=== PATIENT | female | born 1970 | race Caucasian/White ===

== ENCOUNTER 2019-08-21 22:31 | Emergency (ER) | payer OTHER ==
[~2019-08-21] VITALS: Ht 147.3 cm; Wt 72.7 kg
[2019-08-21 23:10] LABS: BASO # 0.1 10^3/uL (0.0-0.2); BASO % 0.4 % (0.0-1.0); EOS # 0.2 10^3/uL (0.0-0.5); HEMATOCRIT 46.9 % (36.0-47.0); HEMOGLOBIN 15.6 g/dl (12.0-15.5); LYMPH # 3.5 10^3/uL (1.5-5.0); LYMPH % 21.1 % (24.0-44.0); MEAN CORPUSCULAR HEMOGLOBIN 29.7 pg (27.0-33.0); MEAN CORPUSCULAR HGB CONC 33.3 g/dl (32.0-36.5); MEAN CORPUSCULAR VOLUME 89.3 fl (80.0-96.0); MONO # 1.4 10^3/uL (0.0-0.8); MONO % 8.2 % (0.0-5.0); NEUTROPHILS # 11.4 10^3/uL (1.5-8.5); NEUTROPHILS % 68.8 % (36.0-66.0); PLATELET COUNT, AUTOMATED 409 10^3/uL (150-450); RED BLOOD COUNT 5.25 10^6/uL (4.00-5.40); WHITE BLOOD COUNT 16.5 10^3/uL (4.0-10.0)
[2019-08-21 23:51] LABS: BLOOD UREA NITROGEN 16 MG/DL (7-18); CALCIUM LEVEL 9.6 MG/DL (8.5-10.1); CARBON DIOXIDE LEVEL 29 MEQ/L (21-32); CHLORIDE LEVEL 97 MEQ/L (98-107); CREATININE FOR GFR 1.21 MG/DL (0.55-1.30); GLOMERULAR FILTRATION RATE 50.1 (>51); GLUCOSE, FASTING 109 MG/DL (70-100); POTASSIUM SERUM 3.2 MEQ/L (3.5-5.1); SODIUM LEVEL 137 MEQ/L (136-145)
[2019-08-22] MEDS ORDERED: POTASSIUM CHLORIDE 10 MEQ SR TABLET PO ONE (01:30)
[2019-08-22 01:54] LABS: CK-MB VALUE MASS < 1.0 NG/ML (<3.6); CPK CREATINE PHOSPHOKINASE 99 U/L (26-192); MB/CK RELATIVE INDEX 1.01 (< OR =4); TROPONIN I < 0.02 NG/ML (< 0.10)
[2019-08-22 02:00] VITALS: BP 111/73
--- NOTE | 2019-08-23 18:56 | ECGEPIP ---
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
== END 2019-08-22 02:37 | disposition home or self-care (01) ==
LOC: M ED 22:31
DX: E86.0 Dehydration (principal); E87.6 Hypokalemia

== ENCOUNTER → 2019-11-17 | Outpatient (REF) | payer OTHER ==
[2019-11-17 14:00] LABS: RHEUMATOID FACTOR QUANT < 10.0 IU/ML (<15.0); TOTAL PROTEIN 8.4 GM/DL (6.4-8.2)
[2019-11-18 10:51] LABS: ALBUMIN 4.49 GM/DL (3.29-5.55); ALBUMIN % 53.4 % (55.8-66.1); ALPHA-1-GLOBULIN % 5.3 % (2.9-4.9); ALPHA-1-GLOBULINS 0.45 GM/DL (0.17-0.41); ALPHA-2-GLOBULINS 1.04 GM/DL (0.42-0.99); ALPHA-2-GLOBULINS % 12.4 % (7.1-11.8); BETA-1-GLOBULINS 0.58 GM/DL (0.28-0.60); BETA-1-GLOBULINS % 6.9 % (4.7-7.2); BETA-2-GLOBULINS % 7.2 % (3.2-6.5); GAMMA GLOBULIN % 14.8 % (11.1-18.8); GAMMA GLOBULINS 1.24 GM/DL (0.65-1.58)
[2019-11-18 14:07] LABS: ANTINUCLEAR ANTIBODIES DIRECT Negative (Negative)
[2019-11-21 11:34] LABS: DRVV SCREEN 51.8 SEC
[2019-11-21 11:37] LABS: PTT LUPUS TYPE ANTICOAG SCREEN 1.3 (0-1.2)
[2019-11-21 12:05] LABS: DRVV CONFIRM 39.7 SEC; NORMALIZED RATIO 1.3 (0.00-1.20)
[2019-11-23 08:08] LABS: HEXAGONAL PHASE PHOSPHOLIPID 0 sec (0-11)
== END ==
LOC: M LABNEURO 10:59
PROVIDERS: ATTEND Psychiatry & Neurology Neurology
DX: M25.561 Pain in right knee (principal)

== ENCOUNTER 2020-04-06 11:17 | Emergency (ER) | payer OTHER | END 2020-04-06 11:47 | disposition home or self-care (01) | LOC: M ED 11:17 | DX: H00.015 Hordeolum externum left lower eyelid (principal); I10 Essential (primary) hypertension; K21.9 Gastro-esophageal reflux disease without esophagitis; F41.9 Anxiety disorder, unspecified; Z79.899 Other long term (current) drug therapy ==

== ENCOUNTER → 2020-07-09 | Outpatient (CLI) | payer OTHER ==
[2020-07-09 11:29] LABS: BLOOD UREA NITROGEN 12 MG/DL (7-18); CALCIUM LEVEL 9.2 MG/DL (8.5-10.1); CARBON DIOXIDE LEVEL 26 MEQ/L (21-32); CHLORIDE LEVEL 104 MEQ/L (98-107); CREATININE FOR GFR 0.91 MG/DL (0.55-1.30); GLOMERULAR FILTRATION RATE > 60.0 (>51); GLUCOSE, FASTING 100 MG/DL (70-100); SODIUM LEVEL 137 MEQ/L (136-145)
[2020-07-09 11:40] LABS: CORTISOL AM 10.6 UG/DL (4.3-22.4)
== END ==
LOC: M PLALAB 09:22 → M LAB 09:50
PROVIDERS: ATTEND Internal Medicine
DX: E87.6 Hypokalemia (principal); I10 Essential (primary) hypertension

== ENCOUNTER → 2020-09-14 | Outpatient (REF) | payer OTHER ==
[2020-09-14 12:56] LABS: BASO # 0.1 10^3/uL (0.0-0.2); BASO % 0.5 % (0.0-1.0); EOS # 0.2 10^3/uL (0.0-0.5); EOS % 1.9 % (0.0-3.0); HEMATOCRIT 42.8 % (36.0-47.0); HEMOGLOBIN 13.8 g/dl (12.0-15.5); LYMPH # 2.4 10^3/uL (1.5-5.0); LYMPH % 25.5 % (24.0-44.0); MEAN CORPUSCULAR HEMOGLOBIN 28.9 pg (27.0-33.0); MEAN CORPUSCULAR HGB CONC 32.2 g/dl (32.0-36.5); MEAN CORPUSCULAR VOLUME 89.7 fl (80.0-96.0); MONO # 0.8 10^3/uL (0.0-0.8); MONO % 8.1 % (0.0-5.0); NEUTROPHILS % 63.8 % (36.0-66.0); PLATELET COUNT, AUTOMATED 390 10^3/uL (150-450); RED BLOOD COUNT 4.77 10^6/uL (4.00-5.40); WHITE BLOOD COUNT 9.4 10^3/uL (4.0-10.0)
[2020-09-14 15:21] LABS: ALBUMIN 3.7 GM/DL (3.2-5.2); ALT/SGPT 37 U/L (12-78); BILIRUBIN,TOTAL 0.3 MG/DL (0.2-1.0); BLOOD UREA NITROGEN 12 MG/DL (7-18); CALCIUM LEVEL 9.3 MG/DL (8.5-10.1); CARBON DIOXIDE LEVEL 31 MEQ/L (21-32); CHLORIDE LEVEL 102 MEQ/L (98-107); CHOLESTEROL LEVEL 173 MG/DL (<200); CHOLESTEROL RISK RATIO 4.219 (<5); CREATININE FOR GFR 1.01 MG/DL (0.55-1.30); FERRITIN 112 NG/ML (8-252); GLOMERULAR FILTRATION RATE > 60.0 (>51); GLUCOSE, FASTING 101 MG/DL (70-100); HDL CHOLESTEROL 41 MG/DL (>40); IRON (FE) 55 UG/DL (50-170); LDL CHOLESTEROL 96 MG/DL (<100); NON-HDL-C 132 MG/DL; POTASSIUM SERUM 4.4 MEQ/L (3.5-5.1); SODIUM LEVEL 138 MEQ/L (136-145); TOTAL IRON BINDING CAPACITY 306 UG/DL (250-450); TOTAL PROTEIN 7.4 GM/DL (6.4-8.2); TRIGLYCERIDES LEVEL 182 MG/DL (<150)
== END ==
LOC: M LAB REF 12:27
PROVIDERS: ATTEND Physician Assistant
DX: R53.81 Other malaise (principal); D64.9 Anemia, unspecified; I10 Essential (primary) hypertension

== ENCOUNTER 2020-09-16 14:38 | Emergency (ER) | payer OTHER ==
[~2020-09-16] VITALS: Ht 147.3 cm; Wt 76.9 kg
[2020-09-16 14:39] VITALS: BP 137/100
--- OUTSIDE RECORDS SUMMARY | 2020-09-16 14:48 | CCD | Continuity of Care Document ---
Author Author Ofelia SHORE MD Organization Unknown Address [address] [place] [address] Phone [phone] Care Team Providers Care Bpm Architect Name Role Phone [facility] [phone] Yas Shore MD AUTM [phone] [facility] AUTM Problems Active Problems Provider Date Essential hypertension Yas Shore MD Onset: 06/16/20 Polycystic ovary syndrome Yas Shore MD Onset: 06/16 Anxiety state Yas Shore MD Onset: 06/16/2019 Gastroesophageal reflux disease Yas Shore MD Onset: 06/16/2019 Hyperlipidemia Yas Shore MD Onset: 08/12/2019 Hypokalemia Yas Shore MD Onset: 09/23/2019 Varicose veins of lower extremity Yas Shore MD Onse t: 11/20/2019 Syncope and collapse Yas Shore MD Onset: 03/26/2020 Overactive bladder Yas Shore MD Onset: 03/26/2020 Social History Type Date Description Comments Sex Unknown Tobacco Use Start: Unknown Never Smoked Cigarettes Tobacco Use Start: Unknown Never Smoked Cigars Tobacco Use Start: Unknown Never Smoked A Pipe Tobacco Use Start: Unknown Never Used Smokeless Tobacco ETOH Use Rarely consumes alcohol Tobacco Use Start: Unknown Patient has never smoked Recreational Drug Use Denies Drug Use Exercise Type/Frequency Does not exercise Guns in Home No Smoke Alarms Yes Smoke Alarms Carbon Monoxide Detector: Yes Allergies, Adverse Reactions, Alerts Active Allergies Reaction Severity Comments Date NKDA 06/16/2019 NKEA 06/16/2019 NKFA 06/16/2019 Medications Active Medications SIG Qnty Indications Ordering Provide r Date Lisinopril 5mg Tablets take one tablet by mouth every day 90tabs Yas Shore MD 05/28/2020 Atorvastatin Calcium 10mg Tablets take one tablet by mouth at bedtime 90tabs Yas Shore MD 08/12/2019 Vitamin D3 Super Strength 50mcg (2000 Ut) Tablets take one tablet by mouth every day 90tabs Yas west MD Potassium Chloride ER 20Meq Tablet s ER take one tablet by mouth twice a day 180tabs Yas otrres MD Duloxetine HCL 60mg Caps DR Part take one capsule by mouth every day 90caps Yas Shore MD Tolterodine Tartrate 2mg Tablets take one tablet by mouth twice a day for bladder overactivity 180tabs Yas Shore MD Gabapentin 300mg Capsules take one capsule by mouth twice a day 180caps Yas Shore MD Hydroxyzine HCL 10mg Tablets take one tablet by mouth at bedtime as needed to help with sleep 90tabs Yas Shore MD Pantoprazole Sodium 40mg Tablets D R take one tablet by mouth twice a day 180tabs Yas roa MD Prempro 0.3-1.5mg Tablets 1 by mouth daily 90tabs Yas Shore MD Albuterol Sulfate HFA 108(90Base) mcg/Act Aerosol Inhale 2 Puffs By Mouth Four Times A Day as Needed Unknown Oxybutynin Chloride ER 10mg Tablets ER 24HR Take One Tablet By Mouth Every Day For Overactive Bladder Unknown Immunizations CPT Code Status Date Vaccine Lot # [id number] Given 05/28/2020 Influenza (>= 6 Months) P.F. Vaccine [id number] Given 08/12/2019 Tdap (Boostrix/Adacel) Vacci ne [id number] Given 08/12/2019 Pneumococcal 13(Prevnar 13) Vaccine [id number] Given 06/16/2019 Influenza (>= 6 Months) P.F. Vaccine [id number] Vital Signs Date Vital Result Comment 05/28/2020 1:53pm BP Systolic 122 mmHg BP Diastolic 86 mmHg Heart Rate 109 /min Body Temperature 99.0 F O2 % BldC Oximetry 97 % Weight 165.00 lb Weight 74.844 kg Height 58 inches 4'10" BMI (Body Mass Index) 34.5 kg/m2 BSA (Body Surface Area) 1.68 m2 03/26/2020 10:50am BP Systolic 110 mmHg BP Diastolic 70 mmHg Heart Rate 108 /min Body Temperature 98.2 F Respiratory Rate 16 /min O2 % BldC Oximetry 98 % Weight 159.50 lb Weight 72.349 kg Height 58 inches 4'10" BMI (Body Mass Index) 33.3 kg/m2 BSA (Body Surface Area) 1.65 m2 Results Test Acquired Date Facility Test Result H/L Range Note Xray 05/07/[address], [address] [place] [id number] [phone] Mammo Screening Bilateral with CAD <pending> Procedures Description No Information Available Medical Devices Description No Information Available Encounters Description No Information Available Assessments Date Code Description Provider 05/28/2020 R60.0 Localized edema Yas roa MD 05/28/2020 I10 Essential (primary) hypertension Yas Shore MD 05/28/2020 E87.6 Hypokalemia Yas roa MD 03/26/2020 E87.6 Hypokalemia Yas roa MD 03/26/2020 K21.9 Gastro-esophageal reflux disease without esophagitis Yas Shore MD 03/26/2020 I10 Essential (primary) hypertension Yas Shore MD 03/26/2020 R55 Syncope and collapse Yas torres MD Plan of Treatment 08/29/2019 - Yas Shore MD* R55 Syncope and collapse * E87.6 Hypokalemia * I10 Essential (primary) hypertension * All * Referral:* [facility] * Eric Antoine, * Follow up:* 2 weeks * Recommendations:* The patient had CT scan of the head which was negative. ER workup did not reveal anything to explain syncope. Possibilities are maybe she was dehydrated from the pneumonia or not sure hypokalemia with a potassium of 3.1 has contributed to syncope. She is on chlorthalidone 25 mg once a day. She is already taking potassium 20 Meq BID, so I am little surprised why her potassium was only 3.1. Chlorthalidone generally do not cause this severe hypokalemia. If her potassium is still on the lower side, need to do further workup for hypokalemia. She had previous cardiac workup about 2 years ago in [place] which was negative. She has history of on and off syncopal episode over the last 4-5 years. We will refer her to neurologist and also to human resources hr generalist for cardiac workup to look for any causes for syncopal episode. l explained to her that the fatigue that she is having now will resolve with time that her pneumonia is treated. Chest x-ray showed questionable left lower lobe infiltrate and she was treated. We will repeat x-ray in 2 weeks. We will check BMP today. Functional Status Description No Information Available Mental Status Description No Information Available Referrals Description No Information Available
--- OUTSIDE RECORDS SUMMARY | 2020-09-16 14:48 | CCD ---
Author Organization Unknown Address [address] [place] [address] Phone [phone] Care Team Providers Care Obstetrical Tech Name Role Phone Maritza Medina Unavailable Unavailable Allergies Code Code System Name Reaction Severity Status Onset NKDA Medications Name Status Start Date Stop Date albuterol sulfate HFA 90 mcg/actuation a erosol inhaler INHALE 2 PUFFS BY MOUTH FOUR TIMES A DAY NEEDED Active Not available amlodipine 10 mg tablet Take 1 tablet every day by oral route in the morning. Active Not available atorvastatin 10 mg tablet Take 1 tablet every day by oral route at bedtime. Active Not available azithromycin 250 mg tablet TAKE ONE TABLET BY MOUTH EVERY DAY Completed 08/03 chlorthalidone 25 mg tablet TAKE ONE TABLET BY MOUTH EVERY DAY IN THE MORNING Active Not available duloxetine 60 mg capsule,delayed release Take 1 capsule every day by oral route in the morning. Active Not available erythromycin 5 mg/gram (0.5 %) eye ointm ent APPLY 1/4 INCH STRIP TO OUTER LEFT EYELID/ EYELASHES FOUR TIMES A DAY AFTER HYGIENE DIRECTED Completed 08/12/2020 famotidine 20 mg tablet TAKE ONE TABLET BY MOUTH TWICE A DAY Active No t available gabapentin 100 mg capsule Take 3 capsules twice a day by oral route. Active Not available gabapentin 300 mg capsule TAKE ONE CAPSULE BY MOUTH TWICE A DAY Active N ot available hydroxyzine HCl 10 mg tablet Take by oral route in the evening. Active Not available lisinopril 5 mg tablet Active Not avail able lorazepam 1 mg tablet TAKE ONE TABLET BY MOUTH ONE HOUR BEFORE TEST THEN 10 MINUTES BEFORE IF NEEDED MAXIMUM DAILY DOSE 2 Active Not available metformin ER 500 mg tablet,extended rele ase 24 hr TAKE ONE TABLET BY MOUTH TWICE A DAY WITH FOOD Active Not available oxybutynin chloride 5 mg tablet Take 2 tablets every day by oral route in the morning. Completed 08/12/2020 oxybutynin chloride ER 10 mg tablet,exte nded release 24 hr TAKE ONE TABLET BY MOUTH EVERY DAY FOR OVERACTIVE BLADDER Active Not available pantoprazole 20 mg tablet,delayed releas e Take 2 tablets twice a day by oral route. Completed 08/12/2020 pantoprazole 40 mg tablet,delayed release Active Not available potassium 20 mg twice a day Active Not available potassium chloride ER 20 mEq tablet,exte nded release TAKE ONE TABLET BY MOUTH TWICE A DAY Active No t available Prempro Completed 08/12/2020 Prempro 0.3 mg-1.5 mg tablet TAKE ONE TABLET BY MOUTH EVERY DAY Active Not available Sudafed Active Not available sulfamethoxazole 800 mg-trimethoprim 160 mg tablet TAKE ONE TABLET BY MOUTH TWICE A DAY Completed tolterodine 2 mg tablet Take 1 tablet twice a day by oral route. Active Not available Vitamin D3 10 mcg (400 unit) capsule Take 5 capsules every day by oral route in the morning. Completed 08/12/2020 Vitamin D3 50 mcg (2,000 unit) tablet TAKE ONE TABLET BY MOUTH EVERY DAY Active Not available Problems Name Status Onset Date Source Hyperlipidemia Active 08/12/2020 Anemia Active 08/12/2020 Anxiety Active 08/12/2020 Depressive Disorder Active 08/12/2020 Hypertensive Disorder Active 08/12/2020 Allergic Rhinitis Active 08/12/2020 Asthma Active 08/12/2020 Overactive Bladder Active 08/12/2020 Procedures Date Name Performed by Carpal Tunnel Surgery Notes: JIHAN wrists Information not available Results Lab Results None recorded. Past Encounters 08/11/2020 Nasal Congestion; Malaise and Fatigue; Anemia; Hypertensive Disorder; Mixed Anxiety and Depressive Disorder Maritza Medina PA-C: [address] [place] [phone], Ph. Social History Tobacco Smoking Status Never Smoker Vaccine List None recorded. Plan of Care Patient Instructions Drink plenty of fluids. Rest. Follow a b land diet. Take your medications as prescribed and discuss any over the counter medications you want to take with a pharmacist or healthcare provider. Practice good handwashing. Stay home if you have a fever or are not feeling well. Follow up with the office if your symptoms are not improving in 3-5 days or significantly worsening. Report to the emergency room should your symptoms become severe. Call the office with any questions or concerns. Reminders Provider Appointments None recorded. Lab None recorded. Referral None recorded. Procedures None recorded. Surgeries None recorded. Imaging None recorded. Vitals Height Weight BMI Blood Pressure 58 in 167 lbs 34.9 kg/m2 122/93 mm[Hg]
--- OUTSIDE RECORDS SUMMARY | 2020-09-16 14:48 | CCD | Continuity of Care Document ---
Author Author Ofelia SHORE MD Organization Unknown Address [address] [place] [address] Phone [phone] Care Team Providers Care Local Company Tanker Driver Name Role Phone [facility] [phone] Yas Shore MD AUTM [phone] [facility] AUTM Problems Active Problems Provider [...] SIG Qnty Indications Ordering Provide r Date Metformin HCL ER 500mg Tablets ER 24HR Take One Tablet By Mouth Twice A Day With Food 30tabs A erick Shore MD 07/02/2020 Lisinopril 5mg Tablets take one tablet by mouth every day 90tabs Yas Shore MD 05/28/2020 Atorvastatin Calcium 10mg Tablets Take One Tablet By Mouth Every Day AT Bedtime 30tabs Yas torres MD 08/12/2019 Vitamin D3 Super Strength 50mcg (2000 Ut) Tablets take one tablet by mouth every day 90tabs Yas west MD Potassium Chloride ER 20Meq Tablet s ER take one tablet by mouth twice a day 180tabs Yas torres MD Duloxetine HCL 60mg Caps DR Part take one capsule by mouth every day 90caps Yas Shore MD Tolterodine Tartrate 2mg Tablets Take 1 Tablet By Mouth Two Times A Day 30tabs Yas roa MD Gabapentin 300mg Capsules Take One Capsule By Mouth Twice A Day 60caps Yas Shore MD Hydroxyzine HCL 10mg Tablets [...] CPT Code Status Date Vaccine Lot # [id number] Given 05/28/2020 Influenza (>= 6 Months) P.F. Vaccine [id number] Given 08/12/2019 Tdap (Boostrix/Adacel) Vacci ne [id number] Given 08/12/2019 Pneumococcal 13(Prevnar 13) Vaccine [id number] Given 06/16/2019 Influenza (>= 6 Months) P.F. [...] Date Facility Test Result H/L Range Note Laboratory test finding 07/09/2020 [facility] Cortisol Am 10.6 g/dL Normal 4.3-22.4 1 Basic Metabolic Profile 07/09/2020 [facility] Glucose, Fasting 100 mg/dL Normal 70-100 Blood Urea Nitrogen 12 mg/dL Normal 7-18 Creatinine For GFR 0.91 mg/dL Normal 0.55-1.30 Glomerular Filtration Rate > 60.0 Normal >51 2 Sodium Level 137 mEq/L Normal 136-145 Potassium Serum 4.0 mEq/L Normal 3.5-5.1 Chloride Level 104 mEq/L Normal 98-107 Carbon Dioxide Level 26 mEq/L Normal 21-32 Anion Gap 7 mEq/L Low 8-16 Calcium Level 9.2 mg/dL Normal 8.5-10.1 Xray 05/07/[address], [facility] [address] [place] [address] [phone] Mammo Screening Bilateral with CAD <pending> 1 note:<nlbl:demographic_chang ed> note:<nlbl:demographic_changed> 2 Units are mL/min/1.73 m2 Chronic Kidney Disease Staging per NKF: Stage I & II GFR >=60 Normal to Mildly Decreased Stage III GFR 30-59 Moderately Decreased Stage IV GFR 15-29 Severely Decreased Stage V GFR <15 Very Little GFR Left ESRD GFR <15 on 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 She has history of on and off syncopal episode over the last 4-5 years. We will refer her to neurologist and also to epic willow specialist for cardiac workup to look for any [...]
--- OUTSIDE RECORDS SUMMARY | 2020-09-16 14:48 | CCD | Continuity of Care Document ---
Author Author Ofelia SHORE MD Organization Unknown Address [address] [place] [address] Phone [phone] Care Team Providers Care Corn Husk Baler Name Role Phone [facility] [phone] Yas Shore MD AUTM [phone] [facility] AUTM Problems Active Problems [...] CPT Code Status Date Vaccine Lot # [id number] Given 05/28/2020 Influenza (>= 6 Months) P.F. Vaccine [id number] Given 08/12/2019 Tdap (Boostrix/Adacel) Vacci ne [id number] Given 08/12/2019 Pneumococcal 13(Prevnar 13) Vaccine [id number] Given 06/16/2019 Influenza (>= 6 Months) P.F. [...] H/L Range Note Laboratory test finding 07/09/2020 [facility] Cortisol Am 10.6 g/dL Normal 4.3-22.4 1 Basic Metabolic Profile 07/09/2020 [facility] Glucose, Fasting 100 mg/dL Normal 70-100 Blood [...] 8-16 Calcium Level 9.2 mg/dL Normal 8.5-10.1 Aldosterone/Renin Ratio 07/09/2020 [facility] Renin Activity 11.599 ng/mL/hr High 0.167-5.380 3 Aldosterone 5.3 ng/dL Normal 0.0-30.0 4 Aldos/Renin Ratio 0.5 Normal 0.0-30.0 5 Xray 05/07/[address], [address] [place] [address] [phone] Mammo Screening Bilateral with CAD <pending> 1 note:<nlbl:demographic_chang ed> note:<nlbl:demographic_changed> 2 Units are mL/min/1.73 m2 Chronic Kidney Disease Staging per NKF: Stage I & II GFR >=60 Normal to Mildly Decreased Stage III GFR 30-59 Moderately Decreased Stage IV GFR 15-29 Severely Decreased Stage V GFR <15 Very Little GFR Left ESRD GFR <15 on DIRECTOR OF BROADCAST 3 This test was developed and its performance characteristics determined by [facility]. It has not been cleared or approved by the Food and Drug Administration. 4 This test was developed and its performance characteristics determined by [facility]. It has not been cleared or approved by the Food and Drug Administration. 5 Units: ng/dL per ng/mL/ hr Performed at: - [facility] [id number] 61 Drum Handler: Chani Zuleta MD, Phone: [phone] Procedures Description No Information Available Medical Devices [...] cardiac workup about 2 years ago in [place] which was negative. She has history of on and off syncopal episode over the last 4-5 years. We will refer her to neurologist and also to range management specialist for cardiac workup to look for [...]
--- OUTSIDE RECORDS SUMMARY | 2020-09-16 14:50 | CCD ---
Author Author [facility] Organization [facility] Address Unknown Phone Unavailable Care Team Providers Care Pest Control Pilot Name Role Phone Manan Jones Unavailable Unavailable KarenManan Unavailable Unavailable Karen, Janes ONEAL Unavailable Unavailable Karen, Janes ONEAL Unavailable Unavailable Karen, Janes ONEAL Unavailable Unavailable Karen, Janes ONEAL Unavailable Unavailable KarenManan Unavailable Unavailable KarenManan parker Unavailable Unavailable KarenManan Unavailable Unavailable KarenManan Unavailable Unavailable KarenManan Unavailable Unavailable Karen, Janes ONEAL Unavailable Unavailable Karen, Janes ONEAL Unavailable Unavailable Karen, Janes ONEAL Unavailable Unavailable Karen, Janes ONEAL Unavailable Unavailable Karen, Janes ONEAL Unavailable Unavailable Karen, Janes ONEAL Unavailable Unavailable Karen, Janes MD Unavailable Unavailable Karen, Janes MD Unavailable Unavailable Karen, Janes MD Unavailable Unavailable Karen, Janes MD Unavailable Unavailable Karen, Janes MD Unavailable Unavailable Karen, Janes MD Unavailable Unavailable Karen, Janes MD Unavailable Unavailable Karen, Janes ONEAL Unavailable Unavailable Karen, Janes ONEAL Unavailable Unavailable Karen, Janes ONEAL Unavailable Unavailable Karen, Janes MD Unavailable Unavailable Karen, Janes MD Unavailable Unavailable Karen, Janes MD Unavailable Unavailable Karen, Janes MD Unavailable Unavailable Karen, Janes MD Unavailable Unavailable Karen, Janes MD Unavailable Unavailable Karen, Janes MD Unavailable Unavailable Karen, Janes MD Unavailable Unavailable Karen, Janes MD Unavailable Unavailable Karen, Janes MD Unavailable Unavailable Karen, Janes MD Unavailable Unavailable Karen, Janes MD Unavailable Unavailable Karen, Janes MD Unavailable Unavailable Karen, Janes MD Unavailable Unavailable Karen, Janes MD Unavailable Unavailable Karen, Janes MD Unavailable Unavailable Karen, Janes MD Unavailable Unavailable Karen, Janes MD Unavailable Unavailable Karen, Janes MD Unavailable Unavailable Karen, Janes MD Unavailable Unavailable Karen, Janes MD Unavailable Unavailable Karen, Janes MD Unavailable Unavailable Karen, Janes MD Unavailable Unavailable Karen, Janes MD Unavailable Unavailable Karen, Janes MD Unavailable Unavailable Karen, Janes MD Unavailable Unavailable Karen, Janes MD Unavailable Unavailable Karen, Janes MD Unavailable Unavailable Karen, Janes MD Unavailable Unavailable Karen, Janes MD Unavailable Unavailable Karen, Janes MD Unavailable Unavailable Karen, Janes MD Unavailable Unavailable Karen, Janes MD Unavailable Unavailable Karen, Janes MD Unavailable Unavailable Akren, Janes MD Unavailable Unavailable ANTECOL, Sanjay CASTELLON MD Unavailable Unavailable ANTECOL, Sanjay CASTELLON MD Unavailable Unavailable ANTECOL, Sanjay CASTELLON MD Unavailable Unavailable ANTECOL, Sanjay CASTELLON MD Unavailable Unavailable ANTECOL, Sanjay CASTELLON MD Unavailable Unavailable ANTECOL, Sanjay CASTELLON MD Unavailable Unavailable ANTECOL, Sanjay CASTELLON MD Unavailable Unavailable ANTECOL, Sanjay CASTELLON MD Unavailable Unavailable ANTECOL, Sanjay CASTELLON MD Unavailable Unavailable ANTECOL, Sanjay CASTELLON MD Unavailable Unavailable ANTECOL, Sanjay CASTELLON MD Unavailable Unavailable ANTECOL, Sanjay CASTELLON MD Unavailable Unavailable ANTECOL, Sanjay CASTELLON MD Unavailable Unavailable ANTECOL, Sanjay CASTELLON MD Unavailable Unavailable ANTECOL, Sanjay CASTELLON MD Unavailable Unavailable ANTECOL, Sanjay CASTELLON MD Unavailable Unavailable ANTECOL, Sanjay CASTELLON MD Unavailable Unavailable ANTECOL, Sanjay CASTELLON MD Unavailable Unavailable ANTECOL, Sanjay CASTELLON MD Unavailable Unavailable ANTECOL, Sanjay CASTELLON MD Unavailable Unavailable ANTECOL, Sanjay CASTELLON MD Unavailable Unavailable ANTECOL, Sanjay CASTELLON MD Unavailable Unavailable ANTECOL, Sanjay CASTELLON MD Unavailable Unavailable ANTECOL, Sanjay CASTELLON MD Unavailable Unavailable ANTECOL, Sanjay CASTELLON MD Unavailable Unavailable ANTECOL, Sanjay CSATELLON MD Unavailable Unavailable ANTECOL, Sanjay CASTELLON MD Unavailable Unavailable ANTECOL, Sanjay CASTELLON MD Unavailable Unavailable ANTECOL, Sanjay CASTELLON MD Unavailable Unavailable ANTECOL, Sanjay CASTELLON MD Unavailable Unavailable ANTECOL, Sanjay CASTELLON MD Unavailable Unavailable ANTECOL, Sanjay CASTELLON MD Unavailable Unavailable ANTECOL, Sanjay CASTELLON MD Unavailable Unavailable ANTECOL, Sanjay CASTELLON MD Unavailable Unavailable ANTECOL, Sanjay CASTELLON MD Unavailable Unavailable ANTECOL, Sanjay CASTELLON MD Unavailable Unavailable ANTECOL, Sanjay CASTELLON MD Unavailable Unavailable ANTECOL, Sanjay CASTELLON MD Unavailable Unavailable ANTECOL, Sanjay CASTELLON MD Unavailable Unavailable ANTECOL, Sanjay CASTELLON MD Unavailable Unavailable ANTECOL, Sanjay CASTELLON MD Unavailable Unavailable ANTECOL, Sanjay CASTELLON MD Unavailable Unavailable ANTECOL, Sanjay CASTELLON MD Unavailable Unavailable ANTECOL, Sanjay CASTELLON MD Unavailable Unavailable ANTECOL, Sanjay CASTELLON MD Unavailable Unavailable ANTECOL, Sanjay CASTELLON MD Unavailable Unavailable ANTECOL, Sanjay CASTELLON MD Unavailable Unavailable ANTECOL, Sanjay CASTELLON MD Unavailable Unavailable ANTECOL, Sanjay CASTELLON MD Unavailable Unavailable ANTECOL, Sanjay CASTELLON MD Unavailable Unavailable ANTECOL, Sanjay CASTELLON MD Unavailable Unavailable ANTECOL, Sanjay CASTELLON MD Unavailable Unavailable ANTECOL, Sanjay CASTELLON MD Unavailable Unavailable ANTECOL, Sanjay CASTELLON MD Unavailable Unavailable ANTECOL, Sanjay CASTELLON MD Unavailable Unavailable Scordo, M Maritza PA Unavailable Unavailable Scordo, M Maritza PA Unavailable Unavailable Scordo, M Maritza PA Unavailable Unavailable Scordo, M Maritza PA Unavailable Unavailable Scordo, M Maritza PA Unavailable Unavailable Scordo, M Maritza PA Unavailable Unavailable Scordo, M Maritza PA Unavailable Unavailable Scordo, M Maritza PA Unavailable Unavailable Scordo, M Maritza PA Unavailable Unavailable Scordo, M Maritza PA Unavailable Unavailable Scordo, M Maritza PA Unavailable Unavailable Scordo, M Maritza PA Unavailable Unavailable Scordo, M Maritza PA Unavailable Unavailable Scordo, M Maritza PA Unavailable Unavailable Scordo, M Maritza PA Unavailable Unavailable Scordo, M Maritza PA Unavailable Unavailable Scordo, M Maritza PA Unavailable Unavailable Scordo, M Maritza PA Unavailable Unavailable Scordo, M Maritza PA Unavailable Unavailable Scordo, M Maritza PA Unavailable Unavailable Scordo, M Maritza PA Unavailable Unavailable Scordo, M Maritza PA Unavailable Unavailable Scordo, M Maritza PA Unavailable Unavailable Scordo, M Maritza PA Unavailable Unavailable Scordo, M Maritza PA Unavailable Unavailable Scordo, M Maritza PA Unavailable Unavailable Scordo, M Maritza PA Unavailable Unavailable Scordo, M Maritza PA Unavailable Unavailable Scordo, M Maritza PA Unavailable Unavailable Scordo, M Maritza PA Unavailable Unavailable Scordo, M Maritza PA Unavailable Unavailable Scordo, M Maritza PA Unavailable Unavailable Scordo, M Maritza PA Unavailable Unavailable Scordo, M Maritza PA Unavailable Unavailable Scordo, M Maritza PA Unavailable Unavailable Scordo, M Maritza PA Unavailable Unavailable Scordo, M Maritza PA Unavailable Unavailable Scordo, M Maritza PA Unavailable Unavailable Scordo, M Maritza PA Unavailable Unavailable Scordo, M Maritza PA Unavailable Unavailable TURRIN, JACK Unavailable Unavailable TURRIN, JACK Unavailable Unavailable TURRIN, JACK Unavailable Unavailable TURRIN, JACK Unavailable Unavailable KAREN CALERO MD Unavailable Unavailable KAREN CALERO MD Unavailable Unavailable KAREN CALERO MD Unavailable Unavailable AMKAREN LINK MD Unavailable Unavailable KAREN CALERO MD Unavailable Unavailable KAREN CALERO MD Unavailable Unavailable KAREN CALERO MD Unavailable Unavailable KAREN CALERO MD Unavailable Unavailable KAREN CALERO MD Unavailable Unavailable KAREN CALERO MD Unavailable Unavailable AMKAREN LINK MD Unavailable Unavailable KAREN CALERO MD Unavailable Unavailable Brynnchristianuranegro, F Yas MD Unavailable Unavailable Brynnumpurath, F Yas MD Unavailable Unavailable Kunnumpurath, F Yas MD Unavailable Unavailable Kunnumpurath, F Yas MD Unavailable Unavailable Kunnumpurath, F Yas MD Unavailable Unavailable Kunnumpurath, F Yas MD Unavailable Unavailable Kunnumpurath, F Yas MD Unavailable Unavailable Kunnumpurath, F Yas MD Unavailable Unavailable Kunnumpurath, F Yas MD Unavailable Unavailable Kunnumpurath, F Yas MD Unavailable Unavailable Kunnumpurath, F Yas MD Unavailable Unavailable Kunnumpurath, F Yas MD Unavailable Unavailable Kunnumpurath, F Yas MD Unavailable Unavailable Kunnumpurath, F Yas MD Unavailable Unavailable Kunnumpurath, F Yas MD Unavailable Unavailable Kunnumpurath, F Yas MD Unavailable Unavailable Kunnumpurath, F Yas MD Unavailable Unavailable Kunnumpurath, F Yas MD Unavailable Unavailable Kunnumpurath, F Yas MD Unavailable Unavailable Kunnumpurath, F Yas MD Unavailable Unavailable Kunnumpurath, F Yas MD Unavailable Unavailable Kunnumpurath, F Yas MD Unavailable Unavailable Kunnumpurath, F Yas MD Unavailable Unavailable Kunnumpurath, F Yas MD Unavailable Unavailable Kunnumpurath, F Yas MD Unavailable Unavailable Kunnumpurath, F Yas MD Unavailable Unavailable Kunnumpurath, F Yas MD Unavailable Unavailable Kunnumpurath, F Yas MD Unavailable Unavailable Kunnumpurath, F Yas MD Unavailable Unavailable Kunnumpurath, F Yas MD Unavailable Unavailable Kunnumpurath, F Yas MD Unavailable Unavailable Kunnumpurath, F Yas MD Unavailable Unavailable Kunnumpurath, F Yas MD Unavailable Unavailable Kunnumpurath, F Yas MD Unavailable Unavailable Kunnumpurath, F Yas MD Unavailable Unavailable Kunnumpurath, F Yas MD Unavailable Unavailable Kunnumpurath, F Yas MD Unavailable Unavailable Kunnumpurath, F Yas MD Unavailable Unavailable ALATORREPARDEEP MD Unavailable Unavailable ALATORREPARDEEP MD Unavailable Unavailable ALATORREPARDEEP MD Unavailable Unavailable ALATORREPARDEEP MD Unavailable Unavailable ALATORREPARDEEP MD Unavailable Unavailable ALATORREPARDEEP MD Unavailable Unavailable ALATORREPARDEEP MD Unavailable Unavailable ALATORREPARDEEP MD Unavailable Unavailable ALATORREPARDEEP MD Unavailable Unavailable ALATORREPARDEEP MD Unavailable Unavailable ALATORREPARDEEP MD Unavailable Unavailable ALATORREPARDEEP MD Unavailable Unavailable ALATORREPARDEEP MD Unavailable Unavailable ALATORREPARDEEP MD Unavailable Unavailable ALATORREPARDEEP MD Unavailable Unavailable ALATORREPARDEEP MD Unavailable Unavailable ALATORREPARDEEP MD Unavailable Unavailable ALATORREPARDEEP MD Unavailable Unavailable ALATORREPARDEEP MD Unavailable Unavailable ALATORREPARDEEP MD Unavailable Unavailable ALATORREPARDEEP MD Unavailable Unavailable ALATORREPARDEEP MD Unavailable Unavailable ALATORREPARDEEP MD Unavailable Unavailable ALATORREPARDEEP MD Unavailable Unavailable ALATORREPARDEEP MD Unavailable Unavailable ALATORREPARDEEP MD Unavailable Unavailable ALATORREPARDEEP MD Unavailable Unavailable ALATORREPARDEEP MD Unavailable Unavailable ALATORREPARDEEP MD Unavailable Unavailable ALATORREPARDEEP MD Unavailable Unavailable ALATORRE, PARDEEP ONEAL Unavailable Unavailable ALATORREPARDEEP MD Unavailable Unavailable ALATORRE, PARDEEP ONEAL Unavailable Unavailable ALATORRE, PARDEEP ONEAL Unavailable Unavailable ALATORRE, PARDEEP MD Unavailable Unavailable ALATORREPARDEEP ROBERSON MD Unavailable Unavailable ALATORRE PARDEEP MD Unavailable Unavailable ALATORRE PARDEEP MD Unavailable Unavailable ALATORRE, PARDEEP MD Unavailable Unavailable ALATORRE, PARDEEP MD Unavailable Unavailable ALATORRE, PARDEEP MD Unavailable Unavailable ALATORREPARDEEP ROBERSON MD Unavailable Unavailable ALATORRE PARDEEP MD Unavailable Unavailable ALATORRE PARDEEP MD Unavailable Unavailable ALATORRE PARDEEP MD Unavailable Unavailable ALATORRE PARDEEP MD Unavailable Unavailable ALATORRE PARDEEP MD Unavailable Unavailable ALATORRE PARDEEP MD Unavailable Unavailable ALATORRE PARDEEP MD Unavailable Unavailable ALATORRE, PARDEEP MD Unavailable Unavailable ALATORRE PARDEEP MD Unavailable Unavailable ALATORRE, PARDEEP MD Unavailable Unavailable ALATORRE, PARDEEP MD Unavailable Unavailable ALATORRE PARDEEP MD Unavailable Unavailable ALATORREPARDEEP ROBERSON MD Unavailable Unavailable ALATORREPARDEEP ROBERSON MD Unavailable Unavailable ALATORREPARDEEP ROBERSON MD Unavailable Unavailable ALATORREPARDEEP ROBERSON MD Unavailable Unavailable ALATORREPARDEEP ROBERSON MD Unavailable Unavailable ALATORREPARDEEP ROBERSON MD Unavailable Unavailable ALATORREPARDEEP ROBERSON MD Unavailable Unavailable ALATORREPARDEEP ROBERSON MD Unavailable Unavailable ALATORREPARDEEP ROBERSON MD Unavailable Unavailable ALATORREPARDEEP ROBERSON MD Unavailable Unavailable ALATORREPARDEEP ROBERSON MD Unavailable Unavailable ALATORREPARDEEP MD Unavailable Unavailable ALATORREPARDEEP ROBERSON MD Unavailable Unavailable ALATORREPARDEEP MD Unavailable Unavailable LANDON, IMELDA JONATHAN RIG SUPERVISOR Unavailable Unavailable LANDON, IMELDA JONATHAN RIG SUPERVISOR Unavailable Unavailable LANDON, IMELDA JONATHAN RIG SUPERVISOR Unavailable Unavailable LANDON, IMELDA JONATHAN RIG SUPERVISOR Unavailable Unavailable LANDON, IMELDA JONATHAN RIG SUPERVISOR Unavailable Unavailable LANDON, IMELDA JONATHAN RIG SUPERVISOR Unavailable Unavailable LANDON, IMELDA JONATHAN RIG SUPERVISOR Unavailable Unavailable LANDON, IMELDA JONATHAN RIG SUPERVISOR Unavailable Unavailable LANDON, IMELDA JONATHAN RIG SUPERVISOR Unavailable Unavailable LANDON, IMELDA JONATHAN RIG SUPERVISOR Unavailable Unavailable LANDON, IMELDA JONATHAN RIG SUPERVISOR Unavailable Unavailable LANDON, IMELDA JONATHAN RIG SUPERVISOR Unavailable Unavailable LANDON, IMELDA JONATHAN RIG SUPERVISOR Unavailable Unavailable LANDON, IMELDA JONATHAN RIG SUPERVISOR Unavailable Unavailable LANDON, IMELDA JONATHAN RIG SUPERVISOR Unavailable Unavailable LANDON, IMELDA JONATHAN RIG SUPERVISOR Unavailable Unavailable LANDON, IMELDA JONATHAN RIG SUPERVISOR Unavailable Unavailable LANDON, IMELDA JONATHAN RIG SUPERVISOR Unavailable Unavailable LANDON, IMELDA JONATHAN RIG SUPERVISOR Unavailable Unavailable LANDON, IMELDA JONATHAN RIG SUPERVISOR Unavailable Unavailable LANDON, IMELDA JONATHAN RIG SUPERVISOR Unavailable Unavailable LANDON, IMELDA JONATHAN RIG SUPERVISOR Unavailable Unavailable LANDON, IMELDA JONATHAN RIG SUPERVISOR Unavailable Unavailable Kunnumpurath, F Yas MD Unavailable Unavailable Kunnumpurath, F Yas MD Unavailable Unavailable Kunnumpurath, F Yas MD Unavailable Unavailable Kunnumpurath, F Yas MD Unavailable Unavailable Kunnumpurath, F Yas MD Unavailable Unavailable Kunnumpurath, F Yas MD Unavailable Unavailable Kunnumpurath, F Yas MD Unavailable Unavailable Kunnumpurath, F Yas MD Unavailable Unavailable Kunnumpurath, F Yas MD Unavailable Unavailable Kunnumpurath, F Yas MD Unavailable Unavailable Kunnumpurath, F Yas MD Unavailable Unavailable Kunnumpurath, F Yas MD Unavailable Unavailable Kunnumpurath, F Yas MD Unavailable Unavailable Kunnumpurath, F Yas MD Unavailable Unavailable Kunnumpurath, F Yas MD Unavailable Unavailable Kunnumpurath, F Yas MD Unavailable Unavailable Kunnumpurath, F Yas MD Unavailable Unavailable Kunnumpurath, F Yas MD Unavailable Unavailable Kunnumpurath, F Ays MD Unavailable Unavailable Kunnumpurath, F Yas MD Unavailable Unavailable Kunnumpurath, F Yas MD Unavailable Unavailable Kunnumpurath, F Yas MD Unavailable Unavailable Kunnumpurath, F Yas MD Unavailable Unavailable Kunnumpurath, F Yas MD Unavailable Unavailable Kunnumpurath, F Yas MD Unavailable Unavailable Kunnumpurath, F Yas MD Unavailable Unavailable Kunnumpurath, F Yas MD Unavailable Unavailable Kunnumpurath, F Yas MD Unavailable Unavailable Kunnumpurath, F Yas MD Unavailable Unavailable Kunnumpurath, F Yas MD Unavailable Unavailable Kunnumpurath, F Yas MD Unavailable Unavailable Kunnumpurath, F Yas MD Unavailable Unavailable Kunnumpurath, F Yas MD Unavailable Unavailable Kunnumpurath, F Yas MD Unavailable Unavailable Kunnumpurath, F Yas MD Unavailable Unavailable Kunnumpurath, F Yas MD Unavailable Unavailable Kunnumpurath, F Yas MD Unavailable Unavailable Kunnumpurath, F Yas MD Unavailable Unavailable Ashkan Alvarez MD Unavailable Unavailable Ashkan Alvarez MD Unavailable Unavailable Ashkan Alvarez MD Unavailable Unavailable Ashkan Alvarez MD Unavailable Unavailable Ashkan Alvarez MD Unavailable Unavailable Narins, Red [place] MD Unavailable Unavailable Narins, Ashkan MD Unavailable Unavailable Narins, [place] MD Unavailable Unavailable Narins, Ashkan MD Unavailable Unavailable Narins, [place] MD Unavailable Unavailable Narins, Ashkan MD Unavailable Unavailable Narins, Ashkan MD Unavailable Unavailable Narins, [place] MD Unavailable Unavailable Narins, Ashkan MD Unavailable Unavailable Narins, [place] MD Unavailable Unavailable Narins, [place] MD Unavailable Unavailable Narins, [place] MD Unavailable Unavailable Narins, Ashkan MD Unavailable Unavailable Narins, Ashkan MD Unavailable Unavailable Narins, Ashkan MD Unavailable Unavailable Narins, Ashkan MD Unavailable Unavailable Narins, [place] MD Unavailable Unavailable Narins, Ashkan MD Unavailable Unavailable Narins, Ashkan MD Unavailable Unavailable Narins, Ashkan MD Unavailable Unavailable Narins, [place] MD Unavailable Unavailable Narins, [place] MD Unavailable Unavailable Narins, Ashkan MD Unavailable Unavailable Narins, Ashkan MD Unavailable Unavailable Narins, [place] MD Unavailable Unavailable Narins, [place] MD Unavailable Unavailable Narins, [place] MD Unavailable Unavailable Narins, [place] MD Unavailable Unavailable Narins, [place] MD Unavailable Unavailable Narins, [place] MD Unavailable Unavailable Narins, [place] MD Unavailable Unavailable Narins, Ashkan MD Unavailable Unavailable Narins, [place] MD Unavailable Unavailable Narins, Ashkan MD Unavailable Unavailable Narins, Ashkan MD Unavailable Unavailable Narins, Ashkan MD Unavailable Unavailable Narins, Ashkan MD Unavailable Unavailable Narins, Ashkan MD Unavailable Unavailable Narins, Ashkan MD Unavailable Unavailable Narins, [place] MD Unavailable Unavailable Re-disclosure Warning The records that you are about to access may contain information from federally-assisted alcohol or drug abuse programs. If such information is present, then the following federally mandated warning applies: This information has been disclosed to you from records protected by federal confidentiality rules (42 CFR part 2). The federal rules prohibit you from making any further disclosure of this information unless further disclosure is expressly permitted by the written consent of the person to whom it pertains or as otherwise permitted by 42 CFR part 2. A general authorization for the release of medical or other information is NOT sufficient for this purpose. The Federal rules restrict any use of the information to criminally investigate or prosecute any alcohol or drug abuse patient.The records that you are about to access may contain highly sensitive health information, the redisclosure of which is protected by Article 27-F of the [facility] Public Health law. If you continue you may have access to information: Regarding HIV / AIDS; Provided by facilities licensed or operated by the [facility] Office of Mental Health; or Provided by the [facility] Office for People With Developmental Disabilities. If such information is present, then the following [facility] mandated warning applies: This information has been disclosed to you from confidential records which are protected by state law. State law prohibits you from making any further disclosure of this information without the specific written consent of the person to whom it pertains, or as otherwise permitted by law. Any unauthorized further disclosure in violation of state law may result in a fine or longterm sentence or both. A general authorization for the release of medical or other information is NOT sufficient authorization for further disc losure. Encounters Encounter Providers Location Date Indications Data Source(s ) [facility]2020 08[facility]55:42 AM [facility] KEVIN CrumC: [address] [place] [id number], Ph. Attender: Maritza RIOS [facility] Medical 08/11/2020 12:00:00 AM EST ALONDRA ([facility]) Outpatient Attender: Ashkan Leahy/ Iris kim 06/10/2020 02:45:00 PM EDT [facility] [place] Outpatient Attender: Yas Shore MDConsultant: Yas west MD 05/28/2020 01:43:00 PM EDT - 05/28/2020 01:43:[address] [facility] Outpatient Attender: Yas Shore MDConsultant: Yas west MD 03/26/2020 10:42:00 AM EDT - 03/26/2020 10:42:[address] [facility] Outpatient [address] [place] [address] 03/15/2020 12:00:00 AM EDT eCW1 ([facility]) Outpatient [address] [place] [address] 03/09/2020 12:00:00 AM EDT eCW1 ([facility]) Outpatient [address] [place] [address] 02/24/2020 12:00:00 AM EDT eCW1 ([facility]) Outpatient [address] [place] [address] 02/16/2020 12:00:00 AM EDT eCW1 ([facility]) [facility] [address] [place] [address] 02/16/2020 12:00:00 AM EDT eCW1 ([facility]) Outpatient Attender: PARDEEP ALATORRE MDA reilly: Yas Shore MDConsultant: Yas Shore MD 12/23/2019 11:20:00 AM EDT - 12/23/2019 11:20:00 AM EDT [facility] [address] [place] [id number] 12/22/2019 12:00:00 AM EDT eCW1 ([facility]) Outpatient Attender: Yas Shore MD Family Practice 0 12/19/2019 02:20:00 PM EDT MEDENT ([facility]) Outpatient Attender: Yas Shore MDConsultant: Yas wset MD 12/19/2019 02:12:00 PM EDT - 12/19/2019 02:12:[address] [facility] Outpatient Attender: Janes Jones MD Main office - [place] 12/09/2019 11:00:00 AM EDT MEDENT ([facility], ) Outpatient Attender: Yas Shore MD Family Practice 0 11/20/2019 03:00:00 PM EDT [facility] ([facility]) Outpatient Attender: Yas Shore MDConsultant: Yas west MD 11/20/2019 02:52:00 PM EDT - 11/20/2019 02:52:[address] [facility] Outpatient Attender: Janes Jones MD Main office - [place] 11/17/2019 10:00:00 AM EDT [facility] ([facility], ) Outpatient Attender: JONATHAN LANDON NPConsultant: Yas lopez MD 11/06/2019 10:46:00 AM EST - 11/06/2019 10:46:00 AM [facility] Outpatient Attender: JONATHAN LANDON NP Family Practice 11/06/2019 10 :00:00 AM EST [facility] ([facility]) Outpatient Attender: Yas Shore MDConsultant: Yas west MD 09/22/2019 02:25:00 PM EST - 09/22/2019 03:26:00 PM [facility] Outpatient Attender: CANDE HANNA MD Main Office 09/11/2019 07:45:00 AM EST [facility] ([facility]) Outpatient Attender: Yas Shore MDConsultant: Yas west MD 08/29/2019 11:03:00 AM EST - 08/29/2019 11:03:00 AM [facility] Outpatient Attender: Yas Shore MD Family Practice 1 10/30/2018 10:20:00 AM EST [facility] ([facility] Outpatient 08/24/2019 04:52:00 PM [facility] Emergency Attender: JACK DUARTEConsultant: Yas torres MD 08/24/2019 04:25:00 PM EST - 08/24/2019 05:57:00 PM [facility] Patient discharged. Emergency Attender: KAREN CALERO MDConsultant: Yas west MD 08/22/2019 06:37:00 PM [facility] - 08/22/2019 09:51:00 PM [facility] Patient discharged. Outpatient Attender: Yas Shore MDConsultant: Yas west MD 08/12/2019 08:32:00 AM EST - 08/12/2019 08:32:00 AM [facility] Hospital Outpatient Attender: Yas Shore MD Family Practice 1 10/13/2018 07:40:00 AM EST [facility] ([facility]) Immunizations Vaccine Date Status Description Data Source(s) New in 2011. IIV4 05/28/2020 02:27:00 PM EDT completed [facility] ([facility]) Tdap 08/12/2019 08:51:00 AM EST completed M [facility]ENT ([facility]) Pneumococcal conjugate PCV 13 08/12/2019 08:50:00 AM EST completed [facility] ([facility]) Medications Medication Brand Name Start Date Product Form Dose Route Admi nistrative Instructions Pharmacy Instructions Status Indications Reaction Description Data Source(s) 24 HR Metformin hydrochloride 500 MG Extended Release Oral Tablet Metformin HCL ER 07/02/2020 12:00:00 AM EDT active [facility] ([facility]) Lisinopril 5 MG Oral Tablet Lisinopril 05/28/2020 12:00:00 AM EDT ORAL active [facility] ([facility]) Sulfamethoxazole 800 MG / Trimethoprim 160 MG Oral Tablet [B actrim] Bactrim DS 12/19/2019 12:00:00 AM EDT ORAL completed [facility] ([facility]) gabapentin 300 MG Oral Capsule [Neurontin] Neurontin 12/08 12:00:00 AM EDT ORAL active [facility] ( [facility]) Lorazepam 1 MG Oral Tablet [Ativan] Ativan 09/26/2019 12:00:[address] ORAL active [facility] ([facility]) 8 HR Acetaminophen 650 MG Extended Release Oral Tablet [Tyle nol] Tylenol 8 Hour 09/26/2019 12:00:00 AM EST active [facility] ([facility]) Chlorthalidone 25 MG Oral Tablet Chlorthalidone 09/10/2019 12:00:00 A M EST ORAL active [facility] ([facility] tolterodine tartrate 2 MG Oral Tablet Tolterodine Tartrate 0 09/10/2019 12:00:00 AM EST ORAL active [facility] ([facility] Hydroxyzine Hydrochloride 10 MG Oral Tablet Hydroxyzine HCL 09/10/2019 12:00:00 AM EST ORAL active [facility] ([facility]) duloxetine 60 MG Delayed Release Oral Capsule Duloxetine HCL 09/10/2019 12:00:00 AM EST ORAL active [facility] ([facility]) Famotidine 20 MG Oral Tablet Famotidine 09/10/2019 12:00:00 AM EST ORAL active [facility] ([facility]) pantoprazole 40 MG Delayed Release Oral Tablet Pantoprazole Sodium 09/10/2019 12:00:00 AM EST ORAL active M EDENT ([facility]) Vitamin E D-Alpha 400 UNT Oral Capsule Vitamin E Blend 0 09/10/2019 12:00:00 AM EST ORAL active [facility] ([facility]) gabapentin 300 MG Oral Capsule Gabapentin 09/10/2019 12:00:00 AM EST ORAL active [facility] ([facility]) atorvastatin 10 MG Oral Tablet Atorvastatin Calcium 09/10/2019 1 2:00:00 AM EST ORAL active [facility] ( [facility]) Metformin hydrochloride 500 MG Oral Tablet Metformin HCL 09/10/2019 12:00:00 AM EST ORAL active [facility] ([facility]) Amlodipine 10 MG Oral Tablet Amlodipine Besylate 09/10/2019 12:00:00 AM EST ORAL active [facility] ([facility]) 24 HR Oxybutynin chloride 10 MG Extended Release Oral Tablet Oxybutynin Chloride ER 09/10/2019 12:00:00 AM EST ORAL active [facility] ([facility]) Prempro Prempro 09/10/2019 12:00:00 AM EST ORAL active [facility] ([facility]) Potassium Chloride 20 MEQ Extended Release Oral Tablet Potas sium Chloride ER 09/10/2019 12:00:00 AM EST ORAL active [facility] ([facility]) Cholecalciferol 2000 UNT Oral Capsule Vitamin D3 09/10/2019 12:00:00 AM EST ORAL active [facility] ([facility]) atorvastatin 10 MG Oral Tablet Atorvastatin Calcium 08/12/2019 1 2:00:00 AM EST active [facility] ( [facility]) Famotidine 20 MG Oral Tablet Famotidine 07/23/2019 12:00:00 AM EST active [facility] ([facility]) Erythromycin 0.005 MG/MG Ophthalmic Oint ment erythromycin 5 mg/gram (0.5 %) eye ointment APPLY 1/4 INCH STRIP TO OUTER LEFT EYELID/ EYELASHES FOUR TIMES A DAY AFTER HYGIENE DIRECTED erythromycin 5 mg/gram (0.5 %) eye ointm ent APPLY 1/4 INCH STRIP TO OUTER LEFT EYELID/ EYELASHES FOUR TIMES A DAY AFTER HYGIENE DIRECTED completed erythromycin 0.005 MG/MG Ophthalmic Ointment ALONDRA ([facility]) pantoprazole 20 MG Delayed Release Oral Tablet pantoprazole 20 mg tablet,delayed release Take 2 tablets twice a day by oral route. pantoprazole 20 mg tablet,delayed release Take 2 tablets twice a day by oral route. 2 completed pantoprazole 20 MG Delayed Relea se Oral Tablet ALONDRA ([facility]) Cholecalciferol 400 UNT Oral Capsule Vit rolon D3 10 mcg (400 unit) capsule Take 5 capsules every day by oral route in the morning. Vitamin D3 10 mcg (400 unit) capsule Take 5 capsules every day by oral route in the morning. 5 capsule(s) completed cholecalciferol 0.01 M G Oral Capsule ALONDRA ([facility]) Azithromycin 250 MG Oral Tablet azithrom ycin 250 mg tablet TAKE ONE TABLET BY MOUTH EVERY DAY azithromycin 250 mg tablet TAKE ONE TABLET BY MOUTH EVERY DA Y completed azithromycin 2 50 MG Oral Tablet ALONDRA ([facility]) Sulfamethoxazole 800 MG / Trimethoprim 1 60 MG Oral Tablet sulfamethoxazole 800 mg-trimethoprim 160 mg tablet TAKE ONE TABLET BY MOUTH TWICE A DAY sulfamethoxazole 800 mg-trimethoprim 160 mg tablet TAKE ONE TABLET BY MOUTH TWICE A DAY completed yepez lfamethoxazole 800 MG / trimethoprim 160 MG Oral Tablet [facility] ([facility]) Oxybutynin chloride 5 MG Oral Tablet oxy butynin chloride 5 mg tablet Take 2 tablets every day by oral route in the morning. oxybutynin chloride 5 mg tablet Take 2 tablets every day by oral route in the morning. 2 completed oxybutynin chloride 5 MG Oral Tablet ALONDRA ([facility]) Prempro completed Prempro ATHE ABE ([facility]) Insurance Providers Payer name Policy type / Coverage type Policy ID Covered green party ID Covered green party's relationship to clark Policy Clark Plan Information FORMERLY [facility] [id number] [facility] COMM[facility] [id number] 18 [id number] FORMERLY [facility] XIX [id number] 18 [id number] [facility] [id number] S [id number] FORMERLY [facility] PLAN XIX [id number] 18 [id number] PRIVATE PAY [place]ONA [place] S [address] [place] [place] MEDICAID -O/P EMERGENCY ROOM [id number] 18 [id number] MEDICAID -O/P EMERGENCY ROOM [id number] 18 [id number] [facility] [id number] Darlin [id number] ANSI-Commercial [id number] ANSI-Commercial [id number] [facility] [id number] Unemploye d [id number] ANSI-Commercial [id number] ANSI-Commercial [id number]-[id number] mc7v6xdr-[id number] [facility] [id number] S [id number] [facility] [id number] S [id number] [facility] [id number] S [id number] ANSI-Commercial [id number]-[id number] ANSI-Commercial [id number]-[id number]-[id number] [id number]-[id number]-nr11-961hr4ef9qx3 ANSI-Commercial [id number]-[id number] [id number]-[id number] ANSI-Commercial [id number] ANSI-Commercial [id number] ANSI-Commercial 96x9l6n3-j893-1qn3-34q7-y1s5vc99s2c6 23j7m8v8-l906-7nu5-17h0-v5r3fk39l7i3 ANSI-Commercial [id number]-[id number] hrod4hje-[id number] ANSI-Commercial [id number]-cxh4-7i5x-[id number]-olo7-4h2t-[id number] ANSI-Commercial [id number]-[id number]-n9zf-[id number] ANSI-Commercial nvz7467e-[id number] lvd5138e-[id number] ANSI-Commercial y00k749m-x3gv-768y-[id number] z51w843v-b3on-287w-hym9-4r676pu4b384 ANSI-Commercial [id number]-[id number]-[id number]-pg50-855z-[id number] ANSI-Commercial q09h0lx0-2131-276p-8w3u-93d06xt9o42i k84s4ps4-3676-434w-9s4g-89z32dz0z17t ANSI-Commercial [id number]-94c7-lg2k2g929l9p [id number]-92c6-od2z4h750o3w ANSI-Commercial [id number] 66m9l2v6-62x3-7814-1nh6-24481589z8g2 ANSI-Commercial 02u19u8w-ic9x-[id number] 59p80a6c-cv2g-2q12-7b36-2f9974up8i44 ANSI-Commercial [id number]-c22g-[id number] im6s4141-35c3-66up-b96i-[id number] ANSI-Commercial 356kc1sf-5j51-4bnj-[id number] 319sd2fn-6i79-8ewy-[id number] [facility] [id number] S [id number] ANSI-Commercial [id number]-[id number]-h52y-7q25-649m-[id number] ANSI-Commercial [id number]-e84t-18z9-[id number] 1g100i19-l15z-13e5-y68z-[id number] ANSI-Commercial [id number]-[id number] [id number]-z5t422s36d78 ANSI-Commercial 3341z57h-3y69-7h31-pw3o-86z1r7p48saa 4939w65l-2r97-3a33-sl1i-13p2m2g42xpy [facility] [id number] S [id number] ANSI-Commercial [id number]-4t88-63ai-[id number] [id number]-1t30-80zr-3d47uwyv1289 ANSI-Commercial [id number]-[id number]-[id number] 6t920l0p-eo36-2251-[id number] ANSI-Commercial fp66gmse-[id number] ac30wyut-31w0-2707-21n8-61s487j94td4 ANSI-Commercial [id number] [facility] [id number] Self [id number] ANSI-Commercial [id number]-[id number] 13m0024p-2h40-5w5w-wt25-s7w19z75f501 ANSI-Commercial [id number] [id number]-[id number] ANSI-Commercial [id number]-[id number]-[id number] ANSI-Commercial [id number]-[id number] [id number]-k80u-2879h14he6hl ANSI-Commercial owah874d-j2d1-833u-[id number] ensk963n-w1a6-838f-7072-[id number] ANSI-Commercial [id number]-[id number]-0i49-608w-[id number] ANSI-Commercial vrk56l55-c5n6-7462-q05c-[id number] jke94n81-d3r5-0889-v52r-m4618lgf3396 ANSI-Commercial [id number]-56f9-4u37-r8y4-576p8nj3p5ey [id number]-86v1-3d92-v3e4-441c2pa4h0pu [facility] [id number] S [id number] ANSI-Commercial y858i5dh-[id number]-[id number]-[id number] [id number]-[id number]-27k9-[id number] ANSI-Commercial 582vtdh0-70r8-1071-[id number] 520yxae4-56l2-3832-ja40-89lu9h4g457m ANSI-Commercial 71t0z9e7-21o8-0ng9-[id number]-[id number] [facility] [id number] S [id number] [facility] [id number] S [id number] [facility] [id number] S [id number] [facility] [id number] S [id number] MEDICAID [id number] S [id number] MEDICAID [id number] S [id number] MEDICAID [id number] S [id number] MEDICAID [id number] S [id number] MEDICAID [id number] S [id number] Problems, Conditions, and Diagnoses Code Display Name Description Problem Type Effective Dates Data Source(s) 187408840 Overactive bladder Overactive Bladder Problem 06/2020 12:00:00 AM JEAN CARLOS CANTU ([facility]) [id number] Asthma Asthma Problem 08/12/2020 12:00:00 AM NANCY CANTU ([facility]) 71732152 Allergic rhinitis Allergic Rhinitis Problem 08/12/2020 12:00:00 AM JEAN CARLOS CANTU ([facility]) 04131006 Hypertensive disorder Hypertensive Disorder Problem 08/12/2020 12:00:00 AM EST ALONDRA ([facility]) 23421555 Depressive disorder Depressive Disorder Problem 1 10/13/2019 12:00:00 AM EST ALONDRA ([facility]) 66410439 Anxiety Anxiety Problem 08/12/2020 12:00:00 AM NANCY CANTU ([facility]) 924479470 Anemia Anemia Problem 08/12/2020 12:00:00 AM NANCY CANTU ([facility]) 34948219 Hyperlipidemia Hyperlipidemia Problem 08/12/2020 12:00: 00 AM EST ALONDRA ([facility]) 925967209 Overactive bladder Overactive bladder Problem 12:00:00 AM EDT MED[facility] ([facility]) 411661515 Syncope and collapse Syncope and collapse Problem 03/26/2020 12:00:00 AM EDT [facility] ([facility]) 71414332 Varicose veins of lower extremity Varicose veins of lower extremity Problem 11/20/2019 12:00:00 AM EDT [facility] ([facility]) 52780244 Seizure Seizure Problem 09/26/2019 12:00:00 AM ES T [facility] ([facility] 277543103 Syncope and collapse Syncope and collapse Problem 09/26/2019 12:00:00 AM EST [facility] ([facility] 76670083 Hypokalemia Hypokalemia Problem 09/23/2019 12:00:00 AM EST [facility] ([facility]) 622735122 Electrocardiogram abnormal Electrocardiogram abnormal Problem 09/11/2019 12:00:00 AM EST [facility] ([facility]) 507740574 Dietary management surveillance Dietary manageme nt surveillance Problem 09/11/2019 12:00:00 AM EST [facility] ([facility]) 703572142 Obesity Obesity Problem 09/11/2019 12:00:00 AM ES T [facility] ([facility]) 531844374 Pure hypercholesterolemia Pure hypercholesterolemia Pr oblem 09/11/2019 12:00:00 AM EST [facility] ([facility]) 65011095 Essential hypertension Essential hypertension Problem 09/11/2019 12:00:00 AM EST [facility] ([facility]) 622773272 Syncope and collapse Syncope and collapse Problem 09/11/2019 12:00:00 AM EST [facility] ([facility]) 24324658 Hyperlipidemia Hyperlipidemia Problem 08/12/2019 12:00: 00 AM EST [facility] ([facility]) Z23 Encounter for immunization Encounter for immunization Diagnosis 05/28/2020 01:43:[address] [facility] I10 Essential (primary) hypertension Essential (primary) h ypertension Diagnosis 05/28/2020 01:43:[address] [facility] R600 Localized edema Localized edema Diagnosis 05/28/2020 01:4 3:[address] [facility] K219 Gastro-esophageal reflux disease without esophagitis Gastro-esophageal reflux disease without esophagitis Diagnosis 12/23/2019 11:20:00 AM ED [facility] J0190 Acute sinusitis, unspecified Acute sinusitis, unspecif ied Diagnosis 12/19/2019 02:12:[address] [facility] N390 Urinary tract infection, site not specif ied Urinary tract infection, site not specified Diagnosis 12/19/2019 02:12:[address] [facility] R05 Cough Cough Diagnosis 11/20/2019 02:52:[address] [facility] [id number] Varicose veins of right lower extremity with pain Varicose veins of right lower extremity with pain Diagnosis 11/20/2019 02:52:00 PM EDT [facility] [id number] Pain in left knee Pain in left knee Diagnosis 11/20/2019 02:52:[address] 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 emic drugs longterm (current) use of oral hypoglycemic drugs Diagnosis 08/24/2019 04:25:00 PM [facility] E119 Type 2 diabetes mellitus without complic ations Type 2 diabetes mellitus without complications Diagnosis 08/24/2019 04:25:00 PM [facility] J159 Unspecified bacterial pneumonia Unspecified bacterial pneumonia Diagnosis 08/24/2019 04:25:00 PM [facility] R509 Fever, unspecified Fever, unspecified Diagnosis 9 04:25:00 PM [facility] Z6834 Body mass index (BMI) 34.0-34.9, adult B ramona mass index (BMI) 34.0-34.9, adult Diagnosis 08/12/2019 08:32:00 AM [facility] E669 Obesity, unspecified Obesity, unspecified Diagnosis 08/12/2019 08:32:00 AM [facility] E7800 Pure hypercholesterolemia, unspecified P ure hypercholesterolemia, unspecified Diagnosis 08/12/2019 08:32:00 AM [facility] F419 Anxiety disorder, unspecified Anxiety disorder, unspec ified Diagnosis 08/12/2019 08:32:00 AM [facility] Surgeries/Procedures Procedure Description Date Indications Data Source(s) ELECTROENCEPHALOGRAM W/REC AWAKE&ASLEEP 10/03/2019 12: 00:00 AM EST MED[facility] ([facility] ELECTROENCEPHALOGRAM W/REC AWAKE&ASLEEP 10/03/2019 12: 00:00 AM EST [facility] ([facility] ECG ROUTINE ECG W/LEAST 12 LDS W/I&R 09/11/2019 12:00: 00 AM EST [facility] ([facility]) Results ID Date Data Source [id number] 08/25/2020 08:55:42 AM EST [facility] NT INFORMATIONPatient MRN Name Date of Age Gend*PT [id number] Ofelia Hooker 1970 49 years F ---PT Location Admission Date/Time Visit ID Attending Provider --- --- --- --- EPI ID CSN Admitting Provider [id number] ---Addended by: MICHAEL ZALDIVAR on: 08/25/2020 08:55 AM Modules accepted: Orders Name Value Range Interpretation Code Description Data Tamra rce(s) Supporting Document(s) ID Date Data Source [id number] 07/09/2020 10:16:00 AM EST MED[facility] ([facility]) Name Value Range Interpretation Code Description Data Tamra rce(s) Supporting Document(s) Renin Activity 11.599 ng/mL/hr 0.167-5.380 Above high normal [facility] ([facility]) This test was developed and its performa nce characteristics determined by [facility]. It has not been cleared or approved by the Food and Drug Administration. Aldos/Renin Ratio 0.5 0.0-30.0 Normal (applies to non-numeri c results) [facility] ([facility]) Units: ng/dL per ng/mL/hr Performed at: - [facility] [id number] Proposal Engineer: hCani Zuleta MD, Phone: [phone] Aldosterone 5.3 ng/dL 0.0-30.0 Normal (applies to non-numeric resu lts) [facility] ([facility]) This test was developed and its performa nce characteristics determined by [facility]. It has not been cleared or approved by the Food and Drug Administration. ID Date Data Source [id number] 07/09/2020 10:16:00 AM EST [facility] ([facility]) Name Value Range Interpretation Code Description Data Tamra rce(s) Supporting Document(s) Glucose, Fasting 100 mg/dL 70-100 Normal (applies to non-numeric results) [facility] ([facility]) Blood Urea Nitrogen 12 mg/dL 7-18 Normal (applies to non-nume víctor results) [facility] ([facility]) Sodium Level 137 meq/L 136-145 Normal (applies to non-numeric res ults) [facility] ([facility]) Creatinine For GFR 0.91 mg/dL 0.55-1.30 Normal (applies to non -numeric results) [facility] ([facility]) Glomerular Filtration Rate Laboratory test result Normal (applies to non- numeric results) [facility]) <content>Units are mL/min/1.73 m2</content>
<content></content>
<content>Chronic Kidney Disease Staging per NKF:</content>
<content></content>
<content>Stage I & II GFR >=60 Normal to Mildly Decreased</content>
<content>Stage III GFR 30- 59 Moderately Decreased</content>
<content>Stage IV GFR 15-29 Severely Decreased</content>
<content>Stage V GFR <15 Very Little GFR Left</content>
<content>ESRD GFR <15 on INDUSTRIAL ELECTRICAL TECHNICIAN</content>
<content></content> Potassium Serum 4.0 meq/L 3.5-5.1 Normal (applies to non-numeric results) [facility] ([facility]) Carbon Dioxide Level 26 meq/L 21-32 Normal (applies to non-num annie results) [facility] ([facility]) Chloride Level 104 meq/L 98-107 Normal (applies to non-numeric r esults) [facility] ([facility]) Calcium Level 9.2 mg/dL 8.5-10.1 Normal (applies to non-numeric re sults) [facility] ([facility]) Anion Gap 7 meq/L 8-16 Below low normal [facility] ( [facility]) ID Date Data Source [id number] 07/09/2020 10:16:00 AM EST [facility] ([facility]) Name Value Range Interpretation Code Description Data Tamra rce(s) Supporting Document(s) Cortisol [Mass/volume] in Serum or Plasma --AM peak specimen 10.6 ug/dL 4.3-22.4 Normal (applies to non-numeric results) [facility] ([facility]) <content>note:<nlbl:demographic_changed></content>
<content>note:<nlbl:demog raphic_changed></content>
<content></content> ID Date Data Source [id number] 06/10/2020 01:31:00 PM EDT [facility] ([facility] Name Value Range Interpretation Code Description Data Tamra rce(s) Supporting Document(s) Glucose [Presence] in Urine Laboratory test result [facility] ([facility]) Ua Nitrite Laboratory test result ME DENT ([facility]) Protein [Presence] in Urine by Test strip Laboratory test result [facility] ([facility]) Ua Leuko Laboratory test result ME D[facility] ([facility]) Color of Urine Laboratory test result [facility] ([facility]) Ketones [Presence] in Urine by Test strip Laboratory test result [facility] ([facility]) Blood [Presence] in Urine by Visual Laboratory test result [facility] ([facility]) Clarity of Urine Laboratory test result [facility] ([facility]) Bilirubin.total [Presence] in Urine by Test strip Laboratory test res ult [facility] ([facility]) pH of Urine by Test strip 5.5 5.0-7.5 [facility] ([facility]) Ua Specific Hopkins 1.020 1.003-1.030 MEDE NT ([facility]) Urobilinogen [Mass/volume] in Urine by Test strip 0.2 E.U./dL 0.0-1.0 [facility] ([facility]) ID Date Data Source [id number] 05/07/2020 09:25:00 AM EDT [facility] ([facility]) Name Value Range Interpretation Code Description Data Tamra rce(s) Supporting Document(s) Mammo Screening Bilateral with CAD Laboratory test result [facility] ([facility]) ID Date Data Source [id number] 12/23/2019 11:10:00 AM EDT [facility] ([facility]) Name Value Range Interpretation Code Description Data Tamra rce(s) Supporting Document(s) Basic Metabolic Pane Laboratory test result [facility] ([facility]) BASIC METABOLIC PANEL Potassium 3.1 meq/L 3.6-5.0 Below low normal [facility] ( [facility]) Sodium 137 meq/L 134-153 [facility] ([facility]) Co2 23 meq/L 22-30 [facility] ([facility]) Chloride 94 meq/L 98-107 Below low normal [facility] ( [facility]) BUN 13 mg/dL 7-21 [facility] ([facility]) BUN/Creat 11 8-27 [facility] ([facility]) Glucose 206 mg/dL 65-110 Above high normal [facility] ([facility]) Creatinine 1.2 mg/dL 0.7-1.5 [facility] ([facility]) Calcium 9.6 mg/dL 8.4-10.2 [facility] ([facility]) Age 49 yrs [facility] ([facility]) Anion Gap 20.0 mmol/L 8.0-16.0 Above high normal [facility] ([facility]) Afr Amer GFR Laboratory test result [facility] ([facility]) Non-Aa GFR 50 mL/min [facility] ([facility]) Male GFR Interprentation 20-49 yrs >60 mL/min Normal 50-59 yrs >56 mL/min Normal 60-69 yrs >49 mL/min Normal 70-79yrs >42 mL/min Normal 80 and above >35 mL/min Normal Female GFR Interpretation 20-39 yrs >60 mL/min Normal 40-49 yrs >58 mL/min Normal 50-59 yrs >51 mL/min Normal 60-69 yrs >45 mL/min Normal 70-79 yrs >39 mL/min Normal 80 and above >32 mL/min Normal ID Date Data Source [id number] 12/23/2019 11:10:00 AM EDT [facility] ([facility]) Name Value Range Interpretation Code Description Data Tamra rce(s) Supporting Document(s) Iron 91 ug/dL 42-135 [facility] ([facility]) Uibc 184 ug/dL 112-347 [facility] ([facility]) Iron Sat 33 % [facility] ([facility]) Tibc 275 ug/dL 250-450 [facility] ([facility]) ID Date Data Source [id number] 12/23/2019 11:10:00 AM EDT [facility] ([facility]) Name Value Range Interpretation Code Description Data Tamra rce(s) Supporting Document(s) CBC W/Automated Diff Laboratory test result [facility] ([facility]) COMPLETE BLOOD COUNT WBC 11.7 10^3/uL 4.2-11.0 Above high normal [facility]EN T ([facility]) RBC 5.20 10^6/uL 4.20-5.40 [facility] ([facility]) Hemoglobin 14.9 g/dL 12.0-16.0 [facility] ([facility]) Hematocrit 44.8 % 37.0-47.0 [facility] ([facility]) MCV 86.2 fL 81.0-101 [facility] ([facility]) MCH 28.7 pg 27.0-34.0 [facility] ([facility]) RDW 13.1 % 11.5-14.5 [facility] ([facility]) MCHC 33.3 g/dL 31.0-36.0 [facility] ([facility]) MPV 9.1 fL 7.4-10.4 [facility] ([facility]) Platelets 425 10^3/uL 150-450 [facility] ([facility]) Lymph 21.7 % 25.0-40.0 Below low normal [facility] ( [facility]) Neut 70.6 % 37.0-80.0 [facility] ([facility]) [place] 5.7 % 3.0-8.0 [facility] ([facility]) Eos 1.2 % 0.0-7.0 [facility] ([facility]) %Ig 0.4 % 0.0-0.0 Above high normal [facility] ([facility]) %NRBC 0.0 % 0.0-0.0 [facility] ([facility]) Baso 0.4 % 0.0-2.5 [facility] ([facility]) #[place] 0.66 10^3/uL 0.00-0.90 [facility] ([facility]) #Eos 0.14 10^3/uL 0.00-0.70 [facility] ([facility]) #Lymph 2.53 10^3/uL 0.60-3.40 [facility] ([facility]) #Neut 8.24 10^3/uL 2.00-6.90 Above high normal [facility] T ([facility]) #Baso 0.05 10^3/uL 0.00-0.20 [facility] ([facility]) #Ig 0.05 10^3/uL 0.00-0.10 [facility] ([facility]) #NRBC 0.00 10^3/uL 0.00-0.00 [facility] ([facility]) Manual Diff Laboratory test result M [facility] ([facility]) RBC Morph Laboratory test result [facility] ([facility]) ID Date Data Source [id number] 12/24/2019 04:02:[address] [facility] Name Value Range Interpretation Code Description Data Tamra rce(s) Supporting Document(s) BASIC METABOLIC PANEL [facility] BASIC METABOLIC PANEL Sodium [Moles/volume] in Serum or Plasma 137 mEq/L 134 - 153 [facility] Potassium [Moles/volume] in Serum or Plasma 3.1 mEq/L 3.6 - 5.[address] [facility] Chloride [Moles/volume] in Serum or Plasma 94 mEq/L 98 - [address] [facility] Carbon dioxide, total [Moles/volume] in Serum or Plasma 23 MEQ/L 22 - 30 [facility] Glucose [Mass/volume] in Serum or Plasma 206 MG/DL 65 - [address] [facility] BUN 13 MG/DL 7 - 21 [facility] al Creatinine [Mass/volume] in Serum or Plasma 1.2 MG/DL 0.7 - 1.5 [facility] BUN/CREAT 11 8 - 27 [facility] al Calcium [Mass/volume] in Serum or Plasma 9.6 MG/DL 8.4 - 10.2 [facility] Anion gap 3 in Serum or Plasma 20.0 mmol/L 8.0 - 16.[address] [facility] 49 [facility] AMER GFR >60 mL/min [facility] NON-AA GFR 50 mL/min [facility] jalen Male GFR Inter prentation 20-49 yrs >60 mL/min Normal 50-59 yrs >56 mL/min Normal 60-69 yrs >49 mL/min Normal 70-79yrs >42 mL/min Normal 80 and above >35 mL/min Normal Female GFR Interpretation 20-39 yrs >60 mL/min Normal 40-49 yrs >58 mL/min Normal 50-59 yrs >51 mL/min Normal 60-69 yrs >45 mL/min Normal 70-79 yrs >39 mL/min Normal 80 and above >32 mL/min Normal ID Date Data Source [id number] 12/23/2019 05:19:[address] [facility] Name Value Range Interpretation Code Description Data Tamra rce(s) Supporting Document(s) Iron [Mass/volume] in Serum or Plasma 91 UG/DL 42 - 135 [facility] Iron binding capacity.unsaturated [Mass/volume] in Serum or Plasma 184 UG/DL 112 - 347 [facility] Iron binding capacity [Mass/volume] in Serum or Plasma 275 ug/dL 250 - 450 [facility] Iron saturation [Mass Fraction] in Serum or Plasma 33 % [facility] ID Date Data Source [id number] 12/23/2019 04:56:[address] [facility] Name Value Range Interpretation Code Description Data Tamra rce(s) Supporting Document(s) CBC W/AUTOMATED DIFF [facility] COMPLETE BLOOD COUNT Leukocytes [#/volume] in Blood by Automated count 11.7 10^3/uL 4.2 - 11.[address] [facility] Erythrocytes [#/volume] in Blood by Automated count 5.20 10^6/uL 4. 20 - 5.40 [facility] Hemoglobin [Mass/volume] in Blood 14.9 g/dL 12.0 - 16.0 [facility] Hematocrit [Volume Fraction] of Blood by Automated count 44.8 % 3 7.0 - 47.0 [facility] Erythrocyte mean corpuscular volume [Entitic volume] by Auto mated count 86.2 fL 81.0 - 101 [facility] Erythrocyte mean corpuscular hemoglobin [Entitic mass] by Automated count 28.7 pg 27.0 - 34.0 [facility] Erythrocyte mean corpuscular hemoglobin concentration [Mass/volume] by Automated count 33.3 g/dL 31.0 - 36.0 [facility] Erythrocyte distribution width [Ratio] by Automated count 13.1 % 11.5 - 14.5 [facility] Platelets [#/volume] in Blood by Automated count 425 10^3/uL 150 - [address] [facility] Platelet mean volume [Entitic volume] in Blood by Automated count 9.1 fL 7.4 - 10.4 [facility] Neutrophils/100 leukocytes in Blood by Automated count 70.6 % 37. 0 - 80.0 [facility] Lymphocytes/100 leukocytes in Blood by Manual count 21.7 % 25.0 - 40.[address] [facility] Monocytes/100 leukocytes in Blood by Automated count 5.7 % 3.0 - 8.0 [facility] Eosinophils/100 leukocytes in Blood by Automated count 1.2 % 0.0 - 7.0 [facility] Basophils/100 leukocytes in Blood by Automated count 0.4 % 0.0 - 2.5 [facility] %IG 0.4 % 0.0 - 0.0 H [facility] %NRBC 0.0 % 0.0 - 0.0 [facility] al Neutrophils [#/volume] in Blood by Automated count 8.24 10^3/uL 2.00 - 6.[address] [facility] Lymphocytes [#/volume] in Blood by Automated count 2.53 10^3/uL 0.60 - 3.40 [facility] Monocytes [#/volume] in Blood by Automated count 0.66 10^3/uL 0.00 - 0.90 [facility] Eosinophils [#/volume] in Blood by Automated count 0.14 10^3/uL 0.00 - 0.70 [facility] Basophils [#/volume] in Blood by Automated count 0.05 10^3/uL 0.00 - 0.20 [facility] #IG 0.05 10^3/uL 0.00 - 0.10 [facility] ospital #NRBC 0.00 10^3/uL 0.00 - 0.00 [facility] ospital MANUAL DIFF NOT INDICATED [facility] RBC MORPH NOT INDICATED [facility] spital ID Date Data Source [id number] 12/23/2019 11:10:00 AM EDT [facility] Name Value Range Interpretation Code Description Data Tamra rce(s) Supporting Document(s) Iron binding capacity [Mass/volume] in Serum or Plasma <pending> [facility] ([facility]) Iron [Mass/volume] in Serum or Plasma <pending> [facility] ([facility]) ID Date Data Source [id number] 12/19/2019 02:46:00 PM EDT [facility]) Name Value Range Interpretation Code Description Data Tamra rce(s) Supporting Document(s) Culture Urine Laboratory test result [facility]) _CULTURE URINE_ ^$[id number] ^^[id number] $$[id number] ^^112408 $$076343 $$718855 $$948069 $$052182 $$380710 $$361567 $$991651 $$964830 $$648754 $$945920 $$881413 $$917612 $$162995 $$238307 $$092068 $$856649 $$998624 $$757443 $$475745 $$946888 $$013108 $$671300 $$334022 ^^407623 $$251130 $$195089 $$456425 -- Continued on next page -- Patient: RONA Murrieta Order: Page 2 Culture: CULTURE URINE Status: Final -- Continued on next page -- Patient: RONA Murrieta Order: Page 2 Culture: CULTURE URINE Status: Prelim $$[id number] $$[id number] REPORTED DATE/TIME: 12/23/2019 14:05 Culture: CULTURE URINE Status: Final Urine Culture,Comprehensive: P1 Mixed urogenital dimitry 25,000-50,000 colony forming units per m L Previous result entered on 12/22/2019 04:52 ET Specimen has been received and testing has been initiated. P1 Test performed by: [facility] LAWRENCE #: [id number] [address] [place] [address] [phone] [facility] [id number] [employer] Operator : Wilmer Cordero MD NPI #: Proposal Engineer : 12/[email or web address] REF 12/23/[email or web address].SENT REF ID Date Data Source [id number] 12/23/2019 02:44:00 PM EDT [facility] Name Value Range Interpretation Code Description Data Tamra rce(s) Supporting Document(s) CULTURE URINE [facility] sp[facility] _CULTURE URINE_$$[id number]$$[id number]$$314295$$790189$$083308$$080559$$800691$$472139$$714465$$ 481624$$457290$$707442$$783179$$336995$$994134$$713496$$690432$$672465$$629940$$ 123673$$093946$$251949$$483655$$612239$$463130$$789120$$589854 -- Continued on next page --Patient: RONA Murrieta Order: [id number] Page 2Culture: CULTURE URINE Status: Final ==== -- Continued on next page --Patient: RONA Murrieta Order: [id number] Page 2Culture: CULTURE URINE Status: Prelim =====$$[id number]$$[id number] DATE/TIME: 12/23/2019 14:05Culture: CULTURE URINE Status: FinalUrine Culture,Comprehensive: Q6Hakqc urogenital flora25,000-50,000 colony forming units per mL Previous result entered on 12/22/2019 04:52 ET Specimen has been received and testing has been initiated.P1 Test performed by: [facility] CLIA #: [id number] [address] [place] [address] [phone] [facility] [id number] Director : Wilmer Cordero MD NPI #:Proposal Engineer : 12/22/[email or web address] REF 12/23/[email or web address].SENT REF ID Date Data Source [id number] 11/17/2019 11:00:00 AM EDT [facility] ([facility] ) Name Value Range Interpretation Code Description Data Tamra rce(s) Supporting Document(s) Comment For Hexagonal Confirm1 (SEE NOTE) [facility] ([facility], ) . Results do not indicate the presence of a Lupus Anticoagulant: abnormal high screening results (PTT-LA, dRVVT, mixing studies), may be due to medication (heparin, warfarin, aspirin), Factor inhibitors, anticardiolipin antibodies, or poor specimen integrity. Hexagonal Phase Phospholipid 0 sec 0-11 [facility] ([facility]) [facility] Date Comment (SEE NOTE) [facility] ( [facility] ) . The date recorded on the requisition indicates the sample(s) received were greater than 72 hours old upon arrival in our laboratory. Performed at: [address] [id number] Proposal Engineer: Chani Zuleta MD, Phone: [phone] Performed at: - [address] [id number] Proposal Engineer: Cristine Guillen MD, Phone: [phone] ID Date Data Source [id number] 11/17/2019 11:00:00 AM EDT [facility] ([facility] ) Name Value Range Interpretation Code Description Data Tamra rce(s) Supporting Document(s) Lupus Confirm Stago 1.30 0.00-1.20 [facility] ([facility], ) NORMALIZED RATIO IS EQUAL TO OR GREATER THAN 1.20 LA IS PRESENT. SPECIMEN WILL BE SENT TO [employer], [address] [facility]. Erica Etienne [id number] REFERE [facility] FOR CONFIRMATION. ID Date Data Source [id number] 11/17/2019 11:00:00 AM EDT [facility] ) Name Value Range Interpretation Code Description Data Tamra rce(s) Supporting Document(s) PTT Lupus Type Anticoag Screen 1.3 0-1.2 [facility] ([facility], ) RESULT IS 1.2 OR GREATER, FURTHER TESTING INDICATED. SEE RESULTS BELOW. INTERPRETATION This test is to screen those individuals that may have a circulating lupus anticoagulant. If the LA Screen test is normal, and/or the LA Confirm test is normal, the presence of a Lupus Anticoagulant (LA) is unlikely, but does not completely exclude LA-like activity. If both tests or the LA Confirm test are elevated, the specimen will be reflexed to a hexagonal phase phospholipid test through our reference laboratory for confirmation. A positive hexagonal phase phospholipid is indicative of LA. A negative hexagonal phase phospholipid test may indicate a coagulation factor deficiency or a specific inhibitor. ID Date Data Source [id number] 11/17/2019 11:00:00 AM EDT [facility] ) Name Value Range Interpretation Code Description Data Tamra e(s) Supporting Document(s) Antinuclear Antibodies Direct Negative [facility] ([facility] ) Performed at: RN - [facility] [address] [id number] Proposal Engineer: Cristine Guillen MD, Phone: [phone] ID Date Data Source [id number] 11/17/2019 11:00:00 AM EDT [facility] ) Name Value Range Interpretation Code Description Data Tamra rce(s) Supporting Document(s) Rheumatoid factor [Units/volume] in Serum or Plasma < 10.0 IU/ml [facility] ([facility] ) <content>note:<nlbl:demographic_changed> </content>
<content></content> ID Date Data Source [id number] 11/17/2019 11:00:00 AM EDT [facility] ([facility], ) Name Value Range Interpretation Code Description Data Tamra rce(s) Supporting Document(s) Albumin % 53.4 % 55.8-66.1 [facility] ([facility], ) Jmnzc-3-Zvtdxoem % 5.3 % 2.9-4.9 [facility] ([facility]) Occyb-6-Nrybteqvf % 12.4 % 7.1-11.8 [facility] ([facility] ) Nbja-0-Ahllrikxu % 6.9 % 4.7-7.2 [facility] ([facility]) Gamma Globulin % 14.8 % 11.1-18.8 [facility] ([facility]) Pzal-0-Bhbqujrwq % 7.2 % 3.2-6.5 [facility] ([facility]) Qpafa-8-Yykcxvnno 0.45 GM/DL 0.17-0.41 [facility] ([facility]) Albumin 4.49 GM/DL 3.29-5.55 [facility] ([facility]) Nwxuv-8-Dncpnsrcl 1.04 GM/DL 0.42-0.99 [facility] ([facility]) Fpmy-0-Isxhoeavh 0.58 GM/DL 0.28-0.60 [facility] ([facility]) Yddz-5-Hmcfsqrdn 0.60 GM/DL 0.19-0.55 [facility] ([facility], ) Gamma Globulins 1.24 GM/DL 0.65-1.58 [facility] ([facility]) Total Protein 8.4 GM/DL 6.4-8.2 [facility] ([facility], ) Spep Interpretation SEE COMMENT [facility] ( [facility], ) NO M-SPIKE(S)NOTED. Laboratory test finding (navigational concept) REV'D BY Lit GREGORY <SE E NOTE> [facility] ([facility], ) REV'D BY Lit NELSON ID Date Data Source [id number] 11/17/2019 11:00:00 AM EDT [facility] ([facility]) Name Value Range Interpretation Code Description Data Tamra rce(s) Supporting Document(s) Erythrocyte sedimentation rate by 2H Westergren method 38 mm/hr 0-3 0 [facility] ([facility]) ID Date Data Source [id number] 09/22/2019 02:55:00 PM EST [facility] ([facility]) Name Value Range Interpretation Code Description Data Tamra rce(s) Supporting Document(s) Sodium 138 meq/L 134-153 [facility] ([facility]) Renal Panel Laboratory test result M [facility] ([facility]) RENAL FUNCTION PANEL Glucose 107 mg/dL 65-110 [facility] ([facility]) Potassium 3.3 meq/L 3.6-5.0 Below low normal [facility] ( [facility]) Chloride 95 meq/L 98-107 Below low normal [facility] ( [facility]) Co2 29 meq/L 22-30 [facility] ([facility]) BUN 13 mg/dL 7-21 [facility] ([facility]) Creatinine 0.9 mg/dL 0.7-1.5 [facility] ([facility]) BUN/Creat 14 8-27 [facility] ([facility]) Anion Gap 14.0 mmol/L 8.0-16.0 [facility] ([facility]) Calcium 10.3 mg/dL 8.4-10.2 Above high normal [facility] ([facility]) Phosphorus 3.4 mg/dL 2.5-4.5 [facility] ([facility]) Albumin 4.7 g/dL 3.9-5.0 [facility] ([facility]) Non-Aa GFR Laboratory test result [facility] ([facility]) Afr Amer GFR Laboratory test result [facility] ([facility]) Male GFR Interprentation 20-49 yrs >60 mL/min Normal 50-59 yrs >56 mL/min Normal 60-69 yrs >49 mL/min Normal 70-79yrs >42 mL/min Normal 80 and above >35 mL/min Normal Female GFR Interpretation 20-39 yrs >60 mL/min Normal 40-49 yrs >58 mL/min Normal 50-59 yrs >51 mL/min Normal 60-69 yrs >45 mL/min Normal 70-79 yrs >39 mL/min Normal 80 and above >32 mL/min Normal Age 48 yrs [facility] ([facility]) ID Date Data Source [id number] 09/22/2019 02:55:00 PM EST [facility] ([facility]) Name Value Range Interpretation Code Description Data Tamra rce(s) Supporting Document(s) Magnesium [Mass/volume] in Serum or Plasma 2.2 mg/dL 1.7-2.2 [facility] ([facility]) ID Date Data Source [id number] 09/22/2019 03:59:[address] [facility] Name Value Range Interpretation Code Description Data Tamra rce(s) Supporting Document(s) RENAL PANEL [facility] RENAL FUNCTION PANEL Sodium [Moles/volume] in Serum or Plasma 138 mEq/L 134 - 153 [facility] Potassium [Moles/volume] in Serum or Plasma 3.3 mEq/L 3.6 - 5.[address] [facility] Chloride [Moles/volume] in Serum or Plasma 95 mEq/L 98 - [address] [facility] Carbon dioxide, total [Moles/volume] in Serum or Plasma 29 MEQ/L 22 - 30 [facility] Glucose [Mass/volume] in Serum or Plasma 107 MG/DL 65 - 110 [facility] BUN 13 MG/DL 7 - 21 [facility] al Creatinine [Mass/volume] in Serum or Plasma 0.9 MG/DL 0.7 - 1.5 [facility] BUN/CREAT 14 8 - 27 [facility] Albumin [Mass/volume] in Serum or Plasma 4.7 G/DL 3.9 - 5.0 [facility] Phosphate [Mass/volume] in Serum or Plasma 3.4 MG/DL 2.5 - 4.5 [facility] Calcium [Mass/volume] in Serum or Plasma 10.3 MG/DL 8.4 - 10.[address] [facility] Anion gap 3 in Serum or Plasma 14.0 mmol/L 8.0 - 16.0 [facility] AGE 48 yrs [facility] NON-AA GFR >60 mL/min [facility] AFR AMER GFR >60 mL/min [facility] Male GFR Interp rentation 20-49 yrs >60 mL/min Normal 50-59 yrs >56 mL/min Normal 60-69 yrs >49 mL/min Normal 70-79yrs >42 mL/min Normal 80 and above >35 mL/min Normal Female GFR Interpretation 20-39 yrs >60 mL/min Normal 40-49 yrs >58 mL/min Normal 50-59 yrs >51 mL/min Normal 60-69 yrs >45 mL/min Normal 70-79 yrs >39 mL/min Normal 80 and above >32 mL/min Normal ID Date Data Source [id number] 09/22/2019 03:58:[address] [facility] Name Value Range Interpretation Code Description Data Tamra rce(s) Supporting Document(s) Magnesium [Mass/volume] in Serum or Plasma 2.2 MG/DL 1.7 - 2.2 [facility] ID Date Data Source [id number] 08/29/2019 11:57:00 AM EST [facility] ([facility]) Name Value Range Interpretation Code Description Data Tamra rce(s) Supporting Document(s) Basic Metabolic Pane Laboratory test result [facility] ([facility]) Is patient fasting? N Sodium 137 meq/L 134-153 [facility] ([facility]) Is patient fasting? N Potassium 3.2 meq/L 3.6-5.0 Below low normal [facility] ( [facility]) Is patient fasting? N Chloride 94 meq/L 98-107 Below low normal [facility] ( [facility]) Is patient fasting? N Co2 27 meq/L 22-30 [facility] ([facility]) Is patient fasting? N Glucose 111 mg/dL 65-110 Above high normal [facility] ([facility]) Is patient fasting? N Creatinine 0.9 mg/dL 0.7-1.5 [facility] ([facility]) Is patient fasting? N BUN/Creat 14 8-27 [facility] ([facility]) Is patient fasting? N BUN 13 mg/dL 7-21 [facility] ([facility]) Is patient fasting? N Anion Gap 16.0 mmol/L 8.0-16.0 [facility] ([facility]) Is patient fasting? N Calcium 10.3 mg/dL 8.4-10.2 Above high normal [facility] ([facility]) Is patient fasting? N Afr Amer GFR Laboratory test result [facility] ([facility]) Is patient fasting? N Age 48 yrs [facility] ([facility]) Is patient fasting? N Non-Aa GFR Laboratory test result [facility] ([facility]) Is patient fasting? N ID Date Data Source [id number] 08/29/2019 11:57:00 AM EST [facility] ([facility] Name Value Range Interpretation Code Description Data Tamra rce(s) Supporting Document(s) Basic Metabolic Pane (See Note) [facility] ( [facility]) Is patient fasting? N Potassium 3.2 meq/L 3.6-5.0 [facility] ([facility]) Is patient fasting? N Sodium 137 meq/L 134-153 [facility] Is patient fasting? N Co2 27 meq/L 22-30 [facility]) Is patient fasting? N Glucose 111 mg/dL 65-110 [facility] Is patient fasting? N Chloride 94 meq/L 98-107 [facility] ([facility]) Is patient fasting? N Creatinine 0.9 mg/dL 0.7-1.5 [facility] ([facility]) Is patient fasting? N BUN/Creat 14 8-27 [facility] ([facility] Is patient fasting? N BUN 13 mg/dL 7-21 [facility] ([facility]) Is patient fasting? N Anion gap in Serum or Plasma 16.0 mmol/L 8.0-16.0 [facility] ([facility]) Is patient fasting? N Calcium 10.3 mg/dL 8.4-10.2 [facility] ([facility]) Is patient fasting? N Non-Aa GFR >60 mL/min [facility] ([facility]) Is patient fasting? N Age 48 yrs [facility] ([facility]) Is patient fasting? N Afr Amer GFR >60 mL/min [facility] ([facility]) Is patient fasting? N ID Date Data Source [id number] 08/29/2019 06:32:[address] [facility] Name Value Range Interpretation Code Description Data Tamra rce(s) Supporting Document(s) BASIC METABOLIC PANEL [facility] BASIC METABOLIC PANEL Sodium [Moles/volume] in Serum or Plasma 137 mEq/L 134 - 153 [facility] Potassium [Moles/volume] in Serum or Plasma 3.2 mEq/L 3.6 - 5.[address] [facility] Chloride [Moles/volume] in Serum or Plasma 94 mEq/L 98 - [address] [facility] Carbon dioxide, total [Moles/volume] in Serum or Plasma 27 MEQ/L 22 - 30 [facility] Glucose [Mass/volume] in Serum or Plasma 111 MG/DL 65 - [address] [facility] BUN 13 MG/DL 7 - 21 [facility] Creatinine [Mass/volume] in Serum or Plasma 0.9 MG/DL 0.7 - 1.5 [facility] BUN/CREAT 14 8 - 27 [facility] Calcium [Mass/volume] in Serum or Plasma 10.3 MG/DL 8.4 - 10.[address] [facility] Anion gap 3 in Serum or Plasma 16.0 mmol/L 8.0 - 16.0 [facility] AGE 48 yrs [facility] al AFR AMER GFR >60 mL/min [facility] Ho spital NON-AA GFR >60 mL/min [facility] ital Male GFR Inter prentation 20-49 yrs >60 mL/min Normal 50-59 yrs >56 mL/min Normal 60-69 yrs >49 mL/min Normal 70-79yrs >42 mL/min Normal 80 and above >35 mL/min Normal Female GFR Interpretation 20-39 yrs >60 mL/min Normal 40-49 yrs >58 mL/min Normal 50-59 yrs >51 mL/min Normal 60-69 yrs >45 mL/min Normal 70-79 yrs >39 mL/min Normal 80 and above >32 mL/min Normal ID Date Data Source [id number] 08/25/2019 10:25:00 AM EST [facility] [address] [place] [address] PHONE: [phone] FAX: [phone] Name .................. : RONA Murrieta Acct Number.................. : [id number] ROOM. ................. : TR06 Number ................... : [id number] Stay type ............. : E/R Discharge Date......... ... : 08/22/19 Admit Date ......... : 08/22/19 Admit Phys .................... : ABDIAS Phan Date of ....... : 1970 Family Phys ................... : KUNNUMPURA Phone .................. : [phone] Age ................................ : 48 Film# .................. .:[id number] Sex ................................. : F Unsigned transcriptions are preliminary reports and do not represent a medical or legal document CHEST 2 VIEWS [id number] COMPLETE:08/22/19 20:46 KJE 21991 Reaso n(s): syncope CHEST X-RAY: 2-VIEWS FINDINGS: Frontal and lateral views of the chest were performed. COPD changes are present. Opacities are seen at the lung bases indeterminant for atelectasis or pneumonias. There is no pneumothorax, pleural effusion or acute osseous abnormality. IMPRESSION: Underlying mild COPD. Bibasilar atelectasis versus pneumonic infiltrates. Electronically Reviewed and Signed By Charline Naylor MD , 08/25/19 10:25, KGG Transcribe Initials: DZ , Transcribe Date: 08/23/19 08:04, Dictation Date: Copy for: ISAAC OLIVARES via fax Copy for: EMERGENCY DEPT via modem Copy for: 710 MED REC DISCHARGED Page 1 of 1 Name Value Range Interpretation Code Description Data Tamra rce(s) Supporting Document(s) ID Date Data Source [id number] 08/25/2019 08:21:00 AM EST [facility] [address] [place] [address] PHONE: [phone] FAX: [phone] Name ..............: RONA Murrieta Acct Number ...........................: [id number] ROOM. ............: TR-06 Number ............................: [id number] Stay type.........: E/R Discharge Date...............:08/22/19 Admit Date .....: 08/22/19 Admit Phys .............................: ABDIAS Phan Date of ..: 1970 Family Phys ...........................: ........................LUC Phone..............: [phone] Age.................................:48 Film# ...............:[id number] Sex.................................:F Unsigned transcriptions are preliminary reports and do not represent a medical or legal document EKG [id number] COMPLETE:08/23/19 15:26 CW 61944 Please See Scanned Results. Name Value Range Interpretation Code Description Data Tamra rce(s) Supporting Document(s) ID Date Data Source [id number] 08/24/2019 04:25:[address] [facility] [address] [facility] Emergency Department [address] [place] [address] Phone #: ext- [phone] 08/24/2019 16:13 Patient: OFELIA HOOKER Sex: F : 1970 Age: 48yWEIGHT:72.5 kg (S) HEIGHT:58 inches (S) BMI:33.4ALLERGIES: No Known Drug AllergyCHIEF COMPLAINT: fever, "not feeling well"DIAGNOSIS: PneumoniaLAB ORDERSOrder Description Priority Entered Acknowledged InitialedCBC w Diff STAT 16:41 08/24/2019 16:45 [facility] ED; [id number] STAT 16:41 08/24/2019 16:45 [facility] ED; Eara7Migpnfxteu (Clean STAT 16:41 08/24/2019 17:56 Mily Vasquez R.N.;Lactic Acid STAT 16:41 08/24/2019 16:45 [facility] ED; Ihqe6Qvddr Culture STAT 16:41 08/24/2019 16:45 [id number] X2 (Sched Trav Agrawal manager community developmentHan Barakat ER16:41 08/24/2019) PA; Ytve8Chkyh Culture STAT 16:41 08/24/2019 16:43 Sorbero,q10m X2 (Sched Trav Patel R.NJose Raul16:51 08/24/2019) PA;DIAGNOSTIC STUDY ORDERSOrder Description Priority Entered Acknowledged InitialedMEDICATION/IV/DRIP/FLUID O RDERSOrder Description Priority Entered Acknowledged InitialedIV NS : Bolus 1000 16:41 08/24/2019 17:02 Sorbero,mL, then 150 mL/hr Trav Patel R.N. PA;DuoNeb 3 mL X2 16:41 08/24/2019 17:02 Sorbero,Doses: 6 mL (3 mL Trav Vlilarreal.NJose RaulX2 Doses) PA;Ibuprofen 800 mg 16:41 08/24/2019 17:01 Sorbero, [address] [facility] Emergency Department [address] [place] [address] Phone #: ext- [phone] 08/24/2019 16:13 Patient: OFELIA HOOKER Sex: F : 1970 Age: 48yPO X1 dose: 800 Trav Patel R.N.mg (NOW x1) PA;KCl Liquid PO 40 17:37 08/24/2019 17:43 Sorbero,meq Trav Patel R.N. PA;GENERAL ORDERSOrder Description Priority Entered Acknowledged Initialed[Electronically signed by Josie Vasquez R.N. (17:57 08/24/2019)][Electronically signed by Trav Agrawal (21:21 08/24/2019)][Electronically locked by Josie Vasquez R.N. (17:57 08/24/2019)] Name Value Range Interpretation Code Description Data Tamra rce(s) Supporting Document(s) ID Date Data Source [id number] 08/24/2019 04:25:[address] [facility] [address] [facility] Emergency Department [address] [place] [address] Phone #: ext- [phone] 08/24/2019 16:13 Patient: OFELIA HOOKER Sex: F : 1970 Age: 48yWeight: 72.5 kgHeight/Length: 58 in.BMI: 33.4ALLERGIES: No Known Drug AllergyThe patient's Home Medications are listed below:CONTINUE TAKING THE FOLLOWING MEDICATIONS: DULoxetine HCl Oral (60 mg) 1 capsule, daily Gabapentin Oral (300 mg) 1 capsule, 2x a day MetFORMIN HCl ER Oral (500 mg) 1 tablet, 2x a day [facility] Potassium Chloride ER Oral (20 meq) 1 tablet, 2x a day RaNITidine HCl Oral (150 mg) 1 tablet, 2x a day Tolterodine Tartrate Oral (2 mg) 1 tablet, 2x a day Vitamin D Oral 1.25 mg, once a week ZpacThe source(s) of the original Home Medication information:Not obtained.The following Medications were given to the patient in the Emergency Department:Ibuprofen [PO] PO 800 mg, administered: 08/24/2019 5:01:00 PMDuoneb [Neb Tx] Neb TX 2 unit dose, administered: 08/24/2019 5:02:00 PMIV NS IV Fluids bolus 0, then 1000 mL/hr, administered: 08/24/2019 5:02:00 PM [address] [facility] Emergency Department [address] [place] [address] Phone #: ext- [phone] 08/24/2019 16:13 Patient: OFELIA HOOKER Sex: F : 1970 Age: 48yIV NS IV Fluids bolus 0, then 150 mL/hr, administered: 08/24/2019 5:38:00 PMKCL LIQUID PO PO 40 meq, administered: 08/24/2019 5:43:00 PMThe following Medications were prescribed to the patient:None. Name Value Range Interpretation Code Description Data Tamra rce(s) Supporting Document(s) ID Date Data Source [id number] 08/24/2019 04:25:[address] [facility] [address] [facility] Emergency Department [address] [place] [address] Phone #: [phone]- [phone] 08/24/2019 16:13 Patient: OFELIA HOOKER Sex: F : 1970 Age: 48yWeight: 72.5 kgHeight/Length: 58 inBMI: 33.4ALLERGIES: No Known Drug Allergy Date/Time Medication Administered Medication OrderedStart IV NS IV NS : Bolus 1000 mL, then 75037:02 08/24/2019 Dose: IV Fluids mL/Jorge Lomas, R.N. Rate: 1000 mL/hr over 1 hour(s)---- Dispensed: 1000 mL bagStop Site: #1 right AC17:38 08/24/2019SoJorge yao, R.N.Start IV NS IV NS : Bolus 1000 mL, then 64041:38 08/24/2019 Dose: IV Fluids mL/Jorge Lomas, R.N. Rate: 150 mL/hr over 8 hour(s)---- Dispensed: 1000 mL bagStop Site: #1 right AC17:56 08/24/2019Josie Vasquez R.N.Given DUONEB [NEB TX] DuoNeb 3 mL X2 Doses: 6 mL (317:02 08/24/2019 Dose: 2 unit dose Nebulizer Neb TX mL X2 Doses)Jorge Cantu R.N.----Stop17:56 08/24/2019Josie Vasquez R.N.Given IBUPROFEN [PO] Ibuprofen 800 mg PO X1 dose: 77813:01 08/24/2019 Dose: 800 mg Tablets PO mg (NOW x1)Jorge Cantu R.N.Given KCL LIQUID PO KCl Liquid PO 40 meq17:43 08/24/2019 Dose: 40 meq Solution/Elixir POSJorge shannon R.N. Name Value Range Interpretation Code Description Data Tamra rce(s) Supporting Document(s) ID Date Data Source [id number] 08/24/2019 04:25:[address] [facility] [address] [facility] Emergency Department [address] [place] [address] Phone #: ext- [phone] 08/24/2019 16:13 Patient: OFELIA HOOKER Sex: F : 1970 Age: 48yBacterial pneumonia.INSTRUCTIONSDrink plenty of fluids.(continue taking your medication as previously prescribed).Your Current Medications: Your current home medications have been reviewed.CONTINUE TAKING THE FOLLOWING MEDICATIONS:DULoxetine HCl Oral : Capsule Delayed Release Particles 60 mg, 1 capsule daily.Gabapentin Oral : Capsule 300 mg, 1 capsule 2x a day.MetFORMIN HCl ER Oral : Tablet Extended Release 24 Hour 500 mg, 1 tablet 2x a day.Pharmacy [facility]*.Potassium Chloride ER Oral : Tablet Extended Release 20 meq, 1 tablet 2x a day.RaNITidine HCl Oral : Tablet 150 mg, 1 tablet 2x a day.Tolterodine Tartrate Oral : Tablet 2 mg, 1 tablet 2x a day.Vitamin D Oral : 1.25 mg once a week.Zpac*.Follow-up:Follow up with your doctor in three days if not better. Reason for referral: evaluation and treatment.Summary of care provided to patient.Understanding of the discharge instructions verbalized by patient and family. ADDITIONAL INFORMATIONPneumonia (Adult)Pneumonia is an infection deep within the lungs. It is in the small air sacs (alveoli). Pneumonia maybe caused by a virus or bacteria. Pneumonia caused by bacteria is usually treated with an antibiotic.Severe cases may need to be treated in the hospital. Milder cases can be treated at home.Symptoms usually start to get better during the first 2 days of treatment. [address] [facility] Emergency Department [address] [place] [address] Phone #: ext- [phone] 08/24/2019 16:13 Patient: OFELIA HOOKER Sex: F : 1970 Age: 48yHome careFollow these guidelines when caring for yourself at home: Rest at home for the first 2 to 3 days, or until you feel stronger. Don't let yourself get overly tired when you go back to your activities. Stay away from cigarette smoke yours or other people's. You may use acetaminophen or ibuprofen to control fever or pain, unless another medicine was prescribed. If you have chronic liver or kidney disease, talk with your healthcare provider before using these medicines. Also talk with your provider if you've had a stomach ulcer or [address] [facility] Emergency Department [address] [place] [address] Phone #: ext- [phone] 08/24/2019 16:13 Patient: OFELIA HOOKER Sex: F : 1970 Age: 48y gastrointestinal bleeding. Don't give aspirin to anyone younger than 18 years of age who is ill with a fever. It may cause severe liver damage. Your appetite may be poor, so a light diet is fine. Drink 6 to 8 glasses of fluids every day to make sure you are getting enough fluids. Beverages can include water, sport drinks, sodas without caffeine, juices, tea, or soup. Fluids will help loosen secretions in the lung. This will make it easier for you to cough up the phlegm (sputum). If you also have heart or kidney disease, check with your healthcare provider before you drink extra fluids. Take antibiotic medicine prescribed until it is all gone, even if you are feeling better after a few days.Follow-up careFollow up with your healthcare provider in the next 2 to 3 days, or as advised. This is to be sure themedicine is helping you get better.If you are 65 or older, you should get a pneumococcal vaccine and a yearly flu (influenza) shot. Youshould also get these vaccines if you have chronic lung disease like asthma, emphysema, or COPD.Recently, a second type of pneumonia vaccine has become available for everyone over 65 years old.This is in addition to the previous vaccine. Ask your provider about this.When to seek medical adviceCall your healthcare provider right away if any of these occur: You don't get better within the first 48 hours of treatment Shortness of breath gets worse Rapid breathing (more than 25 breaths per minute) Coughing up blood Chest pain gets worse with breathing Fever of 100.4F (38C) or higher that doesn't get better with fever medicine Weakness, dizziness, or fainting that gets worse Thirst or dry mouth that gets worse Sinus pain, headache, or a stiff neck Chest pain not caused by coughing [address] [facility] Emergency Department [address] [place] [address] Phone #: [phone] twe- 2030 08/24/2019 16:13 Patient: OFELIA HOOKER Sex: F : 1970 Age: 48y [id number] [employer]. [address] [place] [address]. All rights reserved. This information is not intended as asubstitute for professional medical care. Always follow your healthcare professional's instructions. You have been given the following additional information: Pneumonia (Adult)(Electronically signed by GABRIEL Christina 08/24/2019 21:21) Name Value Range Interpretation Code Description Data Tamra rce(s) Supporting Document(s) ID Date Data Source [id number] 08/24/2019 04:25:[address] [facility] 1 Clinical Report - Nurses [facility] Emergency Department [address] [place] [address] Phone #: ext- [phone] 08/24/2019 16:13 Patient: OFELIA HOOKER Sex: F : 1970 Age: 48yTRIAGEArrived by private vehicle. Historian: patient. Accompanied by family. ( seen here either yesterday ornight before and dx pneumonia).Acuity: LEVEL 3.Chief Complaint: FEVER.Alert.This started today. She has had a cough and headache. 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 --16:18 08/24/19 Josie Vasquez R.N.16:13 08/24/19. BP: 130/95. MAP: 106. HR: 114. RR: 21. O2 saturation: 99%. Temp: 98.5 F. Pain levelnow: 0/10. --16:18 08/24/19 Josie Vasquez R.N.Weight: 72.5 kg stated. Height/Length: 58 inches Per Patient. BMI: 33.4. --16:12 08/24/19 Josie Vasquez R.N.MedicationsZpac. --16:17 08/24/19 Josie Vasquez R.N. DULoxetine HCl Oral (Capsule Delayed Release Particles 60 mg) 1 capsule, daily. Gabapentin Oral (Capsule 300 mg) 1 capsule, 2x a day. MetFORMIN HCl ER Oral (Tablet Extended Release 24 Hour 500 mg) 1 tablet, 2x a day. Pharmacy [facility]. Potassium Chloride ER Oral (Tablet Extended Release 20 meq) 1 tablet, 2x a day. RaNITidine HCl Oral (Tablet 150 mg) 1 tablet, 2x a day. Tolterodine Tartrate Oral (Tablet 2 mg) 1 tablet, 2x a day. Vitamin D Oral 1.25 mg, once a week. --16:08/24/19 Josie Vasquez R.N.AllergiesNo Known Drug Allergy. --1608/24/19 Josie Vasquez R.N.The following entry was struck by Josie Vasquez R.N., 16 (08/24/19) Reason - other. None. --16:16 08/24/19 Josie Vasquez R.N. .PROBLEMS:GI Disease.Lower Extremity Pain.Diabetes Mellitus. 2 Clinical Report - Nurses [facility] Emergency Department [address] [place] [address] Phone #: ext- [phone] 08/24/2019 16:13 [id number] Sex: F : 1970 Age: 48yGastroesophageal Reflux Disease.Other Disease.Sinusitis.Sprain.Panic Attack.Pneumonia. --16:08/24/19 Josie Vasquez R.N.ADDITIONAL SURGERIES:Carpal Tunnel Surgery.Colonoscopy.Endoscopy. --1608/24/19 Josie Vasquez R.N.HistoryPAST MEDICAL HX: Immunizations: up-to-date. The patient is post-menopausal.SOCIAL HX: Never smoker. No alcohol use or drug use. She was offered HIV testing but declined andhepatitis C testing but declined.Infectious disease exposure: Patient is not a known carrier of tuberculosis, hepatitis, HIV, MRSA or VRE.Patient is not a known carrier of CRE.SELF HARM ASSESSMENT: Self harm assessment was performed. The patient answered "no" to thequestion(s) "Have you recently had thoughts about harming or killing others?" and "Do you have anydangerous items in your possession?".ABUSE ASSESSMENT: Abuse assessment. Abuse denied. No suspicion of abuse. No report of abuse.NUTRITIONAL RISK ASSESSMENT: The nutritional risk assessment revealed no deficiencies.FUNCTIONAL ASSESSMENT: Functional assessment: no impairments noted.LEARNING NEEDS ASSESSMENT: The learning needs assessment revealed no barriers.FALL RISK ASSESSMENT: Fall risk assessment completed. No risk factors identified.SKIN INTEGRITY ASSESSMENT: Skin integrity risk assessment completed. No skin integrity riskidentified. --16:18 08/24/19 Josie Vasquez R.N.SOCIAL HX: The patient has not traveled outside the [place]Infectious disease exposure: No infectious disease exposure. --16:19 Josie Vasquez R.N.InterventionsIdentification band on patient. To treatment room. --16:18 08/24/19 Josie Vasquez R.N.PHYSICAL QIFAVAUCUC46:26 08/24/19. 3 Clinical Report - Nurses [facility] Emergency Department [address] [place] [address] Phone #: ext- [phone] 08/24/2019 16:13 Patient: OFELIA HOOKER Sex: F : 1970 Age: 48y GENERAL / NEURO / PSYCH: Alert. Oriented X 4. Appears in no acute distress. HEENT: Mucous membranes are pink. RESPIRATORY: Respirations not labored. Chest nontender. Breath sounds within normal limits. CVS: Capillary refill less than 2 seconds. Pulses within normal limits. GI / : Abdomen soft and nontender and normal bowel sounds. SKIN: Skin intact. Skin is warm and dry. Normal skin turgor. --16:26 12/22/19 Jorge Cantu R.N.NURSING PROGRESS NOTESPatient gowned. Reassurance given. Patient identifiers checked. Call light placed in reach. Side railsup x 2. Bed placed in lowest position. Brakes of bed on. Patient ready for evaluation- ED physician andPA notified. --16:18 08/24/19 Josie Vasquez R.N. 16:51 08/24/2019 Site #1 started via IV in the right antecubital space with an 20g angiocath, with aseptic technique and good blood return; one attempt. Saline lock flushed with 10 mL saline. --17:01 08/24/19 Jorge Cantu R.N. 17:01 08/24/2019 Ibuprofen PO Tablets 800 mg given. Allergies verified and confirmed 5 rights. Information reviewed with patient including reason for taking this medication, signs of allergic reaction and precautions. Verbalizes understanding. --17:08/24/19 Jorge Cantu R.N. 17:02 08/24/2019 Duoneb Neb TX Nebulizer 2 unit dose given. Given by the nurse. Allergies verified and confirmed 5 rights. Information reviewed with patient including reason for taking this medication, signs of allergic reaction and precautions. Verbalizes understanding. --17:02 08/24/19 Jorge Cantu R.N. 17:02 08/24/2019 Started bag #1 1000 mL IV Fluids IV NS; at 1000 mL/hr over 1 hour(s) via site #1 via IV pump. Allergies verified and confirmed 5 rights. IV patency established. IV site checked: no pain, redness, or swelling. IV flushed thoroughly pre- and post- medication administration. Information reviewed with patient including reason for taking this medication, signs of allergic reaction and precautions. Verbalizes understanding. --17:02 08/24/19 Jorge Cantu R.N. 17:38 08/24/2019 Started bag #2 1000 mL IV Fluids IV NS; at 150 mL/hr over 8 hour(s) via site #1 via IV pump. Allergies verified and confirmed 5 rights. IV patency established. IV site checked: no pain, redness, or swelling. IV flushed thoroughly pre- and post-medication administration. Information reviewed with patient including reason for taking this medication, signs of allergic reaction and precautions. Verbalizes understanding. --17:38 08/24/19 Jorge Cantu R.N. 17:38 08/24/2019 IV Fluids IV NS via IV site #1 Discontinued: bag #1 completed. Total amount infused: 1000 mL. IV patency established. IV site checked: no pain, redness, or swelling. IV flushed thoroughly. --17:38 08/24/19 Jorge Cantu R.N. 17:43 08/24/2019 KCL LIQUID PO PO Solution/Elixir 40 meq given. Allergies verified and confirmed 5 rights. Information reviewed with patient including reason for taking this medication, signs of allergic reaction and precautions. Verbalizes understanding. --17:43 08/24/19 Jorge Cantu R.N. 4 Clinical Report - Nurses [facility] Emergency Department [address] [place] [address] Phone #: ext- [phone] 08/24/2019 16:13 Patient: OFELIA HOOKER Sex: F : 1970 Age: 48y 17:56 08/24/2019 Site #1 removed upon discharge. Pressure dressing applied. --17:56 08/24/19 Josie Vasquez R.N. 17:56 08/24/2019 IV Fluids IV NS via IV site #1 Discontinued: bag #2 discontinued. Total amount infused: 400 mL. IV patency established. IV site checked: no pain, redness, or swelling. IV flushed thoroughly. --17:56 08/24/19 Josie Vasquez R.N. 17:56 08/24/2019 Lexi HATFIELD discontinued due to improvement in patient condition. --17:56 08/24/19 Josie Vasquez R.N.DISPOSITION / DISCHARGE 17:55 08/24/19. BP: 114/79. HR: 102. RR: 19. O2 saturation: 96%. Temp: 98.6 F. Pain level now 0/10. 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 No learning barriers present. Discharge instructions provided and reviewed with the patient. Treatments reviewed. Patient verbalized understanding. Written instructions provided in [place]an. The patient was discharged home and accompanied by family. She left ambulatory and via private vehicle. Family member driving. --17:57 08/24/19 Josie Vasquez R.N. Departure time: 17:57 08/24/2019. --17:57 08/24/19 Josie Vasquez R.N.Locked/Released at 08/24/2019 17:57 by Josie Vasquez R.N. Name Value Range Interpretation Code Description Data Tamra rce(s) Supporting Document(s) ID Date Data Source [id number] 08/24/2019 04:25:00 PM [facility] 1 Clinical Report - Physicians/Mid Levels [facility] Emergency Department [address] [place] [address] Phone #: ext- [phone] 08/24/2019 16:13 Patient: OFELIA HOOKER Sex: F : 1970 Age: 48y Time Seen: 16:30 08/24/2019. Arrived- By private vehicle. Historian- patient.HISTORY OF PRESENT ILLNESS Chief Complaint: FEVER and "NOT FEELING WELL". This started 3 days ago; pt diagnosed with Pneumonia 2 days ago and now sleep after taking NyQuil. She has had measured fever. Is now gone. The patient has had loss of appetite, muscle aches, fatigue and a cough. No chest pain, dyspnea, decreased oral intake, diarrhea or altered mental status. No skin breakdown noted or rash or joint pain. No decreased urine output. Similar symptoms previously. Patient has had similar symptoms several times. Recent medical care: The patient was seen recently at this facility in the emergency department.REVIEW OF SYSTEMSNo anorexia, weight loss, palpitations, calf pain or sputum production. No nausea, constipation, blackstools, difficulty with uri nation or flank pain. No vomiting, headache, sinus pain, sore throat or tick bite.No easy bruising, enlarged lymph nodes, neck pain or back pain.PAST HISTORYPneumonia. Problems: GI Disease. Lower Extremity Pain. Diabetes Mellitus. Gastroesophageal Reflux Disease. Other Disease. Sinusitis. Sprain. Panic Attack. Additional Surgeries: Carpal Tunnel Surgery. Colonoscopy. Endoscopy. Medications: DULoxetine HCl Oral (Capsule Delayed Release Particles 60 mg) 1 capsule, daily. Gabapentin Oral (Capsule 300 mg) 1 capsule, 2x a day. MetFORMIN HCl ER Oral (Tablet Extended Release 24 Hour 500 mg) 1 tablet, 2x a day. 2 Clinical Report - Physicians/[facility] Emergency Department [address] [place] [address] Phone #: ext- [phone] 08/24/2019 16:13 Patient: OFELIA HOOKER Sex: F : 1970 Age: 48y [facility]. Potassium Chloride ER Oral (Tablet Extended Release 20 meq) 1 tablet, 2x a day. RaNITidine HCl Oral (Tablet 150 mg) 1 tablet, 2x a day. Tolterodine Tartrate Oral (Tablet 2 mg) 1 tablet, 2x a day. Vitamin D Oral 1.25 mg, once a week. Zpac. Allergies: No Known Drug Allergy.SOCIAL HISTORYNever smoker. Not exposed to second-hand smoke at home. No alcohol use or drug use.PHYSICAL EXAMVital Signs: 08/24/2019 16:13 BP: 130/95. MAP: 106. HR: 114. RR: 21. O2 saturation: 99%. Temp: 98.5F. Pain level now: 0/10. Have been reviewed as abnormal. Hypertensive. Tachycardic. Oxygensaturation normal.Appearance: Alert. No acute distress.Eyes: Pupils equal, round and reactive to light. Eyes normal inspection.ENT: Ears normal. Nose normal. Pharynx normal. Uvula midline.Neck: Normal inspection. Neck supple.CVS: Tachycardia. Heart sounds normal.Respiratory: No respiratory distress. Breath sounds normal.Abdomen: Soft and nontender. Bowel sounds normal. No mass.Back: Normal inspection.Skin: Skin warm and dry. Normal skin color. No rash. Normal skin turgor.Extremities: Extremities nontender.Neuro: Oriented X 3.LABS, X-RAYS, AND EKGLaboratory Tests: Laboratory tests have been ordered, with results reviewed and considered in themedical decision making process. CBC w Diff: (LISANDRO: 08/24/2019 16:52) ( MsgRcvd 08/24/2019 17:23) Final results Test Result Flag Units (Reference) CBC W/AUTOMATED DIFF COMPLETE BLOOD COUNT WBC 12.3 H 10/uL (4.2 - 11.0) RBC 5.26 10/uL (4.20 - 5.40) HEMOGLOBIN 15.6 g/dL (12.0 - 16.0) HEMATOCRIT 45.7 % (37.0 - 47.0) MCV 86.9 fL (81.0 - 101) MCH 29.7 pg (27.0 - 34.0) MCHC 34.1 g/dL (31.0 - 36.0) RDW 12.3 % (11.5 - 14.5) PLATELETS 372 10/uL (150 - 450) MPV 8.6 fL (7.4 - 10.4) NEUT 67.0 % (37.0 - 80.0) LYMPH 21.5 L % (25.0 - 40.0) MONO 9.8 H % (3.0 - 8.0) EOS 1.1 % (0.0 - 7.0) BASO 0.4 % (0.0 - 2.5) 3 Clinical Report - Physicians/Mid Levels [facility] Emergency Department [address] [place] [address] Phone #: ext- [phone] 08/24/2019 16:13 [id number] Sex: F : 1970 Age: 48y %IG 0.2 H % (0.0 - 0.0) %NRBC 0.0 % (0.0 - 0.0) #NEUT 8.20 H 10/uL (2.00 - 6.90) #LYMPH 2.64 10/uL (0.60 - 3.40) #MONO 1.20 H 10/uL (0.00 - 0.90) #EOS 0.14 10/uL (0.00 - 0.70) #BASO 0.05 10/uL (0.00 - 0.20) #IG 0.03 10/uL (0.00 - 0.10) #NRBC 0.00 10/uL (0.00 - 0.00) MANUAL DIFF SEE BELOW SEGS 72 % (37 - 80) BAND 0 % (0 - 5) %LYMPH 27 % (25 - 40) %MONO 1 L % (3 - 8) %EOS 0 % (0 - 7) %BASO 0 % (0 - 2) RBC MORPH NOT INDICATED CMP: (LISANDRO: 08/24/2019 16:52) ( MsgRcvd 08/24/2019 17:23) Final results Test Result Flag Units (Reference) COMPREHENSIVE METABOLIC PANEL COMPREHENSIVE METABOLIC PANEL SODIUM 137 mEq/L (134 - 153) POTASSIUM 3.1 L mEq/L (3.6 - 5.0) CHLORIDE 93 L mEq/L (98 - 107) CO2 30 MEQ/L (22 - 30) GLUCOSE 103 MG/DL (65 - 110) BUN 14 MG/DL (7 - 21) CREATININE 1.0 MG/DL (0.7 - 1.5) BUN/CREAT 14 (8 - 27) TOTAL PROTEIN 7.9 G/DL (6.3 - 8.2) ALBUMIN 4.2 G/DL (3.9 - 5.0) GLOBULIN 3.7 H GM/DL (2.4 - 3.2) A/G RATIO 1.1 (0.8 - 2.0) CALCIUM 9.7 MG/DL (8.4 - 10.2) TOTAL BILI 0.7 MG/DL (0.2 - 1.3) ALKALINE PHOS 129 H U/L (38 - 126) SGOT/AST 16 U/L (5 - 40) SGPT/ALT 12 U/L (7 - 56) ANION GAP 14.0 mmol/L (8.0 - 16.0) AGE 48 yrs NON-AA GFR >60 mL/min AFR AMER GFR >60 mL/min Male GFR Interprentation 20-49 yrs >60 mL/min Normal 50-59 yrs >56 mL/min Normal 60- 69 yrs >49 mL/min Normal 70-79yrs >42 mL/min Normal 80 and above >35 mL/min Normal Female GFR Interpretation 20-39 yrs >60 mL/min Normal 40-49 yrs >58 mL/min Normal 50-59 yrs >51 mL/min Normal 60-69 yrs >45 mL/min Normal 70-79 yrs >39 mL/min Normal 80 and above >32 mL/min Normal Lactic Acid: (LISANDRO: 08/24/2019 16:52) ( MsgRcvd 08/24/2019 17:23) Final results Test Result Flag Units (Reference) LACTIC ACID 1.7 MMOL/L (0.2 - 2.2).PROGRESS AND PROCEDURESCourse of Care: 17:42 Aug 24 2019. (Discussed labs, exam findings and pt needs to f/u with PCM asneeded.). Patient counseled in person regarding the patient's stable condition, test results, diagnosis and need for 4 Clinical Report - Physicians/Mid Levels [facility] Emergency Department [address] [place] [address] Phone #: ext- [phone] 08/24/2019 16:13 Patient: OFELIA HOOKER Sex: F : 1970 Age: 48y follow-up. Patient agrees with plan of care. 17:42 Aug 24 2019. Disposition: Discharged home in good and improved condition (17:43 Aug 24 2019).CLINICAL IMPRESSION Bacterial pneumonia.INSTRUCTIONS Drink plenty of fluids. (continue taking your medication as previously prescribed). Your Current Medications: Your current home medications have been reviewed. CONTINUE TAKING THE FOLLOWING MEDICATIONS: D ULoxetine HCl Oral : Capsule Delayed Release Particles 60 mg, 1 capsule daily. Gabapentin Oral : Capsule 300 mg, 1 capsule 2x a day. MetFORMIN HCl ER Oral : Tablet Extended Release 24 Hour 500 mg, 1 tablet 2x a day. Pharmacy марина moreno*. Potassium Chloride ER Oral : Tablet Extended Release 20 meq, 1 tablet 2x a day. RaNITidine HCl Oral : Tablet 150 mg, 1 tablet 2x a day. Tolterodine Tartrate Oral : Tablet 2 mg, 1 tablet 2x a day. Vitamin D Oral : 1.25 mg once a week. Zpac*. Follow-up: Follow up with your doctor in three days if not better. Reason for referral: evaluation and treatment. Summary of care provided to patient. Understanding of the discharge instructions verbalized by patient and family.(Electronically signed by GABRIEL Christina 08/24/2019 21:21) Name Value Range Interpretation Code Description Data [facility] rce(s) Supporting Document(s) ID Date Data Source [id number] 08/24/2019 05:39:00 PM EST [facility] ([facility]) Name Value Range Interpretation Code Description Data [facility] rce(s) Supporting Document(s) Source Laboratory test result [facility] ([facility]) SOURCE: Clean Catch Urinalysis Laboratory test result [facility] ([facility]) SOURCE: Clean Catch Color Laboratory test result [facility] ([facility]) SOURCE: Clean Catch Clarity Laboratory test result [facility] ([facility]) SOURCE: Clean Catch pH 7 5-9 [facility] ([facility]) SOURCE: Clean Catch Spec [place] 1.005 1.001-1.030 [facility] ([facility]) SOURCE: Clean Catch Glucose Laboratory test result [facility] ([facility]) SOURCE: Clean Catch Ketone Laboratory test result [facility] ([facility]) SOURCE: Clean Catch Bilirubin Laboratory test result [facility] ([facility]) SOURCE: Clean Catch Protein Laboratory test result [facility] ([facility]) SOURCE: Clean Catch Nitrite Laboratory test result [facility] ([facility]) SOURCE: Clean Catch Blood Laboratory test result [facility] ([facility]) SOURCE: Clean Catch Leuk Est Laboratory test result [facility] ([facility]) SOURCE: Clean Catch Urobilinogen Laboratory test result [facility] ([facility]) SOURCE: Clean Catch Microscopic Laboratory test result M [facility] ([facility]) SOURCE: Clean Catch ID Date Data Source [id number] 08/24/2019 05:39:00 PM EST [facility] Name Value Range Interpretation Code Description Data Tamra rce(s) Supporting Document(s) Urinalysis (See Note) [facility] ([facility]) SOURCE: Clean Catch Color Yellow [facility] SOURCE: Clean Catch Clarity Clear [facility] SOURCE: Clean Catch Source R [facility] SOURCE: Clean Catch Spec [place] 1.005 1.001-1.030 [facility] SOURCE: Clean Catch Glucose Norm [facility] SOURCE: Clean Catch pH 7 5-9 [facility] SOURCE: Clean Catch Bilirubin Neg [facility] SOURCE: Clean Catch Ketone Neg [facility] SOURCE: Clean Catch Protein Neg [facility] SOURCE: Clean Catch Nitrite Neg [facility] SOURCE: Clean Catch Blood Neg [facility] SOURCE: Clean Catch Leuk Est Neg [facility] SOURCE: Clean Catch Microscopic Not Indicate [facility] SOURCE: Clean Catch Urobilinogen Nor [facility] SOURCE: Clean Catch ID Date Data Source [id number] 08/24/2019 06:00:[address] [facility] Name Value Range Interpretation Code Description Data Tamra rce(s) Supporting Document(s) URINALYSIS [facility] jalen URINALYSIS SOURCE R [facility] COLOR Yellow NORMAL: Yellow [facility] CLARITY Clear NORMAL: Clear [facility] Specific gravity of Urine by Test strip 1.005 1.001 - 1.030 [facility] [Mass/volume] in Urine by Test strip NORM NORMAL: Negat [facility] Bilirubin.total [Presence] in Urine by Test strip NEG NORMAL: Negative [facility] Ketones [Presence] in Urine by Test strip NEG NORMAL: Negative [facility] Protein [Mass/volume] in Urine by Test strip NEG NORMAL: Negat [facility] Nitrite [Presence] in Urine by Test strip NEG NORMAL: Negative [facility] BLOOD NEG NORMAL: Negative [facility] Leukocyte esterase [Presence] in Urine by Test strip NEG FLORIAN L: Negative [facility] Urobilinogen [Mass/volume] in Urine by Test strip NOR less melo n 1.0 mg/dL [facility] MICROSCOPIC Not Indicate [facility] ID Date Data Source [id number] 08/30/2019 06:57:00 AM EST [facility] [address] Name Value Range Interpretation Code Description Data Tamra rce(s) Supporting Document(s) Bacteria identified in Blood by Culture [facility] NO GROWTH AFTER 5 DAYS ID Date Data Source [id number] 08/24/2019 05:22:00 PM EST [facility] ([facility]) Name Value Range Interpretation Code Description Data Tamra rce(s) Supporting Document(s) Culture Blood Laboratory test result [facility] ([facility]) _CULTURE BLOOD_ TEST PERFORMED AT [address] [address] CLIA# [id number] SEE SCANNED REPORT { PRELIM ID Date Data Source [id number] 08/24/2019 05:22:00 PM EST [facility]) Name Value Range Interpretation Code Description Data Tamra rce(s) Supporting Document(s) Bacteria identified in Blood by Culture (See Note) [facility] ([facility]) _CULTURE BLOOD_ TEST PERFORMED AT [address] [address] CLIA# [id number] SEE SCANNED REPORT { PRELIM ID Date Data Source [id number] 08/30/2019 03:18:00 PM EST [facility] Name Value Range Interpretation Code Description Data Tamra rce(s) Supporting Document(s) CULTURE BLOOD [facility] spital _CULTURE BLOOD_ TEST [place] [address] CLIA# [id number] SEE SCANNED REPORT{ PRELIM ID Date Data Source [id number] 08/24/2019 04:52:00 PM EST [facility] ([facility]) Name Value Range Interpretation Code Description Data Tamra rce(s) Supporting Document(s) Comprehensive Metabo Laboratory test result [facility] ([facility]) COMPREHENSIVE METABOLIC PANEL Potassium 3.1 meq/L 3.6-5.0 Below low normal [facility] ( [facility]) Sodium 137 meq/L 134-153 [facility] ([facility]) Co2 30 meq/L 22-30 [facility] ([facility]) Chloride 93 meq/L 98-107 Below low normal [facility] ( [facility]) Glucose 103 mg/dL 65-110 [facility] ([facility]) BUN 14 mg/dL 7-21 [facility] ([facility]) Creatinine 1.0 mg/dL 0.7-1.5 [facility] ([facility]) Total Protein 7.9 g/dL 6.3-8.2 [facility] ([facility]) BUN/Creat 14 8-27 [facility] ([facility]) Globulin 3.7 GM/DL 2.4-3.2 Above high normal [facility] ([facility]) Albumin 4.2 g/dL 3.9-5.0 [facility] ([facility]) A/G Ratio 1.1 0.8-2.0 [facility] ([facility]) Total Bili 0.7 mg/dL 0.2-1.3 [facility] ([facility]) Calcium 9.7 mg/dL 8.4-10.2 [facility] ([facility]) Alkaline Phos 129 U/L 38-126 Above high normal [facility] NT ([facility]) Sgot/Ast 16 U/L 5-40 [facility] ([facility]) Anion Gap 14.0 mmol/L 8.0-16.0 [facility] ([facility]) SGPT/Alt 12 U/L 7-56 [facility] ([facility]) Age 48 yrs [facility] ([facility]) Non-Aa GFR Laboratory test result [facility] ([facility]) Afr Amer GFR Laboratory test result [facility] ([facility]) Male GFR Interprentation 20-49 yrs >60 mL/min Normal 50-59 yrs >56 mL/min Normal 60-69 yrs >49 mL/min Normal 70-79yrs >42 mL/min Normal 80 and above >35 mL/min Normal Female GFR Interpretation 20-39 yrs >60 mL/min Normal 40-49 yrs >58 mL/min Normal 50-59 yrs >51 mL/min Normal 60-69 yrs >45 mL/min Normal 70-79 yrs >39 mL/min Normal 80 and above >32 mL/min Normal ID Date Data Source [id number] 08/24/2019 04:52:00 PM EST [facility] ([facility]) Name Value Range Interpretation Code Description Data Tamra rce(s) Supporting Document(s) Lactate [Mass/volume] in Serum or Plasma 1.7 mmol/L 0.2-2.2 [facility] ([facility]) ID Date Data Source [id number] 08/24/2019 04:52:00 PM EST [facility] ([facility]) Name Value Range Interpretation Code Description Data Tamra rce(s) Supporting Document(s) CBC W/Automated Diff Laboratory test result [facility] ([facility]) COMPLETE BLOOD COUNT WBC 12.3 10^3/uL 4.2-11.0 Above high normal [facility] T ([facility]) RBC 5.26 10^6/uL 4.20-5.40 [facility] ([facility]) Hemoglobin 15.6 g/dL 12.0-16.0 [facility] ([facility]) Hematocrit 45.7 % 37.0-47.0 [facility] ([facility]) MCV 86.9 fL 81.0-101 [facility] ([facility]) MCH 29.7 pg 27.0-34.0 [facility] ([facility]) MCHC 34.1 g/dL 31.0-36.0 [facility] ([facility]) Platelets 372 10^3/uL 150-450 [facility] ([facility]) MPV 8.6 fL 7.4-10.4 [facility] ([facility]) RDW 12.3 % 11.5-14.5 [facility] ([facility]) Neut 67.0 % 37.0-80.0 [facility] ([facility]) Lymph 21.5 % 25.0-40.0 Below low normal [facility] ( [facility]) [place] 9.8 % 3.0-8.0 Above high normal [facility] ([facility]) %Ig 0.2 % 0.0-0.0 Above high normal [facility] ([facility]) Baso 0.4 % 0.0-2.5 [facility] ([facility]) Eos 1.1 % 0.0-7.0 [facility] ([facility]) #Neut 8.20 10^3/uL 2.00-6.90 Above high normal [facility] T ([facility]) %NRBC 0.0 % 0.0-0.0 [facility] ([facility]) #Lymph 2.64 10^3/uL 0.60-3.40 [facility] ([facility]) #[place] 1.20 10^3/uL 0.00-0.90 Above high normal [facility] T ([facility]) #Eos 0.14 10^3/uL 0.00-0.70 [facility] ([facility]) #Ig 0.03 10^3/uL 0.00-0.10 [facility] ([facility]) #Baso 0.05 10^3/uL 0.00-0.20 [facility] ([facility]) #NRBC 0.00 10^3/uL 0.00-0.00 [facility] ([facility]) Manual Diff Laboratory test result M [facility] ([facility]) Segs 72 % 37-80 [facility] ([facility]) Band 0 % 0-5 [facility] ([facility]) %[place] 1 % 3-8 Below low normal [facility] ([facility]) %Eos 0 % 0-7 [facility] ([facility]) %Lymph 27 % 25-40 [facility] ([facility]) RBC Morph Laboratory test result [facility] ([facility]) %Baso 0 % 0-2 [facility] ([facility]) ID Date Data Source [id number] 08/24/2019 04:52:00 PM EST [facility] ([facility]) Name Value Range Interpretation Code Description Data Tamra rce(s) Supporting Document(s) Culture Blood Laboratory test result [facility] ([facility]) _CULTURE BLOOD_ [place] [address] CLIA# [id number] SEE SCANNED REPORT { PRELIM ID Date Data Source [id number] 08/24/2019 04:52:00 PM EST [facility] Name Value Range Interpretation Code Description Data Tamra rce(s) Supporting Document(s) Bacteria identified in Blood by Culture (See Note) [facility] ([facility]) _CULTURE BLOOD_ TEST [place] [address] CLIA# [id number] SEE SCANNED REPORT { PRELIM ID Date Data Source [id number] 08/24/2019 04:52:00 PM EST [facility]) Name Value Range Interpretation Code Description Data Tamra rce(s) Supporting Document(s) WBC 12.3 10^3/uL 4.2-11.0 [facility]) CBC W/Automated Diff (See Note) [facility] ( [facility]) COMPLETE BLOOD COUNT Hematocrit 45.7 % 37.0-47.0 [facility] ([facility]) RBC 5.26 10^6/uL 4.20-5.40 [facility]) Hemoglobin 15.6 g/dL 12.0-16.0 [facility] ([facility]) MCV 86.9 fL 81.0-101 [facility] MCH 29.7 pg 27.0-34.0 [facility] MCHC 34.1 g/dL 31.0-36.0 [facility] Erythrocyte distribution width [Ratio] by Automated count 12.3 % 11.5-14.5 [facility] ([facility]) Platelet mean volume [Entitic volume] in Blood by Sabino-María 8.6 fL 7.4-10.4 [facility] ([facility]) Platelets 372 10^3/uL 150-450 [facility] ([facility]) Lymph 21.5 % 25.0-40.0 [facility] Neut 67.0 % 37.0-80.0 [facility] [place] 9.8 % 3.0-8.0 [facility] %Ig 0.2 % 0.0-0.0 [facility] Eos 1.1 % 0.0-7.0 [facility] Baso 0.4 % 0.0-2.5 [facility] #Neut 8.20 10^3/uL 2.00-6.90 [facility]) #Lymph 2.64 10^3/uL 0.60-3.40 [facility]) %NRBC 0.0 % 0.0-0.0 [facility] #Eos 0.14 10^3/uL 0.00-0.70 [facility] ([facility]) #Baso 0.05 10^3/uL 0.00-0.20 [facility]) #[place] 1.20 10^3/uL 0.00-0.90 [facility]) Manual Diff See Below [facility] ([facility]) #Ig 0.03 10^3/uL 0.00-0.10 [facility] ([facility]) #NRBC 0.00 10^3/uL 0.00-0.00 [facility]) Band 0 % 0-5 [facility] Segs 72 % 37-80 [facility] %Lymph 27 % 25-40 [facility] %[place] 1 % 3-8 [facility] %Baso 0 % 0-2 [facility] %Eos 0 % 0-7 [facility] RBC Morph Not Indicated [facility]) ID Date Data Source [id number] 08/24/2019 04:52:00 PM EST [facility] ([facility]) Name Value Range Interpretation Code Description Data Tamra rce(s) Supporting Document(s) Lactate [Mass/volume] in Serum or Plasma 1.7 mmol/L 0.2-2.2 [facility] ([facility]) ID Date Data Source [id number] 08/24/2019 04:52:00 PM EST [facility]) Name Value Range Interpretation Code Description Data Tamra rce(s) Supporting Document(s) Comprehensive Metabo (See Note) [facility] ( [facility]) COMPREHENSIVE METABOLIC PANEL Potassium 3.1 meq/L 3.6-5.0 [facility] Chloride 93 meq/L 98-107 [facility] Sodium 137 meq/L 134-153 [facility] Glucose 103 mg/dL 65-110 [facility] BUN 14 mg/dL 7-21 [facility] Co2 30 meq/L 22-30 [facility] BUN/Creat 14 8-27 [facility] Total Protein 7.9 g/dL 6.3-8.2 [facility]) Creatinine 1.0 mg/dL 0.7-1.5 [facility] ([facility]) A/G Ratio 1.1 0.8-2.0 [facility] Globulin [Mass/volume] in Serum by calculation 3.7 GM/DL 2.4-3.2 [facility] ([facility]) Albumin 4.2 g/dL 3.9-5.0 [facility] Alkaline Phos 129 U/L 38-126 [facility]) Total Bili 0.7 mg/dL 0.2-1.3 [facility] ([facility]) Calcium 9.7 mg/dL 8.4-10.2 [facility] Age 48 yrs [facility] Sgot/Ast 16 U/L 5-40 [facility] Anion gap in Serum or Plasma 14.0 mmol/L 8.0-16.0 [facility] ([facility]) SGPT/Alt 12 U/L 7-56 [facility] Afr Amer GFR >60 mL/min [facility]) Male GFR Interprentation 20-49 yrs >60 mL/min Normal 50-59 yrs >56 mL/min Normal 60-69 yrs >49 mL/min Normal 70-79yrs >42 mL/min Normal 80 and above >35 mL/min Normal Female GFR Interpretation 20-39 yrs >60 mL/min Normal 40-49 yrs >58 mL/min Normal 50-59 yrs >51 mL/min Normal 60-69 yrs >45 mL/min Normal 70-79 yrs >39 mL/min Normal 80 and above >32 mL/min Normal Non-Aa GFR >60 mL/min [facility] ([facility]) ID Date Data Source [id number] 08/30/2019 03:18:00 PM [facility] Name Value Range Interpretation Code Description Data Tamra rce(s) Supporting Document(s) CULTURE BLOOD [facility] spital _CULTURE BLOOD_ TEST [place] [address] CLIA# [id number] SEE SCANNED REPORT{ PRELIM ID Date Data Source [id number] 08/24/2019 05:23:[address] [facility] Name Value Range Interpretation Code Description Data Tamra rce(s) Supporting Document(s) CBC W/AUTOMATED DIFF [facility] COMPLETE BLOOD COUNT Leukocytes [#/volume] in Blood by Automated count 12.3 10^3/uL 4.2 - 11.[address] [facility] Erythrocytes [#/volume] in Blood by Automated count 5.26 10^6/uL 4. 20 - 5.40 [facility] Hemoglobin [Mass/volume] in Blood 15.6 g/dL 12.0 - 16.0 [facility] Hematocrit [Volume Fraction] of Blood by Automated count 45.7 % 3 7.0 - 47.0 [facility] Erythrocyte mean corpuscular volume [Entitic volume] by Auto mated count 86.9 fL 81.0 - 101 [facility] Erythrocyte mean corpuscular hemoglobin [Entitic mass] by Automated count 29.7 pg 27.0 - 34.0 [facility] Erythrocyte mean corpuscular hemoglobin concentration [Mass/volume] by Automated count 34.1 g/dL 31.0 - 36.0 [facility] Erythrocyte distribution width [Ratio] by Automated count 12.3 % 11.5 - 14.5 [facility] Platelets [#/volume] in Blood by Automated count 372 10^3/uL 150 - [address] [facility] Platelet mean volume [Entitic volume] in Blood by Automated count 8.6 fL 7.4 - 10.4 [facility] Neutrophils/100 leukocytes in Blood by Automated count 67.0 % 37. 0 - 80.0 [facility] Lymphocytes/100 leukocytes in Blood by Manual count 21.5 % 25.0 - 40.[address] [facility] Monocytes/100 leukocytes in Blood by Automated count 9.8 % 3.0 - 8.[address] [facility] Eosinophils/100 leukocytes in Blood by Automated count 1.1 % 0.0 - 7.0 [facility] 0.4 %IG 0.2 % 0.0 - 0.0 H [facility] %NRBC 0.0 % 0.0 - 0.0 [facility] Neutrophils [#/volume] in Blood by Automated count 8.20 10^3/uL 2.00 - 6.[address] [facility] Lymphocytes [#/volume] in Blood by Automated count 2.64 10^3/uL 0.60 - 3.40 [facility] Monocytes [#/volume] in Blood by Automated count 1.20 10^3/uL 0.00 - 0.[address] [facility] Eosinophils [#/volume] in Blood by Automated count 0.14 10^3/uL 0.00 - 0.70 [facility] Basophils [#/volume] in Blood by Automated count 0.05 10^3/uL 0.00 - 0.20 [facility] #IG 0.03 10^3/uL 0.00 - 0.10 [facility] #NRBC 0.00 10^3/uL 0.00 - 0.00 [facility] ospital MANUAL DIFF SEE BELOW [facility] ital Segmented neutrophils/100 leukocytes in Blood by Manual count 72 % 37 - 80 [facility] BAND 0 % 0 - 5 [facility] %LYMPH 27 % 25 - 40 [facility] al %MONO 1 % 3 - 8 L [facility] %EOS 0 % 0 - 7 [facility] RBC MORPH NOT INDICATED [facility] sp[facility] ID Date Data Source [id number] 08/24/2019 05:23:[address] [facility] Name Value Range Interpretation Code Description Data Tamra rce(s) Supporting Document(s) COMPREHENSIVE METABOLIC PANEL [facility] COMPREHENSIVE METABOLIC PANEL Sodium [Moles/volume] in Serum or Plasma 137 mEq/L 134 - 153 [facility] Potassium [Moles/volume] in Serum or Plasma 3.1 mEq/L 3.6 - 5.[address] [facility] Chloride [Moles/volume] in Serum or Plasma 93 mEq/L 98 - [address] [facility] Carbon dioxide, total [Moles/volume] in Serum or Plasma 30 MEQ/L 22 - 30 [facility] Glucose [Mass/volume] in Serum or Plasma 103 MG/DL 65 - 110 [facility] BUN 14 MG/DL 7 - 21 [facility] Creatinine [Mass/volume] in Serum or Plasma 1.0 MG/DL 0.7 - 1.5 [facility] BUN/CREAT 14 8 - 27 [facility] Protein [Mass/volume] in Serum or Plasma 7.9 G/DL 6.3 - 8.2 [facility] Albumin [Mass/volume] in Serum or Plasma 4.2 G/DL 3.9 - 5.0 [facility] Globulin [Mass/volume] in Serum by calculation 3.7 GM/DL 2.4 - 3.[address] [facility] A/G RATIO 1.1 0.8 - 2.0 [facility] Calcium [Mass/volume] in Serum or Plasma 9.7 MG/DL 8.4 - 10.2 [facility] Bilirubin.total [Mass/volume] in Serum or Plasma 0.7 MG/DL 0.2 - 1.3 [facility] Alkaline phosphatase [Enzymatic activity/volume] in Serum or Plasma 129 U/L 38 - [address] [facility] Aspartate aminotransferase [Enzymatic activity/volume] in Serum or Plasma 16 U/L 5 - 40 [facility] Alanine aminotransferase [Enzymatic activity/volume] in Seru m or Plasma 12 U/L 7 - 56 [facility] Anion gap 3 in Serum or Plasma 14.0 mmol/L 8.0 - 16.0 [facility] AGE 48 yrs [facility] NON-AA GFR >60 mL/min [facility] ital AFR AMER GFR >60 mL/min [facility] spital Male GFR In terprentation 20-49 yrs >60 mL/min Normal 50-59 yrs >56 mL/min Normal 60-69 yrs >49 mL/min Normal 70-79yrs >42 mL/min Normal 80 and above >35 mL/min Normal Female GFR Interpretation 20-39 yrs >60 mL/min Normal 40-49 yrs >58 mL/min Normal 50-59 yrs >51 mL/min Normal 60-69 yrs >45 mL/min Normal 70-79 yrs >39 mL/min Normal 80 and above >32 mL/min Normal ID Date Data Source [id number] 08/24/2019 05:23:00 PM [facility] Name Value Range Interpretation Code Description Data Tamra rce(s) Supporting Document(s) Lactate [Moles/volume] in Serum or Plasma 1.7 MMOL/L 0.2 - 2.2 [facility] ID Date Data Source [id number] 08/22/2019 06:37:00 PM [facility] [address] [facility] Emergency Department [address] [place] [address] Phone #: ext- [phone] 08/22/2019 18:34 Patient: OFELIA HOOKER Sex: F : 1970 Age: 48yWEIGHT:72.5 kg (S) HEIGHT:58 inches (S) BMI:33.4ALLERGIES: No Known Drug AllergyCHIEF COMPLAINT: near-syncopeDIAGNOSIS: PneumoniaLAB ORDERSOrder Description Priority Entered Acknowledged InitialedCBC w Diff STAT :18 08/22/2019 19:25 Vladimir Teixeira.N. P.A.-C;CMP STAT :08/22/2019 19:25 Vladimir Teixeira.N. P.A.-C;Lipase STAT :18 08/22/2019 19:25 Vladimir Teixeira.N. P.A.-C;PT/PTT STAT :18 08/22/2019 19:25 Vladimir Teixeira.N. P.A.-C;Troponin-T STAT :18 08/22/2019 19:25 Vladimir Teixeira.N. P.A.-C;TSH STAT :18 08/22/2019 19:25 Vladimir Teixeira.N. P.A.- C;Urinalysis (Clean STAT 19:18 08/22/2019 19:24 PuneetCatch) Vladimir Joseph R.N. P.A.-C;D-Dimer STAT 19:18 08/22/2019 19:25 Vladimir Teixeira R.N. P.A.-C;Influenza Nasal A B STAT 19:18 08/22/2019 19:24 Vladimir TeixeiraN. P.A.-C;DIAGNOSTIC STUDY ORDERSOrder Description Priority Entered Acknowledged InitialedCT Head W/O Cont STAT 20:13 08/22/2019 20:19 [address] [facility] Emergency Department [address] [place] [address] Phone #: ext- [phone] 08/22/2019 18:34 Patient: OFELIA HOOKER Sex: F : 1970 Age: 3 0y(Oxygen?(No)) Vladimir Joseph R.N. P.A.-C; Reason for Study: SyncopeChest 2 View STAT 20:13 08/22/2019 20:19 Puneet(Oxygen?(No)) Vladimir Joseph R.N. P.A.- C; Reason for Study: syncopeMEDICATION/IV/DRIP/FLUID ORDERSOrder Description Priority Entered Acknowledged InitialedIV NS : Bolus 500 19:18 08/22/2019 19:24 Puneet,mL, then 150 mL/hr Vladimir DanielsonN. P.A.-C;Potassium Chloride 21:04 08/22/2019 21:04 Puneet,Liquid PO 40 meq Vladimir Villarreal.N. P.A.-C;Rocephin 21:17 08/22/2019 21:19 Puneet,(1gm/50mL) IVPB Vladimir Joseph R.N.1000 mg with P.A.-C;Dextrose 50 mlspike bag (D5W)Azithromycin PO 21:44 08/22/2019 21:45 Puneet,500 mg Vladimir Joseph R.N., P.A.-C;GENERAL ORDERSOrder Description Priority Entered Acknowledged InitialedCardiac Monitor 19:18 08/22/2019 19:23 Puneet(continuous) Vladimir Joseph R.N., P.A.-C;EKG 19:08/22/2019 19:23 Vladimir Teixeira R.N., P.A.-C;NPO 19:18 08/22/2019 19:23 Vladimir Teixeira R.N.;Obtain Old EKG 19:08/22/2019 19:23 Vladimir Teixeira R.N., P.A.-C;Obtain Old Records 19:08/22/2019 19:23 Vladimir Teixeira R.N., P.A.-C;Pulse oximeter 19:08/22/2019 19:23 Puneet, [address] [facility] Emergency Department [address] [place] [address] Phone #: ext- [phone] 08/22/2019 18:34 Patient: OFELIA HOOKER Sex: F : 1970 Age: 48y(Continuous) Vladimir Joseph R.N., P.A.-C;Saline Lock 19:18 08/22/2019 19:23 Vladimir Teixeira R.N., P.A.-C;Vitals 19:18 08/22/2019 19:23 Vladimir Teixeira R.N., P.A.-C;[Electronically signed by Jake Teixeira R.N. (21:52 08/22/2019)][Electronically signed by Vladimir Gray P.A.-C (23:33 08/22/2019)][Electronically locked by Jake Teixeira R.N. (21:52 08/22/2019)] Name Value Range Interpretation Code Description Data Tamra rce(s) Supporting Document(s) ID Date Data Source [id number] 08/22/2019 06:37:[address] [facility] [address] [facility] Emergency Department [address] [place] [address] Phone #: ext- [phone] 08/22/2019 18:34 Patient: OFELIA HOOKER Sex: F : 1970 Age: 48yWeight: 72.5 kgHeight/Length: 58 in.BMI: 33.4ALLERGIES: No Known Drug AllergyThe patient's Home Medications are listed below:THE FOLLOWING MEDICATIONS NEED TO BE RECONCILED: DULoxetine HCl Oral (60 mg) 1 capsule, daily Gabapentin Oral (300 mg) 1 capsule, 2x a day MetFORMIN HCl ER Oral (500 mg) 1 tablet, 2x a day [facility] Potassium Chloride ER Oral (20 meq) 1 tablet, 2x a day RaNITidine HCl Oral (150 mg) 1 tablet, 2x a day Tolterodine Tartrate Oral (2 mg) 1 tablet, 2x a day Vitamin D Oral 1.25 mg, once a weekThe source(s) of the original Home Medication information:Not obtained.The following Medications were given to the patient in the Emergency Department:IV NS IV Fluids bolus 0, then 500 mL/hr, administered: 08/22/2019 7:24:00 PMPOTASSIUM CHLORIDE LIQUID PO PO 40 meq, administered: 08/22/2019 9:04:00 PMROCEPHIN (1GM/50ML) [IVPB] IVPB bolus 0, then 1 gm 200 mL/hr, administered: 08/22/2019 9:19:00 PMAzithromycin [PO] PO 500 mg, administered: 08/22/2019 9:45:00 PM [address] [facility] Emergency Department [address] [place] [address] Phone #: ext- [phone] 08/22/2019 18:34 Patient: OFELIA HOOKER Sex: F : 1970 Age: 48yThe following Medications were prescribed to the patient:azithromycin 250 mg tablet Take 1 tablet once a day for 4 days -- Day 1 given in the ER. Dispense 4tablet. Refills: 0. Substitution permitted.[facility] [address] [place] [address] [phone]. FaxNumber: .ProAir HFA 90 mcg/actuation aerosol inhaler Inhale 2 puff four times a day as needed -- Dispense 1inhaler. Refills: 0. Substitution permitted.[facility] [address] [place] [address] [phone]. . -- Vladimir Gray P.A.-C Name Value Range Interpretation Code Description Data Tamra rce(s) Supporting Document(s) ID Date Data Source [id number] 08/22/2019 06:37:[address] [facility] [address] [facility] Emergency Department [address] [place] [address] Phone #: ext- [phone] 08/22/2019 18:34 Patient: OFELIA HOOKER Sex: F : 1970 Age: 48yWeight: 72.5 kgHeight/Length: 58 inBMI: 33.4ALLERGIES: No Known Drug Allergy Date/Time Medication Administered Medication OrderedStart IV NS IV NS : Bolus 500 mL, then 89952:24 08/22/2019 Dose: IV Fluids mL/Jake Ribeiro R.N. Rate: 500 mL/hr over 30 minute(s)---- Dispensed: 500 mL bagStop Site: #1 left AC20:44 08/22/2019Jake Teixeira R.N.Given POTASSIUM CHLORIDE LIQUID PO Potassium Chloride Liquid PO 4021:04 08/22/2019 Dose: 40 meq Tablets PO Jake Bowen R.N.Start ROCEPHIN (1GM/50ML) [IVPB] Rocephin (1gm/50mL) IVPB 191638:19 08/22/2019 (CEFTRIAXONE SODIUM) mg with Dextrose 50 ml spike Jake Coronel R.N. Dose: 1 gm IVPB (D5W)---- Rate: 200 mL/hrStop Dispensed: 50 mL bag21:36 08/22/2019 Site: #1 left Jake Pastor R.N.Given AZITHROMYCIN [PO] Azithromycin PO 500 mg21:45 08/22/2019 Dose: 500 mg Tablets Jake Oliver R.N. Name Value Range Interpretation Code Description Data Tamra rce(s) Supporting Document(s) ID Date Data Source [id number] 08/22/2019 06:37:[address] [facility] [address] [facility] Emergency Department [address] [place] [address] Phone #: ext- [phone] 08/22/2019 18:34 Patient: OFELIA HOOKER Sex: F : 1970 Age: 48yBacterial pneumonia.INSTRUCTIONSNo dietary restrictions. Drink plenty of fluids.(Recommend to utilize OTC Motrin and Tylenol to control inflammation and pain management.Recommend to follow the instructions on the bottle and not to exceed.).Warnings: GENERAL WARNINGS: Return or contact your physician immediately if your conditionworsens or changes unexpectedly, if not improving as expected, or if other problems arise.Prescription Medications:azithromycin 250 mg tablet Take 1 tablet once a day for 4 days -- Day 1 given in the ER. Dispense 4tablet. Refills: 0. Substitution permitted.[facility] [address] [place] [address] [phone]. .ProAir HFA 90 mcg/actuation aerosol inhaler Inhale 2 puff four times a day as needed -- Dispense 1inhaler. Refills: 0. Substitution permitted.[facility] [address] - [address] [place] [address] ; [place], [place] [phone]. .Follow-up:Return to the emergency department as needed. Follow up with your healthcare provider in about threedays if not better. Call for an appointment.Understanding of the discharge instructions verbalized by patient. ADDITIONAL INFORMATIONPneumonia (Adult)Pneumonia is an infection deep within the lungs. It is in the small air sacs (alveoli). Pneumonia maybe caused by a virus or bacteria. Pneumonia caused by bacteria is usually treated with an antibiotic.Severe cases may need to be treated in the hospital. Milder cases can be treated at home.Symptoms usually start to get better during the first 2 days of treatment. [address] [facility] Emergency Department [address] [place] [address] Phone #: ext- [phone] 08/22/2019 18:34 Patient: OFELIA HOOKER Sex: F : 1970 Age: 48yHome careFollow these guidelines when caring for yourself at home: Rest at home for the first 2 to 3 days, or until you feel stronger. Don't let yourself get overly tired when you go back to your activities. Stay away from cigarette smoke yours or other people's. You may use acetaminophen or ibuprofen to control fever or pain, unless another medicine was prescribed. If you have chronic liver or kidney disease, talk with your healthcare provider [address] [facility] Emergency Department [address] [place] [address] Phone #: ext- [phone] 08/22/2019 18:34 Patient: OFELIA HOOKER Sex: F : 1970 Age: 48y before using these medicines. Also talk with your provider if you've had a stomach ulcer or gastrointestinal bleeding. Don't give aspirin to anyone georgi michi than 18 years of age who is ill with a fever. It may cause severe liver damage. Your appetite may be poor, so a light diet is fine. Drink 6 to 8 glasses of fluids every day to make sure you are getting enough fluids. Beverages can include water, sport drinks, sodas without caffeine, juices, tea, or soup. Fluids will help loosen secretions in the lung. This will make it easier for you to cough up the phlegm (sputum). If you also have heart or kidney disease, check with your healthcare provider before you drink extra fluids. Take antibiotic medicine prescribed until it is all gone, even if you are feeling better after a few days.Follow-up careFollow up with your healthcare provider in the next 2 to 3 days, or as advised. This is to be sure themedicine is helping you get better.If you are 65 or older, you should get a pneumococcal vaccine and a yearly flu (influenza) shot. Youshould also get these vaccines if you have chronic lung disease like asthma, emphysema, or COPD .Recently, a second type of pneumonia vaccine has become available for everyone over 65 years old.This is in addition to the previous vaccine. Ask your provider about this.When to seek medical adviceCall your healthcare provider right away if any of these occur: You don't get better within the first 48 hours of treatment Shortness of breath gets worse Rapid breathing (more than 25 breaths per minute) Coughing up blood Chest pain gets worse with breathing Fever of 100.4F (38C) or higher that doesn't get better with fever medicine Weakness, dizziness, or fainting that gets worse Thirst or dry mouth that gets worse Sinus pain, headache, or a stiff neck Chest pain not caused by coughing [address] [facility] Emergency Department [address] [place] [address] Phone #: ext- [phone] 08/22/2019 18:34 Patient: OFELIA HOOKER Sex: F : 1970 Age: 48y [phone] [employer]. [address] [place] [address]. All rights reserved. This information is not intended as asubstitute for professional medical care. Always follow your healthcare professional's instructions. You have been given the following additional information: Pneumonia (Adult)(Electronically signed by Vladimir Gray P.A.-C 08/22/2019 23:33) Name Value Range Interpretation Code Description Data Tamra rce(s) Supporting Document(s) ID Date Data Source [id number] 08/22/2019 06:37:[address] [facility] 1 Clinical Report - Nurses [facility] Emergency Department [address] [place] [address] Phone #: [phone]- [phone] 08/22/2019 18:34 Patient: OFELIA HOOKER Sex: F : 1970 Age: 48yTRIAGEHistorian: patient.Triage time: 18:38 08/22/2019. Acuity: LEVEL 4.Chief Complaint: (feels faint).Alert. No acute distress.( pt with spouse yesterday at [facility] in ER and "passed out" while with him. pt was seen and discharged withdehydration. pt ate dinner 1 hr ago. pt states she feels faint now. pt appears in nad, lying on stretcherlaughing and talking with family).SEPSIS SCREEN: NEGATIVE. Negative (no infection suspected/documented). --18:42 08/22/19, R.N.18:38 08/22/19. BP: 124/86. MAP: 98. HR: 117. RR: 16. O2 saturation: 96%. Temp: 97.1 F. Pain levelnow: 0/10. --18:42 08/22/19 December, R.N.Weight: 72.5 kg stated. Height/Length: 58 inches Per Patient. BMI: 33.4. --18:38 08/22/19, December,R.N.MedicationsDULoxetine HCl Oral (Capsule Delayed Release Particles 60 mg) 1 capsule, daily. Gabapentin Oral (Capsule 300 mg) 1 capsule, 2x a day. MetFORMIN HCl ER Oral (Tablet Extended Release 24 Hour 500 mg) 1 tablet, 2x a day. Potassium Chloride ER Oral (Tablet Extended Release 20 meq) 1 tablet, 2x a day. RaNITidine HCl Oral (Tablet 150 mg) 1 tablet, 2x a day. Tolterodine Tartrate Oral (Tablet 2 mg) 1 tablet, 2x a day. Vitamin D Oral 1.25 mg, once a week. --18:40 08/22/19, December, R.N. [facility]. --18:54 08/22/19 Karthik Bazzi RN.AllergiesNo Known Drug Allergy. --18:40 08/22/19 December, RJose RaulN.PROBLEMS:Diabetes Mellitus.Gastroesophageal Reflux Disease.Panic Attack. --18:40 08/22/19 Farhana, Zenia, R.N.ADDITIONAL SURGERIES:Carpal Tunnel Surgery.Colonoscopy. 2 Clinical Report - Nurses [facility] Emergency Department [address] [place] [address] Phone #: ext- [phone] 08/22/2019 18:34 Patient: OFELIA HOOKER [facility]#: [id number] Sex: F : 1970 Age: 48y Endoscopy. --18:40 08/22/19 Zenia Delcid R.N. History PAST MEDICAL HX: The patient is post-menopausal. SOCIAL HX: Never smoker. No alcohol use or drug use. She was offered HIV testing but declined. She has not traveled outside the [place] Infectious disease exposure: No infectious disease exposure. Patient is not a known carrier of tuberculosis, hepatitis, HIV, MRSA or VRE. Patient is not a known carrier of CRE. SELF HARM ASSESSMENT: Self harm assessment was performed. The patient answered "no" to the question(s) "Have you recently felt down, depressed, or hopeless?", "Do you have thoughts of harming or killing yourself?", "Do you have a plan for harming or killing yourself?", "Have you recently had thoughts about harming or killing others?", "Do you have any dangerous items in your possession?", "Have you noticed less interest or pleasure in doing things?", "Are you here because you tried to hurt yourself?" and "Have you ever tried to hurt yourself before today?". ABUSE ASSESSMENT: Abuse assessment. yes. The patient had positive responses to the question(s) "Do you feel safe in your home?". No report of abuse. NUTRITIONAL RISK ASSESSMENT: The nutritional risk assessment revealed no deficiencies. FUNCTIONAL ASSESSMENT: Functional assessment: no impairments noted. LEARNING NEEDS ASSESSMENT: The learning needs assessment revealed no barriers. FALL RISK ASSESSMENT: Fall risk assessment completed. No risk factors identified. SKIN INTEGRITY ASSESSMENT: Skin integrity risk assessment completed. No skin integrity risk identified. --18:42 08/22/19 Zenia Delcid R.N. Interventions To treatment room. --18:42 08/22/19 Zenia Delcid R.N.PHYSICAL [id number] 08/22/19. To room via wheelchair.GENERAL / NEURO / PSYCH: Alert. Oriented X 4.HEENT: No facial asymmetry noted. Mucous membranes are pink.RESPIRATORY: Respirations not labored. Chest nontender. Breath sounds within normal limits.CVS: Capillary refill less than 2 seconds. Pulses within normal limits.GI / : Abdomen soft and nontender and normal bowel sounds.SKIN: Skin is warm and dry. --18:54 08/22/19 Karthik Bazzi RN.NURSING PROGRESS NOTESPatient gowned. Head of bed elevated. Reassurance given. Call light placed in reach. Side rails up x 3 Clinical Report - Nurses [facility] Emergency Department [address] [place] [address] Phone #: ext- [phone] 08/22/2019 18:34 Patient: OFELIA OHOKER Sex: F : 1970 Age: 48y2. Bed placed in lowest position. Brakes of bed on. Patient ready for evaluation- ED physician and PAnotified. --18:43 08/22/19 Zenia Delcid R.N.EKG time: (18:59 08/22/2019). EKG was performed by a nurse and shown to the ED physician. sinus.- -19:04 08/22/19 Karthik Bazzi RN19:24 08/22/2019 Site #1 started via IV in the left antecubital space with an 20g angiocath; one attempt.Saline lock flushed with 10 mL saline. --19:24 08/22/19 Jake Teixeira R.N.19:24 08/22/2019 Started bag #1 500 mL IV Fluids IV NS; at 500 mL/hr over 30 minute(s) via site #1 [id number]. Allergies verified and confirmed 5 rights. IV patency established. IV site checked: no pain,redness, or swelling. IV flushed thoroughly pre- and post-medication administration. Information reviewedwith patient. --19:24 08/22/19 Jake Teixeira R.N.( Pt up to bathroom gait steady, UA obtained). --19:28 08/22/19 Jake Teixeira R.N.( Pts states "they gave her 4 potassium pills yesterday"). --19:29 08/22/19 Jake Teixeira R.N.( Pt alert and oriented, texting on phone, talking with family). --19:52 08/22/19 Jake Teixeira R.N.Patient transported to CT by wheelchair with earth science technician. --20:38 08/22/19 Jake Teixeira R.N.20:44 08/22/2019 IV Fluids IV NS via IV site #1 Discontinued: bag #1 completed. Total amount infused:500 mL. IV patency established. IV site checked: no pain, redness, or swelling. IV flushed thoroughly.--20:44 08/22/19 Jake Teixeira R.N.( Pt returned from ct ambulated back from BR no signs of distress noted, gait steady). --20:47 08/22/19Jake Teixeira R.N.21:04 08/22/2019 POTASSIUM CHLORIDE LIQUID PO PO Tablets 40 meq given. Allergies verified andconfirmed 5 rights. --21:04 08/22/19 Jake Teixeira R.N.21:19 08/22/2019 Started 1 gm of ROCEPHIN (1GM/50ML) (cefTRIAXone Sodium) IVPB in bag #1 50 mL;at 200 mL/hr via site #1. Allergies verified and confirmed 5 rights. IV patency established. IV site checked:no pain, redness, or swelling. IV flushed thoroughly pre- and post-medication administration. Informationreviewed with patient. --21:19 08/22/19 Jake Teixeira R.N.21:36 08/22/2019 ROCEPHIN (1GM/50ML) IVPB via IV site #1 Discontinued: bag #1 completed. Totalamount infused: 50 mL. IV patency established. IV site checked: no pain, redness, or swelling. IV flushedthoroughly. --21:36 08/22/19 Jake Teixeira R.N.21:45 08/22/2019 Azithromycin PO Tablets 500 mg given. Allergies verified and confirmed 5 rights.Information reviewed with patient. --21:45 08/22/19 Jake Teixeira R.N. 4 Clinical Report - Nurses [facility] Emergency Department [address] [place] [address] Phone #: ext- [phone] 08/22/2019 18:34 Patient: OFELIA HOOKER Sex: F : 1970 Age: 48yDISPOSITION / DISCHARGE 21:47 08/22/2019 Site #1 removed upon discharge. Bandaid applied. --21:47 08/22/19 Jake Teixeira R.N. Condition at departure: improved. Discharge instructions provided and reviewed. Reviewed medication(s). Prescription(s) sent electronically to pharmacy. Reviewed referral to a primary care physician. Verbalized understanding. Written instructions provided. The patient was discharged by the physician lead dental assistant. She was discharged home and accompanied by spouse. She left ambulatory and via private vehicle. Patient driving. --21:48 08/22/19 Jake Teixeira R.N. 21:47 08/22/19. BP: 120/85. HR: 100. RR: 14. O2 saturation: 100%. Temp: 99 F. Pain level now 0/10. --21:48 08/22/19 Jake Teixeira R.N.Locked/Released at 08/22/2019 21:52 by Jake Teixeira R.N. Name Value Range Interpretation Code Description Data Tamra rce(s) Supporting Document(s) ID Date Data Source [id number] 08/22/2019 06:37:[address] [facility] 1 Clinical Report - Physicians/Mid Levels [facility] Emergency Department [address] [place] [address] Phone #: ext- [phone] 08/22/2019 18:34 Patient: OFELIA HOOKER Sex: F : 1970 Age: 48y Time Seen: 19:16 08/22/2019; initial patient contact, initial documentation. Arrived- By private vehicle. Historian- patient.HISTORY OF PRESENT ILLNESS Chief Complaint: NEAR-SYNCOPE. This occurred today. The patient has recovered. The patient felt faint and lost consciousness. No incontinence. The patient had no preceding symptoms. At time of event, she was sitting. Experienced repeated episodes. Currently she has no symptoms. (Pt sts that she was seen at [facility] yesterday for a syncopal episode and then discharged; but later tonight has similar s/s and came to this ER. Pt sts that this has happend a few times in julius past, but never brought up to her PCP. Has been with this PCP for 3 mths. sts that pt has had similar episodes int eh past for the last 4 years that they have been together. Unsure of last episode. Sts the did previously seen cardiology and had a stress test and other tests and all was normal and cleared. Pt unsure; sts that had episode yesterday and had smilar today and came to ER.). Similar symptoms previously. Patient has had similar symptoms frequently. Recent medical care: The patient was seen recently at another facility in the emergency department.REVIEW OF SYSTEMSNo headache, dizziness, chest pain, palpitations or abdominal pain. No vomiting, diarrhea, black stools,numbness or bloody stools. No fever, sore throat, difficulty breathing, difficulty with urination or cough.The patient has had weakness, and a cough.PAST HISTORYSee nurses notes. Problems: GI Disease. Lower Extremity Pain. Sinusitis. Sprain. Other Disease. Diabetes Mellitus. Gastroesophageal Reflux Disease. Panic Attack. Additional Surgeries: Carpal Tunnel Surgery. Colonoscopy. Endoscopy. 2 Clinical Report - Physicians/Mid Levels [facility] Emergency Department [address] [place] [address] Phone #: ext- [phone] 08/22/2019 18:34 [facility]: [facility]OOK[id number] Sex: F : 1970 Age: 48y Medications: [facility] DULoxetine HCl Oral (Capsule Delayed Release Particles 60 mg) 1 capsule, daily. Gabapentin Oral (Capsule 300 mg) 1 capsule, 2x a day. MetFORMIN HCl ER Oral (Tablet Extended Release 24 Hour 500 mg) 1 tablet, 2x a day. Potassium Chloride ER Oral (Tablet Extended Release 20 meq) 1 tablet, 2x a day. RaNITidine HCl Oral (Tablet 150 mg) 1 tablet, 2x a day. Tolterodine Tartrate Oral (Tablet 2 mg) 1 tablet, 2x a day. Vitamin D Oral 1.25 mg, once a week. Allergies: No Known Drug Allergy.SOCIAL HISTORYNever smoker. No alcohol use or drug use.ADDITIONAL NOTESThe nursing notes have been reviewed.PHYSICAL EXAMVital Signs: 08/22/2019 18:38 BP: 124/86. MAP: 98. HR: 117. RR: 16. O2 saturation: 96%. Temp: 97.1 F.Pain level now: 0/10. Have been reviewed. Oxygen saturation normal.Appearance: Alert. No acute distress.Eyes: Pupils equal, round and reactive to light.ENT: Normal ENT inspection. Airway intact. TM's normal. Ears normal. Nose normal. Nares normal.Pharynx normal. Moist mucous membranes. Uvula midline. Voice normal.Neck: Normal inspection. Neck supple.CVS: Normal heart rate and rhythm. No JVD present. Pulses normal. Capillary refill normal. Strongperipheral pulses. Heart sounds normal. Pulses: right radial 2+; left radial 2+; right dorsalis pedis 2+; leftdorsalis pedis 2+; right posterior tibial 2+; left posterior tibial 2+.Respiratory: Chest normal on inspection. No respiratory distress. Unlabored respirations. Lungs clear.Good chest movement. Breath sounds normal and equal.Abdomen: Normal inspection. Soft and nontender. Bowel sounds normal.Skin: Skin warm and dry.Extremities: Extremities exhibit normal ROM. No lower extremity edema. No calf tenderness. No lowerextremity edema.Neuro: Taylor Coma Scale: 15- eyes open- spontaneous (4); best verbal response- oriented (5); bestmotor response- obeys commands (6). Awake. Alert. Mood/affect normal. Speech normal. Cranialnerves II through XII intact and normal (as tested). No motor deficit. No sensory deficit. Reflexesnormal. Reflex exam: right triceps 2+, left triceps 2+, right biceps 2+, left biceps 2+, right brachioradialis2+ and left brachioradialis 2+.Psych: Cognition normal. Thought process and content normal. Insight and judgement normal.LABS, X-RAYS, AND EKG 3 Clinical Report - Physicians/Mid Levels [facility] Emergency Department [address] [place] [address] Phone #: ext- [phone] 08/22/2019 18:34 Patient: OFELIA HOOKER Sex: F : 1970 Age: 48yEKG: Tachycardia (111). Sinus Tachy; cannot r/o anteror infart, age undetermined; T wave abnormality,consider inferior ischemia, abnormal ECG.Discussed and reviewed iwht attending.Chest X-ray: (? infilitate LLL.).CT Head: Normal study. The study was interpreted by the radiologist.Laboratory Tests:CT Head W/O Cont: (LISANDRO: 08/22/2019 20:13) ( MsgRcvd 08/22/2019 21:02) Final results Exam CT HEAD W/[place] [address] ---------NAME--------- NUMBER SEX AGE ADMIT DISC. XRAY# F/C TYPE RONA [place] [id number] F 48 08/22/19 [id number] X6B E/R DATE OF : 1970 M/R# [id number] #: [id number] TR-06 LOCATION: EMERGENCY DEPT TRANSCRIB ED: 08/22/19 21:[address] HEAD W/O CONTRAST [id number] COMPLETED:08/22/19 20:46 KJE [id number] Reason(s): Syncope PHYSICIAN: ABDIAS GRAY CH R A D I O L O G Y R E P O R T PATIENT HISTORY: Syncope ACC DLP- 779.0mGy*cm Patient hx of menospause. Verified 2 patient identifiers. [facility] / BRAIN (DICOM Hx) EXAM: CT Head Without IV contrast. CLINICAL HISTORY: Syncope ACC DLP- 7 79.0mGy*cm Patient hx of menospause. TECHNIQUE: Axial computed tomography images of the head/brain without intravenous contrast. COMPARISON: None provided. FINDINGS: BRAIN: No acute intraparenchymal hemorrhage. No mass lesion. No CT evidence for acute territorial infarct. No midline shift or extra-axial collections. VENTRICLES: No hydrocephalus. ORBITS: The orbits are unremarkable. SINUSES AND MASTOIDS: The paranasal sinuses and mastoid air cells are clear. BONES: No fracture. SOFT TISSUES: Unremarkable. IMPRESSIONS: No acute intracranial abnormality. While performing the above CT examination, radiation dose reduction was accomplished utilizing automated exposure control, adjusting of the mA and kV based on the patient's body size and/or the use of imperative reconstructive techniques. 4 Clinical Report - Physicians/Mid Levels [facility] Emergency Department [address] [place] [address] Phone #: ext- [phone] 08/22/2019 18:34 Patient: OFELIA HOOKER Sex: F : 1970 Age: 48y Electronically Signed By: Carmelo Blakely MD , Radiologist Date/Time: 08/22/19 21:02Chest 2 View: (LISANDRO: 08/22/2019 20:13) ( MsgRcvd 08/22/2019 20:46) In ProgressCHEST 2 VIEWSReason(s): syncopeTRANSPORTATION: WC IV? O2? Oxygen?(No) Room: ED: Will sign waiverCBC w Diff: (LISANDRO: 08/22/2019 19:31) ( MsgRcvd 08/22/2019 20:08) Final results Test Result Flag Units (Reference) CBC W/AUTOMATED DIFF COMPLETE BLOOD COUNT WBC 16.9 H 10/uL (4.2 - 11.0) RBC 5.09 10/uL (4.20 - 5.40) HEMOGLOBIN 15.2 g/dL (12.0 - 16.0) HEMATOCRIT 44.7 % (37.0 - 47.0) MCV 87.8 fL (81.0 - 101) MCH 29.9 pg (27.0 - 34.0) MCHC 34.0 g/dL (31.0 - 36.0) RDW 12.6 % (11.5 - 14.5) PLATELETS 414 10/uL (150 - 450) MPV 8.5 fL (7.4 - 10.4) NEUT 71.8 % (37.0 - 80.0) LYMPH 18.0 L % (25.0 - 40.0) MONO 8.5 H % (3.0 - 8.0) EOS 0.9 % (0.0 - 7.0) BASO 0.4 % (0.0 - 2.5) %IG 0.4 H % (0.0 - 0.0) %NRBC 0.0 % (0.0 - 0.0) #NEUT 12.17 H 10/uL (2.00 - 6.90) #LYMPH 3.05 10/uL (0.60 - 3.40) #MONO 1.44 H 10/uL (0.00 - 0.90) #EOS 0.15 10/uL (0.00 - 0.70) #BASO 0.06 10/uL (0.00 - 0.20) #IG 0.07 10/uL (0.00 - 0.10) #NRBC 0.00 10/uL (0.00 - 0.00) MANUAL DIFF SEE BELOW SEGS 72 % (37 - 80) BAND 0 % (0 - 5) %LYMPH 21 L % (25 - 40) %MONO 7 % (3 - 8) %EOS 0 % (0 - 7) %BASO 0 % (0 - 2) METAMYELOCYTE 0 % MYELOCYTE 0 % PROMYELOCYTE 0 % BLASTS 0 % MAHI LYM 0 % NRBC 0 % RBC MORPH NOT INDICATEDCMP: (LISANDRO: 08/22/2019 19:31) ( MsgRcvd 08/22/2019 20:08) Final results Test Result Flag Units (Reference) COMPREHENSIVE METABOLIC PANEL COMPREHENSIVE METABOLIC PANEL SODIUM 138 mEq/L (134 - 153) POTASSIUM 3.1 L mEq/L (3.6 - 5.0) CHLORIDE 93 L mEq/L (98 - 107) CO2 26 MEQ/L (22 - 30) GLUCOSE 105 MG/DL (65 - 110) BUN 15 MG/DL (7 - 21) 5 Clinical Report - Physicians/Mid Levels [facility] Emergency Department [address] [place] [address] Phone #: ext- [phone] 08/22/2019 18:34 Patient: OFELIA HOOKER Sex: F : 1970 Age: 48y CREATININE 1.1 MG/DL (0.7 - 1.5) BUN/CREAT 14 (8 - 27) TOTAL PROTEIN 8.0 G/DL (6.3 - 8.2) ALBUMIN 4.6 G/DL (3.9 - 5.0) GLOBULIN 3.4 H GM/DL (2.4 - 3.2) A/G RATIO 1.4 (0.8 - 2.0) CALCIUM 10.3 H MG/DL (8.4 - 10.2) TOTAL BILI <0.7 MG/DL (0.2 - 1.3) ALKALINE PHOS 137 H U/L (38 - 126) SGOT/AST 19 U/L (5 - 40) SGPT/ALT 13 U/L (7 - 56) ANION GAP 19.0 H mmol/L (8.0 - 16.0) AGE 48 yrs NON-AA GFR 56 mL/min AFR AMER GFR >60 mL/min Male GFR Interprentation 20-49 yrs >60 mL/min Txcpap65-90 yrs >56 mL/min Normal 60-69 yrs >49 mL/min Normal 70-79yrs>42 mL/min Normal 80 and above >35 mL/min Normal Female GFRInterpretation 20-39 yrs >60 mL/min Normal 40-49 yrs >58 mL/minNormal 50-59 yrs >51 mL/min Normal 60-69 yrs >45 mL/min Gdqhhk05-66 yrs >39 mL/min Normal 80 and above >32 mL/min NormalLipase: (LISANDRO: 08/22/2019 19:31) ( MsgRcvd 08/22/2019 20:02) Final results Test Result Flag Units (Reference) LIPASE 26 U/L (13 - 60)PT/PTT: (LISANDRO: 08/22/2019 19:31) ( MsgRcvd 08/22/2019 20:00) Final results Test Result Flag Units (Reference) PROTIME 13.3 SECONDS (11.0 - 15.5) INR 1.00 (0.93 - 1.23) PTT 27.1 SECONDS (24.8 - 36.7) \\BLDo\\INR INTERPRETATION\\BLDx\\ Therapeutic range for Coumadin andrelated oral anticoagulants. -International Normalized Ratio (INR): 2.0 - 3.0 for VenousThrombosis, Pulmonary Embolus, Tissue heart valves, Acute IN Atrial Fibrillation, Valvular heart diseaseand recurrent Systemic Embolism. -International Normalized Ratio (INR): 2.5 - 3.5 forMechanical Prosthetic valve. \\BLDo\\PTT INTERPRETATION\\BLDx\\Critical results for patients not on therapy: >50 seconds Critical results for patients on therapy:>119 seconds Therapeutic range for patients on therapy: 58 - 90 seconds Coag studies fromline draws may not be accurate due to Heparin and other interferences.Troponin-T: (LSIANDRO: 08/22/2019 19:31) ( [facility] 08/22/2019 20:00) Final results Test Result Flag Units (Reference) TROPONIN T <0.01 NG/ML (0.00 - 0.10) TROPONIN T0.1 ng/ml Recommended as the clinical threshold value forTroponin T.TSH: (LISANDRO: 08/22/2019 19:31) ( [facility] 08/22/2019 20:13) Final results Test Result Flag Units (Reference) TSH 2.20 uIU/mL (0.47 - 5.01)Urinalysis: (LISANDRO: 08/22/2019 19:22) ( [facility] 08/22/2019 19:31) Final results Test Result Flag Units (Reference) URINALYSIS URINALYSIS SOURCE R COLOR yellow (NORMAL: Yello CLARITY clear (NORMAL: Clear SPEC GRAVITY 1.015 (1.001 - 1.030 pH 6 (5 - 9) GLUCOSE NORM (NORMAL: Negat BILIRUBIN NEG (NORMAL: Negat KETONE NEG (NORMAL: Negat 6 Clinical Report - Physicians/Mid Levels [facility] Emergency Department [address] [place] [address] Phone #: [phone] 08/22/2019 18:34 Patient: OFELIA HOOKER Sex: F : 1970 Age: 48y PROTEIN NEG (NORMAL: Negat NITRITE NEG (NORMAL: Negat BLOOD NEG (NORMAL: Negat LEUK EST 100 A (NORMAL: Negat UROBILINOGEN NOR (less than 1.0 MICROSCOPIC See Below WBC 3 - 5 (NORMAL: NONE RBC 0 - 1 (NORMAL: NONE EPITHELIAL FEW (NORMAL: NONE BACTERIA Trace (NORMAL: NONE D-Dimer: (LISANDRO: 08/22/2019 19:31) ( [facility] 08/22/2019 20:00) Final results Test Result Flag Units (Reference) D-DIMER QUANT <0.27 ug/mL (0.27 - 0.50) Influenza Nasal A B: (LISANDRO: 08/22/2019 19:24) ( [facility] 08/22/2019 20:21) Final results Test Result Flag Units (Reference) INFLUENZA A NEGATIVE (NORMAL: NEGAT INFLUENZA B NEGATIVE (NORMAL: NEGAT INFLUENZA A REENTER NEGATIVE (NORMAL: NEGAT INFLUENZA B REENTER NEGATIVE (NORMAL: NEGAT PROCEDURAL CONTROL VALID KIT LOT # _[id number] 08/22/19.DW . KIT EXP DATE _23-84-25 08/22/19.DW .The Influenza A utilizing an isothermal nucleic acid amplification technology for thequalitative detection of influenza A and B viral RNA.Negative results do not preclude influenza virus infection and should not beused as the sole basis for diagnosis, treatment or other patient managementdecisions..PROGRESS AND PROCEDURESCourse of Care: VSS, NAD, AOx3, interacting well and appropriately, no use of accessory muscle, able tospeak full sentences, stable, non-toxic looking. Enter room and pt lying peacefully in bed in NAD. Patient stable. Denies any new issues, concerns, or complaints. PE mihaelaos NV itnact b/l UE and LE. No noted neuro deficits. will obtain labs and imaging for pat baum. Will review [facility] paperowrk. Pending re sutls. Reviewe [facility]. No imaging; labs. noted elevated WBC at that time. Dx of dehydration. Penidng resutls Reviewed resutls. Enter room and patient lying peacefully in bed in NAD. Patient stable. Denies any new issues, concerns, or complaints. Discussed results with pt. Discussed tx plan with pt. Discussed and counseled on stable condition. Discussed importance of a f/u with PCP. Discussed return to ER criteria. Answered their questions. Indicates and verbalizes that they understand, agree, and will comply with above. Denies any new questions or concerns. Patient has capacity to understand. 7 Clinical Report - Physicians/Mid Levels [facility] Emergency Department [address] [place] [address] Phone #: ext- [phone] 08/22/2019 18:34 Patient: OFELIA HOOKER Sex: F : 1970 Age: 48y Discharge decision based on the following: patient's condition is stable; patient's exam is stable; social support is adequate; transportation is available; follow-up is available. Discussed of OTC Motrin and Tylenol to control inflammation and pain management. Informed to follow directions on bottle that are appropriate for age and/or weight. Discussed case with health care provider (Abdias). Disposition: Discharged home in good and improved condition. Condition: good and stable.CLINICAL IMPRESSION Bacterial pneumonia.INSTRUCTIONS No dietary restrictions. Drink plenty of fluids. (Recommend to utilize OTC Motrin and Tylenol to control inflammation and pain management. Recommend to follow the instructions on the bottle and not to exceed.). Warnings: GENERAL WARNINGS: Return or contact your physician immediately if your condition worsens or changes unexpectedly, if not improving as expected, or if other problems arise. Prescription Medications: azithromycin 250 mg tablet Take 1 tablet once a day for 4 days -- Day 1 given in the ER. Dispense 4 tablet. Refills: 0. Substitution permitted. [facility] [phone]. . ProAir HFA 90 mcg/actuation aerosol inhaler Inhale 2 puff four times a day as needed -- Dispense 1 inhaler. Refills: 0. Substitution permitted. Pharmacy [facility] - [address] [place] [phone]. . Follow-up: Return to the emergency department as needed. Follow up with your healthcare provider in about three days if not better. Call for an appointment. Understanding of the discharge instructions verbalized by patient. 8 Clinical Report - Physicians/Mid Levels [facility] Emergency Department [address] [place] [address] Phone #: ext- [phone] 08/22/2019 18:34 Patient: OFELIA HOOEKR Sex: F : 1970 Age: 48y(Electronically signed by Vladimir Gray P.A.-C 08/22/2019 23:33) Name Value Range Interpretation Code Description Data Tamra rce(s) Supporting Document(s) ID Date Data Source [id number] 08/22/2019 09:02:00 [place] [address] ---------NAME--------- NUMBER SEX AGE ADMIT DISC. XRAY# F/C TYPE RONA [place] [id number] F 48 08/22/19 [id number] X6B E/R DATE OF : 1970 M/R# [id number] #: [id number] TR-06 LOCATION: EMERGENCY DEPT TRANSCRIBED: 08/22/19 21:[address] HEAD W/O CONTRAST [id number] COMPLETED:08/22/19 20:46 KJE [id number] Reason(s): Syncope PHYSICIAN: ABDIAS GRAY CH======= R A D I O L O G Y R E P O R T PATIENT HISTORY:Syncope ACC DLP- 779.0mGy*cmPatient hx of menospause. Verified 2 patient identifiers.Sent to [employer].kje / BRAIN (DICOM Hx)EXAM: CT Head Without IV contrast.CLINICAL HISTORY: Syncope ACC DLP- 779.0mGy*cm Patient hx of menospause.TECHNIQUE: Axial computed tomography images of the head/brain withoutintravenous contrast.COMPARISON: None provided.FINDINGS:BRAIN: No acute intraparenchymal hemorrhage. No mass lesion. No CT evidence foracute territorial infarct. No midline shift or extra-axial collections.VENTRICLES: No hydrocephalus.ORBITS: The orbits are unremarkable.SINUSES AND MASTOIDS: The paranasal sinuses and mastoid air cells are clear.BONES: No fracture.SOFT TISSUES: Unremarkable.IMPRESSIONS:No acute intracranial abnormality.While performing the above CT examination, radiation dose reduction wasaccomplished utilizing automated exposure control, adjusting of the mA and kVbased on the patient's body size and/or the use of imperative reconstructivetechniques.Electronically Signed By:Carmelo Blakely MD , RadiologistDate/Time: 08/22/19 21:02 Name Value Range Interpretation Code Description Data Tamra rce(s) Supporting Document(s) ID Date Data Source [id number] 08/22/2019 07:31:00 PM EST [facility] ([facility]) Name Value Range Interpretation Code Description Data Tamra rce(s) Supporting Document(s) Thyrotropin [Units/volume] in Serum or Plasma 2.20 uIU/mL 0.47-5.01 [facility] ([facility]) ID Date Data Source [id number] 08/22/2019 07:31:00 PM EST [facility] ([facility]) Name Value Range Interpretation Code Description Data Tamra rce(s) Supporting Document(s) Sodium 138 meq/L 134-153 [facility] ([facility]) Comprehensive Metabo Laboratory test result [facility] ([facility]) COMPREHENSIVE METABOLIC PANEL Co2 26 meq/L 22-30 [facility] ([facility]) Potassium 3.1 meq/L 3.6-5.0 Below low normal [facility] ( [facility]) Chloride 93 meq/L 98-107 Below low normal [facility] ( [facility]) Creatinine 1.1 mg/dL 0.7-1.5 [facility] ([facility]) BUN 15 mg/dL 7-21 [facility] ([facility]) Glucose 105 mg/dL 65-110 [facility] ([facility]) Total Protein 8.0 g/dL 6.3-8.2 [facility] ([facility]) Albumin 4.6 g/dL 3.9-5.0 [facility] ([facility]) BUN/Creat 14 8-27 [facility] ([facility]) Globulin 3.4 GM/DL 2.4-3.2 Above high normal [facility] ([facility]) A/G Ratio 1.4 0.8-2.0 [facility] ([facility]) Calcium 10.3 mg/dL 8.4-10.2 Above high normal [facility] ([facility]) Alkaline Phos 137 U/L 38-126 Above high normal [facility] NT ([facility]) Total Bili Laboratory test result 0.2-1.3 ME [facility] ([facility]) Sgot/Ast 19 U/L 5-40 [facility] ([facility]) SGPT/Alt 13 U/L 7-56 [facility] ([facility]) Anion Gap 19.0 mmol/L 8.0-16.0 Above high normal [facility] ([facility]) Afr Amer GFR Laboratory test result [facility] ([facility]) Male GFR Interprentation 20-49 yrs >60 mL/min Normal 50-59 yrs >56 mL/min Normal 60-69 yrs >49 mL/min Normal 70-79yrs >42 mL/min Normal 80 and above >35 mL/min Normal Female GFR Interpretation 20-39 yrs >60 mL/min Normal 40-49 yrs >58 mL/min Normal 50-59 yrs >51 mL/min Normal 60-69 yrs >45 mL/min Normal 70-79 yrs >39 mL/min Normal 80 and above >32 mL/min Normal Age 50 yrs [facility] ([facility]) Non-Aa GFR 56 mL/min [facility] ([facility]) ID Date Data Source [id number] 08/22/2019 07:31:00 PM EST [facility] ([facility]) Name Value Range Interpretation Code Description Data Tamra rce(s) Supporting Document(s) CBC W/Automated Diff Laboratory test result [facility] ([facility]) COMPLETE BLOOD COUNT WBC 16.9 10^3/uL 4.2-11.0 Above high normal [facility] T ([facility]) RBC 5.09 10^6/uL 4.20-5.40 [facility] ([facility]) Hemoglobin 15.2 g/dL 12.0-16.0 [facility] ([facility]) MCV 87.8 fL 81.0-101 [facility] ([facility]) MCH 29.9 pg 27.0-34.0 [facility] ([facility]) Hematocrit 44.7 % 37.0-47.0 [facility] ([facility]) MCHC 34.0 g/dL 31.0-36.0 [facility] ([facility]) RDW 12.6 % 11.5-14.5 [facility] ([facility]) Platelets 414 10^3/uL 150-450 [facility] ([facility]) Neut 71.8 % 37.0-80.0 [facility] ([facility]) MPV 8.5 fL 7.4-10.4 [facility] ([facility]) Lymph 18.0 % 25.0-40.0 Below low normal [facility] ( [facility]) [place] 8.5 % 3.0-8.0 Above high normal [facility] ([facility]) Baso 0.4 % 0.0-2.5 [facility] ([facility]) Eos 0.9 % 0.0-7.0 [facility] ([facility]) %Ig 0.4 % 0.0-0.0 Above high normal [facility] ([facility]) #Neut 12.17 10^3/uL 2.00-6.90 Above high normal [facility] NT ([facility]) %NRBC 0.0 % 0.0-0.0 [facility] ([facility]) #Lymph 3.05 10^3/uL 0.60-3.40 [facility] ([facility]) #[place] 1.44 10^3/uL 0.00-0.90 Above high normal [facility] T ([facility]) #Ig 0.07 10^3/uL 0.00-0.10 [facility] ([facility]) #Eos 0.15 10^3/uL 0.00-0.70 [facility] ([facility]) #Baso 0.06 10^3/uL 0.00-0.20 [facility] ([facility]) #NRBC 0.00 10^3/uL 0.00-0.00 [facility] ([facility]) Manual Diff Laboratory test result M [facility] ([facility]) Segs 72 % 37-80 [facility] ([facility]) Band 0 % 0-5 [facility] ([facility]) %[place] 7 % 3-8 [facility] ([facility]) %Lymph 21 % 25-40 Below low normal [facility] ([facility]) %Eos 0 % 0-7 [facility] ([facility]) %Baso 0 % 0-2 [facility] ([facility]) Metamyelocyte 0 % [facility] ([facility]) Promyelocyte 0 % [facility] ([facility]) Myelocyte 0 % [facility] ([facility]) Blasts 0 % [facility] ([facility]) Mahi Lym 0 % [facility] ([facility]) NRBC 0 % [facility] ([facility]) RBC Morph Laboratory test result [facility] ([facility]) ID Date Data Source [id number] 08/22/2019 07:31:00 PM EST [facility] ([facility]) Name Value Range Interpretation Code Description Data Tamra rce(s) Supporting Document(s) Fibrin D-dimer [Presence] in Platelet poor plasma Laboratory test result 0.27-0.50 [facility] ([facility]) Lipase [Enzymatic activity/volume] in Serum or Plasma 26 U/L 13-6 0 [facility] ([facility]) ID Date Data Source [id number] 08/22/2019 07:31:00 PM EST [facility] ([facility]) Name Value Range Interpretation Code Description Data Tamra rce(s) Supporting Document(s) Protime 13.3 s 11.0-15.5 [facility] ([facility]) Inr 1.00 0.93-1.23 [facility] ([facility]) PTT 27.1 s 24.8-36.7 [facility] ([facility]) \\BLDo\\INR INTERPRETATION\\BLDx\\ Therapeutic range for Coumadin and related oral anticoagulants. -International Normalized Ratio (INR): 2 .0 - 3.0 for Venous Thrombosis, Pulmonary Embolus, Tissue heart valves, Acute IN Atrial Fibrillation, Valvular heart disease and recurrent Systemic Embolism. -International Normalized Ratio (INR): 2 .5 - 3.5 for Mechanical Prosthetic valve. \\BLDo\\PTT INTERPRETATION\\BLDx\\ Critical results for patients not on therapy: >50 seconds Critical results for patients on therapy: >119 seconds Therapeutic range for patients on therapy: 58 - 90 seconds Coag studies from line draws may not be accurate due to Heparin and other interferences. ID Date Data Source [id number] 08/22/2019 07:31:00 PM EST [facility] ([facility]) Name Value Range Interpretation Code Description Data Tamra rce(s) Supporting Document(s) Troponin T.cardiac [Mass/volume] in Serum or Plasma Laborato ry test result 0.00-0.10 [facility]) TROPONIN T 0.1 ng/ml Recommended as the clinical th reshold value for Troponin T. ID Date Data Source [id number] 08/22/2019 07:31:00 PM EST [facility] Name Value Range Interpretation Code Description Data Tamra rce(s) Supporting Document(s) Thyrotropin [Units/volume] in Serum or Plasma 2.20 uIU/mL 0.47-5.01 [facility] ([facility]) ID Date Data Source [id number] 08/22/2019 07:31:00 PM EST [facility] ([facility]) Name Value Range Interpretation Code Description Data Tamra rce(s) Supporting Document(s) Comprehensive Metabo (See Note) [facility] ( [facility]) COMPREHENSIVE METABOLIC PANEL Sodium 138 meq/L 134-153 [facility] Chloride 93 meq/L 98-107 [facility] Co2 26 meq/L 22-30 [facility] Potassium 3.1 meq/L 3.6-5.0 [facility] Glucose 105 mg/dL 65-110 [facility] [place] BUN 15 mg/dL 7-21 [facility] ([facility] Creatinine 1.1 mg/dL 0.7-1.5 [facility] ([facility]) Albumin 4.6 g/dL 3.9-5.0 [facility] [place] Total Protein 8.0 g/dL 6.3-8.2 [facility] ([facility] BUN/Creat 14 8-27 [facility] ([facility] Globulin [Mass/volume] in Serum by calculation 3.4 GM/DL 2.4-3.2 [facility] ([facility]) Calcium 10.3 mg/dL 8.4-10.2 [facility] ([facility]) A/G Ratio 1.4 0.8-2.0 [facility] ([facility]) Alkaline Phos 137 U/L 38-126 [facility] ([facility]) Total Bili <0.7 mg/dL 0.2-1.3 [facility] ([facility]) Sgot/Ast 19 U/L 5-40 [facility] Anion gap in Serum or Plasma 19.0 mmol/L 8.0-16.0 [facility] ([facility]) SGPT/Alt 13 U/L 7-56 [facility] ([facility]) Non-Aa GFR 56 mL/min [facility] ([facility]) Afr Amer GFR >60 mL/min [facility] ([facility]) Male GFR Interprentation 20-49 yrs >60 mL/min Normal 50-59 yrs >56 mL/min Normal 60-69 yrs >49 mL/min Normal 70-79yrs >42 mL/min Normal 80 and above >35 mL/min Normal Female GFR Interpretation 20-39 yrs >60 mL/min Normal 40-49 yrs >58 mL/min Normal 50-59 yrs >51 mL/min Normal 60-69 yrs >45 mL/min Normal 70-79 yrs >39 mL/min Normal 80 and above >32 mL/min Normal Age 50 yrs [facility] ([facility]) ID Date Data Source [id number] 08/22/2019 07:31:00 PM EST MED[facility] ([facility]) Name Value Range Interpretation Code Description Data Tamra rce(s) Supporting Document(s) CBC W/Automated Diff (See Note) [facility] ( [facility]) COMPLETE BLOOD COUNT WBC 16.9 10^3/uL 4.2-11.0 [facility] ([facility]) RBC 5.09 10^6/uL 4.20-5.40 [facility] ([facility]) MCV 87.8 fL 81.0-101 [facility] Hemoglobin 15.2 g/dL 12.0-16.0 [facility] ([facility]) MCH 29.9 pg 27.0-34.0 [facility] Hematocrit 44.7 % 37.0-47.0 [facility] ([facility]) Erythrocyte distribution width [Ratio] by Automated count 12.6 % 11.5-14.5 [facility] ([facility]) Platelets 414 10^3/uL 150-450 [facility] ([facility]) MCHC 34.0 g/dL 31.0-36.0 [facility] Platelet mean volume [Entitic volume] in Blood by Sabino-María 8.5 fL 7.4-10.4 [facility] ([facility]) Lymph 18.0 % 25.0-40.0 [facility] Neut 71.8 % 37.0-80.0 [facility] Eos 0.9 % 0.0-7.0 [facility] ([facility] [place] Baso 0.4 % 0.0-2.5 [facility] ([facility] [place] [place] 8.5 % 3.0-8.0 [facility] ([facility] [place] %Ig 0.4 % 0.0-0.0 [facility] ([facility] %NRBC 0.0 % 0.0-0.0 [facility] ([facility] [place] #Neut 12.17 10^3/uL 2.00-6.90 [facility] ([facility]) #Eos 0.15 10^3/uL 0.00-0.70 [facility] ([facility]) #[place] 1.44 10^3/uL 0.00-0.90 [facility] ([facility]) #Lymph 3.05 10^3/uL 0.60-3.40 [facility] ([facility]) #Baso 0.06 10^3/uL 0.00-0.20 [facility] ([facility]) #Ig 0.07 10^3/uL 0.00-0.10 [facility] ([facility]) #NRBC 0.00 10^3/uL 0.00-0.00 [facility] ([facility] [place]) Manual Diff See Below [facility] ([facility]) Segs 72 % 37-80 [facility] [place]) Band 0 % 0-5 [facility] ([facility] %Lymph 21 % 25-40 [facility] %[place] 7 % 3-8 [facility] %Eos 0 % 0-7 [facility] Metamyelocyte 0 % [facility]) Myelocyte 0 % [facility] [place] %Baso 0 % 0-2 [facility] [place] [place] Lym 0 % [facility]) Promyelocyte 0 % [facility] [place]) Blasts/100 leukocytes in Blood 0 % [facility] ([facility]) RBC Morph Not Indicated [facility] ([facility]) Nucleated erythrocytes/100 leukocytes [Ratio] in Blood 0 % [facility] ([facility]) ID Date Data Source [id number] 08/22/2019 07:31:00 PM EST [facility] ([facility]) Name Value Range Interpretation Code Description Data Tamra rce(s) Supporting Document(s) Lipase [Enzymatic activity/volume] in Serum or Plasma 26 U/L 13-6 0 [facility] ([facility]) Fibrin D-dimer [Presence] in Platelet poor plasma <0.27 ug/mL 0.27-0. 50 [facility] ([facility]) ID Date Data Source [id number] 08/22/2019 07:31:00 PM EST [facility] ([facility] Name Value Range Interpretation Code Description Data Tamra rce(s) Supporting Document(s) Inr 1.00 0.93-1.23 [facility] ([facility] [place] Protime 13.3 s 11.0-15.5 [facility] Lipase [Enzymatic activity/volume] in Serum or Plasma 26 U/L 13-6 0 [facility] ([facility]) aPTT in Platelet poor plasma by Coagulation assay 27.1 s 24.8-36. 7 [facility] ([facility]) \\BLDo\\INR INTERPRETATION\\BLDx\\ Therapeutic range for Coumadin and related oral anticoagulants. -International Normalized Ratio (INR): 2 .0 - 3.0 for Venous Thrombosis, Pulmonary Embolus, Tissue heart valves, Acute IN Atrial Fibrillation, Valvular heart disease and recurrent Systemic Embolism. -International Normalized Ratio (INR): 2 .5 - 3.5 for Mechanical Prosthetic valve. \\BLDo\\PTT INTERPRETATION\\BLDx\\ Critical results for patients not on therapy: >50 seconds Critical results for patients on therapy: >119 seconds Therapeutic range for patients on therapy: 58 - 90 seconds Coag studies from line draws may not be accurate due to Heparin and other interferences. Fibrin D-dimer [Presence] in Platelet poor plasma <0.27 ug/mL 0.27-0. 50 [facility] ([facility]) ID Date Data Source [id number] 08/22/2019 07:31:00 PM EST [facility] ([facility]) Name Value Range Interpretation Code Description Data Tamra rce(s) Supporting Document(s) Troponin T.cardiac [Mass/volume] in Serum or Plasma <0.01 ng/mL 0.00- 0.10 [facility] ([facility]) TROPONIN T 0.1 ng/ml Recommended as the clinical th reshold value for Troponin T. Inr 1.00 0.93-1.23 [facility] ([facility]) aPTT in Platelet poor plasma by Coagulation assay 27.1 s 24.8-36. 7 [facility] ([facility]) \\BLDo\\INR INTERPRETATION\\BLDx\\ Therapeutic range for Coumadin and related oral anticoagulants. -International Normalized Ratio (INR): 2 .0 - 3.0 for Venous Thrombosis, Pulmonary Embolus, Tissue heart valves, Acute IN Atrial Fibrillation, Valvular heart disease and recurrent Systemic Embolism. -International Normalized Ratio (INR): 2 .5 - 3.5 for Mechanical Prosthetic valve. \\BLDo\\PTT INTERPRETATION\\BLDx\\ Critical results for patients not on therapy: >50 seconds Critical results for patients on therapy: >119 seconds Therapeutic range for patients on therapy: 58 - 90 seconds Coag studies from line draws may not be accurate due to Heparin and other interferences. Protime 13.3 s 11.0-15.5 [facility] ([facility]) Fibrin D-dimer [Presence] in Platelet poor plasma <0.27 ug/mL 0.27-0. 50 [facility] ([facility]) Lipase [Enzymatic activity/volume] in Serum or Plasma 26 U/L 13-6 0 [facility] ([facility]) ID Date Data Source [id number] 08/22/2019 08:13:00 PM [facility] Name Value Range Interpretation Code Description Data Tamra rce(s) Supporting Document(s) Thyrotropin [Units/volume] in Serum or Plasma by Detec tion limit <= 0.05 mIU/L 2.20 uIU/mL 0.47 - 5.01 [facility] ID Date Data Source [id number] 08/22/2019 08:08:00 PM [facility] Name Value Range Interpretation Code Description Data Tamra rce(s) Supporting Document(s) COMPREHENSIVE METABOLIC PANEL [facility] COMPREHENSIVE METABOLIC PANEL Sodium [Moles/volume] in Serum or Plasma 138 mEq/L 134 - 153 [facility] Potassium [Moles/volume] in Serum or Plasma 3.1 mEq/L 3.6 - 5.[address] [facility] Chloride [Moles/volume] in Serum or Plasma 93 mEq/L 98 - [address] [facility] Carbon dioxide, total [Moles/volume] in Serum or Plasma 26 MEQ/L 22 - 30 [facility] Glucose [Mass/volume] in Serum or Plasma 105 MG/DL 65 - 110 [facility] BUN 15 MG[facility]DL 7 - [facility] Creatinine [Mass/volume] in Serum or Plasma 1.1 MG/DL 0.7 - 1.5 [facility] BUN/CREAT 14 8 - 27 [facility] Protein [Mass/volume] in Serum or Plasma 8.0 G/DL 6.3 - 8.2 [facility] Albumin [Mass/volume] in Serum or Plasma 4.6 G/DL 3.9 - 5.0 [facility] Globulin [Mass/volume] in Serum by calculation 3.4 GM/DL 2.4 - 3.[address] [facility] A/G RATIO 1.4 0.8 - 2.0 [facility] Calcium [Mass/volume] in Serum or Plasma 10.3 MG/DL 8.4 - 10.[address] [facility] Bilirubin.total [Mass/volume] in Serum or Plasma <0.7 MG/DL 0.2 - 1.3 [facility] Alkaline phosphatase [Enzymatic activity/volume] in Serum or Plasma 137 U/L 38 - [address] [facility] Aspartate aminotransferase [Enzymatic activity/volume] in Serum or Plasma 19 U/L 5 - 40 [facility] Alanine aminotransferase [Enzymatic activity/volume] in Seru m or Plasma 13 U/L 7 - 56 [facility] Anion gap 3 in Serum or Plasma 19.0 mmol/L 8.0 - 16.[address] [facility]GE 48 [facility] 56 mL/min [facility] AFR AMER GFR >60 mL/min [facility] spital Male GFR In terprentation 20-49 yrs >60 mL/min Normal 50-59 yrs >56 mL/min Normal 60-69 yrs >49 mL/min Normal 70-79yrs >42 mL/min Normal 80 and above >35 mL/min Normal Female GFR Interpretation 20-39 yrs >60 mL/min Normal 40-49 yrs >58 mL/min Normal 50-59 yrs >51 mL/min Normal 60-69 yrs >45 mL/min Normal 70-79 yrs >39 mL/min Normal 80 and above >32 mL/min Normal ID Date Data Source [id number] 08/22/2019 08:01:[address] [facility] Name Value Range Interpretation Code Description Data Tamra rce(s) Supporting Document(s) CBC W/AUTOMATED DIFF [facility] COMPLETE BLOOD COUNT Leukocytes [#/volume] in Blood by Automated count 16.9 10^3/uL 4.2 - 11.[address] [facility] Erythrocytes [#/volume] in Blood by Automated count 5.09 10^6/uL 4. 20 - 5.40 [facility] Hemoglobin [Mass/volume] in Blood 15.2 g/dL 12.0 - 16.0 [facility] Hematocrit [Volume Fraction] of Blood by Automated count 44.7 % 3 7.0 - 47.0 [facility] Erythrocyte mean corpuscular volume [Entitic volume] by Auto mated count 87.8 fL 81.0 - 101 [facility] Erythrocyte mean corpuscular hemoglobin [Entitic mass] by Automated count 29.9 pg 27.0 - 34.0 [facility] Erythrocyte mean corpuscular hemoglobin concentration [Mass/volume] by Automated count 34.0 g/dL 31.0 - 36.0 [facility] Erythrocyte distribution width [Ratio] by Automated count 12.6 % 11.5 - 14.5 [facility] Platelets [#/volume] in Blood by Automated count 414 10^3/uL 150 - [address] [facility] Platelet mean volume [Entitic volume] in Blood by Automated count 8.5 fL 7.4 - 10.4 [facility] Neutrophils/100 leukocytes in Blood by Automated count 71.8 % 37. 0 - 80.0 [facility] Lymphocytes/100 leukocytes in Blood by Manual count 18.0 % 25.0 - 40.[address] [facility] Monocytes/100 leukocytes in Blood by Automated count 8.5 % 3.0 - 8.[address] [facility] Eosinophils/100 leukocytes in Blood by Automated count 0.9 % 0.0 - 7.0 [facility] 0.4 %IG 0.4 % 0.0 - 0.0 [facility] %NRBC 0.0 % 0.0 - 0.0 [facility] al Neutrophils [#/volume] in Blood by Automated count 12.17 10^3/uL 2. 00 - 6.[address] [facility] Lymphocytes [#/volume] in Blood by Automated count 3.05 10^3/uL 0.60 - 3.40 [facility] Monocytes [#/volume] in Blood by Automated count 1.44 10^3/uL 0.00 - 0.[address] [facility] Eosinophils [#/volume] in Blood by Automated count 0.15 10^3/uL 0.00 - 0.70 [facility] Basophils [#/volume] in Blood by Automated count 0.06 10^3/uL 0.00 - 0.20 [facility] #IG 0.07 10^3/uL 0.00 - 0.10 [facility] #NRBC 0.00 10^3/uL 0.00 - 0.00 [facility] MANUAL DIFF SEE BELOW [facility] Segmented neutrophils/100 leukocytes in Blood by Manual count 72 % 37 - 80 [facility] BAND 0 % 0 - 5 [facility] %LYMPH 21 % 25 - 40 L [facility] %MONO 7 % 3 - 8 [facility] %EOS 0 % 0 - 7 [facility] Metamyelocytes/100 leukocytes in Blood by Manual count 0 % [facility] Myelocytes/100 leukocytes in Blood by Manual count 0 % [facility] Promyelocytes/100 leukocytes in Blood by Manual count 0 % [facility] Blasts/100 leukocytes in Blood by Manual count 0 % [facility] MAHI LYM 0 % [facility] Nucleated erythrocytes/100 erythrocytes in Blood by Manual count 0 % [facility] RBC MORPH NOT INDICATED [facility] ID Date Data Source [id number] 08/22/2019 08:02:00 PM [facility] Name Value Range Interpretation Code Description Data Tamra rce(s) Supporting Document(s) Lipase [Enzymatic activity/volume] in Serum or Plasma 26 U/L 13 - 60 [facility] ID Date Data Source [id number] 08/22/2019 08:00:00 PM [facility] Name Value Range Interpretation Code Description Data Tamra rce(s) Supporting Document(s) Fibrin D-dimer FEU [Mass/volume] in Platelet poor plasma <0. 27 ug/mL 0.27 - 0.50 [facility] ID Date Data Source [id number] 08/22/2019 08:00:00 PM [facility] Name Value Range Interpretation Code Description Data Tamra rce(s) Supporting Document(s) Prothrombin time (PT) 13.3 SECONDS 11.0 - 15.5 [facility] INR in Platelet poor plasma by Coagulation assay 1.00 0.93 - 1. 23 [facility] aPTT in Blood by Coagulation assay 27.1 SECONDS 24.8 - 36.7 [facility] \\BLDo\\INR INTERPRETATION\\BLDx\\ Therapeutic range for Coumadin and related oral anticoagulants. - International Normalized Ratio (INR): 2.0 - 3.0 for Venous Thrombosis, Pulmonary Embolus, Tissue heart valves, Acute IN Atrial Fibrillation, Valvular heart disease and recurrent Systemic Embolism. - International Normalized Ratio (INR): 2.5 - 3.5 for Mechanical Prosthetic valve. \\BLDo\\PTT INTERPRETATION\\BLDx\\ Critical results for patients not on therapy: >50 seconds Critical results for patients on therapy: >119 seconds Therapeutic range for patients on therapy: 58 - 90 seconds Coag ubaldo dies from line draws may not be accurate due to Heparin and other interferences. ID Date Data Source [id number] 08/22/2019 07:59:[address] [facility] Name Value Range Interpretation Code Description Data Tamra rce(s) Supporting Document(s) TROPONIN T <0.01 NG/ML 0.00 - 0.10 [facility]ital TROPONIN T0.1 ng/ml Recommended as the c linical threshold value forTroponin T. ID Date Data Source [id number] 08/22/2019 07:24:00 PM EST [facility] ([facility]) Name Value Range Interpretation Code Description Data Tamra e(s) Supporting Document(s) Influenza B Laboratory test result M [facility] ([facility]) Influenza A Reenter Laboratory test result [facility] ([facility]) Influenza A Laboratory test result M [facility] ([facility]) Influenza B Reenter Laboratory test result [facility] ([facility]) <content>PROCEDURAL CONTROL VALID</con tent>
<content>KIT LOT # _[id number] 08/22/19.DW .</content>
<content>KIT EXP DATE _10-12-57 08/22/19.DW .</content>
<content>The Influenza A & B assay is a rapid molecular in vitro diagnostic test</content>
<content> utilizing an isothermal nucleic acid amplification technology for the</content>
<content>qualitative detection of influenza A and B viral RNA.</content>
<content>Negative results do not preclude influenza virus infection and should not be</content>
<content>used as the sole basis for diagnosis, treatment or other patient management</content>
<content>d ecisions.</content>
<content></content> ID Date Data Source [id number] 08/22/2019 07:24:00 PM EST [facility] ([facility]) Name Value Range Interpretation Code Description Data Tamra rce(s) Supporting Document(s) Laboratory test finding (navigational concept) Negative [facility] ([facility]) Laboratory test finding (navigational concept) Negative [facility] ([facility]) Laboratory test finding (navigational concept) Negative [facility] ([facility]) <content>PROCEDURAL CONTROL VALID</con tent>
<content>KIT LOT # _[id number] 08/22/19.DW .</content>
<content>KIT EXP DATE _72-78-75 08/22/19.DW .</content>
<content>The Influenza A & B assay is a rapid molecular in vitro diagnostic test</content>
<content> utilizing an isothermal nucleic acid amplification technology for the</content>
<content>qualitative detection of influenza A and B viral RNA.</content>
<content>Negative results do not preclude influenza virus infection and should not be</content>
<content>used as the sole basis for diagnosis, treatment or other patient management</content>
<content>d ecisions.</content>
<content></content>
<content></content> Laboratory test finding (navigational concept) Negative [facility] ([facility]) ID Date Data Source [id number] 08/22/2019 08:21:[address] [facility] Name Value Range Interpretation Code Description Data Tamra rce(s) Supporting Document(s) Influenza virus A Ag [Presence] in Nasopharynx by Immunoassa y NEGATIVE NORMAL: NEGATIVE [facility] Influenza virus B Ag [Presence] in Nasopharynx by Immunoassa y NEGATIVE NORMAL: NEGATIVE [facility] NEGATIVENEGATIVE PROCEDURAL CO NTROL VALID KIT LOT # _[id number] 08/22/19.DW . KIT EXP DATE _19-26-98 08/22/19.DW .The Influenza A & B assay is a rapid molecular in vitro diagnostic testutilizing an isothermal nucleic acid amplification technology for thequalitative detection of influenza A and B viral RNA.Negative results do not preclude influenza virus infection and should not beused as the sole basis for diagnosis, treatment or other patient managementdecisions. ID Date Data Source [id number] 08/22/2019 07:22:00 PM EST [facility] ([facility]) Name Value Range Interpretation Code Description Data Tamra rce(s) Supporting Document(s) Urinalysis Laboratory test result [facility] ([facility]) URINALYSIS Source Laboratory test result [facility] ([facility]) Clarity Laboratory test result [facility] ([facility]) Color Laboratory test result [facility] ([facility]) Spec [place] 1.015 1.001-1.030 [facility] ([facility]) Glucose Laboratory test result [facility] ([facility]) pH 6 5-9 [facility] ([facility]) Bilirubin Laboratory test result [facility] ([facility]) Ketone Laboratory test result [facility] ([facility]) Protein Laboratory test result [facility] ([facility]) Nitrite Laboratory test result [facility] ([facility]) Blood Laboratory test result [facility] ([facility]) Leuk Est 100 Abnormal (applies to non-numeric res ults) [facility] ([facility]) Urobilinogen Laboratory test result [facility] ([facility]) WBC Laboratory test result [facility] ([facility]) Microscopic Laboratory test result M EDENT ([facility]) RBC Laboratory test result [facility] ([facility] [facility]) Epithelial Laboratory test result MEDENT ([facility]) Bacteria Laboratory test result MEDENT ([facility]) ID Date Data Source [id number] 08/22/2019 07:22:00 PM EST [facility] ([facility] Name Value Range Interpretation Code Description Data Tmara rce(s) Supporting Document(s) Urinalysis (See Note) [facility]) URINALYSIS Source R [facility] Spec [place] 1.015 1.001-1.030 [facility] Clarity clear [facility] Color yellow [facility] Glucose Norm [facility] [place]) Bilirubin Neg [facility] pH 6 5-9 [facility] Nitrite Neg [facility]) Ketone Neg [facility] Protein Neg [facility] [place] Leuk Est 100 Abnormal (applies to non-numeric res ults) [facility] ([facility]) Blood Neg [facility] Microscopic See Below [facility] ([facility]) WBC 3 - 5 [facility] Urobilinogen Nor [facility]) RBC 0 - 1 [facility] Bacteria Trace [facility] Epithelial Few [facility] ([facility]) ID Date Data Source [id number] 09/02/2019 09:09:[address] [facility] Name Value Range Interpretation Code Description Data Tamra rce(s) Supporting Document(s) UR[facility]ALYSIS [facility] UR[facility] SOURCE R [facility] COLOR yellow NORMAL: Yellow [facility] CLARITY clear NORMAL: Clear [facility] Specific gravity of Urine by Test strip 1.015 1.001 - 1.030 [facility] pH 6 5 - 9 [facility] Glucose [Mass/volume] in Urine by Test strip NORM NORMAL: Negat [facility] Bilirubin.total [Presence] in Urine by Test strip NEG NORMAL: Negative [facility] Ketones [Presence] in Urine by Test strip NEG NORMAL: Negative [facility] Protein [Mass/volume] in Urine by Test strip NEG NORMAL: Negat [facility] Nitrite [Presence] in Urine by Test strip NEG NORMAL: Negative [facility] BLOOD NEG NORMAL: Negative [facility] Leukocyte esterase [Presence] in Urine by Test strip 100 FLORIAN L: Negative A [facility] Urobilinogen [Mass/volume] in Urine by Test strip NOR less melo n 1.0 mg/dL [facility] MICROSCOPIC See Below [facility] ital WBC 3 - 5 NORMAL: NONE SEEN [facility] Erythrocytes [#/volume] in Urine by Test strip 0 - 1 NORMAL: NON E SEEN [facility] EPITHELIAL FEW NORMAL: NONE SEEN [facility] Bacteria [Presence] in Urine sediment by Light microscopy Tr wil NORMAL: NONE SEEN [facility] ID Date Data Source [id number] 08/21/2019 11:44:00 PM EST MEDENT ([facility]) Name Value Range Interpretation Code Description Data Tamra rce(s) Supporting Document(s) Glucose [Mass/volume] in Capillary blood by Glucometer 118 mg/dL 70-105 Above high normal [facility] Procedure Social History Code Duration Value Status Description Data Source(s ) Smoking 06/10/2020 12:00:00 AM EDT Never Smoked Cigarettes com pleted Never Smoked Cigarettes [facility] ([facility] [place]) Vital Signs ID Date Data Source UNK Name Value Range Interpretation Code Description Data Source(s) Body weight 2672 [oz_av] 2672 [oz_av] ALONDRA ([facility]) Systolic blood pressure 122 mm[Hg] 122 mm[Hg] A THENA ([facility]) Body mass index (BMI) [Ratio] 34.9 kg/m2 34.9 k g/m2 ALONDRA ([facility]) Body height 58 [in_i] 58 [in_i] ALONDRA ([facility]) Diastolic blood pressure 93 mm[Hg] 93 mm[Hg] ALONDRA ([facility]) Heart rate 106 /min 106 /min [facility] ([facility] [place] Diastolic blood pressure 90 mm[Hg] 90 mm[Hg] [facility] ([facility] [place]) Systolic blood pressure 133 mm[Hg] 133 mm[Hg] M EDENT ([facility] [place]) Body mass index (BMI) [Ratio] 33.3 kg/m2 33.3 k g/m2 [facility] ([facility] [place]) Body weight 74.844 kg 74.844 kg [facility] [place] Body weight 165.00 [lb_av] 165.00 [lb_av] MEDEN T ([facility] [place]) Body height 59 [in_i] 59 [in_i] [facility] ([facility] [place] 4'11" Body surface area Derived from formula 1.68 m2 1.68 m2 MEDENT ([facility]) Body mass index (BMI) [Ratio] 34.5 kg/m2 34.5 k g/m2 MEDENT ([facility]) Body height 58 [in_i] 58 [in_i] MEDENT ([facility]) 4'10" Body weight 74.844 kg 74.844 kg MEDENT ([facility]) Body weight 165.00 [lb_av] 165.00 [lb_av] MEDEN T ([facility]) Oxygen saturation in Arterial blood by Pulse oximetry 97 % 97 % MEDENT ([facility]) Body temperature 99.0 [degF] 99.0 [degF] MEDENT ([facility]) Heart rate 109 /min 109 /min MEDENT ([facility]) Diastolic blood pressure 86 mm[Hg] 86 mm[Hg] MEDENT ([facility]) Systolic blood pressure 122 mm[Hg] 122 mm[Hg] M EDENT ([facility]) Body surface area Derived from formula 1.65 m2 1.65 m2 MEDENT ([facility]) Body mass index (BMI) [Ratio] 33.3 kg/m2 33.3 k g/m2 MEDENT ([facility]) Body height 58 [in_i] 58 [in_i] MEDENT ([facility]) 4'10" Body weight 72.349 kg 72.349 kg MEDENT ([facility]) Body weight 159.50 [lb_av] 159.50 [lb_av] MEDEN T ([facility]) Oxygen saturation in Arterial blood by Pulse oximetry 98 % 98 % MEDENT ([facility]) Respiratory rate 16 /min 16 /min MED[facility] ( [facility]) Body temperature 98.2 [degF] 98.2 [degF] MEDENT ([facility]) Heart rate 108 /min 108 /min [facility] Diastolic blood pressure 70 mm[Hg] 70 mm[Hg] MEDENT ([facility]) Systolic blood pressure 110 mm[Hg] 110 mm[Hg] M EDENT ([facility]) Diastolic blood pressure 85 mm[Hg] 85 mm[Hg] eCW1 ([facility]) Systolic blood pressure 127 mm[Hg] 127 mm[Hg] e CW1 ([facility]) Body weight 157 [lb_av] 157 [lb_av] eCW1 ([facility]) Body surface area 1.66 m2 1.66 m2 MEDENT ([facility]) Body mass index (BMI) [Ratio] 33.5 kg/m2 33.5 k g/m2 MEDENT ([facility]) Body height 58 [in_i] 58 [in_i] MEDENT ([facility]) 4'10" Body weight 72.689 kg 72.689 kg MEDENT ([facility]) Body weight 160.25 [lb_av] 160.25 [lb_av] MEDEN T ([facility]) Oxygen saturation in Arterial blood by Pulse oximetry 96 % 96 % MED[facility] ([facility]) Respiratory rate 16 /min 16 /min MED[facility] ( [facility]) Body temperature 98.7 [degF] 98.7 [degF] MED[facility] ([facility]) Heart rate 86 /min 86 /min [facility] Diastolic blood pressure 62 mm[Hg] 62 mm[Hg] [facility]) Systolic blood pressure 110 mm[Hg] 110 mm[Hg] M EDENT ([facility]) Body surface area 1.66 m2 1.66 m2 MED[facility] ([facility]) Body mass index (BMI) [Ratio] 33.5 kg/m2 33.5 k g/m2 [facility]) Body height 58 [in_i] 58 [in_i] MEDENT ([facility]) 4'10" Body weight 72.633 kg 72.633 kg MEDENT ([facility]) Body weight 160.12 [lb_av] 160.12 [lb_av] MEDEN T ([facility]) Oxygen saturation in Arterial blood by Pulse oximetry 97 % 97 % [facility] Respiratory rate 16 /min 16 /min [facility] ( [facility]) Body temperature 98.1 [degF] 98.1 [degF] [facility] Heart rate 100 /min 100 /min [facility] ([facility]) Diastolic blood pressure 70 mm[Hg] 70 mm[Hg] [facility]) Systolic blood pressure 110 mm[Hg] 110 mm[Hg] EDENT ([facility]) Body surface area 1.65 m2 1.65 m2 [facility]) Body mass index (BMI) [Ratio] 33.0 kg/m2 33.0 k g/m2 [facility]) Body height 58 [in_i] 58 [in_i] MEDENT ([facility]) 4'10" Body weight 71.669 kg 71.669 kg MEDENT ([facility]) Body weight 158.00 [lb_av] 158.00 [lb_av] MEDEN T ([facility]) Heart rate 69 /min 69 /min MEDENT ([facility]) Diastolic blood pressure 80 mm[Hg] 80 mm[Hg] [facility]) Systolic blood pressure 110 mm[Hg] 110 mm[Hg] [facility] ([facility]) Body mass index (BMI) [Ratio] 33.4 kg/m2 33.4 k g/m2 [facility]) Body weight 160.00 [lb_av] 160.00 [lb_av] MEDEN T ([facility], ) Body height 58 [in_i] 58 [in_i] MEDENT ([facility]) 4'10" Heart rate 72 /min 72 /min [facility] ([facility]) Diastolic blood pressure 80 mm[Hg] 80 mm[Hg] [facility] ([facility]) Systolic blood pressure 110 mm[Hg] 110 mm[Hg] [facility] ([facility]) Diastolic blood pressure--standing 81 mm[Hg] 8 1 mm[Hg] MEDENT ([facility]) Systolic blood pressure--standing 109 mm[Hg] 10 9 mm[Hg] MEDENT ([facility]) Diastolic blood pressure--supine 81 mm[Hg] 81 mm[Hg] MEDENT ([facility]) Systolic blood pressure--supine 111 mm[Hg] 111 mm[Hg] MED[facility] ([facility]) Diastolic blood pressure--sitting 87 mm[Hg] 87 mm[Hg] MEDENT ([facility]) [place], Orthostatic sitting pressure 1 Systolic blood pressure--sitting 116 mm[Hg] 116 mm[Hg] MEDENT ([facility]) [place], Orthostatic sitting pressure 1 86 Heart rate 94 /min 94 /min [facility] ([facility]) Laying HR 92, Standing HR 100 Body mass index (BMI) [Ratio] 33.9 kg/m2 33.9 k g/m2 MED[facility] ([facility]) Body height 58 [in_i] 58 [in_i] [facility] ([facility]) 4'10" Body weight 162.00 [lb_av] 162.00 [lb_av] MEDEN T ([facility]) Body surface area 1.67 m2 1.67 m2 MEDENT ([facility]) Body mass index (BMI) [Ratio] 34.3 kg/m2 34.3 k g/m2 MED[facility] ([facility]) Body height 58 [in_i] 58 [in_i] MEDENT ([facility]) 4'10" Body weight 74.390 kg 74.390 kg MEDENT ([facility]) Body weight 164.00 [lb_av] 164.00 [lb_av] MEDEN T ([facility]) Oxygen saturation in Arterial blood by Pulse oximetry 98 % 98 % MED[facility] ([facility]) Respiratory rate 16 /min 16 /min MED[facility] ( [facility]) Body temperature 98.6 [degF] 98.6 [degF] MED[facility] ([facility]) Heart rate 105 /min 105 /min MEDENT ([facility]) Diastolic blood pressure 78 mm[Hg] 78 mm[Hg] MED[facility] ([facility]) Systolic blood pressure 110 mm[Hg] 110 mm[Hg] [facility] ([facility]) Body surface area 1.68 m2 1.68 m2 MED[facility] ([facility]) Body mass index (BMI) [Ratio] 34.5 kg/m2 34.5 k g/m2 MED[facility] ([facility]) Body height 58 [in_i] 58 [in_i] MEDENT ([facility]) 4'10" Body weight 74.901 kg 74.901 kg MEDENT ([facility]) Body weight 165.12 [lb_av] 165.12 [lb_av] MEDEN T ([facility]) Oxygen saturation in Arterial blood by Pulse oximetry 97 % 97 % MED[facility] ([facility]) Respiratory rate 16 /min 16 /min MED[facility] ( [facility]) Body temperature 98.1 [degF] 98.1 [degF] MED[facility] ([facility]) Heart rate 101 /min 101 /min MED[facility] ([facility]) Diastolic blood pressure 80 mm[Hg] 80 mm[Hg] MEDENT ([facility]) Systolic blood pressure 122 mm[Hg] 122 mm[Hg] [facility] Patient Treatment Plan of Care Planned Activity Planned Date Details Description Data Source (s) pantoprazole 20 MG Delayed Release Oral Tablet ALONDRA ([facility]) Oxybutynin chloride 5 MG Oral Tablet ALONDRA ([facility]) Erythromycin 0.005 MG/MG Ophthalmic Ointment ALONDRA ([facility]) Azithromycin 250 MG Oral Tablet ALONDRA ([facility]) Cholecalciferol 400 UNT Oral Capsule ALONDRA ([facility]) Sulfamethoxazole 800 MG / Trimethoprim 160 MG Oral Tablet ALONDRA ([facility]) Prempro ALONDRA ([facility])
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
--- OUTSIDE RECORDS SUMMARY | 2020-09-16 15:55 | CCD ---
Author Author [facility] Organization [facility] Address Unknown Phone Unavailable Care Team Providers Care Websphere Developer Name Role Phone Manan Jones Unavailable Unavailable KarenManan parker Unavailable Unavailable KarenManan Unavailable Unavailable KarenManan Unavailable Unavailable KarenManan parker Unavailable Unavailable KarenManan parker Unavailable Unavailable KarenManan parker Unavailable Unavailable KarenManan parker Unavailable Unavailable KarenManan parker Unavailable Unavailable KarenManan parker Unavailable Unavailable KarenManan Unavailable Unavailable KarenManan Unavailable Unavailable KarenManan Unavailable Unavailable KarenManan Unavailable Unavailable KarenManan Unavailable Unavailable KarenManan Unavailable Unavailable KarenManan Unavailable Unavailable KarenManan Unavailable Unavailable KarenManan Unavailable Unavailable Karen, Janes ONEAL Unavailable Unavailable Karen, Janes ONEAL Unavailable Unavailable Karen, Janes ONEAL Unavailable Unavailable Karen, Janes ONEAL Unavailable Unavailable Karen, Janes ONEAL Unavailable Unavailable KarenManan Unavailable Unavailable KarenManan Unavailable [...] Unavailable Unavailable Karen, Janes MD Unavailable Unavailable ANTECOL, Sanjay CASTELLON [...] Unavailable ANTECOL, Sanjay CASTELLON MD Unavailable Unavailable ANTECOLSanjay MD Unavailable Unavailable ANTECOL, Sanjay CASTELLON MD [...] Sanjay CASTELLON MD Unavailable Unavailable ANTECOL, Sanjay CASETLLON MD Unavailable Unavailable ANTECOL, Sanjay CASTELLON MD [...] Unavailable Unavailable KAREN CALERO MD Unavailable Unavailable Silviano, F Yas MD Unavailable Unavailable Brynnumpurath, F [...] Unavailable Unavailable ALATORREPARDEEP ROBERSON MD Unavailable Unavailable ALATORRE, PARDEEP MD Unavailable Unavailable ALATORREPARDEEP ROBERSON MD Unavailable Unavailable ALATORRE, PARDEEP MD Unavailable [...] Unavailable Unavailable ALATORREPARDEEP ROBERSON MD Unavailable Unavailable LANDON, IMELDA JONATHAN BASS STRING WINDER Unavailable Unavailable LANDON, IMELDA JONATHAN BASS STRING WINDER Unavailable Unavailable LANDON, IMELDA JONATHAN BASS STRING WINDER Unavailable Unavailable LANDON, IMELDA JONATHAN BASS STRING WINDER Unavailable Unavailable LANDON, IMELDA JONATHAN BASS STRING WINDER Unavailable Unavailable LANDON, IMELDA JONATHAN BASS STRING WINDER Unavailable Unavailable LANDON, IMELDA JONATHAN BASS STRING WINDER Unavailable Unavailable LANDON, IMELDA JONATHAN BASS STRING WINDER Unavailable Unavailable LANDON, IMELDA JONATHAN BASS STRING WINDER Unavailable Unavailable LANDON, IMELDA JONATHAN BASS STRING WINDER Unavailable Unavailable LANDON, IMELDA JONATHAN BASS STRING WINDER Unavailable Unavailable LANDON, IMELDA JONATHAN BASS STRING WINDER Unavailable Unavailable LANDON, IMELDA JONATHAN BASS STRING WINDER Unavailable Unavailable LANDON, IMELDA JONATHAN BASS STRING WINDER Unavailable Unavailable LANDON, IMELDA JONATHAN BASS STRING WINDER Unavailable Unavailable LANDON, IMELDA JONATHAN BASS STRING WINDER Unavailable Unavailable LANDON, IMELDA JONATHAN BASS STRING WINDER Unavailable Unavailable LANDON, IMELDA JONATHAN BASS STRING WINDER Unavailable Unavailable LANDON, IMELDA JONATHAN BASS STRING WINDER Unavailable Unavailable LANDON, IMELDA JONATHAN BASS STRING WINDER Unavailable Unavailable LANDON, IMELDA JONATHAN BASS STRING WINDER Unavailable Unavailable LANDON, IMELDA JONATHAN BASS STRING WINDER Unavailable Unavailable LANDON, IMELDA JONATHAN BASS STRING WINDER Unavailable Unavailable Kunnumpurath, F Yas MD Unavailable Unavailable Kunnumpurath, F Yas MD Unavailable Unavailable Kunnumpurath, F Yas MD Unavailable Unavailable Kunnumpurath, F Yas MD Unavailable Unavailable Kunnumpurath, F Yas MD Unavailable Unavailable Kunnumpurath, F Yas MD Unavailable Unavailable Kunnumpurath, F Yas MD Unavailable Unavailable Kunnumpurath, F Yas MD Unavailable Unavailable Kunnumpurath, F Yas MD Unavailable Unavailable Kunnumpurath, F Ysa MD Unavailable Unavailable Kunnumpurath, F Yas MD [...] Unavailable Ashkan Alvarez MD Unavailable Unavailable Narins, [place] MD Unavailable Unavailable Narins, [place] MD Unavailable Unavailable Narins, Ashkan MD Unavailable Unavailable Narins, Ashkan MD Unavailable Unavailable Narins, Ashkan MD Unavailable Unavailable Narins, Ashkan MD Unavailable Unavailable Narins, Ashkan MD Unavailable Unavailable Narins, Ashkan MD Unavailable Unavailable Narins, [place] MD Unavailable Unavailable Narins, [place] MD Unavailable Unavailable Narins, Ashkan MD Unavailable Unavailable Narins, [place] MD Unavailable Unavailable Narins, [place] MD Unavailable Unavailable Narins, [place] MD Unavailable Unavailable Narins, Ashkan MD Unavailable Unavailable Narins, [place] MD Unavailable Unavailable Narins, [place] MD Unavailable Unavailable Narins, Ashkan MD Unavailable Unavailable Narins, Ashkan MD Unavailable Unavailable Narins, Ashkan MD Unavailable Unavailable Narins, [place] MD Unavailable Unavailable Narins, [place] MD Unavailable Unavailable Narins, Ashkan MD Unavailable Unavailable Narins, [place] MD Unavailable Unavailable Narins, Ashkan MD Unavailable Unavailable Narins, Ashkan MD Unavailable Unavailable Narins, [place] MD Unavailable Unavailable Narins, [place] MD Unavailable Unavailable Narins, [place] MD Unavailable Unavailable Narins, Ashkan MD Unavailable Unavailable Narins, [place] MD Unavailable Unavailable Narins, Ashkan MD Unavailable Unavailable Narins, [place] MD Unavailable Unavailable Narins, Ashkan MD Unavailable Unavailable Narins, Ashkan MD Unavailable Unavailable Narins, Ashkan MD Unavailable Unavailable Narins, [place] MD Unavailable Unavailable Narins, [place] MD Unavailable Unavailable Narins, Ashkan MD Unavailable Unavailable Narins, [place] MD Unavailable Unavailable Re-disclosure Warning The records [...] is protected by Article 27-F of the [facility] Public Health law. If you continue you may have access to information: Regarding HIV / AIDS; Provided by facilities licensed or operated by the [facility] Office of Mental Health; or Provided by the [facility] Office for People With Developmental Disabilities. If such information is present, then the following [facility] mandated warning applies: This information has [...] law may result in a fine or long-term sentence or both. A general authorization for the release of medical or other information is NOT sufficient authorization for further disc losure. Encounters Encounter Providers Location Date Indications Data Source(s ) [facility] 08/25/2020 08:55:42 AM [facility] KEVIN CrumC: [address] [place] [address], Ph. Attender: Maritza RIOS [facility] Medical 08/11/2020 12:00:00 AM EST ALONDRA ([facility]) Outpatient Attender: Ashkan Leahy/ Iris kim 06/10/2020 02:45:00 PM EDT MEDENT ([facility] Outpatient Attender: Yas Shore MDConsultant: Yas west MD 05/28/2020 01:43:00 PM EDT - 05/28/2020 01:43:00 PM EDT [facility] Outpatient Attender: Yas Shore MDConsultant: Yas west MD 03/26/2020 10:42:00 AM EDT - 03/26/2020 10:42:00 AM EDT [facility] Outpatient [address] [facility] [address] [place] [address] 03/15/2020 12:00:00 AM EDT eCW1 ([facility]) Outpatient [address] [place] [address] 03/09/2020 12:00:00 AM EDT eCW1 ([facility]) Outpatient [address] [place] [address] 02/24/2020 12:00:00 AM EDT eCW1 ([facility]) Outpatient [address] [facility] [address] [place] [address] 02/16/2020 12:00:00 AM EDT eCW1 ([facility] [address] [place] [address] 02/16/2020 12:00:00 AM EDT eCW1 ([facility]) Outpatient Attender: PARDEEP ALATORRE [facility] reilly: Yas Shore MDConsultant: Yas Shore MD 12/23/2019 11:20:00 AM EDT - 12/23/2019 11:20:00 AM EDT [facility] [address] [place] [address] 12/22/2019 12:00:00 AM EDT eCW1 ([facility]) Outpatient Attender: Yas Shore MD Family Practice 0 12/19/2019 02:20:00 PM EDT MEDENT ([facility]) Outpatient Attender: Yas Shore MDConsultant: Yas west MD 12/19/2019 02:12:00 PM EDT - 12/19/2019 02:12:00 PM EDT [facility] Outpatient Attender: Janes Jnoes MD Main office - [place] 12/09/2019 11:00:00 AM EDT MEDENT ([facility], ) Outpatient Attender: Yas Shore MD Family Practice 0 11/20/2019 03:00:00 PM EDT MEDENT ([facility]) Outpatient Attender: Yas Shore MDConsultant: Yas west MD 11/20/2019 02:52:00 PM EDT - 11/20/2019 [facility]: Janes Jones MD Main office - [place] 11/17/2019 10:00:00 AM EDT MEDENT ([facility] ) Outpatient Attender: JONATHAN LADNON NPConsultant: Yas lopez MD 11/06/2019 10:46:00 AM EST - 11/06/2019 10:46:00 AM [facility] Outpatient Attender: JONATHAN LANDON NP Family Practice 11/06/2019 10 :00:00 AM EST MEDENT ([facility]) Outpatient Attender: Yas Shore MDConsultant: Yas west MD 09/22/2019 02:25:00 PM EST - 09/22/2019 03:26:00 PM [facility] Outpatient Attender: CANDE HANNA MD Main Office 09/11/2019 07:45:00 AM EST MEDENT ([facility]) Outpatient Attender: Yas Shore MDConsultant: Yas west MD 08/29/2019 11:03:00 AM EST - 08/29/2019 11:03:00 AM [facility] Outpatient Attender: Yas Shore MD Family Practice 1 10/30/2018 10:20:00 AM EST [facility] ([facility] Outpatient 08/24/2019 04:52:[address] [facility] Emergency Attender: JACK DUARTEConsultant: Yas torres MD 08/24/2019 04:25:00 PM [facility] - 08/24/2019 05:57:00 PM [facility] Patient discharged. Emergency Attender: KAREN CALERO MDConsultant: Yas west MD 08/22/2019 06:37:00 PM [facility] - 08/22/2019 09:51:00 PM [facility] Patient discharged. Outpatient Attender: Yas Shore MDConsultant: Yas west MD 08/12/2019 08:32:00 AM EST - 08/12/2019 08:32:00 AM [facility] Outpatient Attender: Yas Shore MD Family Practice 1 10/13/2018 07:40:00 AM EST MEDENT ([facility]) Immunizations Vaccine Date Status Description Data Source(s) New in 2011. IIV4 05/28/2020 02:27:00 PM EDT completed MEDENT ([facility]) Tdap 08/12/2019 08:51:00 AM EST completed M EDENT ([facility]) Pneumococcal conjugate PCV 13 08/12/2019 08:50:00 AM EST completed MED[facility] ([facility]) Medications Medication Brand Name Start Date Product Form Dose Route Admi nistrative Instructions Pharmacy Instructions Status Indications Reaction Description Data Source(s) 24 HR Metformin hydrochloride 500 MG Extended Release Oral Tablet Metformin HCL ER 07/02/2020 12:00:00 AM EDT active MEDENT ([facility]) Lisinopril 5 MG Oral Tablet Lisinopril 05/28/2020 12:00:00 AM EDT ORAL active MEDENT ([facility]) Sulfamethoxazole 800 MG / Trimethoprim 160 MG Oral Tablet [B actrim] Bactrim DS 12/19/2019 12:00:00 AM EDT ORAL completed MEDENT ([facility]) gabapentin 300 MG Oral Capsule [Neurontin] Neurontin 12/08 12:00:00 AM EDT ORAL active MEDENT ( [facility] ) Lorazepam 1 MG Oral Tablet [Ativan] Ativan 09/26/2019 12:00:[address] ORAL active MEDENT ([facility] ) 8 HR Acetaminophen 650 MG Extended Release Oral Tablet [Tyle nol] Tylenol 8 Hour 09/26/2019 12:00:00 AM EST active MEDENT ([facility]) Chlorthalidone 25 MG Oral Tablet Chlorthalidone 09/10/2019 12:00:00 A M EST ORAL active [facility] ([facility] tolterodine tartrate 2 MG Oral Tablet Tolterodine Tartrate 0 09/10/2019 12:00:00 AM EST ORAL active [facility] ([facility] Hydroxyzine Hydrochloride 10 MG Oral Tablet Hydroxyzine HCL 09/10/2019 12:00:00 AM EST ORAL active [facility] ([facility] duloxetine 60 MG Delayed Release Oral Capsule Duloxetine HCL 09/10/2019 12:00:00 AM EST ORAL active [facility] ([facility] Famotidine 20 MG Oral Tablet Famotidine 09/10/2019 12:00:00 AM EST ORAL active [facility] ([facility]) pantoprazole 40 MG Delayed Release Oral Tablet Pantoprazole Sodium 09/10/2019 12:00:00 AM EST ORAL active M EDENT ([facility]) Vitamin E D-Alpha 400 UNT Oral Capsule Vitamin E Blend 0 09/10/2019 12:00:00 AM EST ORAL active [facility] ([facility]) gabapentin 300 MG Oral Capsule Gabapentin 09/10/2019 12:00:00 AM EST ORAL active [facility] ([facility]) atorvastatin 10 MG Oral Tablet Atorvastatin Calcium 09/10/2019 1 2:00:00 AM EST ORAL active MEDENT ( [facility]) Metformin hydrochloride 500 MG Oral Tablet Metformin HCL 09/10/2019 12:00:00 AM EST ORAL active [facility] ([facility] Amlodipine 10 MG Oral Tablet Amlodipine Besylate 09/10/2019 12:00:00 AM EST ORAL active [facility] ([facility]) 24 HR Oxybutynin chloride 10 MG Extended Release Oral Tablet Oxybutynin Chloride ER 09/10/2019 12:00:00 AM EST ORAL active MEDENT ([facility]) Prempro Prempro 09/10/2019 12:00:00 AM EST ORAL active MEDENT ([facility]) Potassium Chloride 20 MEQ Extended Release Oral Tablet Potas sium Chloride ER 09/10/2019 12:00:00 AM EST ORAL active MEDENT ([facility]) Cholecalciferol 2000 UNT Oral Capsule Vitamin D3 09/10/2019 12:00:00 AM EST ORAL active [facility] ([facility] atorvastatin 10 MG Oral Tablet Atorvastatin Calcium 08/12/2019 1 2:00:00 AM EST active MED[facility] ( [facility]) Famotidine 20 MG Oral Tablet Famotidine 07/23/2019 12:00:00 AM EST active MEDENT ([facility]) Erythromycin 0.005 MG/MG Ophthalmic Oint ment erythromycin 5 mg/gram (0.5 %) eye ointment APPLY 1/4 INCH STRIP TO OUTER LEFT EYELID/ EYELASHES FOUR TIMES A DAY AFTER HYGIENE DIRECTED erythromycin 5 mg/gram (0.5 %) eye ointm ent APPLY 1/4 INCH STRIP TO OUTER LEFT EYELID/ EYELASHES FOUR TIMES A DAY AFTER HYGIENE DIRECTED completed erythromycin 0.005 MG/MG Ophthalmic Ointment ALONDRA ([facility]) pantoprazole 20 MG Delayed Release Oral Tablet pantoprazole 20 mg tablet,delayed release Take 2 tablets twice a day by oral route. pantoprazole 20 mg tablet,delayed release Take 2 tablets twice a day by oral route. 2 completed pantoprazole 20 MG Delayed Relea se Oral Tablet ALONDRA ([facility]) Cholecalciferol 400 UNT Oral Capsule Vit rolon D3 10 mcg (400 unit) capsule Take 5 capsules every day by oral route in the morning. Vitamin D3 10 mcg (400 unit) capsule Take 5 capsules every day by oral route in the morning. 5 capsule(s) completed cholecalciferol 0.01 M G Oral Capsule [place] ([facility]) Azithromycin 250 MG Oral Tablet azithrom ycin 250 mg tablet TAKE ONE TABLET BY MOUTH EVERY DAY azithromycin 250 mg tablet TAKE ONE TABLET BY MOUTH EVERY DA Y completed azithromycin 2 50 MG Oral Tablet ALONDRA ([facility]) Sulfamethoxazole 800 MG / Trimethoprim 1 60 MG Oral Tablet sulfamethoxazole 800 mg-trimethoprim 160 mg tablet TAKE ONE TABLET BY MOUTH TWICE A DAY sulfamethoxazole 800 mg-trimethoprim 160 mg tablet TAKE ONE TABLET BY MOUTH TWICE A DAY completed yepez lfamethoxazole 800 MG / trimethoprim 160 MG Oral Tablet ALONDRA ([facility]) Oxybutynin chloride 5 MG Oral Tablet oxy butynin chloride 5 mg tablet Take 2 tablets every day by oral route in the morning. oxybutynin chloride 5 mg tablet Take 2 tablets every day by oral route in the morning. 2 completed oxybutynin chloride 5 MG Oral Tablet ALONDRA ([facility]) Prempro completed Prempro ATHVivek FISH ([facility]) Insurance Providers Payer name Policy type / Coverage type Policy ID Covered constitution party ID Covered constitution party's relationship to clark Policy Clark Plan Information PROGRESSIVE CO NO FAULT [id number] SP [id number] [facility] COMMUNITY PLAN [facility] [id number] SP [id number] [facility] COMMUN PLAN [id number] 18 [id number] [facility] COMMUNITY PLAN XIX [id number] 18 [id number] [facility] [id number] S [id number] UN COMMUNITY PLAN XIX [id number] 18 [id number] PRIVATE PAY [place]ONA [place] [address] [place] [place] MEDICAID -O/P EMERGENCY ROOM [id number] 18 [id number] MEDICAID -O/P EMERGENCY ROOM [id number] 18 [id number] [facility] [id number] [place] [id number] ANSI-Commercial [id number] ANSI-Commercial [id number] [facility] [id number] Unemploye d [id number] ANSI-Commercial [id number] ANSI-Commercial [id number] [facility] [place] [id number] S [id number] [facility] [id number] S [id number] [facility] [id number] S [id number] ANSI-Commercial [id number] ANSI-Commercial [id number] ANSI-Commercial [id number] ANSI-Commercial [id number] ANSI-Commercial [id number] ANSI-Commercial [id number] ANSI-Commercial [id number] ANSI-Commercial [id number] ANSI-Commercial [id number] ANSI-Commercial [id number] ANSI-Commercial [id number] ANSI-Commercial [id number] ANSI-Commercial [id number] ANSI-Commercial [id number] ANSI-Commercial [id number] ANSI-Commercial [id number] ANSI-Commercial [id number] ANSI-Commercial [id number] [facility] [id number] S [id number] ANSI-Commercial [id number] ANSI-Commercial [id number] ANSI-Commercial [id number] ANSI-Commercial [id number] [facility] [id number] S [id number] ANSI-Commercial [id number] ANSI-Commercial [id number] ANSI-Commercial [id number] ANSI-Commercial [id number] [facility] [id number] Self [id number] ANSI-Commercial [id number] ANSI-Commercial [id number] ANSI-Commercial [id number] ANSI-Commercial [id number] ANSI-Commercial [id number] ANSI-Commercial [id number] ANSI-Commercial [id number] ANSI-Commercial [id number] [facility] [id number] S [id number] ANSI-Commercial [id number] ANSI-Commercial [id number] ANSI-Commercial [id number] [facility] [id number] S [id number] [facility] [id number] S [id number] [facility] [id number] S [id number] [facility] [id number] S [id number] MEDICAID [id number] S [id number] MEDICAID [id number] S [id number] MEDICAID [id number] S [id number] MEDICAID [id number] S [id number] MEDICAID [id number] S [id number] Problems, Conditions, and Diagnoses Code Display Name Description Problem Type Effective Dates Data Source(s) 985883412 Overactive bladder Overactive Bladder Problem 06/2020 12:00:00 AM JEAN CARLOS CANTU ([facility]) [id number] Asthma Asthma Problem 08/12/2020 12:00:00 AM NANCY CANTU ([facility]) [id number] Allergic rhinitis Allergic Rhinitis Problem 08/12/2020 12:00:00 AM EST ALONDRA ([facility]) 77009622 Hypertensive disorder Hypertensive Disorder Problem 08/12/2020 12:00:00 AM EST ALONDRA ([facility]) 41176026 Depressive disorder Depressive Disorder Problem 1 10/13/2019 12:00:00 AM EST ALONDRA ([facility]) 46611244 Anxiety Anxiety Problem 08/12/2020 12:00:00 AM NANCY CANTU ([facility]) [id number] Anemia Anemia Problem 08/12/2020 12:00:00 AM NANCY CANTU ([facility]) 03326299 Hyperlipidemia Hyperlipidemia Problem 08/12/2020 12:00: 00 AM EST ALONDRA ([facility]) [id number] Overactive bladder Overactive bladder Problem 12:00:00 AM EDT MEDENT ([facility]) 337245063 Syncope and collapse Syncope and collapse Problem 03/26/2020 12:00:00 AM EDT MEDENT ([facility]) 31125852 Varicose veins of lower extremity Varicose veins of lower extremity Problem 11/20/2019 12:00:00 AM EDT MED[facility] ([facility]) 08372228 Seizure Seizure Problem 09/26/2019 12:00:00 AM ES T MEDENT ([facility] ) 724885944 Syncope and collapse Syncope and collapse Problem 09/26/2019 12:00:00 AM EST MEDENT ([facility] ) 50989087 Hypokalemia Hypokalemia Problem 09/23/2019 12:00:00 AM EST MEDENT ([facility]) 144329143 Electrocardiogram abnormal Electrocardiogram abnormal Problem 09/11/2019 12:00:00 AM EST [facility] [facility]) [id number] Dietary management surveillance Dietary manageme nt surveillance Problem 09/11/2019 12:00:00 AM EST [facility] [id number] Obesity Obesity Problem 09/11/2019 12:00:00 AM ES T [facility] ([facility]) [id number] Pure hypercholesterolemia Pure hypercholesterolemia Pr oblem 09/11/2019 12:00:00 AM EST [facility] ([facility]) [id number] Essential hypertension Essential hypertension Problem 09/11/2019 12:00:00 AM EST [facility] ([facility]) [id number] Syncope and collapse Syncope and collapse Problem 09/11/2019 12:00:00 AM EST [facility] ([facility]) [id number] Hyperlipidemia Hyperlipidemia Problem 08/12/2019 12:00: 00 AM EST [facility] ([facility]) Z23 Encounter for immunization Encounter for immunization Diagnosis 05/28/2020 01:43:00 PM EDT [facility] I10 Essential (primary) hypertension Essential (primary) h ypertension Diagnosis 05/28/2020 01:43:00 PM EDT [facility] R600 Localized edema Localized edema Diagnosis 05/28/2020 01:4 3:00 PM EDT [facility] K219 Gastro-esophageal reflux disease without esophagitis Gastro-esophageal reflux disease without esophagitis Diagnosis 12/23/2019 11:20:00 AM ED T [facility] J0190 Acute sinusitis, unspecified Acute sinusitis, unspecif ied Diagnosis 12/19/2019 02:12:00 PM EDT [facility] N390 Urinary tract infection, site not specif ied Urinary tract infection, site not specified Diagnosis 12/19/2019 02:12:00 PM EDT [facility] R05 Cough Cough Diagnosis 11/20/2019 02:52:00 PM ED [facility] [id number] Varicose veins of right lower extremity with pain Varicose veins of right lower extremity with pain Diagnosis 11/20/2019 02:52:00 PM EDT [facility] [id number] Pain in left knee Pain in left knee Diagnosis 11/20/2019 02:52:00 PM EDT [facility] [id number] Encounter for gynecological examination (general) (routine) without abnormal findings Encounter for gynecological examination (general) (routine) without abnormal findings Diagnosis 11/06/2019 10:46:[address] 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) use of oral hypoglycemic drugs Diagnosis 08/24/2019 04:25:00 PM [facility] E119 Type 2 diabetes mellitus without complic ations Type 2 diabetes mellitus without complications Diagnosis 08/24/2019 04:25:00 PM [facility] J159 Unspecified bacterial pneumonia Unspecified bacterial pneumonia Diagnosis 08/24/2019 04:25:00 PM [facility] R509 Fever, unspecified Fever, unspecified Diagnosis 9 04:25:00 PM [facility] Z6834 Body mass index (BMI) 34.0-34.9, adult B ramona mass index (BMI) 34.0-34.9, adult Diagnosis 08/12/2019 08:32:00 AM [facility] E669 Obesity, unspecified Obesity, unspecified Diagnosis 08/12/2019 08:32:00 AM [facility] E7800 Pure hypercholesterolemia, unspecified P ure hypercholesterolemia, unspecified Diagnosis 08/12/2019 08:32:00 AM [facility] F419 Anxiety disorder, unspecified Anxiety disorder, unspec ified Diagnosis 08/12/2019 08:32:00 AM [facility] Surgeries/Procedures Procedure Description Date Indications Data Source(s) ELECTROENCEPHALOGRAM W/REC AWAKE&ASLEEP 10/03/2019 12: 00:00 AM EST [facility] ([facility] ) ELECTROENCEPHALOGRAM W/REC AWAKE&ASLEEP 10/03/2019 12: 00:00 AM EST [facility] ([facility], ) ECG ROUTINE ECG W/LEAST 12 LDS W/I&R 09/11/2019 12:00: 00 AM EST [facility] ([facility]) Results ID Date Data Source [id number] 08/25/2020 08:55:42 AM EST [facility] NT INFORMATIONPatient MRN Name Date of Age Gend*PT [id number] Ofelia Hooker Lit 1970 49 years F ---PT Location Admission Date/Time Visit ID Attending Provider --- --- --- --- EPI ID CSN Admitting Provider [id number] ---Addended by: MICHAEL ZALDIVAR on: 08/25/2020 08:55 AM Modules accepted: Orders Name Value Range Interpretation Code Description Data Tamra rce(s) Supporting Document(s) ID Date Data Source [id number] 07/09/2020 10:16:00 AM EST [facility] ([facility]) Name Value Range Interpretation Code Description Data Tamra rce(s) Supporting Document(s) Renin Activity 11.599 ng/mL/hr 0.167-5.380 Above high normal [facility] ([facility]) This test was developed and its performa nce characteristics determined by [facility]. It has not been cleared or approved by the Food and Drug Administration. Aldos/Renin Ratio 0.5 0.0-30.0 Normal (applies to non-numeri c results) [facility]) Units: ng/dL per ng/mL/hr Performed at: [facility] [id number] Student Driving Instructor: Chani Zuleta MD, Phone: [phone] Aldosterone 5.3 ng/dL 0.0-30.0 Normal (applies to non-numeric resu lts) [facility] ([facility]) This test was developed and its performa nce characteristics determined by [facility]. It has not been cleared or approved by the Food and Drug Administration. ID Date Data Source [id number] 07/09/2020 10:16:00 AM EST [facility] ([facility]) Name Value Range Interpretation Code Description Data Tamra rce(s) Supporting Document(s) Glucose, Fasting 100 mg/dL 70-100 Normal (applies to non-numeric results) [facility] ([facility]) Blood Urea Nitrogen 12 mg/dL 7-18 Normal (applies to non-nume víctor results) [facility] ([facility]) Sodium Level 137 meq/L 136-145 Normal (applies to non-numeric res ults) [facility] ([facility]) Creatinine For GFR 0.91 mg/dL 0.55-1.30 Normal (applies to non -numeric results) [facility] ([facility]) Glomerular Filtration Rate Laboratory test result Normal (applies to non- numeric results) [facility]) <content>Units are mL/min/1.73 m2</content>
<content></content>
<content>Chronic Kidney Disease Staging per NKF:</content>
<content></content>
<content>Stage I & II GFR >=60 Normal to Mildly Decreased</content>
<content>Stage III GFR 30- 59 Moderately Decreased</content>
<content>Stage IV GFR 15-29 Severely Decreased</content>
<content>Stage V GFR <15 Very Little GFR Left</content>
<content>ESRD GFR <15 on DRIVER EDUCATION INSTRUCTOR</content>
<content></content> Potassium Serum 4.0 meq/L 3.5-5.1 Normal (applies to non-numeric results) [facility] ([facility]) Carbon Dioxide Level 26 meq/L 21-32 Normal (applies to non-num annie results) [facility] ([facility]) Chloride Level 104 meq/L 98-107 Normal (applies to non-numeric r esults) [facility] ([facility]) Calcium Level 9.2 mg/dL 8.5-10.1 Normal (applies to non-numeric re sults) [facility] ([facility]) Anion Gap 7 meq/L 8-16 Below low normal [facility] ( [facility]) ID Date Data Source [id number] 07/09/2020 10:16:00 AM EST [facility] ([facility]) Name Value Range Interpretation Code Description Data Tamra rce(s) Supporting Document(s) Cortisol [Mass/volume] in Serum or Plasma --AM peak specimen 10.6 ug/dL 4.3-22.4 Normal (applies to non-numeric results) [facility] ([facility]) <content>note:<nlbl:demographic_changed></content>
<content>note:<nlbl:demog raphic_changed></content>
<content></content> ID Date Data Source [id number] 06/10/2020 01:31:00 PM EDT [facility] ([facility] Name Value Range Interpretation Code Description Data Tamra rce(s) Supporting Document(s) Glucose [Presence] in Urine Laboratory test result [facility] ([facility]) Ua Nitrite Laboratory test result ME [facility] ([facility]) Protein [Presence] in Urine by Test strip Laboratory test result [facility] ([facility]) Ua Leuko Laboratory test result [facility] ([facility]) Color of Urine Laboratory test result [facility] ([facility]) Ketones [Presence] in Urine by Test strip Laboratory test result [facility] ([facility]) Blood [Presence] in Urine by Visual Laboratory test result [facility] ([facility]) Clarity of Urine Laboratory test result [facility] ([facility]) Bilirubin.total [Presence] in Urine by Test strip Laboratory test res ult [facility] ([facility]) pH of Urine by Test strip 5.5 5.0-7.5 [facility] ([facility]) Ua Specific Burney 1.020 1.003-1.030 [facility] NT ([facility]) Urobilinogen [Mass/volume] in Urine by Test strip 0.2 E.U./dL 0.0-1.0 [facility] ([facility]) ID Date Data Source [id number] 05/07/2020 09:25:00 AM EDT [facility] ([facility]) Name Value Range Interpretation Code Description Data Tamra rce(s) Supporting Document(s) Mammo Screening Bilateral with CAD Laboratory test result [facility] ([facility]) ID Date Data Source [id number] 12/23/2019 11:10:00 AM EDT [facility] ([facility]) Name Value Range Interpretation Code Description Data Tamra rce(s) Supporting Document(s) Basic Metabolic Pane Laboratory test result [facility] ([facility]) BASIC METABOLIC PANEL Potassium 3.1 meq/L 3.6-5.0 Below low normal [facility] ( [facility]) Sodium 137 meq/L 134-153 [facility] ([facility]) Co2 23 meq/L 22-30 [facility] ([facility]) Chloride 94 meq/L 98-107 Below low normal [facility] ( [facility]) BUN 13 mg/dL 7-21 [facility] ([facility]) BUN/Creat 11 8-27 [facility] ([facility]) Glucose 206 mg/dL 65-110 Above high normal [facility] ([facility]) Creatinine 1.2 mg/dL 0.7-1.5 [facility] ([facility]) Calcium 9.6 mg/dL 8.4-10.2 [facility] ([facility]) Age 49 yrs [facility] ([facility]) Anion Gap 20.0 mmol/L 8.0-16.0 Above high normal [facility] ([facility]) Afr Amer GFR Laboratory test result [facility] ([facility]) Non-Aa GFR 50 mL/min [facility] ([facility]) Male GFR Interprentation 20-49 yrs >60 [...] >32 mL/min Normal ID Date Data Source [id number] 12/23/2019 11:10:00 AM EDT [facility] ([facility]) Name Value Range Interpretation Code Description Data Tamra rce(s) Supporting Document(s) Iron 91 ug/dL 42-135 [facility] ([facility]) Uibc 184 ug/dL 112-347 [facility] ([facility]) Iron Sat 33 % [facility] ([facility]) Tibc 275 ug/dL 250-450 [facility] ([facility]) ID Date Data Source [id number] 12/23/2019 11:10:00 AM EDT [facility] ([facility]) Name Value Range Interpretation Code Description Data Tamra rce(s) Supporting Document(s) CBC W/Automated Diff Laboratory test result [facility] ([facility]) COMPLETE BLOOD COUNT WBC 11.7 10^3/uL 4.2-11.0 Above high normal [facility]EN T ([facility]) RBC 5.20 10^6/uL 4.20-5.40 [facility] ([facility]) Hemoglobin 14.9 g/dL 12.0-16.0 [facility] ([facility]) Hematocrit 44.8 % 37.0-47.0 [facility] ([facility]) MCV 86.2 fL 81.0-101 [facility] ([facility]) MCH 28.7 pg 27.0-34.0 [facility] ([facility]) RDW 13.1 % 11.5-14.5 [facility] ([facility]) MCHC 33.3 g/dL 31.0-36.0 [facility] ([facility]) MPV 9.1 fL 7.4-10.4 [facility] ([facility]) Platelets 425 10^3/uL 150-450 [facility] ([facility]) Lymph 21.7 % 25.0-40.0 Below low normal [facility] ( [facility]) Neut 70.6 % 37.0-80.0 [facility] ([facility]) [place]berg 5.7 % 3.0-8.0 [facility] ([facility]) Eos 1.2 % 0.0-7.0 [facility] ([facility]) %Ig 0.4 % 0.0-0.0 Above high normal [facility] ([facility]) %NRBC 0.0 % 0.0-0.0 [facility] ([facility]) Baso 0.4 % 0.0-2.5 [facility] ([facility]) #Bamberg 0.66 10^3/uL 0.00-0.90 [facility] ([facility]) #Eos 0.14 10^3/uL 0.00-0.70 [facility] ([facility]) #Lymph 2.53 10^3/uL 0.60-3.40 [facility] ([facility]) #Neut 8.24 10^3/uL 2.00-6.90 Above high normal [facility]EN T ([facility]) #Baso 0.05 10^3/uL 0.00-0.20 [facility] ([facility]) #Ig 0.05 10^3/uL 0.00-0.10 [facility] ([facility]) #NRBC 0.00 10^3/uL 0.00-0.00 [facility] ([facility]) Manual Diff Laboratory test result M [facility]ENT ([facility]) RBC Morph Laboratory test result [facility] ([facility]) ID Date Data Source [id number] 12/24/2019 04:02:00 PM EDT [facility] Name Value Range Interpretation Code Description Data Tamra rce(s) Supporting Document(s) BASIC METABOLIC PANEL [facility] BASIC METABOLIC PANEL Sodium [Moles/volume] in Serum or Plasma 137 mEq/L 134 - 153 [facility] Potassium [Moles/volume] in Serum or Plasma 3.1 mEq/L 3.6 - 5.0 L [facility] Chloride [Moles/volume] in Serum or Plasma 94 mEq/L 98 - 107 L [facility] Carbon dioxide, total [Moles/volume] in Serum or Plasma 23 MEQ/L 22 - 30 [facility] Glucose [Mass/volume] in Serum or Plasma 206 MG/DL 65 - 110 H [facility] BUN 13 MG/DL 7 - 21 [facility] Creatinine [Mass/volume] in Serum or Plasma 1.2 MG/DL 0.7 - 1.5 [facility] BUN/CREAT 11 8 - 27 [facility] Calcium [Mass/volume] in Serum or Plasma 9.6 MG/DL 8.4 - 10.2 [facility] Anion gap 3 in Serum or Plasma 20.0 mmol/L 8.0 - 16.0 H [facility] AGE 49 yrs [facility] al AFR AMER GFR >60 mL/min [facility] NON-AA GFR 50 mL[facility] Male GFR Inter prentation 20-49 yrs [...] >32 mL/min Normal ID Date Data Source [id number] 12/23/2019 05:19:00 PM EDT [facility] Name Value Range Interpretation Code Description Data Tamra rce(s) Supporting Document(s) Iron [Mass/volume] in Serum or Plasma 91 UG/DL 42 - 135 [facility] Iron binding capacity.unsaturated [Mass/volume] in Serum or Plasma 184 UG/DL 112 - 347 [facility] Iron binding capacity [Mass/volume] in Serum or Plasma 275 ug/dL 250 - 450 [facility] Iron saturation [Mass Fraction] in Serum or Plasma 33 % [facility] ID Date Data Source [id number] 12/23/2019 04:56:00 PM EDT [facility] Name Value Range Interpretation Code Description Data Tamra rce(s) Supporting Document(s) CBC W/AUTOMATED DIFF [facility] COMPLETE BLOOD COUNT Leukocytes [#/volume] in Blood by Automated count 11.7 10^3/uL 4.2 - 11.0 H [facility] Erythrocytes [#/volume] in Blood by Automated count 5.20 10^6/uL 4. 20 - 5.40 [facility] Hemoglobin [Mass/volume] in Blood 14.9 g/dL 12.0 - 16.0 [facility] Hematocrit [Volume Fraction] of Blood by Automated count 44.8 % 3 7.0 - 47.0 [facility] Erythrocyte mean corpuscular volume [Entitic volume] by Auto mated count 86.2 fL 81.0 - 101 [facility] Erythrocyte mean corpuscular hemoglobin [Entitic mass] by Automated count 28.7 pg 27.0 - 34.0 [facility] Erythrocyte mean corpuscular hemoglobin concentration [Mass/volume] by Automated count 33.3 g/dL 31.0 - 36.0 [facility] Erythrocyte distribution width [Ratio] by Automated count 13.1 % 11.5 - 14.5 [facility] Platelets [#/volume] in Blood by Automated count 425 10^3/uL 150 - 45 0 [facility] Platelet mean volume [Entitic volume] in Blood by Automated count 9.1 fL 7.4 - 10.4 [facility] Neutrophils/100 leukocytes in Blood by Automated count 70.6 % 37. 0 - 80.0 [facility] Lymphocytes/100 leukocytes in Blood by Manual count 21.7 % 25.0 - 40.0 L [facility] Monocytes/100 leukocytes in Blood by Automated count 5.7 % 3.0 - 8.0 [facility] Eosinophils/100 leukocytes in Blood by Automated count 1.2 % 0.0 - 7.0 [facility] Basophils/100 leukocytes in Blood by Automated count 0.4 % 0.0 - 2.5 [facility] %IG 0.4 % 0.0 - 0.0 H [facility] %NRBC 0.0 % 0.0 - 0.0 [facility] al Neutrophils [#/volume] in Blood by Automated count 8.24 10^3/uL 2.00 - 6.90 H [facility] Lymphocytes [#/volume] in Blood by Automated count 2.53 10^3/uL 0.60 - 3.40 [facility] Monocytes [#/volume] in Blood by Automated count 0.66 10^3/uL 0.00 - 0.90 [facility] Eosinophils [#/volume] in Blood by Automated count 0.14 10^3/uL 0.00 - 0.70 [facility] Basophils [#/volume] in Blood by Automated count 0.05 10^3/uL 0.00 - 0.20 [facility] #IG 0.05 10^3/uL 0.00 - 0.10 [facility] #NRBC 0.00 10^3/uL 0.00 - 0.00 [facility] ospital MANUAL DIFF NOT INDICATED [facility] RBC MORPH NOT INDICATED [facility] ID Date Data Source [id number] 12/23/2019 11:10:00 AM EDT [facility] ([facility]) Name Value Range Interpretation Code Description Data Tamra rce(s) Supporting Document(s) Iron binding capacity [Mass/volume] in Serum or Plasma <pending> [facility] ([facility]) Iron [Mass/volume] in Serum or Plasma <pending> [facility] ([facility]) ID Date Data Source [id number] 12/19/2019 02:46:00 PM EDT [facility] ([facility]) Name Value Range Interpretation Code Description Data Tmara rce(s) Supporting Document(s) Culture Urine Laboratory test result [facility] ([facility]) _CULTURE URINE_ ^$[id number] ^^[id number] $$[id number] ^^140768 $$279579 $$876210 $$374064 $$618292 $$493915 $$036577 $$843749 $$127414 $$614831 $$510296 $$184050 $$859430 $$845777 $$208407 $$067867 $$351765 $$030219 $$920456 $$713070 $$855469 $$374120 $$041545 $$622309 ^^289110 $$501479 $$764755 $$056588 -- Continued on next page -- Patient: RONA Murrieta Order: Page 2 Culture: CULTURE URINE Status: Final -- Continued on next page -- Patient: RONA Murrieta Order: [id number] Page 2 Culture: CULTURE URINE Status: Prelim $$[id number] $$[id number] REPORTED DATE/TIME: 12/23/2019 14:05 Culture: CULTURE URINE Status: Final Urine Culture,Comprehensive: P1 Mixed urogenital dimitry 25,000-50,000 colony forming units per m L Previous result entered on 12/22/2019 04:52 ET Specimen has been received and testing has been initiated. P1 Test performed by: Davida LAWRENCE #: [id number] [address] [place] [id number] [facility] [address] Real Estate Administrative Assistant : Wilmer Cordero MD NPI #: Student Driving Instructor : 12/[email or web address] REF 12/23/[email or web address] REF ID Date Data Source [id number] 12/23/2019 02:44:00 PM EDT [facility] Name Value Range Interpretation Code Description Data Tamra rce(s) Supporting Document(s) CULTURE URINE [facility] _CULTURE URINE_$$[id number]$$[id number]$$122402$$963661$$172731$$862986$$689711$$264788$$663582$$ 273296$$923923$$164110$$591773$$625543$$560680$$257760$$626500$$190659$$509666$$ 465036$$976881$$029789$$318281$$767863$$656142$$696353$$373799 -- Continued on next page --Patient: RONA Murrieta Order: [id number] Page 2Culture: CULTURE URINE Status: Final ==== -- Continued on next page --Patient: RONA Murrieta Order: [id number] Page 2Culture: CULTURE URINE Status: Prelim =====$$[id number]$$[id number] DATE/TIME: 12/23/2019 14:05Culture: CULTURE URINE Status: FinalUrine Culture,Comprehensive: [id number] urogenital flora25,000-50,000 colony forming units per mL Previous result entered on 12/22/2019 04:52 ET Specimen has been received and testing has been initiated.P1 Test performed by: ValentinDechelsi Etienne CLIA #: [id number] [address] [place] [id number] [facility] [address]Xjvgihi Director : Wilmer Cordero MD NPI #:Student Driving Instructor : 12/22/[email or web address] REF 12/23/[email or web address].SENT REF ID Date Data Source [id number] 11/17/2019 11:00:00 AM EDT [facility] ([facility] ) Name Value Range Interpretation Code Description Data Tamra rce(s) Supporting Document(s) Comment For Hexagonal Confirm1 (SEE NOTE) [facility] ([facility], ) . Results do not indicate the presence of a Lupus Anticoagulant: abnormal high screening results (PTT-LA, dRVVT, mixing studies), may be due to medication (heparin, warfarin, aspirin), Factor inhibitors, anticardiolipin antibodies, or poor specimen integrity. Hexagonal Phase Phospholipid 0 sec 0-11 [facility] ([facility], ) [facility] Date Comment (SEE NOTE) [facility] ( [facility] ) . The date recorded on the requisition indicates the sample(s) received were greater than 72 hours old upon arrival in our laboratory. Performed at: [address] [id number] Student Driving Instructor: Chani Zuleta MD, Phone: [phone] Performed at: [facility] [address] [place] [id number] Student Driving Instructor: Cristine Guillen MD, Phone: [phone] ID Date Data Source [id number] 11/17/2019 11:00:00 AM EDT [facility] Name Value Range Interpretation Code Description Data Tamra rce(s) Supporting Document(s) Lupus Confirm Stago 1.30 0.00-1.20 [facility] ([facility], ) NORMALIZED RATIO IS EQUAL TO OR GREATER THAN 1.20 LA IS PRESENT. SPECIMEN WILL BE SENT TO [facility], [address] [facility]. Erica Etienne [id number] REFERE [facility] FOR CONFIRMATION. ID Date Data Source [id number] 11/17/2019 11:00:00 AM EDT [facility] ([facility] ) Name Value Range Interpretation Code Description Data Tamra rce(s) Supporting Document(s) PTT Lupus Type Anticoag Screen 1.3 0-1.2 [facility] ([facility], ) RESULT IS 1.2 OR GREATER, [...] a specific inhibitor. ID Date Data Source [id number] 11/17/2019 11:00:00 AM EDT [facility] ([facility] ) Name Value Range Interpretation Code Description Data Tamra rce(s) Supporting Document(s) Antinuclear Antibodies Direct Negative [facility] ([facility], ) Performed at: RN - [facility] [address] [id number] Student Driving Instructor: Cristine Guillen MD, Phone: [phone] ID Date Data Source [id number] 11/17/2019 11:00:00 AM EDT [facility] ([facility], ) Name Value Range Interpretation Code Description Data Tamra rce(s) Supporting Document(s) Rheumatoid factor [Units/volume] in Serum or Plasma < 10.0 IU/ml [facility] ([facility], ) <content>note:<nlbl:demographic_changed> </content>
<content></content> ID Date Data Source [id number] 11/17/2019 11:00:00 AM EDT [facility] ([facility]) Name Value Range Interpretation Code Description Data Tamra rce(s) Supporting Document(s) Albumin % 53.4 % 55.8-66.1 [facility] ([facility], ) Xwzyk-3-Ocmrwjti % 5.3 % 2.9-4.9 [facility] ([facility]) Jzupg-2-Tizlmazot % 12.4 % 7.1-11.8 [facility] ([facility], ) Vxce-1-Qwekhbebo % 6.9 % 4.7-7.2 [facility] ([facility]) Gamma Globulin % 14.8 % 11.1-18.8 [facility] ([facility]) Yzgx-8-Flrupwreb % 7.2 % 3.2-6.5 [facility] ([facility]) Vbjfy-7-Qyzxoloxd 0.45 GM/DL 0.17-0.41 [facility] ([facility]) Albumin 4.49 GM/DL 3.29-5.55 [facility] ([facility]) Khilu-4-Ufmmssqju 1.04 GM/DL 0.42-0.99 [facility] ([facility]) Brta-5-Kyzfmmygc 0.58 GM/DL 0.28-0.60 [facility] ([facility], ) Mbav-0-Hztoapjcq 0.60 GM/DL 0.19-0.55 [facility] ([facility]) Gamma Globulins 1.24 GM/DL 0.65-1.58 [facility] ([facility]) Total Protein 8.4 GM/DL 6.4-8.2 [facility] ([facility], ) Spep Interpretation SEE COMMENT [facility] ( [facility], ) NO M-SPIKE(S)NOTED. Laboratory test finding (navigational concept) REV'D BY Lit GREGORY <SE E NOTE> [facility] ([facility], ) REV'D BY Lit NELSON ID Date Data Source [id number] 11/17/2019 11:00:00 AM EDT [facility] ([facility]) Name Value Range Interpretation Code Description Data Tamra rce(s) Supporting Document(s) Erythrocyte sedimentation rate by 2H Westergren method 38 mm/hr 0-3 0 [facility] ([facility]) ID Date Data Source [id number] 09/22/2019 02:55:00 PM EST [facility] ([facility]) Name Value Range Interpretation Code Description Data Tamra rce(s) Supporting Document(s) Sodium 138 meq/L 134-153 [facility] ([facility]) Renal Panel Laboratory test result M [facility] ([facility]) RENAL FUNCTION PANEL Glucose 107 mg/dL 65-110 [facility] ([facility]) Potassium 3.3 meq/L 3.6-5.0 Below low normal [facility] ( [facility]) Chloride 95 meq/L 98-107 Below low normal [facility] ( [facility]) Co2 29 meq/L 22-30 [facility] ([facility]) BUN 13 mg/dL 7-21 [facility] ([facility]) Creatinine 0.9 mg/dL 0.7-1.5 [facility] ([facility]) BUN/Creat 14 8-27 [facility] ([facility]) Anion Gap 14.0 mmol/L 8.0-16.0 [facility] ([facility]) Calcium 10.3 mg/dL 8.4-10.2 Above high normal [facility] ([facility]) Phosphorus 3.4 mg/dL 2.5-4.5 [facility] ([facility]) Albumin 4.7 g/dL 3.9-5.0 [facility] ([facility]) Non-Aa GFR Laboratory test result [facility] ([facility]) Afr Amer GFR Laboratory test result [facility] ([facility]) Male GFR Interprentation 20-49 yrs >60 mL/min [...] >32 mL/min Normal Age 48 yrs [facility] ([facility]) ID Date Data Source [id number] 09/22/2019 02:55:00 PM EST [facility] ([facility]) Name Value Range Interpretation Code Description Data Tamra rce(s) Supporting Document(s) Magnesium [Mass/volume] in Serum or Plasma 2.2 mg/dL 1.7-2.2 [facility] ([facility]) ID Date Data Source [id number] 09/22/2019 03:59:00 PM EST [facility] Name Value Range Interpretation Code Description Data Tamra rce(s) Supporting Document(s) RENAL PANEL [facility] RENAL FUNCTION PANEL Sodium [Moles/volume] in Serum or Plasma 138 mEq/L 134 - 153 [facility] Potassium [Moles/volume] in Serum or Plasma 3.3 mEq/L 3.6 - 5.0 L [facility] Chloride [Moles/volume] in Serum or Plasma 95 mEq/L 98 - 107 L [facility] Carbon dioxide, total [Moles/volume] in Serum or Plasma 29 MEQ/L 22 - 30 [facility] Glucose [Mass/volume] in Serum or Plasma 107 MG/DL 65 - 110 [facility] BUN 13 MG/DL 7 - 21 [facility] al Creatinine [Mass/volume] in Serum or Plasma 0.9 MG/DL 0.7 - 1.5 [facility] BUN/CREAT 14 8 - 27 [facility] Albumin [Mass/volume] in Serum or Plasma 4.7 G/DL 3.9 - 5.0 [facility] Phosphate [Mass/volume] in Serum or Plasma 3.4 MG/DL 2.5 - 4.5 [facility] Calcium [Mass/volume] in Serum or Plasma 10.3 MG/DL 8.4 - 10.2 H [facility] Anion gap 3 in Serum or Plasma 14.0 mmol/L 8.0 - 16.0 [facility] AGE 48 yrs [facility] NON-AA GFR >60 mL/min [facility] ital AFR AMER GFR >60 mL/min [facility] Male GFR Interp [...] >32 mL/min Normal ID Date Data Source [id number] 09/22/2019 03:58:00 PM EST [facility] Name Value Range Interpretation Code Description Data Tamra rce(s) Supporting Document(s) Magnesium [Mass/volume] in Serum or Plasma 2.2 MG/DL 1.7 - 2.2 [facility] ID Date Data Source [id number] 08/29/2019 11:57:00 AM EST [facility] ([facility]) Name Value Range Interpretation Code Description Data Tamra rce(s) Supporting Document(s) Basic Metabolic Pane Laboratory test result [facility] ([facility]) Is patient fasting? N Sodium 137 meq/L 134-153 [facility] ([facility]) Is patient fasting? N Potassium 3.2 meq/L 3.6-5.0 Below low normal [facility]) Is patient fasting? N Chloride 94 meq/L 98-107 Below low normal [facility] ( [facility]) Is patient fasting? N Co2 27 meq/L 22-30 [facility] ([facility]) Is patient fasting? N Glucose 111 mg/dL 65-110 Above high normal [facility] Is patient fasting? N Creatinine 0.9 mg/dL 0.7-1.5 [facility] ([facility]) Is patient fasting? N BUN/Creat 14 8-27 [facility] ([facility]) Is patient fasting? N BUN 13 mg/dL 7-21 [facility] ([facility]) Is patient fasting? N Anion Gap 16.0 mmol/L 8.0-16.0 [facility] ([facility]) Is patient fasting? N Calcium 10.3 mg/dL 8.4-10.2 Above high normal [facility] ([facility]) Is patient fasting? N Afr Amer GFR Laboratory test result [facility] ([facility]) Is patient fasting? N Age 48 yrs [facility] ([facility]) Is patient fasting? N Non-Aa GFR Laboratory test result [facility] ([facility]) Is patient fasting? N ID Date Data Source [id number] 08/29/2019 11:57:00 AM EST [facility] ([facility] Name Value Range Interpretation Code Description Data Tamra rce(s) Supporting Document(s) Basic Metabolic Pane (See Note) [facility] ( [facility]) Is patient fasting? N Potassium 3.2 meq/L 3.6-5.0 [facility] Is patient fasting? N Sodium 137 meq/L 134-153 [facility] Is patient fasting? N Co2 27 meq/L 22-30 [facility] Is patient fasting? N Glucose 111 mg/dL 65-110 [facility] Is patient fasting? N Chloride 94 meq/L 98-107 [facility] Is patient fasting? N Creatinine 0.9 mg/dL 0.7-1.5 [facility] ([facility]) Is patient fasting? N BUN/Creat 14 8-27 [facility] Is patient fasting? N BUN 13 mg/dL 7-21 [facility] Is patient fasting? N Anion gap in Serum or Plasma 16.0 mmol/L 8.0-16.0 [facility] ([facility]) Is patient fasting? N Calcium 10.3 mg/dL 8.4-10.2 [facility] ([facility]) Is patient fasting? N Non-Aa GFR >60 mL/min [facility] ([facility]) Is patient fasting? N Age 48 yrs [facility] Is patient fasting? N Afr Amer GFR >60 mL/min [facility] ([facility]) Is patient fasting? N ID Date Data Source [id number] 08/29/2019 06:32:00 PM EST [facility] Name Value Range Interpretation Code Description Data Tamra rce(s) Supporting Document(s) BASIC METABOLIC PANEL [facility] BASIC METABOLIC PANEL Sodium [Moles/volume] in Serum or Plasma 137 mEq/L 134 - 153 [facility] Potassium [Moles/volume] in Serum or Plasma 3.2 mEq/L 3.6 - 5.0 L [facility] Chloride [Moles/volume] in Serum or Plasma 94 mEq/L 98 - 107 L [facility] Carbon dioxide, total [Moles/volume] in Serum or Plasma 27 MEQ/L 22 - 30 [facility] Glucose [Mass/volume] in Serum or Plasma 111 MG/DL 65 - 110 H [facility] BUN 13 MG/DL 7 - 21 [facility] Creatinine [Mass/volume] in Serum or Plasma 0.9 MG/DL 0.7 - 1.5 [facility] BUN/CREAT 14 8 - 27 [facility] Calcium [Mass/volume] in Serum or Plasma 10.3 MG/DL 8.4 - 10.2 H [facility] Anion gap 3 in Serum or Plasma 16.0 mmol/L 8.0 - 16.0 [facility] AGE 48 yrs [facility] al AFR AMER GFR >60 mL/min [facility] Ho spital NON-AA GFR >60 mL/min [facility] ital Male GFR Inter prentation 20-49 [...] >32 mL/min Normal ID Date Data Source [id number] 08/25/2019 10:25:00 AM EST [facility] [address] [place] [address] PHONE: [phone] FAX: [phone] Name .................. : RONA Murrieta Acct Number.................. : [id number] ROOM. ................. : TR-06 MR Number ................... : [id number] Stay type ............. : E/R Discharge Date......... ... : 08/22/19 Admit Date ......... : 08/22/19 Admit Phys .................... : ABDIAS Phan Date of ....... : 1970 Family Phys ................... : LUC Phone .................. : [phone] Age ................................ : 48 Film# .................. .:[id number] Sex ................................. : F Unsigned transcriptions are preliminary reports and do not represent a medical or legal document CHEST 2 VIEWS [id number] COMPLETE:08/22/19 20:46 KJE [id number] Reaso n(s): syncope CHEST X-RAY: 2-VIEWS FINDINGS: [...] MD , 08/25/19 10:25, KGG Transcribe Initials: SHANNAN , Transcribe Date: 08/23/19 08:04, Dictation Date: Copy for: ISAAC OLIVARES via fax Copy for: EMERGENCY DEPT via modem Copy for: 710 MED REC DISCHARGED Page 1 of 1 Name Value Range Interpretation Code Description Data Tamra rce(s) Supporting Document(s) ID Date Data Source [id number] 08/25/2019 08:21:00 AM EST [facility] [address] [place] [address] PHONE: [phone] FAX: [phone] Name ..............: RONA Murrieta Acct Number ...........................: [id number] ROOM. ............: TR-06 MR Number ............................: [id number] Stay type.........: E/R Discharge Date...............:08/22/19 Admit Date .....: 08/22/19 Admit Phys .............................: ABDIAS Phan Date of ..: 1970 Family Phys ...........................: ........................LUC Phone..............: [phone] Age.................................:48 Film# ...............:[id number] Sex.................................:F Unsigned transcriptions are preliminary reports and do not represent a medical or legal document EKG [id number] COMPLETE:08/23/19 15:26 CW [id number] Please See Scanned Results. Name Value Range Interpretation Code Description Data Tamra rce(s) Supporting Document(s) ID Date Data Source [id number] 08/24/2019 04:25:00 PM EST [facility] 1 OrderSheet [facility] Emergency Department [address] [place] [address] Phone #: ext- [phone] 08/24/2019 16:13 Patient: OFELIA HOOKER Sex: F : 1970 Age: 48yWEIGHT:72.5 kg (S) HEIGHT:58 inches (S) BMI:33.4ALLERGIES: No Known Drug AllergyCHIEF COMPLAINT: fever, "not feeling well"DIAGNOSIS: PneumoniaLAB ORDERSOrder Description Priority Entered Acknowledged InitialedCBC w Diff STAT 16:41 08/24/2019 16:45 Han Quezada ED; Bfhx4PXH STAT 16:41 08/24/2019 16:45 Han Quezada ED; Iqpb5Xvkfklzvvh (Clean STAT 16:41 08/24/2019 17:56 Mily Vasquez R.N.;Lactic Acid STAT 16:41 08/24/2019 16:45 Han Quezada ED; Simh1Vvcrc Culture STAT 16:41 08/24/2019 16:45 Utnsbmii83e X2 (Sched Trav Agrawal senior drupal developer, Han ER16:41 08/24/2019) PA; Jpka1Kekoa Culture STAT 16:41 08/24/2019 16:43 Sorbero,q10m X2 (Sched Trav Patel R.NJose Raul16:51 08/24/2019) PA;DIAGNOSTIC STUDY ORDERSOrder Description Priority Entered Acknowledged InitialedMEDICATION/IV/DRIP/FLUID O RDERSOrder Description Priority Entered Acknowledged InitialedIV NS : Bolus 1000 16:41 08/24/2019 17:02 Sorbero,mL, then 150 mL/hr Trav RIOS;DuoNeb 3 mL X2 16:41 08/24/2019 17:02 Sorbero,Doses: 6 mL (3 mL Trav Villarreal.NJose RaulX2 Doses) PA;Ibuprofen 800 mg 16:41 08/24/2019 17:01 Sorbero, 2 OrderSheet [facility] Emergency Department [address] [place] [address] Phone #: ext- [phone] 08/24/2019 16:13 Patient: [...] rce(s) Supporting Document(s) ID Date Data Source [id number] 08/24/2019 04:25:00 PM EST [facility] 1 Medication Reconciliation Report [facility] Emergency Department [address] [place] [address] Phone #: ext- [phone] 08/24/2019 16:13 Patient: OFELIA HOOKER Sex: F : 1970 Age: 48yWeight: 72.5 kgHeight/Length: 58 in.BMI: 33.4ALLERGIES: No Known Drug AllergyThe patient's Home Medications are listed below:CONTINUE TAKING THE FOLLOWING MEDICATIONS: DULoxetine HCl Oral (60 mg) 1 capsule, daily Gabapentin Oral (300 mg) 1 capsule, 2x a day MetFORMIN HCl ER Oral (500 mg) 1 tablet, 2x a day Pharmacy [facility] Potassium Chloride ER Oral (20 meq) 1 [...] 08/24/2019 5:02:00 PM 2 Medication Reconciliation Report [facility] Emergency Department [address] [place] [address] Phone #: ext- [phone] 08/24/2019 16:13 Patient: OFELIA HOOKER Sex: F : 1970 Age: 48yIV NS IV Fluids bolus 0, then 150 mL/hr, administered: 08/24/2019 5:38:00 PMKCL LIQUID PO PO 40 meq, administered: 08/24/2019 5:43:00 PMThe following Medications were prescribed to the patient:None. Name Value Range Interpretation Code Description Data Tamra rce(s) Supporting Document(s) ID Date Data Source [id number] 08/24/2019 04:25:00 PM EST [facility] 1 Medication Administration Record [facility] Emergency Department [address] [place] [address] Phone #: [phone] rvs- [phone] 08/24/2019 16:13 Patient: OFELIA HOOKER Sex: F : 1970 Age: 48yWeight: 72.5 kgHeight/Length: 58 inBMI: 33.4ALLERGIES: No Known Drug Allergy Date/Time Medication Administered Medication OrderedStart IV NS IV NS : Bolus 1000 mL, then 42005:02 08/24/2019 Dose: IV Fluids mL/Jorge Lomas, R.N. Rate: 1000 mL/hr over 1 hour(s)---- Dispensed: 1000 mL bagStop Site: #1 right AC17:38 08/24/2019SorbJorge miranda, R.N.Start IV NS IV NS : Bolus 1000 mL, then 26005:38 08/24/2019 Dose: IV Fluids mL/Jorge Lomas, R.N. Rate: 150 mL/hr over 8 hour(s)---- Dispensed: 1000 mL bagStop Site: #1 right AC17:56 08/24/2019Josie Vasquez RLeeGiven DUONEB [NEB TX] DuoNeb 3 mL X2 Doses: 6 mL (317:02 08/24/2019 Dose: 2 unit dose Nebulizer Neb TX mL X2 Doses)Jorge Cantu R.N.----Stop17:56 08/24/2019Josie Vasquez R.N.Given IBUPROFEN [PO] Ibuprofen 800 mg PO X1 dose: 93996:01 08/24/2019 Dose: 800 mg Tablets PO mg (NOW x1)Jorge Cantu R.N.Given KCL LIQUID PO KCl Liquid PO 40 meq17:43 08/24/2019 Dose: 40 meq Solution/Elixir POSJorge shannon R.N. Name Value Range Interpretation Code Description Data Tamra rce(s) Supporting Document(s) ID Date Data Source [id number] 08/24/2019 04:25:00 PM EST [facility] 1 General Instructions [facility] Emergency Department [address] [place] [address] Phone #: ext- [phone] 08/24/2019 16:13 Patient: [...] 500 mg, 1 tablet 2x a day.Pharmacy [facility]Potassium Chloride ER Oral : Tablet Extended Release [...] 2 days of treatment. 2 General Instructions [facility] Emergency Department [address] [place] [address] Phone #: ext- [phone] 08/24/2019 16:13 Patient: [...] a stomach ulcer or 3 General Instructions [facility] Emergency Department [address] [place] [address] Phone #: ext- [phone] 08/24/2019 16:13 Patient: [...] not caused by coughing 4 General Instructions [facility] Emergency Department [address] [place] [address] Phone #: ext- [phone] 08/24/2019 16:13 Patient: OFELIA HOOKER Sex: F : 1970 Age: 48y [id number] [employer] [place] [address], [place] [address]. All rights reserved. This information is not intended as asubstitute for professional medical care. Always follow your healthcare professional's instructions. You have been given the following additional information: Pneumonia (Adult)(Electronically signed by GABRIEL Christina 08/24/2019 21:21) Name Value Range Interpretation Code Description Data Tamra rce(s) Supporting Document(s) ID Date Data Source [id number] 08/24/2019 04:25:00 PM EST [facility] 1 Clinical Report - Nurses [facility] Emergency Department [address] [place] [address] Phone #: ext- [phone] 08/24/2019 16:13 Patient: OFELIA HOOKER Sex: F : 1970 Age: 48yTRIAGEArrived by private vehicle. Historian: patient. Accompanied by family. ( seen here either yesterday ornight before and dx pneumonia).Acuity: LEVEL 3.Chief Complaint: FEVER.Alert.This started today. She has had a cough and headache. 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 --16:18 08/24/19 Josie Vasquez R.N.16:13 08/24/19. BP: 130/95. MAP: 106. HR: 114. RR: 21. O2 saturation: 99%. Temp: 98.5 F. Pain levelnow: 0/10. --16:18 08/24/19 Josie Vasquez R.N.Weight: 72.5 kg stated. Height/Length: 58 inches Per Patient. BMI: 33.4. --16:12 08/24/19 Josie Vasquez R.N.Medicationspa. --16:17 08/24/19 Josie Vasquez R.N. DULoxetine HCl Oral (Capsule Delayed Release Particles 60 mg) 1 capsule, daily. Gabapentin Oral (Capsule 300 mg) 1 capsule, 2x a day. MetFORMIN HCl ER Oral (Tablet Extended Release 24 Hour 500 mg) 1 tablet, 2x a day. Pharmacy [facility]. Potassium Chloride ER Oral (Tablet Extended Release 20 meq) 1 tablet, 2x a day. RaNITidine HCl Oral (Tablet 150 mg) 1 tablet, 2x a day. Tolterodine Tartrate Oral (Tablet 2 mg) 1 tablet, 2x a day. Vitamin D Oral 1.25 mg, once a week. --16:08/24/19 Josie Vasquez R.N.AllergiesNo Known Drug Allergy. --16:08/24/19 Josie Vasquez R.N.The following entry was struck by Josie Vasquez R.N., 16:29 (08/24/19) Reason - other. None. --16:16 08/24/19 Josie Vasquez R.N. .PROBLEMS:GI Disease.Lower Extremity Pain.Diabetes Mellitus. 2 Clinical Report - Nurses [facility] Emergency Department [address] [place] [address] Phone #: ext- [phone] 08/24/2019 16:13 Patient: OFELIA HOOKER Sex: F : 1970 Age: 48yGastroesophageal Reflux Disease.Other Disease.Sinusitis.Sprain.Panic Attack.Pneumonia. --16:08/24/19 Josie Vasquez R.N.ADDITIONAL SURGERIES:Carpal Tunnel Surgery.Colonoscopy.Endoscopy. --16:08/24/19 Josie Vasquez R.N.HistoryPAST MEDICAL HX: Immunizations: up-to-date. [...] treatment room. --16:18 08/24/19 Josie Vasquez R.N.PHYSICAL CRFAWHTTFG12:26 08/24/19. 3 Clinical Report - Nurses [facility] Emergency Department [address] [place] [address] Phone #: ext- [phone] 08/24/2019 16:13 Patient: [...] warm and dry. Normal skin turgor. --16:26 08/24/19 Jorge Cantu R.N.NURSING PROGRESS NOTESPatient gowned. Reassurance [...] Cantu R.N. 4 Clinical Report - Nurses [facility] Emergency Department [address] [place] [address] Phone #: ext- [phone] 08/24/2019 16:13 Patient: [...] F. Pain level now 0/10. --17:55 08/24/19 Ossian senior drupal developer, Han, [employer] Condition at departure: improved. No learning barriers present. Discharge instructions provided and reviewed with the patient. Treatments reviewed. Patient verbalized understanding. Written instructions provided in German. The patient was discharged home and accompanied by family. She left ambulatory and via private vehicle. Family member driving. --17:57 08/24/19 Josie Vasquez R.N. Departure time: 17:57 08/24/2019. --17:57 08/24/19 Josie Vasquez R.N.Locked/Released at 08/24/2019 17:57 by Josie Vasquez R.N. Name Value Range Interpretation Code Description Data Tamra rce(s) Supporting Document(s) ID Date Data Source [id number] 08/24/2019 04:25:00 PM [facility] 1 Clinical Report - Physicians/Mid Levels [facility] Emergency Department [address] [place] [address] Phone #: ext- [phone] 08/24/2019 16:13 [id number] Sex: F : 1970 Age: 48y Time [...] 2x a day. 2 Clinical Report - Physicians/Mid [facility] Emergency Department [address] [place] [address] Phone #: ext- [phone] 08/24/2019 16:13 Patient: OFELIA HOOKER Sex: F : 1970 Age: 48y [facility]. Potassium Chloride ER Oral (Tablet Extended Release [...] 2.5) 3 Clinical Report - Physicians/Mid Levels [facility] Emergency Department [address] [place] [address] Phone #: ext- [phone] 08/24/2019 16:13 Patient: OFELIA HOOKER Sex: F : 1970 Age: 48y %IG [...] for 4 Clinical Report - Physicians/Mid Levels [facility] Emergency Department [address] [place] [address] Phone #: ext- [phone] 08/24/2019 16:13 Patient: [...] 1 tablet 2x a day. [facility] Potassium Chloride ER Oral : Tablet Extended [...] Name Value Range Interpretation Code Description Data [facility] rce(s) Supporting Document(s) ID Date Data Source [id number] 08/24/2019 05:39:00 PM EST [facility] ([facility]) Name Value Range Interpretation Code Description Data [facility] rce(s) Supporting Document(s) Source Laboratory test result [facility] ([facility]) SOURCE: Clean Catch Urinalysis Laboratory test result [facility] ([facility]) SOURCE: Clean Catch Color Laboratory test result [facility] ([facility]) SOURCE: Clean Catch Clarity Laboratory test result [facility] ([facility]) SOURCE: Clean Catch pH 7 5-9 [facility] ([facility]) SOURCE: Clean Catch Spec Burney 1.005 1.001-1.030 [facility] ([facility]) SOURCE: Clean Catch Glucose Laboratory test result [facility] [place] SOURCE: Clean Catch Ketone Laboratory test result [facility] ([facility]) SOURCE: Clean Catch Bilirubin Laboratory test result [facility] ([facility]) SOURCE: Clean Catch Protein Laboratory test result [facility] ([facility]) SOURCE: Clean Catch Nitrite Laboratory test result [facility] ([facility]) SOURCE: Clean Catch Blood Laboratory test result [facility] ([facility]) SOURCE: Clean Catch Leuk Est Laboratory test result [facility] ([facility]) SOURCE: Clean Catch Urobilinogen Laboratory test result [facility] ([facility]) SOURCE: Clean Catch Microscopic Laboratory test result M [facility] ([facility]) SOURCE: Clean Catch ID Date Data Source [id number] 08/24/2019 05:39:00 PM EST [facility] ([facility] [...] [facility] [place] SOURCE: Clean Catch Spec Burney 1.005 1.001-1.030 [facility] ([facility] [...] SOURCE: Clean Catch ID Date Data Source [id number] 08/24/2019 06:00:00 PM EST [facility] Name Value Range Interpretation Code Description Data Tamra rce(s) Supporting Document(s) URINALYSIS [facility] jalen [facility] Yellow NORMAL: Yellow [facility] CLARITY Clear NORMAL: Clear [facility] Specific gravity of Urine by Test strip 1.005 1.001 - 1.030 [facility] pH 7 5 - 9 [facility] Glucose [Mass/volume] in Urine by Test strip NORM NORMAL: Negat [facility] Bilirubin.total [Presence] in Urine by Test strip NEG NORMAL: Negative [facility] Ketones [Presence] in Urine by Test strip NEG NORMAL: Negative [facility] Protein [Mass/volume] in Urine by Test strip NEG NORMAL: Negat [facility] Nitrite [Presence] in Urine by Test strip NEG NORMAL: Negative [facility] BLOOD NEG NORMAL: Negative [facility] Leukocyte esterase [Presence] in Urine by Test strip NEG FLORIAN L: Negative [facility] Urobilinogen [Mass/volume] in Urine by Test strip NOR less melo n 1.0 mg/dL [facility] MICROSCOPIC Not Indicate [facility] ID Date Data Source [id number] 08/30/2019 06:57:00 AM EST [facility] [address] Name Value Range Interpretation Code Description Data Tamra rce(s) Supporting Document(s) Bacteria identified in Blood by Culture [facility] NO GROWTH AFTER 5 DAYS ID Date Data Source [id number] 08/24/2019 05:22:00 PM EST [facility] ([facility]) Name Value Range Interpretation Code Description Data Tamra rce(s) Supporting Document(s) Culture Blood Laboratory test result [facility] ([facility]) _CULTURE BLOOD_ TEST PERFORMED AT [address] [address] CLIA# [id number] SEE SCANNED REPORT { PRELIM ID Date Data Source [id number] 08/24/2019 05:22:00 PM EST [facility] ([facility]) Name Value Range Interpretation Code Description Data Tamra rce(s) Supporting Document(s) Bacteria identified in Blood by Culture (See Note) [facility] ([facility]) _CULTURE BLOOD_ TEST PERFORMED AT [address] [address] CLIA# [id number] SEE SCANNED REPORT { PRELIM ID Date Data Source [id number] 08/30/2019 03:18:00 PM EST [facility] Name Value Range Interpretation Code Description Data Tamra rce(s) Supporting Document(s) CULTURE BLOOD [facility] spital _CULTURE BLOOD_ TEST PERFORM ED AT [facility] [address] [place] [address] CLIA# [id number] SEE SCANNED REPORT{ PRELIM ID Date Data Source [id number] 08/24/2019 04:52:00 PM EST [facility] ([facility]) Name Value Range Interpretation Code Description Data Tamra rce(s) Supporting Document(s) Comprehensive [employer] Laboratory test result [facility] ([facility]) COMPREHENSIVE METABOLIC PANEL Potassium 3.1 meq/L 3.6-5.0 Below low normal [facility] ( [facility]) Sodium 137 meq/L 134-153 [facility] ([facility]) Co2 30 meq/L 22-30 [facility] ([facility]) Chloride 93 meq/L 98-107 Below low normal [facility] ( [facility]) Glucose 103 mg/dL 65-110 [facility] ([facility]) BUN 14 mg/dL 7-21 [facility] ([facility]) Creatinine 1.0 mg/dL 0.7-1.5 [facility] ([facility]) Total Protein 7.9 g/dL 6.3-8.2 [facility] ([facility]) BUN/Creat 14 8-27 [facility] ([facility]) Globulin 3.7 GM/DL 2.4-3.2 Above high normal [facility] ([facility]) Albumin 4.2 g/dL 3.9-5.0 [facility] ([facility]) A/G Ratio 1.1 0.8-2.0 [facility] ([facility]) Total Bili 0.7 mg/dL 0.2-1.3 [facility] ([facility]) Calcium 9.7 mg/dL 8.4-10.2 [facility] ([facility]) Alkaline Phos 129 U/L 38-126 Above high normal MEDE NT ([facility]) Sgot/Ast 16 U/L 5-40 [facility] ([facility]) Anion Gap 14.0 mmol/L 8.0-16.0 [facility] ([facility]) SGPT/Alt 12 U/L 7-56 [facility] ([facility]) Age 48 yrs [facility] ([facility]) Non-Aa GFR Laboratory test result [facility] ([facility]) Afr Amer GFR Laboratory test result [facility] ([facility]) Male GFR Interprentation 20-49 yrs >60 mL/min [...] >32 mL/min Normal ID Date Data Source [id number] 08/24/2019 04:52:00 PM EST [facility] ([facility]) Name Value Range Interpretation Code Description Data Tamra rce(s) Supporting Document(s) Lactate [Mass/volume] in Serum or Plasma 1.7 mmol/L 0.2-2.2 [facility] ([facility]) ID Date Data Source [id number] 08/24/2019 04:52:00 PM EST [facility] ([facility]) Name Value Range Interpretation Code Description Data Tamra rce(s) Supporting Document(s) CBC W/Automated Diff Laboratory test result [facility] ([facility]) COMPLETE BLOOD COUNT WBC 12.3 10^3/uL 4.2-11.0 Above high normal [facility] T ([facility]) RBC 5.26 10^6/uL 4.20-5.40 [facility] ([facility]) Hemoglobin 15.6 g/dL 12.0-16.0 [facility] ([facility]) Hematocrit 45.7 % 37.0-47.0 [facility] ([facility]) MCV 86.9 fL 81.0-101 [facility] ([facility]) MCH 29.7 pg 27.0-34.0 [facility] ([facility]) MCHC 34.1 g/dL 31.0-36.0 [facility] ([facility]) Platelets 372 10^3/uL 150-450 [facility] ([facility]) MPV 8.6 fL 7.4-10.4 [facility] ([facility]) RDW 12.3 % 11.5-14.5 [facility] ([facility]) Neut 67.0 % 37.0-80.0 [facility] ([facility]) Lymph 21.5 % 25.0-40.0 Below low normal [facility] ( [facility]) [place] 9.8 % 3.0-8.0 Above high normal [facility] ([facility]) %Ig 0.2 % 0.0-0.0 Above high normal [facility] ([facility]) Baso 0.4 % 0.0-2.5 [facility] ([facility]) Eos 1.1 % 0.0-7.0 [facility] ([facility]) #Neut 8.20 10^3/uL 2.00-6.90 Above high normal [facility] T ([facility]) %NRBC 0.0 % 0.0-0.0 [facility] ([facility]) #Lymph 2.64 10^3/uL 0.60-3.40 [facility] ([facility]) #[place] 1.20 10^3/uL 0.00-0.90 Above high normal [facility] T ([facility]) #Eos 0.14 10^3/uL 0.00-0.70 [facility] ([facility]) #Ig 0.03 10^3/uL 0.00-0.10 [facility] ([facility]) #Baso 0.05 10^3/uL 0.00-0.20 [facility] ([facility]) #NRBC 0.00 10^3/uL 0.00-0.00 [facility] ([facility]) Manual Diff Laboratory test result M [facility] ([facility]) Segs 72 % 37-80 [facility] ([facility]) Band 0 % 0-5 [facility] ([facility]) %[place] 1 % 3-8 Below low normal [facility] ([facility]) %Eos 0 % 0-7 [facility] ([facility]) %Lymph 27 % 25-40 [facility] ([facility]) RBC Morph Laboratory test result [facility] ([facility]) %Baso 0 % 0-2 [facility] ([facility]) ID Date Data Source [id number] 08/24/2019 04:52:00 PM EST [facility] ([facility]) Name Value Range Interpretation Code Description Data Tamra rce(s) Supporting Document(s) Culture Blood Laboratory test result [facility] ([facility]) _CULTURE BLOOD_ TEST PERFORMED AT [address] [address] CLIA# [id number] SEE SCANNED REPORT { PRELIM ID Date Data Source [id number] 08/24/2019 04:52:00 PM EST [facility] ([facility]) Name Value Range Interpretation Code Description Data Tamra rce(s) Supporting Document(s) Bacteria identified in Blood by Culture (See Note) [facility] ([facility]) _CULTURE BLOOD_ TEST PERFORMED AT [address] [address] CLIA# [id number] SEE SCANNED REPORT { PRELIM ID Date Data Source [id number] 08/24/2019 04:52:00 PM EST [facility] ([facility]) Name Value Range Interpretation Code Description Data Tamra rce(s) Supporting Document(s) WBC 12.3 10^3/uL 4.2-11.0 [facility] ([facility]) CBC W/Automated Diff (See Note) [facility] ( [facility]) COMPLETE BLOOD COUNT Hematocrit 45.7 % 37.0-47.0 [...] 37.0-80.0 [facility] [place] [place] 9.8 % 3.0-8.0 [facility] ([facility] A ss[facility]ates [...] 0.00-0.20 [facility] #[place] 1.20 10^3/uL 0.00-0.90 [facility] ([facility] [...] 25-40 [facility] [place] %[place] 1 % 3-8 [facility] [place] %Baso 0 % 0-2 [facility] %Eos 0 % 0-7 [facility] [place] RBC Morph Not Indicated [facility] ID Date Data Source [id number] 08/24/2019 04:52:00 PM EST [facility] ([facility] Name Value Range Interpretation Code Description Data Tamra rce(s) Supporting Document(s) Lactate [Mass/volume] in Serum or Plasma 1.7 mmol/L 0.2-2.2 [facility]) ID Date Data Source [id number] 08/24/2019 04:52:00 PM EST [facility] ([facility] [...] [facility] [place]) ID Date Data Source [id number] 08/30/2019 03:18:00 PM [facility] Name Value Range Interpretation Code Description Data Tamra rce(s) Supporting Document(s) CULTURE BLOOD [facility] spital _CULTURE BLOOD_ [place] [address] CLIA# [id number] SEE SCANNED REPORT{ PRELIM ID Date Data Source [id number] 08/24/2019 05:23:00 PM [facility] Name Value Range Interpretation Code Description Data Tamra rce(s) Supporting Document(s) CBC W/AUTOMATED DIFF [facility] COMPLETE BLOOD COUNT Leukocytes [#/volume] in Blood by Automated count 12.3 10^3/uL 4.2 - 11.0 H [facility] Erythrocytes [#/volume] in Blood by Automated count 5.26 10^6/uL 4. 20 - 5.40 [facility] Hemoglobin [Mass/volume] in Blood 15.6 g/dL 12.0 - 16.0 [facility] Hematocrit [Volume Fraction] of Blood by Automated count 45.7 % 3 7.0 - 47.0 [facility] Erythrocyte mean corpuscular volume [Entitic volume] by Auto mated count 86.9 fL 81.0 - 101 [facility] Erythrocyte mean corpuscular hemoglobin [Entitic mass] by Automated count 29.7 pg 27.0 - 34.0 [facility] Erythrocyte mean corpuscular hemoglobin concentration [Mass/volume] by Automated count 34.1 g/dL 31.0 - 36.0 [facility] Erythrocyte distribution width [Ratio] by Automated count 12.3 % 11.5 - 14.5 [facility] Platelets [#/volume] in Blood by Automated count 372 10^3/uL 150 - 45 0 [facility] Platelet mean volume [Entitic volume] in Blood by Automated count 8.6 fL 7.4 - 10.4 [facility] Neutrophils/100 leukocytes in Blood by Automated count 67.0 % 37. 0 - 80.0 [facility] Lymphocytes/100 leukocytes in Blood by Manual count 21.5 % 25.0 - 40.0 L [facility] Monocytes/100 leukocytes in Blood by Automated count 9.8 % 3.0 - 8.0 H [facility] Eosinophils/100 leukocytes in Blood by Automated count 1.1 % 0.0 - 7.0 [facility] 0.4 %IG 0.2 % 0.0 - 0.0 [facility] %NRBC 0.0 % 0.0 - 0.0 [facility] Neutrophils [#/volume] in Blood by Automated count 8.20 10^3/uL 2.00 - 6.90 H [facility] Lymphocytes [#/volume] in Blood by Automated count 2.64 10^3/uL 0.60 - 3.40 [facility] Monocytes [#/volume] in Blood by Automated count 1.20 10^3/uL 0.00 - 0.90 H [facility] Eosinophils [#/volume] in Blood by Automated count 0.14 10^3/uL 0.00 - 0.70 [facility] Basophils [#/volume] in Blood by Automated count 0.05 10^3/uL 0.00 - 0.20 [facility] #IG 0.03 10^3/uL 0.00 - 0.10 [facility] ospital #NRBC 0.00 10^3/uL 0.00 - 0.00 [facility] ospital MANUAL DIFF SEE BELOW [facility] ital Segmented neutrophils/100 leukocytes in Blood by Manual count 72 % 37 - 80 [facility] BAND 0 % 0 - 5 [facility] %LYMPH 27 % 25 - 40 [facility] %MONO 1 % 3 - 8 [facility] %EOS 0 % 0 - 7 [facility] 0 RBC MORPH NOT INDICATED [facility] ID Date Data Source [id number] 08/24/2019 05:23:00 PM EST [facility] Name Value Range Interpretation Code Description Data Tamra rce(s) Supporting Document(s) COMPREHENSIVE METABOLIC PANEL [facility] COMPREHENSIVE METABOLIC PANEL Sodium [Moles/volume] in Serum or Plasma 137 mEq/L 134 - 153 [facility] Potassium [Moles/volume] in Serum or Plasma 3.1 mEq/L 3.6 - 5.0 L [facility] Chloride [Moles/volume] in Serum or Plasma 93 mEq/L 98 - 107 L [facility] Carbon dioxide, total [Moles/volume] in Serum or Plasma 30 MEQ/L 22 - 30 [facility] Glucose [Mass/volume] in Serum or Plasma 103 MG/DL 65 - 110 [facility] BUN 14 MG/DL 7 - 21 [facility] Creatinine [Mass/volume] in Serum or Plasma 1.0 MG/DL 0.7 - 1.5 [facility] BUN/CREAT 14 8 - 27 [facility] al Protein [Mass/volume] in Serum or Plasma 7.9 G/DL 6.3 - 8.2 [facility] Albumin [Mass/volume] in Serum or Plasma 4.2 G/DL 3.9 - 5.0 [facility] Globulin [Mass/volume] in Serum by calculation 3.7 GM/DL 2.4 - 3.2 H [facility] A/G RATIO 1.1 0.8 - 2.0 [facility] Calcium [Mass/volume] in Serum or Plasma 9.7 MG/DL 8.4 - 10.2 [facility] Bilirubin.total [Mass/volume] in Serum or Plasma 0.7 MG/DL 0.2 - 1.3 [facility] Alkaline phosphatase [Enzymatic activity/volume] in Serum or Plasma 129 U/L 38 - 126 H [facility] Aspartate aminotransferase [Enzymatic activity/volume] in Serum or Plasma 16 U/L 5 - 40 [facility] Alanine aminotransferase [Enzymatic activity/volume] in Seru m or Plasma 12 U/L 7 - 56 [facility] Anion gap 3 in Serum or Plasma 14.0 mmol/L 8.0 - 16.0 [facility] AGE 48 yrs [facility] al NON-AA GFR >60 mL/min [facility] ital AFR AMER GFR >60 mL/min [facility] Male GFR In [...] >32 mL/min Normal ID Date Data Source [id number] 08/24/2019 05:23:00 PM [facility] Name Value Range Interpretation Code Description Data Tamra rce(s) Supporting Document(s) Lactate [Moles/volume] in Serum or Plasma 1.7 MMOL/L 0.2 - 2.2 [facility] ID Date Data Source [id number] 08/22/2019 06:37:00 PM [facility] 1 OrderSheet [facility] Emergency Department [address] [place] [address] Phone #: ext- [phone] 08/22/2019 18:34 Patient: OFELIA HOOKER Sex: F : 1970 Age: 48yWEIGHT:72.5 kg (S) HEIGHT:58 inches (S) BMI:33.4ALLERGIES: No Known Drug AllergyCHIEF COMPLAINT: near-syncopeDIAGNOSIS: PneumoniaLAB ORDERSOrder Description Priority Entered Acknowledged InitialedCBC w Diff STAT 19:18 08/22/2019 19:25 Vladimir Teixeira.N. P.A.-C;CMP STAT 19:18 08/22/2019 19:25 Vladimir Teixeira.N. P.A.-C;Lipase STAT :08/22/2019 19:25 Vladimir Teixeira.N. P.A.-C;PT/PTT STAT :18 08/22/2019 19:25 Vladimir Teixeira.N. P.A.-C;Troponin-T STAT :18 08/22/2019 19:25 Vladimir Teixeira.N. P.A.-C;TSH STAT 19:18 08/22/2019 19:25 Vladimir TeixeiraN. P.A.- C;Urinalysis (Clean STAT 19:18 08/22/2019 19:24 Puneet,Catch) Vladimir DanielsonN. P.A.-C;D-Dimer STAT 19:18 08/22/2019 19:25 Vladimir TeixeiraN. P.A.-C;Influenza Nasal A B STAT 19:18 08/22/2019 19:24 Vladimir Teixeira.N. P.A.-C;DIAGNOSTIC STUDY ORDERSOrder Description Priority Entered Acknowledged InitialedCT Head W/O Cont STAT 20:13 08/22/2019 20:19 Puneet 2 OrderSheet [facility] Emergency Department [address] [place] [address] Phone #: ext- [phone] 08/22/2019 18:34 Patient: OFELIA HOOKER Sex: F : 1970 Age: 3 0y(Oxygen?(No)) Vladimir DanielsonN. P.A.-C; Reason for Study: SyncopeChest 2 View STAT 20:13 08/22/2019 20:19 Puneet(Oxygen?(No)) Vladimir Villarreal.N. P.A.- C; Reason for Study: syncopeMEDICATION/IV/DRIP/FLUID ORDERSOrder Description Priority Entered Acknowledged InitialedIV NS : Bolus 500 19:18 08/22/2019 19:24 Puneet,mL, then 150 mL/hr Vladimir Villarreal.N. P.A.-C;Potassium Chloride 21:04 08/22/2019 21:04 Puneet,Liquid PO 40 meq Vladimir Villarreal.N. P.A.-C;Rocephin 21:17 08/22/2019 21:19 Puneet,(1gm/50mL) IVPB Vladimir Villarreal.NJose Raul1000 mg with P.A.-C;Dextrose 50 mlspike bag (D5W)Azithromycin PO 21:44 08/22/2019 21:45 Puneet,500 mg Vladimir Joseph R.N. PJose RaulA.-C;GENERAL ORDERSOrder Description Priority Entered Acknowledged InitialedCardiac Monitor 19:18 08/22/2019 19:23 Puneet(continuous) Valdimir EllisAJose Raul-C;EKG 19:18 08/22/2019 19:23 Vladimir Teixeira R.N. PJose RaulA.-C;NPO 19:18 08/22/2019 19:23 Vladimir Teixeira R.N. P.A.- C;Obtain Old EKG 19:18 08/22/2019 19:23 Vladimir Teixeira R.N. P.A.-C;Obtain Old Records 19:18 08/22/2019 19:23 Vladimir Teixeira R.N. PJose RaulA.-C;Pulse oximeter 19:18 08/22/2019 19:23 Puneet, 3 OrderSheet [facility] Emergency Department [address] [place] [address] Phone #: ext- [phone] 08/22/2019 18:34 Patient: OFELIA HOOKER Sex: F : 1970 Age: 48y(Continuous) Vladimir Joseph R.N. PJose RaulAJose Raul-C;Saline Lock 19:18 08/22/2019 19:23 Vladimir Teixeira R.N.AJose Raul-C;Vitals 19:18 08/22/2019 19:23 Vladimir Teixeira R.N. PJose RaulAJose Raul-C;[Electronically signed by Jake Teixeira R.N. (21:52 08/22/2019)][Electronically signed by Vladimir Gray P.A.-C (23:33 08/22/2019)][Electronically locked by Jake Teixeira R.N. (21:52 08/22/2019)] Name Value Range Interpretation Code Description Data Tamra rce(s) Supporting Document(s) ID Date Data Source [id number] 08/22/2019 06:37:00 PM EST [facility] 1 Medication Reconciliation Report [facility] Emergency Department [address] [place] [address] Phone #: ext- [phone] 08/22/2019 18:34 Patient: [...] 08/22/2019 9:45:00 PM 2 Medication Reconciliation Report [facility] Emergency Department [address] [place] [address] Phone #: ext- [phone] 08/22/2019 18:34 Patient: OFELIA HOOKER Sex: F : 1970 Age: 48yThe following Medications were prescribed to the patient:azithromycin 250 mg tablet Take 1 tablet once a day for 4 days -- Day 1 given in the ER. Dispense 4tablet. Refills: 0. Substitution permitted.[facility] [address] [place] [address] [phone]. FaxNumber: .ProAir HFA 90 mcg/actuation aerosol inhaler Inhale 2 puff four times a day as needed -- Dispense 1inhaler. Refills: 0. Substitution permitted.[facility] [address] [place] [address] [phone]. . -- Vladimir Gray P.A.-C Name Value Range Interpretation Code Description Data Tamra rce(s) Supporting Document(s) ID Date Data Source [id number] 08/22/2019 06:37:00 PM EST [facility] 1 Medication Administration Record [facility] Emergency Department [address] [place] [address] Phone #: ext- [phone] 08/22/2019 18:34 Patient: OFELIA HOOKER Sex: F : 1970 Age: 48yWeight: 72.5 kgHeight/Length: 58 inBMI: 33.4ALLERGIES: No Known Drug Allergy Date/Time Medication Administered Medication OrderedStart IV NS IV NS : Bolus 500 mL, then 01962:24 08/22/2019 Dose: IV Fluids mL/Jake Ribeiro R.N. Rate: 500 mL/hr over 30 minute(s)---- Dispensed: 500 mL bagStop Site: #1 left AC20:44 08/22/2019Jake Teixeira R.N.Given POTASSIUM CHLORIDE LIQUID PO Potassium Chloride Liquid PO 4021:04 08/22/2019 Dose: 40 meq Tablets PO meqJake Teixeira R.N.Start ROCEPHIN (1GM/50ML) [IVPB] Rocephin (1gm/50mL) IVPB 053077:19 08/22/2019 (CEFTRIAXONE SODIUM) mg with Dextrose 50 ml spike Jake Coronel R.N. Dose: 1 gm IVPB (D5W)---- Rate: 200 mL/hrStop Dispensed: 50 mL bag21:36 08/22/2019 Site: #1 left Jake Pastor R.N.Given AZITHROMYCIN [PO] Azithromycin PO 500 mg21:45 08/22/2019 Dose: 500 mg Tablets Jake Oliver R.N. Name Value Range Interpretation Code Description Data Tamra rce(s) Supporting Document(s) ID Date Data Source [id number] 08/22/2019 06:37:00 PM EST [facility] 1 General Instructions [facility] Emergency Department [address] [place] [address] Phone #: ext- [phone] 08/22/2019 18:34 Patient: [...] the ER. Dispense 4tablet. Refills: 0. Substitution permitted.[facility] [address] [place] [address] [phone]. .ProAir HFA 90 mcg/actuation aerosol inhaler Inhale 2 puff four times a day as needed -- Dispense 1inhaler. Refills: 0. Substitution permitted.[facility] [address] - [address] [place] [address] [phone]. .Follow-up:Return to the emergency department as needed. [...] 2 days of treatment. 2 General Instructions [facility] Emergency Department [address] [place] [address] Phone #: ext- [phone] 08/22/2019 18:34 Patient: OFELIA HOOKER Sex: F [...] with your healthcare provider 3 General Instructions [facility] Emergency Department [address] [place] [address] Phone #: ext- [phone] 08/22/2019 18:34 Patient: [...] not caused by coughing 4 General Instructions [facility] Emergency Department [address] [place] [address] Phone #: ext- [phone] 08/22/2019 18:34 Patient: OFELIA HOOKER Sex: F : 1970 Age: 48y [id number] [employer] [place] [address]. All rights reserved. This information is not intended as asubstitute for professional medical care. Always follow your healthcare professional's instructions. You have been given the following additional information: Pneumonia (Adult)(Electronically signed by Vladimir Gray P.A.-C 08/22/2019 23:33) Name Value Range Interpretation Code Description Data Tamra rce(s) Supporting Document(s) ID Date Data Source [id number] 08/22/2019 06:37:00 PM EST [facility] 1 Clinical Report - Nurses [facility] Emergency Department [address] [place] [address] Phone #: [phone]- [phone] 08/22/2019 18:34 Patient: OFELIA HOOKER Sex: F : 1970 Age: 48yTRIAGEHistorian: patient.Triage time: 18:38 08/22/2019. Acuity: LEVEL 4.Chief Complaint: (feels faint).Alert. No acute distress.( pt with spouse yesterday at [facility] in ER and "passed out" while with him. pt was seen and discharged withdehydration. pt ate dinner 1 hr ago. pt states she feels faint now. pt appears in nad, lying on stretcherlaughing and talking with family).SEPSIS SCREEN: NEGATIVE. Negative (no infection suspected/documented). --18:42 08/22/19 JessicaDecember, R.N.18:38 08/22/19. BP: 124/86. MAP: 98. HR: 117. RR: 16. O2 saturation: 96%. Temp: 97.1 F. Pain levelnow: 0/10. --18:42 08/22/19 Farhana December, R.N.Weight: 72.5 kg stated. Height/Length: 58 inches Per Patient. BMI: 33.4. --18:38 08/22/19 Farhana, December,R.N.MedicationsDULoxetine HCl Oral (Capsule Delayed Release Particles [...] Oral 1.25 mg, once a week. --18:40 08/22/19 Farhana Zenia, R.N. Pharmacy [facility]. --18:54 08/22/19 Karthik Bazzi RN.AllergiesNo Known Drug Allergy. --18:40 08/22/19 Farhana Zenia, R.N.PROBLEMS:Diabetes Mellitus.Gastroesophageal Reflux Disease.Panic Attack. --18:40 08/22/19 Zenia Delcid R.N.ADDITIONAL SURGERIES:Carpal Tunnel Surgery.Colonoscopy. 2 Clinical Report - Nurses [facility] Emergency Department [address] [place] [address] Phone #: ext- [phone] 08/22/2019 18:34 Patient: OFELIA HOOKER Sex: F : 1970 Age: 48y Endoscopy. [...] integrity risk identified. --18:42 08/22/19 Zenia Delcid RJose RaulN. Interventions To treatment room. --18:42 08/22/19 Zenia Delcid R.N.PHYSICAL [id number] 08/22/19. To room via wheelchair.GENERAL / NEURO [...] up x 3 Clinical Report - Nurses [facility] Emergency Department [address] [place] [address] Phone #: ext- [phone] 08/22/2019 18:34 Patient: OFELIA HOOKER Sex: F : 1970 Age: 48y2. Bed [...] mL/hr over 30 minute(s) via site #1 [id number]. Allergies verified and confirmed 5 rights. IV [...] R.N.Patient transported to CT by wheelchair with qc lab technician. --20:38 08/22/19 Jake Teixeira R.N.20:44 08/22/2019 [...] Teixeira R.N. 4 Clinical Report - Nurses [facility] Emergency Department [address] [place] [address] Phone #: ext- [phone] 08/22/2019 18:34 Patient: OFELIA HOOKER Sex: F : 1970 Age: 48yDISPOSITION / DISCHARGE 21:47 08/22/2019 Site #1 removed upon discharge. Bandaid applied. --21:47 08/22/19 Jake Teixeira R.N. Condition at departure: improved. Discharge instructions provided and reviewed. Reviewed medication(s). Prescription(s) sent electronically to pharmacy. Reviewed referral to a primary care physician. Verbalized understanding. Written instructions provided. The patient was discharged by the physician assistant professor sculpture. She was discharged home and accompanied by [...] rce(s) Supporting Document(s) ID Date Data Source [id number] 0001 08/22/2019 06:37:00 PM EST [facility] 1 Clinical Report - Physicians/Mid Levels [facility] Emergency Department [address] [place] [address] Phone #: ext- [phone] 08/22/2019 18:34 [id number] Sex: F : 1970 Age: 48y Time [...] (Pt sts that she was seen at [facility] yesterday for a syncopal episode and then discharged; but later tonight has similar s/s and came to this ER. Pt sts that this has happend a few times in julius past, but never brought up to her PCP. Has been with this PCP for 3 mths. sts that pt has had similar episodes int past for the last 4 years that [...] Endoscopy. 2 Clinical Report - Physicians/Mid Levels [facility] Emergency Department [address] [place] [address] Phone #: ext- [phone] 08/22/2019 18:34 Patient: OFELIA HOOKER [facility]#: [id number] Sex: F : 1970 Age: 48y Medications: Pharmacy [facility]. DULoxetine HCl Oral (Capsule Delayed Release Particles [...] edema. No calf tenderness. No lowerextremity edema.Neuro: [place] Coma Scale: 15- eyes open- spontaneous (4); [...] EKG 3 Clinical Report - Physicians/Mid Levels [facility] Emergency Department [address] [place] [address] Phone #: ext- [phone] 08/22/2019 18:34 Patient: [...] Final results Exam CT HEAD [place] [address] ---------NAME--------- NUMBER SEX AGE ADMIT DISC. XRAY# F/C TYPE RONA Murrieta [id number] F 48 08/22/19 [id number] X6B E/R DATE OF : 1970 M/R# [id number] #: [id number] TR-06 LOCATION: EMERGENCY DEPT TRANSCRIB ED: 08/22/19 21:[address] HEAD W/O CONTRAST [id number] COMPLETED:08/22/19 20:46 KJE [id number] Reason(s): Syncope PHYSICIAN: ABDIAS GRAY CH R A D I O L O G Y R E P O R T PATIENT HISTORY: Syncope ACC DLP- 779.0mGy*cm Patient hx of menospause. Verified 2 patient identifiers. [facility] / BRAIN (DICOM Hx) EXAM: CT [...] imperative reconstructive techniques. 4 Clinical Report - Physicians/[facility] Emergency Department [address] [place] [address] Phone #: ext- [phone] 08/22/2019 18:34 Patient: OFELIA HOOKER Sex: F : 1970 Age: 48y Electronically Signed By: Carmelo Blakely MD , Radiologist Date/Time: 08/22/19 21:02Chest 2 View: (LISANDRO: 08/22/2019 20:13) ( MsgRcvd 08/22/2019 20:46) In ProgressCHEST 2 VIEWSReason(s): syncopeTRANSPORTATION: WC IV? O2? Oxygen?(No) Room: ED: Will sign waiverCBC w Diff: (LISANDRO: 08/22/2019 19:31) ( AzgRcvd 08/22/2019 20:08) Final results Test Result Flag [...] 21) 5 Clinical Report - Physicians/Mid Levels [facility] Emergency Department [address] [place] [address] Phone #: ext- [phone] 08/22/2019 18:34 Patient: [...] Male GFR Interprentation 20-49 yrs >60 mL/min Alxjzf73-45 yrs >56 mL/min Normal 60-69 yrs >49 mL/min Normal 70-79yrs>42 mL/min Normal 80 and above >35 mL/min Normal Female GFRInterpretation 20-39 yrs >60 mL/min Normal 40-49 yrs >58 mL/minNormal 50-59 yrs >51 mL/min Normal 60-69 yrs >45 mL/min Ntzzin88-98 yrs >39 mL/min Normal 80 and above [...] accurate due to Heparin and other interferences.Troponin-T: (LISANDRO: 08/22/2019 19:31) ( [facility] 08/22/2019 20:00) Final results Test Result Flag Units (Reference) TROPONIN T <0.01 NG/ML (0.00 - 0.10) TROPONIN T0.1 ng/ml Recommended as the clinical threshold value forTroponin T.TSH: (LISANDRO: 08/22/2019 19:31) ( [facility] 08/22/2019 20:13) Final results Test Result Flag Units (Reference) TSH 2.20 uIU/mL (0.47 - 5.01)Urinalysis: (LISANDRO: 08/22/2019 19:22) ( [facility] 08/22/2019 19:31) Final results Test Result Flag Units (Reference) URINALYSIS URINALYSIS SOURCE R COLOR yellow (NORMAL: Yello CLARITY clear (NORMAL: Clear SPEC GRAVITY 1.015 (1.001 - 1.030 pH 6 (5 - 9) GLUCOSE NORM (NORMAL: Negat BILIRUBIN NEG (NORMAL: Negat KETONE NEG (NORMAL: Negat 6 Clinical Report - Physicians/Mid Levels [facility] Emergency Department [address] [place] [address] Phone #: [phone] 08/22/2019 18:34 Patient: OFELIA HOOKER Sex: F : 1970 Age: 48y PROTEIN NEG (NORMAL: Negat NITRITE NEG (NORMAL: Negat BLOOD NEG (NORMAL: Negat LEUK EST 100 A (NORMAL: Negat UROBILINOGEN NOR (less than 1.0 MICROSCOPIC See Below WBC 3 - 5 (NORMAL: NONE RBC 0 - 1 (NORMAL: NONE EPITHELIAL FEW (NORMAL: NONE BACTERIA Trace (NORMAL: NONE D-Dimer: (LISANDRO: 08/22/2019 19:31) ( [facility] 08/22/2019 20:00) Final results Test Result Flag Units (Reference) D-DIMER QUANT <0.27 ug/mL (0.27 - 0.50) Influenza Nasal A B: (LISANDRO: 08/22/2019 19:24) ( [facility] 08/22/2019 20:21) Final results Test Result Flag Units (Reference) INFLUENZA A NEGATIVE (NORMAL: NEGAT INFLUENZA B NEGATIVE (NORMAL: NEGAT INFLUENZA A REENTER NEGATIVE (NORMAL: NEGAT INFLUENZA B REENTER NEGATIVE (NORMAL: NEGAT PROCEDURAL CONTROL VALID KIT LOT # _[id number] 08/22/19.DW . KIT EXP DATE _50-35-07 08/22/19.DW .The Influenza A utilizing an isothermal [...] any new issues, concerns, or complaints. PE janelle [place] itnact b/l UE and LE. No noted neuro deficits. will obtain labs and imaging for pat baum. Will review [facility] paperowrk. Pending re sutls. Reviewe [facility]. No imaging; labs. noted elevated WBC at [...] understand. 7 Clinical Report - Physicians/Mid Levels [facility] Emergency Department [address] [place] [address] Phone #: ext- [phone] 08/22/2019 18:34 Patient: [...] Dispense 4 tablet. Refills: 0. Substitution permitted. [facility] [address] [place] [address] [phone]. . ProAir HFA 90 mcg/actuation aerosol inhaler Inhale 2 puff four times a day as needed -- Dispense 1 inhaler. Refills: 0. Substitution permitted. [facility] [address] [phone]. . Follow-up: Return to the emergency department as needed. Follow up with your healthcare provider in about three days if not better. Call for an appointment. Understanding of the discharge instructions verbalized by patient. 8 Clinical Report - Physicians/Mid Levels [facility] Emergency Department [address] [place] [address] Phone #: ext- [phone] 08/22/2019 18:34 Patient: OFELIA HOOKER Sex: F : 1970 Age: 48y(Electronically signed by Vladimir Gray P.A.-C 08/22/2019 23:33) Name Value Range Interpretation Code Description Data Tamra rce(s) Supporting Document(s) ID Date Data Source [id number] 08/22/2019 09:02:00 [place] [address] ---------NAME--------- NUMBER SEX AGE ADMIT DISC. XRAY# F/C TYPE RONA Murrieta [id number] F 48 08/22/19091439 X6B E/R DATE OF : 1970 M/R# [id number] PH#: [phone] TR-06 LOCATION: EMERGENCY DEPT TRANSCRIBED: 08/22/19 21:[address] HEAD W/O CONTRAST [id number] COMPLETED:08/22/19 20:46 KJE [id number] Reason(s): Syncope PHYSICIAN: ABDIAS GRAY CH======= R A D I O L O G Y R E P O R T PATIENT HISTORY:Syncope ACC DLP- 779.0mGy*cmPatient hx of menospause. Verified 2 patient identifiers.Sent to [facility].kje / BRAIN (DICOM Hx)EXAM: CT Head Without [...] rce(s) Supporting Document(s) ID Date Data Source [id number] 08/22/2019 07:31:00 PM EST [facility] ([facility]) Name Value Range Interpretation Code Description Data Tamra rce(s) Supporting Document(s) Thyrotropin [Units/volume] in Serum or Plasma 2.20 uIU/mL 0.47-5.01 [facility] ([facility]) ID Date Data Source [id number] 08/22/2019 07:31:00 PM EST [facility] ([facility]) Name Value Range Interpretation Code Description Data Tamra rce(s) Supporting Document(s) Sodium 138 meq/L 134-153 [facility] ([facility]) Comprehensive Metabo Laboratory test result [facility] ([facility]) COMPREHENSIVE METABOLIC PANEL Co2 26 meq/L 22-30 [facility] ([facility]) Potassium 3.1 meq/L 3.6-5.0 Below low normal [facility] ( [facility]) Chloride 93 meq/L 98-107 Below low normal [facility] ( [facility]) Creatinine 1.1 mg/dL 0.7-1.5 [facility] ([facility]) BUN 15 mg/dL 7-21 [facility] ([facility]) Glucose 105 mg/dL 65-110 [facility] ([facility]) Total Protein 8.0 g/dL 6.3-8.2 [facility] ([facility]) Albumin 4.6 g/dL 3.9-5.0 [facility] ([facility]) BUN/Creat 14 8-27 [facility] ([facility]) Globulin 3.4 GM/DL 2.4-3.2 Above high normal [facility] ([facility]) A/G Ratio 1.4 0.8-2.0 [facility] ([facility]) Calcium 10.3 mg/dL 8.4-10.2 Above high normal [facility] ([facility]) Alkaline Phos 137 U/L 38-126 Above high normal [facility] NT ([facility]) Total Bili Laboratory test result 0.2-1.3 ME [facility] ([facility]) Sgot/Ast 19 U/L 5-40 [facility] ([facility]) SGPT/Alt 13 U/L 7-56 [facility] ([facility]) Anion Gap 19.0 mmol/L 8.0-16.0 Above high normal [facility] ([facility]) Afr Amer GFR Laboratory test result [facility] ([facility]) Male GFR Interprentation 20-49 yrs >60 mL/min [...] >32 mL/min Normal Age 50 yrs [facility] ([facility]) Non-Aa GFR 56 mL/min [facility] ([facility]) ID Date Data Source [id number] 08/22/2019 07:31:00 PM EST [facility] ([facility]) Name Value Range Interpretation Code Description Data Tamra rce(s) Supporting Document(s) CBC W/Automated Diff Laboratory test result [facility] ([facility]) COMPLETE BLOOD COUNT WBC 16.9 10^3/uL 4.2-11.0 Above high normal [facility] T ([facility]) RBC 5.09 10^6/uL 4.20-5.40 [facility] ([facility]) Hemoglobin 15.2 g/dL 12.0-16.0 [facility] ([facility]) MCV 87.8 fL 81.0-101 [facility] ([facility]) MCH 29.9 pg 27.0-34.0 [facility] ([facility]) Hematocrit 44.7 % 37.0-47.0 [facility] ([facility]) MCHC 34.0 g/dL 31.0-36.0 [facility] ([facility]) RDW 12.6 % 11.5-14.5 [facility] ([facility]) Platelets 414 10^3/uL 150-450 [facility] ([facility]) Neut 71.8 % 37.0-80.0 [facility] ([facility]) MPV 8.5 fL 7.4-10.4 [facility] ([facility]) Lymph 18.0 % 25.0-40.0 Below low normal [facility] ( [facility]) [place] 8.5 % 3.0-8.0 Above high normal [facility] ([facility]) Baso 0.4 % 0.0-2.5 [facility] ([facility]) Eos 0.9 % 0.0-7.0 [facility] ([facility]) %Ig 0.4 % 0.0-0.0 Above high normal [facility] ([facility]) #Neut 12.17 10^3/uL 2.00-6.90 Above high normal [facility] NT ([facility]) %NRBC 0.0 % 0.0-0.0 [facility] ([facility]) #Lymph 3.05 10^3/uL 0.60-3.40 [facility] ([facility]) #[place] 1.44 10^3/uL 0.00-0.90 Above high normal [facility] T ([facility]) #Ig 0.07 10^3/uL 0.00-0.10 [facility] ([facility]) #Eos 0.15 10^3/uL 0.00-0.70 [facility] ([facility]) #Baso 0.06 10^3/uL 0.00-0.20 [facility] ([facility]) #NRBC 0.00 10^3/uL 0.00-0.00 [facility] ([facility]) Manual Diff Laboratory test result M [facility] ([facility]) Segs 72 % 37-80 [facility] ([facility]) Band 0 % 0-5 [facility] ([facility]) %[place] 7 % 3-8 [facility] ([facility]) %Lymph 21 % 25-40 Below low normal [facility] ([facility]) %Eos 0 % 0-7 [facility] ([facility]) %Baso 0 % 0-2 [facility] ([facility]) Metamyelocyte 0 % [facility] ([facility]) Promyelocyte 0 % [facility] ([facility]) Myelocyte 0 % [facility] ([facility]) Blasts 0 % [facility] ([facility]) Mahi Lym 0 % [facility] ([facility]) NRBC 0 % [facility] ([facility]) RBC Morph Laboratory test result [facility] ([facility]) ID Date Data Source [id number] 08/22/2019 07:31:00 PM EST [facility] ([facility]) Name Value Range Interpretation Code Description Data Tamra rce(s) Supporting Document(s) Fibrin D-dimer [Presence] in Platelet poor plasma Laboratory test result 0.27-0.50 [facility] ([facility]) Lipase [Enzymatic activity/volume] in Serum or Plasma 26 U/L 13-6 0 [facility] ([facility]) ID Date Data Source [id number] 08/22/2019 07:31:00 PM EST [facility] ([facility]) Name Value Range Interpretation Code Description Data Tamra rce(s) Supporting Document(s) Protime 13.3 s 11.0-15.5 [facility] ([facility]) Inr 1.00 0.93-1.23 [facility] ([facility]) PTT 27.1 s 24.8-36.7 [facility] ([facility]) \\BLDo\\INR INTERPRETATION\\BLDx\\ Therapeutic range for Coumadin and [...] and other interferences. ID Date Data Source [id number] 08/22/2019 07:31:00 PM EST [facility] ([facility]) Name Value Range Interpretation Code Description Data Tamra rce(s) Supporting Document(s) Troponin T.cardiac [Mass/volume] in Serum or Plasma Laborato ry test result 0.00-0.10 [facility]) TROPONIN T 0.1 ng/ml Recommended as the clinical th reshold value for Troponin T. ID Date Data Source [id number] 08/22/2019 07:31:00 PM EST [facility] ([facility]) Name Value Range Interpretation Code Description Data Tamra rce(s) Supporting Document(s) Thyrotropin [Units/volume] in Serum or Plasma 2.20 uIU/mL 0.47-5.01 [facility] ([facility]) ID Date Data Source [id number] 08/22/2019 07:31:00 PM EST [facility] ([facility]) Name Value Range Interpretation Code Description Data Tamra rce(s) Supporting Document(s) Comprehensive Metabo (See Note) [facility] ( [facility]) COMPREHENSIVE METABOLIC PANEL Sodium 138 meq/L 134-153 [facility] Chloride 93 meq/L 98-107 [facility]) Co2 26 meq/L 22-30 [facility]) Potassium 3.1 meq/L 3.6-5.0 [facility] ([facility]) Glucose 105 mg/dL 65-110 [facility]) BUN 15 mg/dL 7-21 [facility] ([facility]) Creatinine 1.1 mg/dL 0.7-1.5 [facility] ([facility]) Albumin 4.6 g/dL 3.9-5.0 [facility]) Total Protein 8.0 g/dL 6.3-8.2 [facility] ([facility]) BUN/Creat 14 8-27 [facility] ([facility]) Globulin [Mass/volume] in Serum by calculation 3.4 GM/DL 2.4-3.2 [facility] ([facility]) Calcium 10.3 mg/dL 8.4-10.2 [facility] ([facility]) A/G Ratio 1.4 0.8-2.0 [facility] ([facility]) Alkaline Phos 137 U/L 38-126 [facility] ([facility]) Total Bili <0.7 mg/dL 0.2-1.3 [facility] ([facility]) Sgot/Ast 19 U/L 5-40 [facility] ([facility]) Anion gap in Serum or Plasma 19.0 mmol/L 8.0-16.0 [facility] ([facility]) SGPT/Alt 13 U/L 7-56 [facility] Non-Aa GFR 56 mL/min [facility] ([facility]) Afr Amer GFR >60 mL/min [facility] ([facility]) Male GFR Interprentation 20-49 yrs >60 mL/min [...] Normal Age 48 yrs [facility] ([facility]) ID Date Data Source [id number] 08/22/2019 07:31:00 PM EST [facility] ([facility]) Name Value Range Interpretation Code Description Data Tamra rce(s) Supporting Document(s) CBC W/Automated Diff (See Note) [facility] ( [facility]) COMPLETE BLOOD COUNT WBC 16.9 10^3/uL 4.2-11.0 [facility] ([facility]) RBC 5.09 10^6/uL 4.20-5.40 [facility] (Cardiolog y [...] 0.0-2.5 [facility] [place] 8.5 % 3.0-8.0 [facility] %Ig 0.4 % 0.0-0.0 [facility] %NRBC 0.0 % 0.0-0.0 [facility] #Neut 12.17 10^3/uL 2.00-6.90 [facility]) #Eos 0.15 10^3/uL 0.00-0.70 [facility] #[place] 1.44 10^3/uL 0.00-0.90 [facility] ([facility] [...] 25-40 [facility] ([facility] %[place] 7 % 3-8 [facility] ([facility] [...] [facility]) ID Date Data Source [id number] 08/22/2019 07:31:00 PM EST [facility] Name Value Range Interpretation Code Description Data Tamra rce(s) Supporting Document(s) Lipase [Enzymatic activity/volume] in Serum or Plasma 26 U/L 13-6 0 [facility] ([facility]) Fibrin D-dimer [Presence] in Platelet poor plasma <0.27 ug/mL 0.27-0. 50 [facility] ([facility]) ID Date Data Source [id number] 08/22/2019 07:31:00 PM EST [facility] Name Value Range Interpretation Code Description Data Tamra rce(s) Supporting Document(s) Inr 1.00 0.93-1.23 [facility] Protime 13.3 s 11.0-15.5 [facility] ([facility]) Lipase [Enzymatic activity/volume] in Serum or Plasma 26 U/L 13-6 0 [facility] ([facility]) aPTT in Platelet poor plasma by Coagulation assay 27.1 s 24.8-36. 7 [facility] ([facility]) \\BLDo\\INR INTERPRETATION\\BLDx\\ Therapeutic range for Coumadin and [...] Platelet poor plasma <0.27 ug/mL 0.27-0. 50 [facility] ([facility]) ID Date Data Source [id number] 08/22/2019 07:31:00 PM EST [facility] ([facility]) Name Value Range Interpretation Code Description Data Tamra rce(s) Supporting Document(s) Troponin T.cardiac [Mass/volume] in Serum or Plasma <0.01 ng/mL 0.00- 0.10 [facility] ([facility]) TROPONIN T 0.1 ng/ml Recommended as the clinical th reshold value for Troponin T. Inr 1.00 0.93-1.23 [facility] ([facility]) aPTT in Platelet poor plasma by Coagulation assay 27.1 s 24.8-36. 7 [facility] ([facility]) \\BLDo\\INR INTERPRETATION\\BLDx\\ Therapeutic range for Coumadin and [...] and other interferences. Protime 13.3 s 11.0-15.5 [facility] ([facility]) Fibrin D-dimer [Presence] in Platelet poor plasma <0.27 ug/mL 0.27-0. 50 [facility] ([facility]) Lipase [Enzymatic activity/volume] in Serum or Plasma 26 U/L 13-6 0 [facility] ([facility]) ID Date Data Source [id number] 08/22/2019 08:13:00 PM [facility] Name Value Range Interpretation Code Description Data Tamra rce(s) Supporting Document(s) Thyrotropin [Units/volume] in Serum or Plasma by Detec tion limit <= 0.05 mIU/L 2.20 uIU/mL 0.47 - 5.01 [facility] ID Date Data Source [id number] 08/22/2019 08:08:00 PM [facility] Name Value Range Interpretation Code Description Data Tamra rce(s) Supporting Document(s) COMPREHENSIVE METABOLIC PANEL [facility] COMPREHENSIVE METABOLIC PANEL Sodium [Moles/volume] in Serum or Plasma 138 mEq/L 134 - 153 [facility] Potassium [Moles/volume] in Serum or Plasma 3.1 mEq/L 3.6 - 5.0 L [facility] Chloride [Moles/volume] in Serum or Plasma 93 mEq/L 98 - 107 L [facility] Carbon dioxide, total [Moles/volume] in Serum or Plasma 26 MEQ/L 22 - 30 [facility] Glucose [Mass/volume] in Serum or Plasma 105 MG/DL 65 - 110 [facility] BUN 15 MG/DL 7 - [facility] [Mass/volume] in Serum or Plasma 1.1 MG/DL 0.7 - 1.5 [facility] 14 8 - [facility] [Mass/volume] in Serum or Plasma 8.0 G/DL 6.3 - 8.2 [facility] Albumin [Mass/volume] in Serum or Plasma 4.6 G/DL 3.9 - 5.0 [facility] Globulin [Mass/volume] in Serum by calculation 3.4 GM/DL 2.4 - 3.2 H [facility] A/G RATIO 1.4 0.8 - 2.0 [facility] Calcium [Mass/volume] in Serum or Plasma 10.3 MG/DL 8.4 - 10.2 H [facility] Bilirubin.total [Mass/volume] in Serum or Plasma <0.7 MG/DL 0.2 - 1.3 [facility] Alkaline phosphatase [Enzymatic activity/volume] in Serum or Plasma 137 U/L 38 - 126 H [facility] Aspartate aminotransferase [Enzymatic activity/volume] in Serum or Plasma 19 U/L 5 - 40 [facility] Alanine aminotransferase [Enzymatic activity/volume] in Seru m or Plasma 13 U/L 7 - 56 [facility] Anion gap 3 in Serum or Plasma 19.0 mmol/L 8.0 - 16.0 H [facility] AGE 48 yrs [facility] NON-AA GFR 56 mL/[facility] A[facility] AMER GFR >60 mL/min [facility] Male GFR In [...] >32 mL/min Normal ID Date Data Source [id number] 08/22/2019 08:01:00 PM EST [facility] Name Value Range Interpretation Code Description Data Tamra rce(s) Supporting Document(s) CBC W/AUTOMATED DIFF [facility] COMPLETE BLOOD COUNT Leukocytes [#/volume] in Blood by Automated count 16.9 10^3/uL 4.2 - 11.0 H [facility] Erythrocytes [#/volume] in Blood by Automated count 5.09 10^6/uL 4. 20 - 5.40 [facility] Hemoglobin [Mass/volume] in Blood 15.2 g/dL 12.0 - 16.0 [facility] Hematocrit [Volume Fraction] of Blood by Automated count 44.7 % 3 7.0 - 47.0 [facility] Erythrocyte mean corpuscular volume [Entitic volume] by Auto mated count 87.8 fL 81.0 - 101 [facility] Erythrocyte mean corpuscular hemoglobin [Entitic mass] by Automated count 29.9 pg 27.0 - 34.0 [facility] Erythrocyte mean corpuscular hemoglobin concentration [Mass/volume] by Automated count 34.0 g/dL 31.0 - 36.0 [facility] Erythrocyte distribution width [Ratio] by Automated count 12.6 % 11.5 - 14.5 [facility] Platelets [#/volume] in Blood by Automated count 414 10^3/uL 150 - 45 0 [facility] Platelet mean volume [Entitic volume] in Blood by Automated count 8.5 fL 7.4 - 10.4 [facility] Neutrophils/100 leukocytes in Blood by Automated count 71.8 % 37. 0 - 80.0 [facility] Lymphocytes/100 leukocytes in Blood by Manual count 18.0 % 25.0 - 40.0 L [facility] Monocytes/100 leukocytes in Blood by Automated count 8.5 % 3.0 - 8.0 H [facility] Eosinophils/100 leukocytes in Blood by Automated count 0.9 % 0.0 - 7.0 [facility] 0.4 %IG 0.4 % 0.0 - 0.0 H [facility] al %NRBC 0.0 % 0.0 - 0.0 [facility] Neutrophils [#/volume] in Blood by Automated count 12.17 10^3/uL 2. 00 - 6.90 H [facility] Lymphocytes [#/volume] in Blood by Automated count 3.05 10^3/uL 0.60 - 3.40 [facility] Monocytes [#/volume] in Blood by Automated count 1.44 10^3/uL 0.00 - 0.90 H [facility] Eosinophils [#/volume] in Blood by Automated count 0.15 10^3/uL 0.00 - 0.70 [facility] Basophils [#/volume] in Blood by Automated count 0.06 10^3/uL 0.00 - 0.20 [facility] #IG 0.07 10^3/uL 0.00 - 0.10 [facility] #NRBC 0.00 10^3/uL 0.00 - 0.00 [facility] MANUAL DIFF SEE BELOW [facility] Segmented neutrophils/100 leukocytes in Blood by Manual count 72 % 37 - 80 [facility] BAND 0 % 0 - 5 [facility] %LYMPH 21 % 25 - 40 [facility] %MONO 7 % 3 - 8 [facility] %EOS 0 % 0 - 7 [facility] 0 Metamyelocytes/100 leukocytes in Blood by Manual count 0 % [facility] Myelocytes/100 leukocytes in Blood by Manual count 0 % [facility] Promyelocytes/100 leukocytes in Blood by Manual count 0 % [facility] Blasts/100 leukocytes in Blood by Manual count 0 % [facility] MAHI LYM 0 % [facility] Nucleated erythrocytes/100 erythrocytes in Blood by Manual count 0 % [facility] RBC MORPH NOT INDICATED [facility] ID Date Data Source [id number] 08/22/2019 08:02:00 PM [facility] Name Value Range Interpretation Code Description Data Tamra rce(s) Supporting Document(s) Lipase [Enzymatic activity/volume] in Serum or Plasma 26 U/L 13 - 60 [facility] ID Date Data Source [id number] 08/22/2019 08:00:00 PM EST [facility] Name Value Range Interpretation Code Description Data Tamra rce(s) Supporting Document(s) Fibrin D-dimer FEU [Mass/volume] in Platelet poor plasma <0. 27 ug/mL 0.27 - 0.50 [facility] ID Date Data Source [id number] 08/22/2019 08:00:00 PM [facility] Name Value Range Interpretation Code Description Data Tamra rce(s) Supporting Document(s) Prothrombin time (PT) 13.3 SECONDS 11.0 - 15.5 [facility] INR in Platelet poor plasma by Coagulation assay 1.00 0.93 - 1. 23 [facility] aPTT in Blood by Coagulation assay 27.1 SECONDS 24.8 - 36.7 [facility] \\BLDo\\INR INTERPRETATION\\BLDx\\ Therapeutic range for Coumadin and [...] and other interferences. ID Date Data Source [id number] 08/22/2019 07:59:00 PM EST [facility] Name Value Range Interpretation Code Description Data Tamra rce(s) Supporting Document(s) TROPONIN T <0.01 NG/ML 0.00 - 0.10 [facility]spital TROPONIN T0.1 ng/ml Recommended as the c linical threshold value forTroponin T. ID Date Data Source [id number] 08/22/2019 07:24:00 PM EST [facility] ([facility]) Name Value Range Interpretation Code Description Data [facility](s) Supporting Document(s) Influenza B Laboratory test result M [facility] ([facility]) Influenza A Reenter Laboratory test result [facility] ([facility]) Influenza A Laboratory test result M [facility] ([facility]) Influenza B [facility]enter Laboratory test result [facility] ([facility]) <content>PROCEDURAL CONTROL VALID</con tent>
<content>KIT LOT # _[id number] 08/22/19.DW .</content>
<content>KIT EXP DATE _06-73-01 08/22/19.DW .</content>
<content>The Influenza A & B [...]
<content>d ecisions.</content>
<content></content> ID Date Data Source [id number] 08/22/2019 07:24:00 PM EST [facility] Name Value Range Interpretation Code Description Data Tamra rce(s) Supporting Document(s) Laboratory test finding (navigational concept) Negative [facility] ([facility]) Laboratory test finding (navigational concept) Negative [facility] ([facility]) Laboratory test finding (navigational concept) Negative [facility] ([facility]) <content>PROCEDURAL CONTROL VALID</con tent>
<content>KIT LOT # _[id number] 08/22/19.DW .</content>
<content>KIT EXP DATE _91-09-53 08/22/19.DW .</content>
<content>The Influenza A & B [...] test finding (navigational concept) Negative [facility] ID Date Data Source [id number] 08/22/2019 08:21:00 PM EST [facility] Name Value Range Interpretation Code Description Data Tamra rce(s) Supporting Document(s) Influenza virus A Ag [Presence] in Nasopharynx by Immunoassa y NEGATIVE NORMAL: NEGATIVE [facility] Influenza virus B Ag [Presence] in Nasopharynx by Immunoassa y NEGATIVE NORMAL: NEGATIVE [facility] NEGATIVENEGATIVE PROCEDURAL CO NTROL VALID KIT LOT # _[id number] 08/22/19.DW . KIT EXP DATE _24-51-49 08/22/19.DW .The Influenza A & B assay is a rapid molecular in vitro diagnostic testutilizing an isothermal nucleic acid amplification technology for thequalitative detection of influenza A and B viral RNA.Negative results do not preclude influenza virus infection and should not beused as the sole basis for diagnosis, treatment or other patient managementdecisions. ID Date Data Source [id number] 08/22/2019 07:22:00 PM EST [facility] ([facility]) Name Value Range Interpretation Code Description Data Tamra rce(s) Supporting Document(s) Urinalysis Laboratory test result [facility] ([facility]) URINALYSIS Source Laboratory test result [facility] ([facility]) Clarity Laboratory test result [facility] ([facility]) Color Laboratory test result [facility] ([facility]) Spec Burney 1.015 1.001-1.030 [facility] ([facility]) Glucose Laboratory test result [facility] ([facility]) pH 6 5-9 [facility] ([facility]) Bilirubin Laboratory test result [facility] ([facility]) Ketone Laboratory test result [facility] ([facility]) Protein Laboratory test result [facility] ([facility]) Nitrite Laboratory test result [facility] ([facility]) Blood Laboratory test result [facility] ([facility]) Leuk Est 100 Abnormal (applies to non-numeric res ults) [facility] ([facility]) Urobilinogen Laboratory test result [facility] ([facility]) WBC Laboratory test result [facility] ([facility]) Microscopic Laboratory test result M EDENT ([facility]) RBC Laboratory test result [facility] ([facility]) Epithelial Laboratory test result [facility] ([facility]) Bacteria Laboratory test result [facility] ([facility]) ID Date Data Source [id number] 08/22/2019 07:22:00 PM EST [facility] Name Value Range Interpretation Code Description Data Tamra rce(s) Supporting Document(s) Urinalysis (See Note) [facility] URINALYSIS Source R [facility] Spec [place]ney 1.015 1.001-1.030 [facility] Clarity clear [facility] ID Date Data Source [id number] 09/02/2019 09:09:00 AM EST [facility] Name Value Range Interpretation Code Description Data Tamra rce(s) Supporting Document(s) UR[facility]ALYSIS [facility] URINALYSIS SOURCE R [facility] COLOR yellow NORMAL: Yellow [facility] CLARITY clear NORMAL: Clear [facility] Specific gravity of Urine by Test strip 1.015 1.001 - 1.030 [facility] pH 6 5 - 9 [facility] Glucose [Mass/volume] in Urine by Test strip NORM NORMAL: Negat [facility] Bilirubin.total [Presence] in Urine by Test strip NEG NORMAL: Negative [facility] Ketones [Presence] in Urine by Test strip NEG NORMAL: Negative [facility] Protein [Mass/volume] in Urine by Test strip NEG NORMAL: Negat [facility] Nitrite [Presence] in Urine by Test strip NEG NORMAL: Negative [facility] BLOOD NEG NORMAL: Negative [facility] Leukocyte esterase [Presence] in Urine by Test strip 100 FLORIAN L: Negative A [facility] Urobilinogen [Mass/volume] in Urine by Test strip NOR less melo n 1.0 mg/dL [facility] MICROSCOPIC See Below [facility] ital WBC 3 - 5 NORMAL: NONE SEEN [facility] Erythrocytes [#/volume] in Urine by Test strip 0 - 1 NORMAL: NON E SEEN [facility] EPITHELIAL FEW NORMAL: NONE SEEN [facility] Bacteria [Presence] in Urine sediment by Light microscopy Tr wil NORMAL: NONE SEEN [facility] ID Date Data Source [id number] 08/21/2019 11:44:00 PM EST [facility] ([facility]) Name Value Range Interpretation Code Description Data Tamra rce(s) Supporting Document(s) Glucose [Mass/volume] in Capillary blood by Glucometer 118 mg/dL 70-105 Above high normal [facility] ([facility]) Procedure Social History Code Duration Value Status Description Data Source(s ) Smoking 06/10/2020 12:00:00 AM EDT Never Smoked Cigarettes com pleted Never Smoked Cigarettes [facility] ([facility]) Vital Signs ID Date Data Source UNK Name Value Range Interpretation Code Description Data Source(s) Body weight 2672 [oz_av] 2672 [oz_av] ALONDRA ([facility]) Systolic blood pressure 122 mm[Hg] 122 mm[Hg] A THENA ([facility]) Body mass index (BMI) [Ratio] 34.9 kg/m2 34.9 k g/m2 ALONDRA ([facility]) Body height 58 [in_i] 58 [in_i] [facility] ([facility]) Diastolic blood pressure 93 mm[Hg] 93 mm[Hg] ALON[facility]A ([facility]) Heart rate 106 /min 106 /min [facility] Diastolic blood pressure 90 mm[Hg] 90 mm[Hg] [facility] ([facility]) Systolic blood pressure 133 mm[Hg] 133 mm[Hg] M EDENT ([facility]) Body mass index (BMI) [Ratio] 33.3 kg/m2 33.3 k g/m2 [facility] ([facility]) Body weight 74.844 kg 74.844 kg [facility] Body weight 165.00 [lb_av] 165.00 [lb_av] MEDEN T ([facility]) Body height 59 [in_i] 59 [in_i] [facility] 4'11" Body surface area Derived from formula 1.68 m2 1.68 m2 [facility] ([facility]) Body mass index (BMI) [Ratio] 34.5 kg/m2 34.5 k g/m2 [facility] ([facility]) Body height 58 [in_i] 58 [in_i] [facility] ([facility]) 4'10" Body weight 74.844 kg 74.844 kg [facility] ([facility]) Body weight 165.00 [lb_av] 165.00 [lb_av] MEDEN T ([facility]) Oxygen saturation in Arterial blood by Pulse oximetry 97 % 97 % [facility] ([facility]) Body temperature 99.0 [degF] 99.0 [degF] [facility] ([facility]) Heart rate 109 /min 109 /min [facility] ([facility]) Diastolic blood pressure 86 mm[Hg] 86 mm[Hg] [facility] ([facility]) Systolic blood pressure 122 mm[Hg] 122 mm[Hg] M EDENT ([facility]) Body surface area Derived from formula 1.65 m2 1.65 m2 [facility] ([facility]) Body mass index (BMI) [Ratio] 33.3 kg/m2 33.3 k g/m2 [facility] ([facility]) Body height 58 [in_i] 58 [in_i] [facility] ([facility]) 4'10" Body weight 72.349 kg 72.349 kg [facility] ([facility]) Body weight 159.50 [lb_av] 159.50 [lb_av] MEDEN T ([facility]) Oxygen saturation in Arterial blood by Pulse oximetry 98 % 98 % [facility] ([facility]) Respiratory rate 16 /min 16 /min [facility] Body temperature 98.2 [degF] 98.2 [degF] [facility] Heart rate 108 /min 108 /min [facility] ([facility]) Diastolic blood pressure 70 mm[Hg] 70 mm[Hg] [facility] ([facility]) Systolic blood pressure 110 mm[Hg] 110 mm[Hg] M EDENT ([facility]) Diastolic blood pressure 85 mm[Hg] 85 mm[Hg] eCW1 ([facility]) Systolic blood pressure 127 mm[Hg] 127 mm[Hg] e CW1 ([facility]) Body weight 157 [lb_av] 157 [lb_av] eCW1 ([facility]) Body surface area 1.66 m2 1.66 m2 [facility] ([facility]) Body mass index (BMI) [Ratio] 33.5 kg/m2 33.5 k g/m2 [facility] ([facility]) Body height 58 [in_i] 58 [in_i] [facility] ([facility]) 4'10" Body weight 72.689 kg 72.689 kg [facility] ([facility]) Body weight 160.25 [lb_av] 160.25 [lb_av] MEDEN T ([facility]) Oxygen saturation in Arterial blood by Pulse oximetry 96 % 96 % [facility] ([facility]) Respiratory rate 16 /min 16 /min [facility] ( [facility]) Body temperature 98.7 [degF] 98.7 [degF] [facility] Heart rate 86 /min 86 /min [facility] ([facility]) Diastolic blood pressure 62 mm[Hg] 62 mm[Hg] [facility] ([facility]) Systolic blood pressure 110 mm[Hg] 110 mm[Hg] [facility] ([facility]) Body surface area 1.66 m2 1.66 m2 [facility] ([facility]) Body mass index (BMI) [Ratio] 33.5 kg/m2 33.5 k g/m2 [facility] ([facility]) Body height 58 [in_i] 58 [in_i] [facility] ([facility]) 4'10" Body weight 72.633 kg 72.633 [facility] Body weight 160.12 [lb_av] 160.12 [lb_av] MEDEN T ([facility]) Oxygen saturation in Arterial blood by Pulse oximetry 97 % 97 % [facility] ([facility]) Respiratory rate 16 /min 16 /min [facility] ( [facility]) Body temperature 98.1 [degF] 98.1 [degF] [facility] ([facility]) Heart rate 100 /min 100 /min [facility] ([facility]) Diastolic blood pressure 70 mm[Hg] 70 mm[Hg] [facility] ([facility]) Systolic blood pressure 110 mm[Hg] 110 mm[Hg] [facility] ([facility]) Body surface area 1.65 m2 1.65 m2 [facility] ([facility]) Body mass index (BMI) [Ratio] 33.0 kg/m2 33.0 k g/m2 [facility] ([facility]) Body height 58 [in_i] 58 [in_i] [facility] ([facility]) 4'10" Body weight 71.669 kg 71.669 kg [facility] ([facility]) Body weight 158.00 [lb_av] 158.00 [lb_av] MED[facility] T ([facility]) Heart rate 69 /min 69 /min [facility] Diastolic blood pressure 80 mm[Hg] 80 mm[Hg] [facility] ([facility]) Systolic blood pressure 110 mm[Hg] 110 mm[Hg] [facility] Body mass index (BMI) [Ratio] 33.4 kg/m2 33.4 k g/m2 [facility] ([facility], ) Body weight 160.00 [lb_av] 160.00 [lb_av] MEDEN T ([facility], ) Body height 58 [in_i] 58 [in_i] [facility] ([facility], ) 4'10" Heart rate 72 /min 72 /min [facility] ([facility], ) Diastolic blood pressure 80 mm[Hg] 80 mm[Hg] [facility] ([facility]) Systolic blood pressure 110 mm[Hg] 110 mm[Hg] [facility] ([facility]) Diastolic blood pressure--standing 81 mm[Hg] 8 1 mm[Hg] [facility] ([facility]) Systolic blood pressure--standing 109 mm[Hg] 10 9 mm[Hg] [facility] ([facility]) Diastolic blood pressure--supine 81 mm[Hg] 81 mm[Hg] [facility] ([facility]) Systolic blood pressure--supine 111 mm[Hg] 111 mm[Hg] [facility] ([facility]) Diastolic blood pressure--sitting 87 mm[Hg] 87 mm[Hg] [facility] ([facility]) [place], Orthostatic sitting pressure 1 Systolic blood pressure--sitting 116 mm[Hg] 116 mm[Hg] [facility] ([facility]) [place], Orthostatic sitting pressure 1 /86 Heart rate 94 /min 94 /min [facility] ([facility]) Laying HR 92, Standing HR 100 Body mass index (BMI) [Ratio] 33.9 kg/m2 33.9 k g/m2 [facility] ([facility]) Body height 58 [in_i] 58 [in_i] [facility] ([facility]) 4'10" Body weight 162.00 [lb_av] 162.00 [lb_av] MEDEN T ([facility]) Body surface area 1.67 m2 1.67 m2 [facility] ([facility]) Body mass index (BMI) [Ratio] 34.3 kg/m2 34.3 k g/m2 [facility] Body height 58 [in_i] 58 [in_i] [facility] 4'10" Body weight 74.390 kg 74.390 kg [facility] ([facility]) Body weight 164.00 [lb_av] 164.00 [lb_av] MEDEN T ([facility]) Oxygen saturation in Arterial blood by Pulse oximetry 98 % 98 % [facility] ([facility]) Respiratory rate 16 /min 16 /min [facility] ( [facility]) Body temperature 98.6 [degF] 98.6 [degF] [facility] ([facility]) Heart rate 105 /min 105 /min [facility] ([facility]) Diastolic blood pressure 78 mm[Hg] 78 mm[Hg] [facility] ([facility]) Systolic blood pressure 110 mm[Hg] 110 mm[Hg] M EDENT ([facility]) Body surface area 1.68 m2 1.68 m2 [facility] ([facility]) Body mass index (BMI) [Ratio] 34.5 kg/m2 34.5 k g/m2 [facility] ([facility]) Body height 58 [in_i] 58 [in_i] [facility] ([facility]) 4'10" Body weight 74.901 kg 74.901 kg [facility] ([facility]) Body weight 165.12 [lb_av] 165.12 [lb_av] MEDEN T ([facility]) Oxygen saturation in Arterial blood by Pulse oximetry 97 % 97 % [facility] ([facility]) Respiratory rate 16 /min 16 /min [facility] ( [facility]) Body temperature 98.1 [degF] 98.1 [degF] [facility] ([facility]) Heart rate 101 /min 101 /min [facility] ([facility]) Diastolic blood pressure 80 mm[Hg] 80 mm[Hg] [facility] ([facility]) Systolic blood pressure 122 mm[Hg] 122 mm[Hg] M ZACH ([facility]) Patient Treatment Plan of Care Planned Activity Planned Date Details Description Data Source (s) pantoprazole 20 MG Delayed Release Oral Tablet ALONDRA ([facility]) Oxybutynin chloride 5 MG Oral Tablet AL[facility]A ([facility]) Erythromycin 0.005 MG/MG Ophthalmic Ointment ALONDRA ([facility]) Azithromycin 250 MG Oral Tablet [facility] ([facility]) Cholecalciferol 400 UNT Oral Capsule ALONDRA ([facility]) Sulfamethoxazole 800 MG / Trimethoprim 160 MG Oral Tablet AL[facility]A ([facility]) Prempro ALONDRA ([facility])
== END 2020-09-16 16:21 | disposition home or self-care (01) ==
LOC: M ED 14:38
DX: S80.02XA Contusion of left knee, initial encounter (principal); V48.5XXA Car driver injured in noncollision transport accident in traffic accident, initial encounter; Y92.9 Unspecified place or not applicable; Y93.9 Activity, unspecified; Y99.9 Unspecified external cause status

== ENCOUNTER → 2020-09-27 | Outpatient (CLI) | payer OTHER ==
[~2020-09-27] MED LIST: E-Z-GAS II EFFERVESCENT PACKET (SODIUM BICARB./CITRIC ACID/SIMETHICONE) As Ordered ONE; E-Z-HD 98% w/w 340GM SUSP BTL As Ordered ONE; E-Z-PAQUE 96% w/w SUSP 176GM BTL As Ordered ONE
--- NOTE | 2020-09-27 15:44 | REP ---
INDICATION: HIATAL HERNIA, REFLUX / DYSPHAGIA. COMPARISON: None TECHNIQUE: This procedure was performed by Lynda Ellis [facility], under the direct supervision of Dr. Napier. Images were reviewed with Dr. Napier prior to dictation. Liquid barium and gas producing crystals were given in the erect position, as well as liquid barium in the prone oblique position in order to perform a double contrast upper GI examination. FINDINGS: The neighborhood coordinator film shows no organomegaly or pathological masses. The intestinal gas pattern is unremarkable. The oral and pharyngeal stages of deglutition were unremarkable. Esophageal transport is prompt and efficient and there is no evidence of esophagitis, stricture, or mucosal ring. However tertiary waves were visualized during the exam. There is evidence of a hiatal hernia. Gastroesophageal reflux was visualized to the level of the bridget. The stomach kumar are normally outlined. The rugal folds are smooth and regular. There is no gastritis, neoplasm, or ulcerative disease. The duodenal kumar are normally outlined. The mucosal folds are smooth and regular. There is no duodenitis, peptic ulcer disease or neoplasm. There are multiple diverticulum noted in the duodenal sweep. The visualized portion of the proximal small bowel appears normal in course and caliber. IMPRESSION: 1. Tertiary waves. 2. Gastroesophageal reflux to the level of the bridget. 3. Small hiatal hernia. 4. Diverticulum of the duodenal sweep. 0.2 minutes of fluoroscopy time was utilized for this procedure. Some fluoroscopic images are performed with last image hold technology. These images require no additional radiation. <Electronically signed by Lynda Ellis > 09/27/20 [id number] <Electronically signed by Davion Napier > 09/27/20 [id number]
== END ==
LOC: M RAD 08:46
PROVIDERS: ATTEND Physician Assistant Surgical
DX: K44.9 Diaphragmatic hernia without obstruction or gangrene (principal)

== ENCOUNTER → 2021-01-06 | Outpatient (CLI) | payer OTHER ==
--- NOTE | 2021-01-06 17:17 | REP ---
INDICATION: CHEST PAIN S/P HIATAL HERNIA REPAIR PAIN W/ EATING. COMPARISON: Upper GI dated 09/27/2020 TECHNIQUE: This procedure was performed by Lynda Ellis [facility], under the direct supervision of Dr. Luque. Images were reviewed with Dr. Luque prior to dictation. Liquid barium and gas producing crystals were given in the erect position, as well as liquid barium in the prone oblique position in order to perform a double contrast upper GI examination. FINDINGS: The hospital coordinator film shows no organomegaly or pathological masses. The intestinal gas pattern is unremarkable. The oral and pharyngeal stages of deglutition demonstrated flash laryngeal penetration. Esophageal transport is prompt and efficient and there is no evidence of esophagitis, stricture, or mucosal ring. However mild tertiary contractions were visualized during the exam. There is no evidence of a hiatal hernia. There was no gastroesophageal reflux noted . The stomach kumar are normally outlined. The rugal folds are smooth and regular. There is no gastritis, neoplasm, or ulcerative disease. The duodenal kumar are normally outlined. The mucosal folds are smooth and regular. There is no duodenitis, peptic ulcer disease or neoplasm. The visualized portion of the proximal small bowel appears normal in course and caliber. Again noted is a small diverticulum of the duodenal sweep. IMPRESSION: 1. Mild tertiary contractions. 2. Small diverticulum of the duodenal sweep is again visualized. 0.6 minutes of fluoroscopy time was utilized for this procedure. Some fluoroscopic images are performed with last image hold technology. These images require no additional radiation. <Electronically signed by Lynda Ellis > 01/06/21 1616 <Electronically signed by Jerry Luque > 01/06/21 1711
== END ==
LOC: M RAD 08:37
PROVIDERS: ATTEND Surgery
DX: R10.9 Unspecified abdominal pain (principal); K57.50 Diverticulosis of both small and large intestine without perforation or abscess without bleeding

== ENCOUNTER 2021-04-14 03:25 | Emergency (ER) | payer OTHER ==
[~2021-04-14] VITALS: Ht 149.9 cm; Wt 70.5 kg
[2021-04-14 03:26] VITALS: BP 152/90
[2021-04-14] MEDS ORDERED: METF500T13 PO (03:41)
[2021-04-14] MEDS ORDERED: AMLO1TAB25 PO (03:41)
[2021-04-14] MEDS ORDERED: PANT40TA29 PO (03:41)
[2021-04-14] MEDS ORDERED: HYDR-643 PO (03:41)
[2021-04-14] MEDS ORDERED: POTA20TA6 PO (03:41)
[2021-04-14] MEDS ORDERED: LISI10TA22 PO (03:41)
[2021-04-14] MEDS ORDERED: TOLT2TAB12 PO (03:41)
[2021-04-14] MEDS ORDERED: FAMO20TA PO (03:41)
[2021-04-14] MEDS ORDERED: GABA-1171 PO (03:41)
[2021-04-14] MEDS ORDERED: ATOR1TAB19 PO (03:41)
[2021-04-14] MEDS ORDERED: vitamin D3 PO (03:41)
[2021-04-14] MEDS ORDERED: PREM.6256 PO (03:41)
[2021-04-14] MEDS ORDERED: DULO60CA35 PO (03:41)
[2021-04-14] MEDS ORDERED: OXYB10TA23 PO (03:41)
[2021-04-14] MEDS ORDERED: TETRACAINE 0.5% OPHTH SOLN 4ML OD ONE (06:45)
[2021-04-14] MEDS ORDERED: FLUORESCEIN OPHTH 1 MG STRIP OD ONE (06:45)
[2021-04-14] MEDS ORDERED: POLY2.5S OD (07:24)
== END 2021-04-14 07:36 | disposition home or self-care (01) ==
LOC: M ED 04:50
DX: S05.01XA Injury of conjunctiva and corneal abrasion without foreign body, right eye, initial encounter (principal); W26.8XXA Contact with other sharp object(s), not elsewhere classified, initial encounter; Y92.89 Other specified places as the place of occurrence of the external cause; Y93.89 Activity, other specified; Y99.8 Other external cause status; E11.9 Type 2 diabetes mellitus without complications; I10 Essential (primary) hypertension; Z79.84 Long term (current) use of oral hypoglycemic drugs; Z79.899 Other long term (current) drug therapy; Z79.890 Hormone replacement therapy

== ENCOUNTER 2021-07-14 10:24 | Emergency (ER) | payer OTHER ==
[~2021-07-14] VITALS: Ht 147.3 cm; Wt 71.6 kg
[~2021-07-14 10:24] MED LIST changes: +AMLO1TAB25 PO; +ATOR1TAB19 PO; +DULO60CA35 PO; -E-Z-GAS II EFFERVESCENT PACKET (SODIUM BICARB./CITRIC ACID/SIMETHICONE) As Ordered ONE; -E-Z-HD 98% w/w 340GM SUSP BTL As Ordered ONE; -E-Z-PAQUE 96% w/w SUSP 176GM BTL As Ordered ONE; +FAMO20TA PO; +GABA-1171 PO; +HYDR-643 PO; +LISI10TA22 PO; +METF500T13 PO; +OXYB10TA23 PO; +PANT40TA29 PO; +POLY2.5S OD; +POTA20TA6 PO; +PREM.6256 PO; +TOLT2TAB12 PO; +vitamin D3 PO
[2021-07-14 10:25] VITALS: BP 139/89
--- OUTSIDE RECORDS SUMMARY | 2021-07-14 10:31 | CCD ---
Author Organization Unknown Address [address] [place] [address] Phone [phone] Care Team Providers Care Compound Worker Name Role Phone Maritza Medina Unavailable Unavailable Allergies Code Code System Name Reaction Severity Status Onset NKDA Medications Name Status Start Date Stop Date albuterol sulfate HFA 90 mcg/actuation a erosol inhaler INHALE 2 PUFFS BY MOUTH FOUR TIMES A DAY NEEDED Active Not available alprazolam 0.25 mg tablet TAKE ONE TABLET BY MOUTH THREE TIMES A DAY NEEDED FOR ANXIETY MAXIMUM DAILY DOSE 3 TABLETS Active Not available amlodipine 10 mg tablet TAKE ONE TABLET BY MOUTH EVERY MORNING Completed 12/30/2020 atorvastatin 10 mg tablet TAKE ONE TABLET BY MOUTH EVERY DAY AT BEDTIME Active Not available azithromycin 250 mg tablet TAKE ONE TABLET BY MOUTH EVERY DAY Completed 08/03 chlorthalidone 25 mg tablet TAKE ONE TABLET BY MOUTH EVERY DAY IN THE MORNING Completed 09/20/2020 cholecalciferol (vitamin D3) 25 mcg (1,0 00 unit) tablet TAKE ONE TABLET BY MOUTH EVERY DAY Active Not available DOK 100 mg capsule TAKE ONE CAPSULE BY MOUTH EVERY DAY NEEDED FOR CONSTIPATION Active Not available duloxetine 60 mg capsule,delayed release Active Not available erythromycin 5 mg/gram (0.5 %) eye ointm ent APPLY 1/4 INCH STRIP TO OUTER LEFT EYELID/ EYELASHES FOUR TIMES A DAY AFTER HYGIENE DIRECTED Completed 08/12/2020 famotidine 20 mg tablet TAKE ONE TABLET BY MOUTH EVERY EVENING Active Not available fluconazole 150 mg tablet TAKE ONE TABLET BY MOUTH ONE TIME FOR 1 DAY Completed 09/20/2020 gabapentin 100 mg capsule TAKE THREE CAPSULES BY MOUTH TWICE A DAY Active Not available gabapentin 300 mg capsule TAKE ONE CAPSULE BY MOUTH TWICE A DAY Completed 04/19/2021 hydroxyzine HCl 10 mg tablet TAKE ONE TABLET BY MOUTH EVERY EVENING Active Not available lisinopril 10 mg tablet TAKE ONE TABLET BY MOUTH EVERY DAY Active Not available lisinopril 5 mg tablet TAKE ONE TABLET BY MOUTH EVERY DAY Completed 12/03 lorazepam 1 mg tablet TAKE ONE TABLET BY MOUTH ONE HOUR BEFORE TEST THEN 10 MINUTES BEFORE IF NEEDED MAXIMUM DAILY DOSE 2 Completed 09/20/2020 metformin ER 500 mg tablet,extended rele ase 24 hr TAKE ONE TABLET BY MOUTH TWICE A DAY WITH FOOD Active Not available metronidazole 500 mg tablet TAKE ONE TABLET BY MOUTH TWICE A DAY FOR 10 DAYS Completed 09/20/2020 omeprazole 40 mg capsule,delayed release TAKE ONE CAPSULE BY MOUTH EVERY DAY NEEDED FOR HEARTBURN Completed 12/30/2020 ondansetron HCl 4 mg tablet TAKE ONE TABLET BY MOUTH THREE TIMES A DAY FOR 5 DAYS Completed 12/30/2020 oxybutynin chloride 5 mg tablet Take 2 tablets every day by oral route in the morning. Completed 08/12/2020 oxybutynin chloride ER 10 mg tablet,exte nded release 24 hr TAKE ONE TABLET BY MOUTH EVERY DAY FOR OVERACTIVE BLADDER Active Not available oxycodone 5 mg tablet Completed 12/30/2020 pantoprazole 20 mg tablet,delayed releas e Take 2 tablets twice a day by oral route. Completed 08/12/2020 pantoprazole 40 mg tablet,delayed releas e TAKE ONE TABLET BY MOUTH TWICE A DAY Active No t available polymyxin B sulfate 10,000 unit-trimetho prim 1 mg/mL eye drops INSTILL ONE DROP IN THE RIGHT EYE THREE TIMES A DAY Completed 04/19/2021 potassium 20 mg twice a day Completed 12/30/2020 potassium chloride ER 20 mEq tablet,extended release Completed 12/30/2020 prednisone 10 mg tablet TAKE ONE TABLET BY MOUTH DAILY Completed 12/31/19 21 Prempro Completed 08/12/2020 Prempro 0.3 mg-1.5 mg tablet TAKE ONE TABLET BY MOUTH EVERY DAY Active Not available Sudafed Completed 12/30/2020 sulfamethoxazole 800 mg-trimethoprim 160 mg tablet TAKE ONE TABLET BY MOUTH TWICE A DAY Completed tolterodine 2 mg tablet TAKE ONE TABLET BY MOUTH TWICE A DAY Completed Vitamin D2 Completed 12/30/2020 vitamin d3 25 mcg (1000 ut) tabs Completed 12/30/2020 Vitamin D3 10 mcg (400 unit) capsule [...] Asthma Active 08/12/2020 Overactive Bladder Active 08/12/2020 Hypokalemia Active 09/20/2020 Obese Active 09/20/2020 Varicose Veins of Lower Extremity Active 09/20/2020 Gastroesophageal Reflux Disease Active 09/20/2020 Polycystic Ovary Syndrome Active 09/20/2020 Menopausal Flushing Active 04/19/2021 Procedures Date Name Performed by 11/24/2020 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: & robotic fundoplication Information not available Carpal Tunnel Surgery Notes: JIHAN wrists Information not available 09/20/2020 MAMMO, Screening, Digital, Bilateral [facility] [address] [place] [address] (Work Place) 12/30/2020 MAMMO, Screening, Digital, Bilateral [facility] [address] [place] [address] (Work Place) Results Lab Results Date Name Specimen Result Interpretation Description Value Range Status Address 04/19/2021 Pap, IG + HPV mRNA E6/E7 + Reflex HPV (16+18+45) Normal Clinical Information: Final [facility]: [address] [facility] Normal Lmp: Final [facility] Diag nostics [facility] [address] [facility] Normal Prev. Pap: Final [facility]: [address] [facility] Normal Prev. BX: Final [facility]: [address] [facility] Normal Source: Final [facility] D [facility]: [address] [facility] Normal Statement of Adequacy: Final [facility]: [address] [facility] Normal Interpretation/result: Final [facility]: [address] [facility] Normal Comment: Final [facility]: [address] [facility] Normal Nursing Associate: Renetta nath [facility]: [address] [facility] Comment [facility] [address] [facility] Normal Hpv Mrna E6/E7 not detected not dete cted Final [facility]: [address] [facility] 04/04/2021 Lipid Panel, Serum Blood venous Normal Re sterol, Total 195 mg/dL <200 mg/dL Final [facility]: [address] [facility] Blood venous Low HDL Cholesterol 37 mg/dL > or = 50 mg/dL Final [facility]: [address] [facility] Blood venous High Triglycerides 179 mg/dL <150 mg/dL Final [facility]: [address] [facility] Blood venous High LDL-cholesterol 128 mg/dL (ca lc) Final [facility]: [address] [facility] Blood venous High Chol/hdlc Ratio 5.3 (calc) <5 .0 (calc) Final [facility]: [address] [facility] Blood venous High Non HDL Cholesterol 158 mg/dL (calc) <130 mg/dL (calc) Final [facility]: [address] [facility] 04/04/2021 Iron + Total Iron-binding Capacity (TIBC), Serum Blood venous Normal Iron, Total 95 mcg/dL 45-160 mcg/dL Final [facility] [address] [facility] Blood venous Normal Iron Binding Capacity 31 3 mcg/dL (calc) 250-450 mcg/dL (calc) Final [facility]: [address] [facility] Blood venous Normal % Saturation 30 % (calc) 16-4 5 % (calc) Final [facility]: [address] [facility] 04/04/2021 CMP, Serum or Plasma Blood venous Normal Glucose 90 mg/dL 65-99 mg/dL Final [facility]: [address] [facility] Blood venous Normal Urea Nitrogen (BUN) 11 mg/dL 7-25 mg/dL Final [facility]: [address] [facility] Blood venous Normal Creatinine 0.78 mg/dL 0.50-1. 05 mg/dL Final [facility]: [address] [facility] Blood venous Normal eGFR Non-afr. Cameroonian 8 7 mL/min/1.73m2 > or = 60 mL/min/1.73m2 Final [facility]: [address] [facility] Blood venous Normal eGFR 10 1 mL/min/1.73m2 > or = 60 mL/min/1.73m2 [facility] [address] [facility] Blood venous BUN/creatinine Ratio not applicable (calc) 6-22 (calc) [facility]: [address] [facility] Blood venous Normal Sodium 136 mmol/L 135-146 mmo l/L [facility]: [address] [facility] Blood venous Normal Potassium 4.1 mmol/L 3.5-5.3 mmol/L [facility]: [address] [facility] Blood venous Normal Chloride 101 mmol/L 98-110 mm ol/L [facility]: [address] [facility] Blood venous Normal Carbon Dioxide 27 mmol/L 20-3 2 mmol/L [facility]: [address] [facility] Blood venous Normal Calcium 9.4 mg/dL 8.6-10.4 mg /dL [facility]: [address] [facility] Blood venous Normal Protein, Total 6.9 g/dL 6.1-8 .1 g/dL [facility]: [address] [facility] Blood venous Normal Albumin 4.0 g/dL 3.6-5.1 g/dL [facility]: [address] [facility] Blood venous Normal Globulin 2.9 g/dL (calc) 1.9- 3.7 g/dL (calc) [facility]: [address] [facility] Blood venous Normal Albumin/globulin Ratio 1 .4 (calc) 1.0-2.5 (calc) [facility]: [address] [facility] Blood venous Normal Bilirubin, Total 0.3 mg/dL 0. 2-1.2 mg/dL [facility]: [address] [facility] Blood venous Normal Alkaline Phosphatase 109 U/L 37-153 U/L [facility]: [address] [facility] Blood venous Normal Ast 15 U/L 10-35 U/L [facility]: [address] [facility] Blood venous Normal Alt 13 U/L 6-29 U/L Final [facility] [address] [facility] 04/04/2021 CBC W/ Auto Diff Blood venous Normal White B lood Cell Count 8.9 thousand/uL 3.8-10.8 thousand/uL Final [facility]: [address] [facility] Blood venous Normal Red Blood Cell Count 4.8 2 million/uL 3.80-5.10 million/uL Final [facility]: [address] [facility] Blood venous Normal Hemoglobin 14.1 g/dL 11.7-15. 5 g/dL Final [facility]: [address] [facility] Blood venous Normal Hematocrit 42.5 % 35.0-45.0 % Final [facility]: [address] [facility] Blood venous Normal Mcv 88.2 fL 80.0-100.0 fL Fi nal [facility]: [address] [facility] Blood venous Normal Mch 29.3 pg 27.0-33.0 pg Fin al [facility]: [address] [facility] Blood venous Normal Mchc 33.2 g/dL 32.0-36.0 g/dL Final [facility]: [address] [facility] Blood venous Normal Rdw 12.7 % 11.0-15.0 % [facility]: [address] [facility] Blood venous High Platelet Count 401 thous and/uL 140-400 thousand/uL [facility]: [address] [facility] Blood venous Normal Mpv 9.6 fL 7.5-12.5 fL [facility]: [address] [facility] Blood venous Normal Absolute Neutrophils 526 9 cells/uL 3078-1752 cells/uL Final [facility]: [address] [facility] Blood venous Normal Absolute Lymphocytes 272 3 cells/uL 850-3900 cells/uL Final [facility]: [address] [facility] Blood venous Normal Absolute Monocytes 703 c ells/uL 200-950 cells/uL Final [facility]: [address] [place] Blood venous Normal Absolute Eosinophils 151 cells/uL 15-500 cells/uL [facility]: [address] [facility] Blood venous Normal Absolute Basophils 53 ce lls/uL 0-200 cells/uL Final [facility]: [address], [place] Blood venous Normal Neutrophils 59.2 % 38-80 % Fi [facility]: [address] [facility] Blood venous Normal Lymphocytes 30.6 % 15-49 % Fi [facility]: [address] [facility] Blood venous Normal Monocytes 7.9 % 0-13 % [facility]: [address] [facility] Blood venous Normal Eosinophils 1.7 % 0-8 % Fin [facility]: [address] [facility] Blood venous Normal Basophils 0.6 % 0-2 % [facility]: [address] [facility] 04/04/2021 Ferritin Blood venous Normal Ferritin 90 NG/mL 16 -232 NG/mL [facility]: [address] [facility] 09/14/2020 CBC W/ Auto Diff Blood venous Normal White Blood C ount 9.4 10 4.0-10.0 10 [facility]: 83 0 [facility] Blood venous Normal Red Blood Count 4.77 10 4.00- 5.40 10 [facility]: [address] [facility] Blood venous Normal Hemoglobin 13.8 g/dL 12.0-15. 5 g/dL [facility]: [address] [facility] Blood venous Normal Hematocrit 42.8 % 36.0-47.0 % [facility]: [address] [facility] Blood venous Normal Mean Corpuscular Volume 89.7 fL 80.0-96.0 fL [facility]: [address] [facility] Blood venous Normal Mean Corpuscular Hemoglob in 28.9 pg 27.0-33.0 pg [facility]: [address] [facility] Blood venous Normal Mean Corpuscular HGB Conc 32.2 g/dL 32.0-36.5 g/dL [facility]: [address] [facility] Blood venous Normal Red Cell Distribution Wid th 13.0 % 11.5-14.5 % [facility]: [address] [facility] Blood venous Normal Platelet Count, Automated 390 10 150-450 10 [facility]: [address] [facility] Blood venous Normal Neutrophils % 63.8 % 36.0-66. 0 % [facility]: [address] [place] [address] Blood venous Normal Lymph % 25.5 % 24.0-44.0 % Fi [facility]: [address] [place] [address] Blood venous High [place] % 8.1 % 0.0-5.0 % [facility]: [address] [place] [address] Blood venous Normal Eos % 1.9 % 0.0-3.0 % [facility]: [address] [place] [address] Blood venous Normal Baso % 0.5 % 0.0-1.0 % [facility]: [address] [place] [address] Blood venous Normal Immature Granulocyte % 0.2 % 0-3.0 % [facility]: [address] [place] [address] Blood venous Normal Nucleated Red Blood Cell % 0. 0 % 0-0 % [facility]: [address] [place] [address] Blood venous Normal Neutrophils # 6.0 10 1.5-8.5 10 [facility]: [address] [place] [address] Blood venous Normal Lymph # 2.4 10 1.5-5.0 10 [facility]: [address] [place] [address] Blood venous Normal [place] # 0.8 10 0.0-0.8 10 [facility]: [address] [place] [address] Blood venous Normal Eos # 0.2 10 0.0-0.5 10 [facility]: [address] [place] [address] Blood venous Normal Baso # 0.1 10 0.0-0.2 10 [facility]: [address] [place] [address] 09/14/2020 CMP, Serum or Plasma Blood venous High Glu cose, Fasting 101 mg/dL 70-100 mg/dL [facility] nter: [address] [place] [address] Blood venous Normal Blood Urea Nitrogen 12 mg/dL 7-18 mg/dL [facility]: [address] [place] [address] Blood venous Normal Creatinine for GFR 1.01 mg/dL 0.55-1.30 mg/dL [facility]: [address] [facility] Blood venous Normal Glomerular Filtration Rate > 60.0 >51 [facility]: [address] [facility] Blood venous Normal Sodium Level 138 mEq/L 136-14 5 mEq/L [facility]: [address] [facility] Blood venous Normal Potassium Serum 4.4 mEq/L 3.5 -5.1 mEq/L [facility]: [address] [facility] Blood venous Normal Chloride Level 102 mEq/L 98-1 07 mEq/L [facility]: [address] [facility] Blood venous Normal Carbon Dioxide Level 31 mEq/L 21-32 mEq/L [facility]: [address] [facility] Blood venous Low Anion Gap 5 mEq/L 8-16 mEq/L [facility]: [address] [facility] Blood venous Normal Calcium Level 9.3 mg/dL 8.5-1 0.1 mg/dL [facility]: [address] [facility] Blood venous Normal AST/SGOT 30 U/L 7-37 U/L [facility] pham [facility]: [address] [facility] Blood venous Normal ALT/SGPT 37 U/L 12-78 U/L [facility]: [address] [facility] Blood venous High Alkaline Phosphatase 122 U/L 45-117 U/L [facility]: [address] [facility] Blood venous Normal Bilirubin,total 0.3 mg/dL 0.2 -1.0 mg/dL [facility]: [address] [facility] Blood venous Normal Total Protein 7.4 gm/dL 6.4-8 .2 gm/dL [facility]: 0 [facility] Blood venous Normal Albumin 3.7 gm/dL 3.2-5.2 gm/ dL [facility]: [address] [place] [address] Blood venous Low Albumin/globulin Ratio 1.0 1.2-2.2 [facility]: [address] [place] [address] 09/14/2020 Lipid Panel, Blood High Triglycerides Lev el 182 mg/dL <150 mg/dL Final [facility]: [address] 0 [facility] Normal Cholesterol Level 173 mg/dL <200 mg/ dL Final [facility]: [address] [facility] Normal HDL Cholesterol 41 mg/dL >40 mg/dL F inal [facility]: [address] [facility] Normal LDL Cholesterol 96 mg/dL <100 mg/dL Final [facility]: [address] [facility] Normal Non-hdl-c 132 mg/dL Final [facility]: [address] [facility] Normal Cholesterol Risk Ratio 4.219 <5 Final [facility]: [address] [facility] 09/14/2020 TIBC (Total Iron-binding Capacity), Serum Normal Iron (Fe) 55 ug/dL 50-170 ug/dL [facility] nter: [address] [facility] Normal Total Iron Binding Capacity 306 ug/d L 250-450 ug/dL [facility]: [address] [facility] Normal Percent Saturation 18.0 % 13.2-45.0 % [facility]: [address] [facility] 09/14/2020 TSH, Serum or Plasma Blood venous Normal Thyroid Stimulating Hormone 1.810 uIU/mL 0.358-3.740 uIU/mL [facility] ical Center: [address] [facility] 09/14/2020 Ferritin, Serum or Plasma Blood venous Normal Ferritin 112 NG/mL 8-252 NG/mL [facility] nter: [address] [facility] 08/11/2020 SARS CoV 2 RNA (COVID-19), QL, relief worker-PCR, Respiratory Specimen Nasopharyngeal Sars Cov 2 RNA not detected not detected Fi nal Past Encounters 05/17/2021 Maritza Medina PA-C: [address] [place] [address], Ph. 04/28/2021 Tuberculosis Screening Mraitza Medina PA-C: [address] [place] [address], Ph. 04/19/2021 Gynecologic Examination; Vitamin D Deficiency; Body Mass Index 30+ - Obesity; Overactive Bladder; Lumbago with Sciatica; Menopausal Flushing; Hyperlipidemia Maritza Medina PA-C: [address] [place] [phone], Ph. 04/04/2021 Jake Marie MD: [address] [place] [phone], Ph. 12/30/2020 Hypertensive Disorder; Screening Mammography; Wound of Skin Maritza Medina PA-C: [address] [place] [phone], Ph. 09/20/2020 Screening for Malignant Neoplasm of Breast; Hypertensive Disorder; Pain in Left Knee; Urinary Incontinence; Fatigue; Hypokalemia; Gastroesophageal Reflux Disease without Esophagitis; Dysphagia; Hyperlipidemia; Generalized Anxiety Disorder; Long-term Current Use of Hormonal Contraceptive; Polycystic Ovary Syndrome; Mental Health Screening Assessment Maritza Medina PA-C: [address] [place] [phone], Ph. 09/14/2020 Jake Marie MD: [address] [place] [phone], Ph. 08/11/2020 Nasal Congestion; Malaise and Fatigue; Anemia; Hypertensive Disorder; Mixed Anxiety and Depressive Disorder Maritza Medina PA-C: [address] [place] [phone], Ph. Social History Tobacco Smoking Status Never Smoker Vaccine List Notes: declines covid vaccine Plan of Care Patient Instructions Drink plenty [...] Surgeries None recorded. Imaging None recorded. Vitals 05/17/2021 11:10AM NURSE LAB COLLECTION Height 58 in 04/19/2021 08:20AM PAP SMEAR Height Weight BMI Blood Pressure 58 in 152 lbs 16 oz 32 kg/m2 129/88 mm[Hg] 04/04/2021 01:00PM NURSE LAB COLLECTION Height 58 in 12/30/2020 10:40AM ESTABLISHED [id number] Height Weight BMI Blood Pressure 58 in 161 lbs 2 oz 33.7 kg/m2 113/84 mm[Hg] 09/20/2020 10:00AM NEW PATIENT (12yrs - OLDER) Height Weight BMI Blood Pressure 58 in 169 lbs 6 oz 35.4 kg/m2 (1) 142/104 mm [Hg] (2) 139/94 mm[Hg] 08/11/2020 02:20PM NEW ACUTE 20 Height Weight BMI Blood Pressure 58 in 167 lbs 34.9 kg/m2 122/93 mm[Hg]
--- OUTSIDE RECORDS SUMMARY | 2021-07-14 10:31 | CCD | Continuity of Care Document ---
Author Author Ofelia ALVAREZ MD Organization Unknown Address [address] [place] [address] Phone [phone] Care Team Providers Care Jig Borer Name Role Phone Petra Rapp NP AUTM [phone] Maritza Medina AUTM [phone] Problems Description No Information Available Social History Type Date Description Comments Sex Unknown Tobacco Use Reviewed: 04/18/21 Never Smoked Cigarettes Smoking Status Reviewed: 04/18/21 Never Smoked Cigarettes ETOH Use Patient denies alcohol use Allergies, Adverse Reactions, Alerts Description No Known Drug Allergies Medications Active Medications SIG Qnty Indications Ordering Provide r Date Disposable Brief X-Large Misc use as directed 2units Ashkan Alvarez MD 10/21/2020 Oxybutynin Chloride ER 10mg Tablets ER 24HR take one tablet by mouth every day for overactive bladder 30tabs TONI Sharpe 10/18/2020 Atorvastatin Calcium 10mg Tablets Maritza Medina PA Duloxetine HCL 60mg Caps Maritza Harding PA Gabapentin 100mg Capsules Maritza Medina PA Potassium Chloride ER 20Meq Tablets ER Unknown Amlodipine Besylate 10mg Tablets Take One Tablet By Mouth Every Morning Unknown Hydroxyzine HCL 10mg Tablets Take One Tablet By Mouth Every Evening Unknown Metformin HCL ER 500mg Tablets ER 24HR Take One Tablet By Mouth Twice A Day With Food U nknown Pantoprazole Sodium 40mg Tablets D R Take One Tablet By Mouth Twice A Day Unknown Vitamin D3 Super Strength 50mcg (2000 Ut) Tablets Take One Tablet By Mouth Every Day Unknow n Immunizations Description No Information Available Vital Signs Date Vital Result Comment 10/13/2020 11:41am Height 58 inches 4'10" Weight 165.00 lb Weight 74.844 kg BMI (Body Mass Index) 34.5 kg/m2 06/10/2020 2:20pm Height 59 inches 4'11" Weight 165.00 lb Weight 74.844 kg BMI (Body Mass Index) 33.3 kg/m2 BP Systolic 133 mmHg BP Diastolic 90 mmHg Heart Rate 106 /min Results Description No Information Available Procedures Date Code Description Status 04/18/2021 95151 Video Visit Establis [facility] Patient; Office Or Other Outpatient Eval Completed Medical Devices Description No Information Available Encounters Type Date Location Provider Dx Diagnosis Office Visit 04/18/2021 12:00p [facility] Ashkan Alvarez MD N39.41 Urge incontinence Assessments Date Code Description Provider 04/18/2021 N39.41 Urge incontinence Ashkan Alvarez MD Plan of Treatment 04/18/2021 - Ashkan Alvarez MD* N39.41 Urge incontinence* Comments:* Her symptoms are getting worse. She has not responded to multiple medications. I would like her to complete urodynamics testing so we can decide what might be appropriate. She understands that testing involves a catheter in her bladder. She states that she had this done years ago nothing was done about it. I explained to her that that testing is so remote I do not even have records in my chart. I also explained that we would not reschedule her further if she cancels a subsequent appointment Functional Status Functional Condition Comment Date Status Negative for Bipap Inactive Negative for C-Pap Inactive Negative for Oxygen Therapy Inac tive Mental Status Description No Information Available Referrals Refer to Reason for Referral Status Appt Date Ashkan Alvarez MD Created [address] [place] [address] [phone]
--- OUTSIDE RECORDS SUMMARY | 2021-07-14 10:31 | CCD | Continuity of Care Document ---
Author Author Ofelia ALVAREZ MD Organization Unknown Address [address] [place] [id number] Phone [phone] Care Team Providers Care Destaticizer Feeder Name Role Phone Petra Rapp NP AUTM [phone] Maritza Medina AUTM [phone] Problems Description No Information Available Social History [...] Available Procedures Date Code Description Status 04/18/2021 [id number] Video Visit [facility] Patient; Office Or Other Outpatient Eval Completed Medical Devices Description No Information Available Encounters Type Date Location Provider Dx Diagnosis Office Visit 04/18/2021 12:00p [facility]/ [facility] Ashkan Alvarez MD N39.41 Urge [...] Appt Date Ashkan Alvarez MD Created [address] [place] [address] [phone]
[2021-07-14] MEDS ORDERED: ACETAMINOPHEN 500 MG TAB PO ONE (12:45)
--- NOTE | 2021-07-14 12:46 | REP ---
INDICATION: r/o dvt LLE. COMPARISON: None. TECHNIQUE: Multiple ultrasonographic images of the deep venous structures of the left lower extremity were obtained from the inguinal ligament to the ankle. Venous compression techniques, color doppler imaging, and augmentation techniques were also obtained where appropriate. As per the ACR guidelines the anterior tibial vein can not be effectively evaluated. Only compression techniques in the calf on the peroneal and posterior tibial veins was attempted/performed. FINDINGS: There is no abnormal echogenic material seen within any of the visualized deep venous structures that would suggest acute thrombosis. Coaptation is unremarkable throughout. Doppler interrogation shows an expected response to respiratory variability and augmentation in the thigh. Compression techniques in the calf were unobtainable. The color flow images show what appears to be a normal vascular pattern throughout the thigh. IMPRESSION: There is no ultrasonographic evidence of deep venous thrombosis involving any of the visualized deep venous structures of the left lower extremity as described above. Due to technical parameters calf vein DVT can not be ruled out. <Electronically signed by Jin Osorio > 07/14/21 1577
--- NOTE | 2021-07-14 13:28 | REP ---
INDICATION: L knee pain. COMPARISON: None. TECHNIQUE: Five views of the left knee were obtained. FINDINGS: Mild osteopenia is present. The AP view shows a lucency in the cortex of the head of the fibula laterally with a faint lucency with seen through the fibula region of the old epiphyseal line. This is not seen on other views though a hairline nondisplaced fracture cannot be excluded. No other acute osseous abnormality is identified. Minimal sharpening of the intercondylar eminences is noted. No loose body or effusion is evident. IMPRESSION: Possible hairline nondisplaced fracture of the head of the fibula as above. No other acute change is appreciated. <Electronically signed by Arnol Barr > 07/14/21 1212
--- NOTE | 2021-07-14 15:09 | REP ---
INDICATION: r/o fracture. COMPARISON: None. TECHNIQUE: AP and lateral views FINDINGS: No acute fracture or destructive osseous lesion. IMPRESSION: There is no acute osseous abnormality. <Electronically signed by Jin Osorio > 07/14/21 [id number]
--- NOTE | 2021-07-14 15:10 | REP ---
INDICATION: r/o fracture. COMPARISON: None. TECHNIQUE: Four views FINDINGS: No acute fracture or destructive osseous lesion. The mortise is intact. IMPRESSION: No acute osseous abnormality. There is a plantar calcaneal heel spur <Electronically signed by Jin Osorio > 07/14/21 [id number]
== END 2021-07-14 16:14 | disposition home or self-care (01) ==
LOC: M ED 10:24
DX: S82.832A Other fracture of upper and lower end of left fibula, initial encounter for closed fracture (principal); X58.XXXA Exposure to other specified factors, initial encounter; Y92.9 Unspecified place or not applicable; Y93.9 Activity, unspecified; Y99.9 Unspecified external cause status; S86.912A Strain of unspecified muscle(s) and tendon(s) at lower leg level, left leg, initial encounter; M77.32 Calcaneal spur, left foot; M85.862 Other specified disorders of bone density and structure, left lower leg; I10 Essential (primary) hypertension; E78.5 Hyperlipidemia, unspecified; K21.9 Gastro-esophageal reflux disease without esophagitis; F41.9 Anxiety disorder, unspecified; Z79.890 Hormone replacement therapy; Z79.84 Long term (current) use of oral hypoglycemic drugs; Z79.899 Other long term (current) drug therapy

== ENCOUNTER → 2021-08-05 | Outpatient (CLI) | payer OTHER ==
--- NOTE | 2021-08-05 12:43 | REP ---
INDICATION: LT FIB FX. COMPARISON: 09/16/2020 TECHNIQUE: Three views FINDINGS: The compartments are symmetric and well maintained. There is no change from the prior exam. There is no acute osseous abnormality. IMPRESSION: No change <Electronically signed by Jin Osorio > 08/05/21 [id number]
== END ==
LOC: M SOG 10:58
PROVIDERS: ATTEND Orthopaedic Surgery
DX: S82.425A Nondisplaced transverse fracture of shaft of left fibula, initial encounter for closed fracture (principal); X58.XXXA Exposure to other specified factors, initial encounter; Y92.9 Unspecified place or not applicable; Y93.9 Activity, unspecified; Y99.9 Unspecified external cause status

== ENCOUNTER → 2021-08-09 | Outpatient (CLI) | payer OTHER ==
--- NOTE | 2021-08-09 12:16 | REP ---
INDICATION: PAIN IN LATERAL ASPECT LT KNEE, TENDER TO PALPATION. COMPARISON: Radiographs 08/05/2021. TECHNIQUE: Multiple sequences obtained in the axial, coronal and sagittal planes. FINDINGS: Menisci: Intact, no tear. Cruciate ligaments: Intact. Collateral ligaments: Intact. Extensor mechanism/patellar retinacula: Intact. Cartilage: There is moderate diffuse chondromalacia of the patella. There is mild diffuse chondromalacia of the femoral condyles and tibial plateaus. Bone marrow: There is mild diffuse subchondral marrow edema in the patella. Joint fluid: There is a small joint effusion. Popliteal region: No cyst. There is a mild strain or partial tear of the popliteus muscle. IMPRESSION: No evidence of meniscal tear. Cruciate and collateral ligaments intact. Diffuse chondromalacia, most significantly of the patella. Mild subchondral marrow edema in the patella without other abnormal marrow signal. No evidence of occult fracture. Small joint effusion. There is a mild strain or partial tear of the popliteus muscle. <Electronically signed by Jerry Luque > 08/09/21 0103
== END ==
LOC: M RAD 09:51
PROVIDERS: ATTEND Orthopaedic Surgery
DX: M25.562 Pain in left knee (principal); M22.42 Chondromalacia patellae, left knee; M25.462 Effusion, left knee

== ENCOUNTER → 2022-01-05 | Outpatient (CLI) | payer OTHER ==
[~2022-01-05] MED LIST changes: +E-Z-GAS II EFFERVESCENT PACKET (SODIUM BICARB./CITRIC ACID/SIMETHICONE) As Ordered ONE; +E-Z-HD 98% w/w 340GM SUSP BTL As Ordered ONE; +E-Z-PAQUE 96% w/w SUSP 176GM BTL As Ordered ONE; +POTA-151 PO; -POTA20TA6 PO
== END ==
LOC: M RAD 09:05
PROVIDERS: ATTEND Surgery
DX: R14.0 Abdominal distension (gaseous) (principal); K57.50 Diverticulosis of both small and large intestine without perforation or abscess without bleeding

== ENCOUNTER → 2022-03-09 | Outpatient (CLI) | payer OTHER ==
[~2022-03-09] MED LIST changes: -E-Z-GAS II EFFERVESCENT PACKET (SODIUM BICARB./CITRIC ACID/SIMETHICONE) As Ordered ONE; -E-Z-HD 98% w/w 340GM SUSP BTL As Ordered ONE; -E-Z-PAQUE 96% w/w SUSP 176GM BTL As Ordered ONE
== END ==
LOC: M RAD 13:34
PROVIDERS: ATTEND Nurse Practitioner Family
DX: M54.50 Low back pain, unspecified (principal)

== ENCOUNTER 2022-03-10 19:29 | Emergency (ER) | payer OTHER ==
[~2022-03-10] VITALS: Ht 149.9 cm; Wt 75.0 kg
[2022-03-10 19:54] VITALS: BP 127/79
[2022-03-10] MEDS ORDERED: PERCOCET 5MG/325MG TAB PO ONE (20:50)
[2022-03-10] MEDS ORDERED: NORCO 5/325MG TABLET (HOME DOSE PACK) PO ONE (22:35)
== END 2022-03-10 23:34 | disposition home or self-care (01) ==
LOC: EDBD 19:29 → M ED 19:29
DX: S76.012A Strain of muscle, fascia and tendon of left hip, initial encounter (principal); W19.XXXA Unspecified fall, initial encounter; Y92.099 Unspecified place in other non-institutional residence as the place of occurrence of the external cause; R55 Syncope and collapse; I10 Essential (primary) hypertension; E78.5 Hyperlipidemia, unspecified; K21.9 Gastro-esophageal reflux disease without esophagitis; E66.9 Obesity, unspecified; Z79.890 Hormone replacement therapy; Z79.84 Long term (current) use of oral hypoglycemic drugs; Z79.899 Other long term (current) drug therapy

== ENCOUNTER → 2022-06-05 | Outpatient (REF) ==
[2022-06-07 12:08] LABS: HERPES ZOSTER, VARICELLA IgG 1617 index (Immune >165); HERPES ZOSTER, VARICELLA IgM <0.91 index (0.00-0.90); RUBEOLA IgG ANTIBODY 22.3 AU/mL (Immune >16.4)
== END ==
LOC: M LAB 13:58
PROVIDERS: ATTEND Nurse Practitioner Adult Health
DX: Z02.9 Encounter for administrative examinations, unspecified (principal)

== ENCOUNTER → 2022-09-27 | Outpatient (CLI) | payer OTHER | LOC: M RAD 13:22 | PROVIDERS: ATTEND Nurse Practitioner Family | DX: M25.531 Pain in right wrist (principal); M85.631 Other cyst of bone, right forearm ==

== ENCOUNTER 2022-10-08 17:20 | Emergency (ER) | payer OTHER ==
[~2022-10-08] VITALS: Ht 149.9 cm; Wt 76.3 kg
[2022-10-08] MEDS ORDERED: LIDOCAINE W/EPINEPHRINE 1% 20ML VIAL SC ONE (21:05)
[2022-10-08] MEDS ORDERED: DOXY-443 PO (21:20)
[2022-10-08 21:35] VITALS: BP 151/94
== END 2022-10-08 21:48 | disposition home or self-care (01) ==
LOC: M ED 17:20
DX: L73.2 Hidradenitis suppurativa (principal); E11.9 Type 2 diabetes mellitus without complications; I10 Essential (primary) hypertension; K21.9 Gastro-esophageal reflux disease without esophagitis; F41.9 Anxiety disorder, unspecified; Z79.4 Long term (current) use of insulin; Z79.811 Long term (current) use of aromatase inhibitors; Z79.02 Long term (current) use of antithrombotics/antiplatelets; Z79.891 Long term (current) use of opiate analgesic; Z79.899 Other long term (current) drug therapy

== ENCOUNTER 2022-12-05 10:27 | Emergency (ER) | payer OTHER ==
[~2022-12-05] VITALS: Ht 147.3 cm; Wt 75.4 kg
[~2022-12-05 10:27] MED LIST changes: +DOXY-443 PO
[2022-12-05 12:45] VITALS: BP 132/98
[2022-12-05] MEDS ORDERED: CLIN1GEL3 TOP (12:45)
[2022-12-05] MEDS ORDERED: DOXY-443 PO (12:45)
== END 2022-12-05 13:18 | disposition home or self-care (01) ==
LOC: M ED 10:27
DX: L98.491 Non-pressure chronic ulcer of skin of other sites limited to breakdown of skin (principal); L73.2 Hidradenitis suppurativa; I10 Essential (primary) hypertension; E78.5 Hyperlipidemia, unspecified; K21.9 Gastro-esophageal reflux disease without esophagitis; F41.9 Anxiety disorder, unspecified; Z79.84 Long term (current) use of oral hypoglycemic drugs; Z79.899 Other long term (current) drug therapy

== ENCOUNTER 2023-01-29 10:33 | Emergency (ER) | payer OTHER ==
[~2023-01-29] VITALS: Ht 147.3 cm; Wt 75.5 kg
[~2023-01-29 10:33] MED LIST changes: +CLIN1GEL3 TOP
[2023-01-29] MEDS ORDERED: VITA100093 (10:45)
[2023-01-29] MEDS ORDERED: MELO15TA28 (10:45)
[2023-01-29 11:32] LABS: BASO # 0.1 10^3/uL (0.0-0.2); BASO % 0.5 % (0.0-1.0); EOS # 0.2 10^3/uL (0.0-0.5); EOS % 1.7 % (0.0-3.0); HEMATOCRIT 42.6 % (36.0-47.0); HEMOGLOBIN 14.1 g/dl (12.0-15.5); LYMPH # 2.4 10^3/uL (1.5-5.0); MEAN CORPUSCULAR HEMOGLOBIN 29.1 pg (27.0-33.0); MEAN CORPUSCULAR HGB CONC 33.1 g/dl (32.0-36.5); MEAN CORPUSCULAR VOLUME 87.8 fl (80.0-96.0); MONO % 10.7 % (2.0-8.0); NEUTROPHILS # 5.9 10^3/uL (1.5-8.5); NEUTROPHILS % 61.8 % (36.0-66.0); PLATELET COUNT, AUTOMATED 364 10^3/uL (150-450); RED BLOOD COUNT 4.85 10^6/uL (4.00-5.40); WHITE BLOOD COUNT 9.5 10^3/uL (4.0-10.0)
[2023-01-29] MEDS ORDERED: ACETAMINOPHEN 500 MG TAB PO ONE (11:45)
[2023-01-29 12:05] LABS: BLOOD UREA NITROGEN 16 MG/DL (9-23); CALCIUM LEVEL 9.5 MG/DL (8.5-10.1); CARBON DIOXIDE LEVEL 27 MMOL/L (20-31); CHLORIDE LEVEL 102 MMOL/L (98-107); CREATININE FOR GFR 0.89 MG/DL (0.55-1.30); GLOMERULAR FILTRATION RATE > 60.0 (>51); GLUCOSE, FASTING 100 MG/DL (60-100); POTASSIUM SERUM 4.5 MMOL/L (3.5-5.1); SODIUM LEVEL 137 MMOL/L (136-145)
[2023-01-29] MEDS ORDERED: LORazepam 2 MG/ML 1ML VIAL IV STA (13:22)
[2023-01-29] MEDS ORDERED: MECL1TAB31 PO (15:39)
[2023-01-29 16:04] VITALS: BP 132/94
== END 2023-01-29 16:06 | disposition home or self-care (01) ==
LOC: M ED 10:33
DX: R42 Dizziness and giddiness (principal); I10 Essential (primary) hypertension; E78.5 Hyperlipidemia, unspecified; Z79.890 Hormone replacement therapy; Z79.899 Other long term (current) drug therapy
CPT/HCPCS: 70450; 70544; 70551; 72131; 80048; 83880; 85025; 93005; 96374; 99284; J2060

== ENCOUNTER → 2023-06-27 | Outpatient (REF) | payer OTHER ==
[~2023-06-27] MED LIST changes: +MECL-209 PO; +MELO15TA28; +VITA100093
[2023-06-27 14:14] LABS: CHOLESTEROL RISK RATIO 5.19 (<5); HDL CHOLESTEROL 35.8 MG/DL (>40); NON-HDL-C 150.2 MG/DL
== END ==
LOC: M LAB REF 12:37
PROVIDERS: ATTEND Nurse Practitioner Family
DX: E78.5 Hyperlipidemia, unspecified (principal)

== ENCOUNTER 2023-08-19 09:34 | Emergency (ER) | payer OTHER ==
[~2023-08-19] VITALS: Ht 147.3 cm; Wt 75.4 kg
[2023-08-19] MEDS ORDERED: DICL75TA PO (11:55)
[2023-08-19 12:05] VITALS: BP 133/83; TEMP 97.2; O2SAT 96
== END 2023-08-19 12:11 | disposition home or self-care (01) ==
LOC: M ED 09:34
DX: M23.92 Unspecified internal derangement of left knee (principal); I10 Essential (primary) hypertension; E78.5 Hyperlipidemia, unspecified; H81.4 Vertigo of central origin; Z79.02 Long term (current) use of antithrombotics/antiplatelets; Z79.811 Long term (current) use of aromatase inhibitors; Z79.1 Long term (current) use of non-steroidal anti-inflammatories (NSAID); Z79.83 Long term (current) use of bisphosphonates; Z79.899 Other long term (current) drug therapy

== ENCOUNTER 2023-08-30 12:11 | Outpatient (RCR) | payer OTHER ==
[~2023-08-30 12:11] MED LIST changes: +DICL75TA PO
== END 2023-09-02 ==
LOC: M PT 12:11
PROVIDERS: ATTEND Physician Assistant
DX: M25.562 Pain in left knee (principal)

== ENCOUNTER → 2023-10-15 | Outpatient (CLI) | payer OTHER | LOC: M PLAIMG 11:08 | PROVIDERS: ATTEND Physician Assistant | DX: M25.562 Pain in left knee (principal); M23.8X2 Other internal derangements of left knee; M22.42 Chondromalacia patellae, left knee ==

== ENCOUNTER → 2023-12-17 | Outpatient (REF) | payer OTHER ==
[2023-12-17 12:25] LABS: BASO % 0.4 % (0.0-1.0); EOS # 0.2 10^3/uL (0.0-0.5); EOS % 2.5 % (0.0-3.0); HEMOGLOBIN 13.8 g/dl (12.0-15.5); LYMPH # 2.3 10^3/uL (1.5-5.0); LYMPH % 28.3 % (24.0-44.0); MEAN CORPUSCULAR HEMOGLOBIN 29.2 pg (27.0-33.0); MEAN CORPUSCULAR HGB CONC 32.9 g/dl (32.0-36.5); MEAN CORPUSCULAR VOLUME 88.8 fl (80.0-96.0); MONO # 0.6 10^3/uL (0.0-0.8); MONO % 7.4 % (2.0-8.0); NEUTROPHILS # 4.9 10^3/uL (1.5-8.5); NEUTROPHILS % 61.3 % (36.0-66.0); PLATELET COUNT, AUTOMATED 349 10^3/uL (150-450); RED BLOOD COUNT 4.73 10^6/uL (4.00-5.40)
[2023-12-17 12:37] LABS: HEMOGLOBIN A1c 5.7 % (4.0-6.0)
[2023-12-17 12:56] LABS: ALBUMIN 3.7 G/DL (3.2-5.2); ALKALINE PHOSPHATASE 156 U/L (46-116); ALT/SGPT 34 U/L (7.0-40); AST/SGOT 26 U/L (<34); BILIRUBIN,TOTAL 0.5 MG/DL (0.3-1.2); BLOOD UREA NITROGEN 13 MG/DL (9-23); CALCIUM LEVEL 9.5 MG/DL (8.5-10.1); CARBON DIOXIDE LEVEL 31 MMOL/L (20-31); CHLORIDE LEVEL 103 MMOL/L (98-107); CHOLESTEROL LEVEL 174 MG/DL (<200); CHOLESTEROL RISK RATIO 4.29 (<5); CREATININE FOR GFR 0.78 MG/DL (0.55-1.30); GLOMERULAR FILTRATION RATE > 60.0 (>51); GLUCOSE, FASTING 83 MG/DL (60-100); HDL CHOLESTEROL 40.5 MG/DL (>40); LDL CHOLESTEROL 94.7 MG/DL (<100); MAGNESIUM LEVEL 1.8 MG/DL (1.8-2.4); NON-HDL-C 133.5 MG/DL; POTASSIUM SERUM 4.2 MMOL/L (3.5-5.1); SODIUM LEVEL 140 MMOL/L (136-145); TOTAL PROTEIN 7.1 G/DL (5.7-8.2); TRIGLYCERIDES LEVEL 194 MG/DL (<150)
[2023-12-17 12:57] LABS: THYROID STIMULATING HORMONE 1.956 uIU/ML (0.55-4.78)
== END ==
LOC: M LAB REF 11:36
PROVIDERS: ATTEND Nurse Practitioner Family
DX: E66.9 Obesity, unspecified (principal)

== ENCOUNTER 2024-01-14 10:32 | Emergency (ER) | payer OTHER ==
[~2024-01-14 10:32] MED LIST changes: +DOXY-323 PO; -DOXY-443 PO; -MELO15TA28; +MELO15TA28 PO; -VITA100093; +VITA100093 PO
[2024-01-14 11:24] LABS: BASO # 0.1 10^3/uL (0.0-0.2); BASO % 0.7 % (0.0-1.0); EOS # 0.2 10^3/uL (0.0-0.5); EOS % 1.6 % (0.0-3.0); HEMATOCRIT 42.2 % (36.0-47.0); HEMOGLOBIN 13.9 g/dl (12.0-15.5); LYMPH # 2.5 10^3/uL (1.5-5.0); LYMPH % 26.8 % (24.0-44.0); MEAN CORPUSCULAR HEMOGLOBIN 28.6 pg (27.0-33.0); MEAN CORPUSCULAR HGB CONC 32.9 g/dl (32.0-36.5); MEAN CORPUSCULAR VOLUME 86.8 fl (80.0-96.0); MONO # 0.9 10^3/uL (0.0-0.8); MONO % 9.6 % (2.0-8.0); NEUTROPHILS # 5.6 10^3/uL (1.5-8.5); PLATELET COUNT, AUTOMATED 316 10^3/uL (150-450); RED BLOOD COUNT 4.86 10^6/uL (4.00-5.40); WHITE BLOOD COUNT 9.2 10^3/uL (4.0-10.0)
[2024-01-14] MEDS: ONDANSETRON 4MG 2ML VIAL IV ONE (11:38)
[2024-01-14 11:49] LABS: LIPASE 32 U/L (12-53)
[2024-01-14 11:50] LABS: CK-MB VALUE MASS 1.2 NG/ML (<3.6)
[2024-01-14 11:52] LABS: ALBUMIN 3.9 G/DL (3.2-5.2); ALKALINE PHOSPHATASE 160 U/L (46-116); ALT/SGPT 26 U/L (7.0-40); AST/SGOT 22 U/L (<34); BILIRUBIN,DIRECT 0.1 MG/DL (<0.4); BILIRUBIN,TOTAL 0.4 MG/DL (0.3-1.2); TOTAL PROTEIN 7.1 G/DL (5.7-8.2)
[2024-01-14] MEDS ORDERED: ATOR1TAB21 PO (11:53)
[2024-01-14] MEDS ORDERED: MYRB25TA PO (11:53)
[2024-01-14] MEDS ORDERED: NAPR-885 PO (11:53)
[2024-01-14 11:54] LABS: CPK CREATINE PHOSPHOKINASE 123 U/L (34-145); MB/CK RELATIVE INDEX 0.97 (< OR =4)
[2024-01-14] MEDS ORDERED: HOME MED LIST COMPLETE! XX SCH (11:55)
[2024-01-14] MEDS: KETOROLAC 30 MG/ML 1ML VIAL IV ONE (12:10)
[2024-01-14 13:07] LABS: CK-MB VALUE MASS 1.3 NG/ML (<3.6)
[2024-01-14 13:08] LABS: CPK CREATINE PHOSPHOKINASE 124 U/L (34-145); MB/CK RELATIVE INDEX 1.04 (< OR =4)
[2024-01-14 13:17] LABS: AMPHETAMINES LEVEL URINE NEGATIVE (NEGATIVE); BARBITURATES URINE NEGATIVE (NEGATIVE); BENZODIAZEPINES URINE NEGATIVE (NEGATIVE); CANNABINOIDS URINE NEGATIVE (NEGATIVE); COCAINE METABOLITE URINE NEGATIVE (NEGATIVE); METHADONE URINE NEGATIVE (NEGATIVE); OPIATES URINE NEGATIVE (NEGATIVE); PHENCYCLIDINE URINE NEGATIVE (NEGATIVE)
[2024-01-14] MEDS: ACETAMINOPHEN TAB 650MG DOSE (2X325MG) PO ONE (13:26)
[2024-01-14 13:52] VITALS: BP 128/90; TEMP 98.1; O2SAT 98
== END 2024-01-14 14:51 | disposition home or self-care (01) ==
LOC: M ED 10:32
DX: R07.82 Intercostal pain (principal); I10 Essential (primary) hypertension; E78.00 Pure hypercholesterolemia, unspecified; F41.9 Anxiety disorder, unspecified; Z79.899 Other long term (current) drug therapy
CPT/HCPCS: 71101; 80047; 80076; 80307; 81001; 82550; 82553; 83690; 84484; 85025; 93005; 96374; 96375; 99284; J1885; J2405

== ENCOUNTER → 2024-03-28 | Outpatient (REF) | payer OTHER ==
[~2024-03-28] MED LIST changes: +ATOR1TAB21 PO; +MYRB25TA PO; +NAPR-885 PO
[2024-03-28 13:59] LABS: CHOLESTEROL RISK RATIO 5.44 (<5); HDL CHOLESTEROL 33.8 MG/DL (>40); LDL CHOLESTEROL 108.4 MG/DL (<100); NON-HDL-C 150.2 MG/DL
== END ==
LOC: M LAB REF 12:22
PROVIDERS: ATTEND Nurse Practitioner Family
DX: E78.5 Hyperlipidemia, unspecified (principal)

== ENCOUNTER → 2024-03-31 | Outpatient (REF) | payer OTHER ==
[2024-03-31 17:43] LABS: ALBUMIN 4.3 G/DL (3.2-5.2); ALKALINE PHOSPHATASE 172 U/L (46-116); ALT/SGPT 34 U/L (7.0-40); AST/SGOT 26 U/L (<34); BILIRUBIN,TOTAL 0.6 MG/DL (0.3-1.2); BLOOD UREA NITROGEN 16 MG/DL (9-23); CALCIUM LEVEL 9.6 MG/DL (8.5-10.1); CARBON DIOXIDE LEVEL 30 MMOL/L (20-31); CHLORIDE LEVEL 99 MMOL/L (98-107); CREATININE FOR GFR 0.85 MG/DL (0.55-1.30); GLOMERULAR FILTRATION RATE > 60.0 (>51); GLUCOSE, FASTING 73 MG/DL (60-100); POTASSIUM SERUM 4.4 MMOL/L (3.5-5.1); SODIUM LEVEL 135 MMOL/L (136-145); TOTAL PROTEIN 7.4 G/DL (5.7-8.2)
[2024-03-31 17:50] LABS: HEMOGLOBIN A1c 5.9 % (4.0-6.0)
== END ==
LOC: M LAB REF 16:11
PROVIDERS: ATTEND Nurse Practitioner Family
DX: N32.81 Overactive bladder (principal); E66.9 Obesity, unspecified

== ENCOUNTER → 2024-06-09 | Outpatient (REF) | payer OTHER ==
[~2024-06-09] MED LIST changes: -DOXY-323 PO; +DOXY-441 PO
== END ==
LOC: M LAB REF 16:30
PROVIDERS: ATTEND Nurse Practitioner Family
DX: J02.9 Acute pharyngitis, unspecified (principal)

== ENCOUNTER → 2024-06-24 | Outpatient (CLI) | payer OTHER | LOC: M SOG 07:24 | PROVIDERS: ATTEND Physician Assistant | DX: M79.671 Pain in right foot (principal); M77.8 Other enthesopathies, not elsewhere classified ==

== ENCOUNTER → 2024-07-03 | Outpatient (REF) | payer OTHER | LOC: M LAB REF 16:32 | PROVIDERS: ATTEND Nurse Practitioner Family | DX: R05.9 Cough, unspecified (principal) ==

== ENCOUNTER → 2024-07-23 | Outpatient (REF) | payer OTHER ==
[2024-07-23 18:11] LABS: APPEARANCE, URINE CLOUDY (CLEAR); BACTERIA, URINE AUTO NEGATIVE (NEGATIVE); BILIRUBIN, URINE AUTO NEGATIVE (NEGATIVE); BLOOD, URINE BLOOD NEGATIVE (NEGATIVE); COLOR, URINE AMBER (YELLOW); GLUCOSE, URINE (UA) AUTO NEGATIVE (NEGATIVE); KETONE, URINE AUTO NEGATIVE (NEGATIVE); LEUKOCYTE ESTERASE, URINE AUTO NEGATIVE (NEGATIVE); MUCUS, URINE SMALL (NEGATIVE); NITRITE, URINE AUTO NEGATIVE (NEGATIVE); PROTEIN, URINE AUTO NEGATIVE (NEGATIVE); RBC, URINE AUTO 2 /HPF (0-3); SPECIFIC GRAVITY URINE AUTO 1.025 (1.002-1.035); SQUAMOUS EPITHELIAL CELL UR AU 1 /HPF (0-6); UROBILINOGEN, URINE AUTO 0.2 mg/dL (0.0-2.0); WBC, URINE AUTO 3 /HPF (0-3)
== END ==
LOC: M SMT 17:06
PROVIDERS: ATTEND Nurse Practitioner Family
DX: N39.46 Mixed incontinence (principal)

== ENCOUNTER → 2024-07-25 | Outpatient (REF) | payer OTHER ==
[2024-07-25 13:49] LABS: ALBUMIN 3.9 G/DL (3.2-5.2); ALKALINE PHOSPHATASE 154 U/L (35-104); ALT/SGPT 22 U/L (7.0-40); AST/SGOT 17 U/L (<34); BILIRUBIN,TOTAL 0.5 MG/DL (0.3-1.2); BLOOD UREA NITROGEN 16 MG/DL (9-23); CALCIUM LEVEL 10.1 MG/DL (8.5-10.1); CARBON DIOXIDE LEVEL 29 MMOL/L (20-31); CHLORIDE LEVEL 101 MMOL/L (98-107); CHOLESTEROL LEVEL 194 MG/DL (<200); CHOLESTEROL RISK RATIO 5.25 (<5); CREATININE FOR GFR 0.88 MG/DL (0.55-1.30); GLOMERULAR FILTRATION RATE > 60.0 (>51); GLUCOSE, FASTING 128 MG/DL (60-100); HDL CHOLESTEROL 36.9 MG/DL (>40); LDL CHOLESTEROL 122.7 MG/DL (<100); NON-HDL-C 157.1 MG/DL; POTASSIUM SERUM 4.7 MMOL/L (3.5-5.1); SODIUM LEVEL 138 MMOL/L (136-145); TOTAL PROTEIN 7.7 G/DL (5.7-8.2); TRIGLYCERIDES LEVEL 172 MG/DL (<150)
[2024-07-25 14:15] LABS: HEMOGLOBIN A1c 5.9 % (4.0-6.0)
== END ==
LOC: M LAB REF 12:43
PROVIDERS: ATTEND Nurse Practitioner Family
DX: R39.9 Unspecified symptoms and signs involving the genitourinary system (principal); R73.03 Prediabetes; E78.5 Hyperlipidemia, unspecified

== ENCOUNTER → 2024-08-20 | Outpatient (REF) | payer OTHER ==
[2024-08-20 13:27] LABS: APPEARANCE, URINE TURBID (CLEAR); BACTERIA, URINE AUTO 1+ (NEGATIVE); BILIRUBIN, URINE AUTO NEGATIVE (NEGATIVE); BLOOD, URINE BLOOD NEGATIVE (NEGATIVE); COLOR, URINE AMBER (YELLOW); GLUCOSE, URINE (UA) AUTO NEGATIVE (NEGATIVE); KETONE, URINE AUTO NEGATIVE (NEGATIVE); LEUKOCYTE ESTERASE, URINE AUTO TRACE (NEGATIVE); MUCUS, URINE SMALL (NEGATIVE); NITRITE, URINE AUTO NEGATIVE (NEGATIVE); PROTEIN, URINE AUTO NEGATIVE (NEGATIVE); RBC, URINE AUTO 1 /HPF (0-3); SPECIFIC GRAVITY URINE AUTO 1.019 (1.002-1.035); SQUAMOUS EPITHELIAL CELL UR AU 2 /HPF (0-6); UROBILINOGEN, URINE AUTO 0.2 mg/dL (0.0-2.0); WBC, URINE AUTO 22 /HPF (0-3)
== END ==
LOC: M SMT 12:25
PROVIDERS: ATTEND Nurse Practitioner Family
DX: R39.9 Unspecified symptoms and signs involving the genitourinary system (principal)

== ENCOUNTER → 2024-09-25 | Outpatient (REF) | payer OTHER | LOC: M LAB REF 13:02 | PROVIDERS: ATTEND Physician Assistant | DX: J02.9 Acute pharyngitis, unspecified (principal) ==

== ENCOUNTER → 2024-10-01 | Outpatient (REF) | payer OTHER | LOC: M LAB REF 16:23 | PROVIDERS: ATTEND Nurse Practitioner Family | DX: R32 Unspecified urinary incontinence (principal) ==

== ENCOUNTER → 2024-12-03 | Outpatient (REF) | payer OTHER ==
[2024-12-03 19:02] LABS: BASO # 0.1 10^3/uL (0.0-0.2); BASO % 0.5 % (0.0-1.0); EOS # 0.2 10^3/uL (0.0-0.5); EOS % 1.7 % (0.0-3.0); HEMATOCRIT 41.7 % (36.0-47.0); HEMOGLOBIN 13.7 g/dl (12.0-15.5); LYMPH # 2.8 10^3/uL (1.5-5.0); LYMPH % 27.4 % (24.0-44.0); MEAN CORPUSCULAR HEMOGLOBIN 29.2 pg (27.0-33.0); MEAN CORPUSCULAR HGB CONC 32.9 g/dl (32.0-36.5); MEAN CORPUSCULAR VOLUME 88.9 fl (80.0-96.0); MONO # 0.7 10^3/uL (0.0-0.8); MONO % 6.4 % (2.0-8.0); NEUTROPHILS # 6.5 10^3/uL (1.5-8.5); NEUTROPHILS % 63.8 % (36.0-66.0); PLATELET COUNT, AUTOMATED 372 10^3/uL (150-450); RED BLOOD COUNT 4.69 10^6/uL (4.00-5.40); WHITE BLOOD COUNT 10.1 10^3/uL (4.0-10.0)
[2024-12-03 19:04] LABS: ALBUMIN 3.9 G/DL (3.2-5.2); ALKALINE PHOSPHATASE 127 U/L (35-104); ALT/SGPT 26 U/L (7.0-40); AST/SGOT 21 U/L (<34); BILIRUBIN,TOTAL 0.3 MG/DL (0.3-1.2); BLOOD UREA NITROGEN 13 MG/DL (9-23); CALCIUM LEVEL 9.5 MG/DL (8.5-10.1); CARBON DIOXIDE LEVEL 29 MMOL/L (20-31); CHLORIDE LEVEL 100 MMOL/L (98-107); CHOLESTEROL LEVEL 265 MG/DL (<200); CHOLESTEROL RISK RATIO 6.55 (<5); CREATININE FOR GFR 0.99 MG/DL (0.55-1.30); GLOMERULAR FILTRATION RATE > 60.0 (>51); GLUCOSE, FASTING 112 MG/DL (60-100); HDL CHOLESTEROL 40.4 MG/DL (>40); LDL CHOLESTEROL 175.4 MG/DL (<100); MAGNESIUM LEVEL 2.1 MG/DL (1.8-2.4); NON-HDL-C 224.6 MG/DL; POTASSIUM SERUM 4.2 MMOL/L (3.5-5.1); SODIUM LEVEL 137 MMOL/L (136-145); TOTAL PROTEIN 7.5 G/DL (5.7-8.2); TRIGLYCERIDES LEVEL 246 MG/DL (<150)
[2024-12-03 19:06] LABS: THYROID STIMULATING HORMONE 2.066 uIU/ML (0.55-4.78)
[2024-12-03 19:22] LABS: TOTAL 25(OH) VITAMIN D 30.9 NG/ML (20.0-100.0)
[2024-12-03 19:28] LABS: HEMOGLOBIN A1c 5.4 % (4.0-6.0)
== END ==
LOC: M LAB REF 17:25
PROVIDERS: ATTEND Nurse Practitioner Family
DX: E78.5 Hyperlipidemia, unspecified (principal); R73.03 Prediabetes; E55.9 Vitamin D deficiency, unspecified; E66.9 Obesity, unspecified

== ENCOUNTER → 2025-03-19 | Outpatient (CLI) | payer OTHER ==
[~2025-03-19] MED LIST changes: +ATOR40TA75 PO; +LORA-1041 PO; +METF-838 PO; +NITR50CA34 PO
[2025-03-19 12:02] LABS: PLATELET COUNT, AUTOMATED 328 10^3/uL (150-450)
[2025-03-19 12:27] LABS: ALT/SGPT 37.0 U/L (7.0-40); AST/SGOT 32.0 U/L (<34); CALCIUM LEVEL 9.6 MG/DL (8.5-10.1); CARBON DIOXIDE LEVEL 32.0 MMOL/L (20-31); CHLORIDE LEVEL 99.0 MMOL/L (98-107); CREATININE FOR GFR 0.9 MG/DL (0.55-1.30); GLOMERULAR FILTRATION RATE 75.0 (>51); POTASSIUM SERUM 4.2 MMOL/L (3.5-5.1); SODIUM LEVEL 140.0 MMOL/L (136-145)
== END ==
LOC: M EKG 11:08
PROVIDERS: ATTEND Urology
DX: N39.41 Urge incontinence (principal); N30.20 Other chronic cystitis without hematuria; I45.10 Unspecified right bundle-branch block; Z87.440 Personal history of urinary (tract) infections

== ENCOUNTER → 2025-03-24 | Outpatient (REF) | payer OTHER ==
[~2025-03-24] MED LIST changes: +MACR100C43 PO
[2025-03-24 16:42] LABS: APPEARANCE, URINE HAZY (CLEAR); BACTERIA, URINE AUTO NEGATIVE (NEGATIVE); BILIRUBIN, URINE AUTO NEGATIVE (NEGATIVE); BLOOD, URINE BLOOD NEGATIVE (NEGATIVE); GLUCOSE, URINE (UA) AUTO NEGATIVE (NEGATIVE); KETONE, URINE AUTO NEGATIVE (NEGATIVE); LEUKOCYTE ESTERASE, URINE AUTO NEGATIVE (NEGATIVE); MUCUS, URINE SMALL (NEGATIVE); NITRITE, URINE AUTO NEGATIVE (NEGATIVE); PROTEIN, URINE AUTO NEGATIVE (NEGATIVE); RBC, URINE AUTO 2 /HPF (0-3); SPECIFIC GRAVITY URINE AUTO 1.014 (1.002-1.035); SQUAMOUS EPITHELIAL CELL UR AU 1 /HPF (0-6); UROBILINOGEN, URINE AUTO 0.2 mg/dL (0.0-2.0); WBC, URINE AUTO 0 /HPF (0-3)
== END ==
LOC: M SMT 16:09
PROVIDERS: ATTEND Urology
DX: Z87.440 Personal history of urinary (tract) infections (principal)

== ENCOUNTER 2025-03-30 06:44 | Day surgery (SDC) | payer OTHER ==
[~2025-03-30] VITALS: Ht 147.3 cm; Wt 71.8 kg
[~2025-03-30 06:44] MED LIST changes: -MACR100C43 PO
[2025-03-30] MEDS ORDERED: LR 1,000 ML IV SCH ×2 (07:10→09:05)
[2025-03-30] MEDS: BOTOX THERAPEUTIC 100 UNIT VIAL As Ordered ONE (08:11)
[2025-03-30] MEDS: ceFAZolin SOD 2 GM IV ONCE IV ONE (08:27)
[2025-03-30] MEDS ORDERED: MIDAZOLAM INJ 2 MG/2 ML VIAL As Ordered ONE (08:29)
[2025-03-30] MEDS ORDERED: MACR100C43 PO (08:58)
[2025-03-30] MEDS ORDERED: ONDANSETRON 4MG 2ML VIAL As Ordered ONE (08:59)
[2025-03-30] MEDS ORDERED: ONDANSETRON 4MG 2ML VIAL IV PRN (09:05)
[2025-03-30] MEDS ORDERED: HYDROMORPHONE HCL 0.5 MG/0.5 ML SYRINGE IV PRN (09:05)
[2025-03-30 10:42] VITALS: BP 136/89; TEMP 96.7; O2SAT 98
== END 2025-03-30 10:44 | disposition home or self-care (01) ==
LOC: M SDC 06:44
PROVIDERS: ATTEND Urology
DX: N39.46 Mixed incontinence (principal); I10 Essential (primary) hypertension; R73.03 Prediabetes; E78.00 Pure hypercholesterolemia, unspecified; K21.9 Gastro-esophageal reflux disease without esophagitis; Z79.899 Other long term (current) drug therapy; Z79.84 Long term (current) use of oral hypoglycemic drugs; Z79.1 Long term (current) use of non-steroidal anti-inflammatories (NSAID); Z87.440 Personal history of urinary (tract) infections
CPT/HCPCS: 51715; J0585; J0690; J2250; J2405; J3010; L8606

== ENCOUNTER → 2025-04-13 | Outpatient (REF) | payer OTHER ==
[~2025-04-13] MED LIST changes: +MACR100C43 PO
[2025-04-13 13:26] LABS: ALT/SGPT 23.0 U/L (7.0-40); AST/SGOT 24.0 U/L (<34); CALCIUM LEVEL 9.5 MG/DL (8.5-10.1); CARBON DIOXIDE LEVEL 29.0 MMOL/L (20-31); CHLORIDE LEVEL 102.0 MMOL/L (98-107); CHOLESTEROL LEVEL 183.0 MG/DL (<200); CHOLESTEROL RISK RATIO 4.8 (<5); CREATININE FOR GFR 0.84 MG/DL (0.55-1.30); GLOMERULAR FILTRATION RATE 81.5 (>51); LDL CHOLESTEROL 100.5 MG/DL (<100); NON-HDL-C 144.9 MG/DL; POTASSIUM SERUM 4.6 MMOL/L (3.5-5.1); SODIUM LEVEL 141.0 MMOL/L (136-145); TRIGLYCERIDES LEVEL 222.0 MG/DL (<150)
== END ==
LOC: M LAB REF 11:46
PROVIDERS: ATTEND Nurse Practitioner Family
DX: E78.5 Hyperlipidemia, unspecified (principal)

== ENCOUNTER → 2025-04-15 | Outpatient (REF) | payer OTHER ==
[2025-04-15 13:36] LABS: APPEARANCE, URINE HAZY (CLEAR); BACTERIA, URINE AUTO NEGATIVE (NEGATIVE); BILIRUBIN, URINE AUTO NEGATIVE (NEGATIVE); BLOOD, URINE BLOOD NEGATIVE (NEGATIVE); GLUCOSE, URINE (UA) AUTO NEGATIVE (NEGATIVE); KETONE, URINE AUTO NEGATIVE (NEGATIVE); LEUKOCYTE ESTERASE, URINE AUTO NEGATIVE (NEGATIVE); MUCUS, URINE SMALL (NEGATIVE); NITRITE, URINE AUTO NEGATIVE (NEGATIVE); PROTEIN, URINE AUTO NEGATIVE (NEGATIVE); RBC, URINE AUTO 0 /HPF (0-3); SPECIFIC GRAVITY URINE AUTO 1.016 (1.002-1.035); SQUAMOUS EPITHELIAL CELL UR AU 6 /HPF (0-6); UROBILINOGEN, URINE AUTO 0.2 mg/dL (0.0-2.0); WBC, URINE AUTO 1 /HPF (0-3)
== END ==
LOC: M SMT 13:03
PROVIDERS: ATTEND Nurse Practitioner Family
DX: R32 Unspecified urinary incontinence (principal)

== ENCOUNTER → 2025-04-21 | Outpatient (CLI) | payer OTHER | LOC: M RAD 12:37 | PROVIDERS: ATTEND Student in an Organized Health Care Education/Training Program | DX: M25.512 Pain in left shoulder (principal); M75.32 Calcific tendinitis of left shoulder; M19.012 Primary osteoarthritis, left shoulder; M54.41 Lumbago with sciatica, right side; G89.29 Other chronic pain ==

== ENCOUNTER → 2025-04-28 | Outpatient (REF) | payer OTHER ==
[2025-04-28 13:19] LABS: APPEARANCE, URINE CLEAR (CLEAR); BACTERIA, URINE AUTO NEGATIVE (NEGATIVE); BILIRUBIN, URINE AUTO NEGATIVE (NEGATIVE); BLOOD, URINE BLOOD NEGATIVE (NEGATIVE); GLUCOSE, URINE (UA) AUTO NEGATIVE (NEGATIVE); KETONE, URINE AUTO NEGATIVE (NEGATIVE); LEUKOCYTE ESTERASE, URINE AUTO NEGATIVE (NEGATIVE); NITRITE, URINE AUTO NEGATIVE (NEGATIVE); PROTEIN, URINE AUTO NEGATIVE (NEGATIVE); RBC, URINE AUTO 0 /HPF (0-3); SPECIFIC GRAVITY URINE AUTO 1.017 (1.002-1.035); SQUAMOUS EPITHELIAL CELL UR AU 1 /HPF (0-6); UROBILINOGEN, URINE AUTO 2.0 mg/dL (0.0-2.0); WBC, URINE AUTO 1 /HPF (0-3)
== END ==
LOC: M SMT 12:54
PROVIDERS: ATTEND Nurse Practitioner Family
DX: Z87.440 Personal history of urinary (tract) infections (principal)

== ENCOUNTER → 2025-06-17 | Outpatient (REF) | payer OTHER | LOC: M LAB REF 11:48 | PROVIDERS: ATTEND Student in an Organized Health Care Education/Training Program | DX: N32.81 Overactive bladder (principal) ==

== ENCOUNTER → 2025-06-19 | Outpatient (CLI) | payer OTHER ==
[2025-06-19 10:32] LABS: PLATELET COUNT, AUTOMATED 363 10^3/uL (150-450)
[2025-06-19 11:01] LABS: CALCIUM LEVEL 9.2 MG/DL (8.5-10.1); CARBON DIOXIDE LEVEL 31.0 MMOL/L (20-31); CHLORIDE LEVEL 102.0 MMOL/L (98-107); CREATININE FOR GFR 0.84 MG/DL (0.55-1.30); GLOMERULAR FILTRATION RATE 81.5 (>51); POTASSIUM SERUM 4.5 MMOL/L (3.5-5.1); SODIUM LEVEL 142.0 MMOL/L (136-145)
[2025-06-19 11:02] LABS: APPEARANCE, URINE CLEAR (CLEAR); BACTERIA, URINE AUTO NEGATIVE (NEGATIVE); BILIRUBIN, URINE AUTO NEGATIVE (NEGATIVE); BLOOD, URINE BLOOD NEGATIVE (NEGATIVE); GLUCOSE, URINE (UA) AUTO NEGATIVE (NEGATIVE); KETONE, URINE AUTO NEGATIVE (NEGATIVE); LEUKOCYTE ESTERASE, URINE AUTO NEGATIVE (NEGATIVE); MUCUS, URINE SMALL (NEGATIVE); NITRITE, URINE AUTO NEGATIVE (NEGATIVE); PROTEIN, URINE AUTO NEGATIVE (NEGATIVE); RBC, URINE AUTO 1 /HPF (0-3); SPECIFIC GRAVITY URINE AUTO 1.019 (1.002-1.035); SQUAMOUS EPITHELIAL CELL UR AU 1 /HPF (0-6); UROBILINOGEN, URINE AUTO 0.2 mg/dL (0.0-2.0); WBC, URINE AUTO 1 /HPF (0-3)
== END ==
LOC: M LAB 09:46
PROVIDERS: ATTEND Nurse Practitioner Family
DX: Z01.818 Encounter for other preprocedural examination (principal)

== ENCOUNTER 2025-06-22 08:58 | Day surgery (SDC) | payer OTHER ==
[~2025-06-22] VITALS: Ht 147.3 cm; Wt 70.6 kg
[~2025-06-22 08:58] MED LIST changes: +LIDOCAINE 2% 100 MG/5 ML SDV (FOR ANES.) As Ordered ONE; +ONDANSETRON 4MG/2ML VIAL As Ordered ONE; +dexAMETHasone 4 MG/ML 1 ML VIAL As Ordered ONE
[2025-06-22] MEDS: LR 1,000 ML IV SCH (09:45)
[2025-06-22] MEDS ORDERED: MIDAZOLAM INJ 2 MG/2 ML VIAL As Ordered ONE (09:47)
[2025-06-22] MEDS: IPRATROPIUM 0.5 MG/ALBUTEROL 2.5 MG INH SOL UD 3 ML NEB ONE (10:33)
[2025-06-22] MEDS: ceFAZolin SOD 2 GM IV ONCE IV ONE (10:56)
[2025-06-22] MEDS ORDERED: ACETAMINOPHEN 1000MG/100ML IV BAG As Ordered ONE (11:00)
[2025-06-22] MEDS ORDERED: ONDANSETRON 4MG/2ML VIAL IV PRN (11:10)
[2025-06-22] MEDS ORDERED: MORPHINE 4 MG/ML 1 ML VIAL IV PRN (11:10)
[2025-06-22 12:45] VITALS: BP 154/87; TEMP 96.7; O2SAT 95
== END 2025-06-22 12:51 | disposition home or self-care (01) ==
LOC: M SDC 08:58
PROVIDERS: ATTEND Urology
DX: N39.3 Stress incontinence (female) (male) (principal); I10 Essential (primary) hypertension; E78.00 Pure hypercholesterolemia, unspecified; K21.9 Gastro-esophageal reflux disease without esophagitis; Z79.899 Other long term (current) drug therapy; R73.03 Prediabetes; Z79.84 Long term (current) use of oral hypoglycemic drugs; Z79.1 Long term (current) use of non-steroidal anti-inflammatories (NSAID); F41.9 Anxiety disorder, unspecified
CPT/HCPCS: 51715; J0131; J0688; J1100; J2250; J2405; J3010; L8606

== ENCOUNTER 2025-07-10 11:05 | Emergency (ER) | payer OTHER ==
[~2025-07-10] VITALS: Ht 147.3 cm; Wt 71.1 kg
[~2025-07-10 11:05] MED LIST changes: -LIDOCAINE 2% 100 MG/5 ML SDV (FOR ANES.) As Ordered ONE; -ONDANSETRON 4MG/2ML VIAL As Ordered ONE; -dexAMETHasone 4 MG/ML 1 ML VIAL As Ordered ONE
[2025-07-10 13:41] VITALS: BP 134/85; TEMP 97.7; O2SAT 97
== END 2025-07-10 13:45 | disposition home or self-care (01) ==
LOC: M ED 11:05
DX: J06.9 Acute upper respiratory infection, unspecified (principal); Z20.9 Contact with and (suspected) exposure to unspecified communicable disease; Z79.890 Hormone replacement therapy; Z79.899 Other long term (current) drug therapy